=== PATIENT | male | born 1965 | race Caucasian/White ===

== ENCOUNTER → 2020-05-08 15:08 | Outpatient (BNVA) | payer MEDICARE, MEDICAID, SELFPAY | PROVIDERS: PCP Internal Medicine; Referring Provider Internal Medicine; Visit Provider Internal Medicine | DX: I26.99 Other pulmonary embolism without acute cor pulmonale (principal); Z51.81 Encounter for therapeutic drug level monitoring; Z79.01 Long term (current) use of anticoagulants | CPT/HCPCS: 85610; 99211 ==

== ENCOUNTER 2020-05-24 14:56 | Outpatient (REF) | payer MEDICARE, MEDICAID, SELFPAY ==
--- NOTE | 2020-05-24 15:10 | XR_ITS ---
EXAMINATION: XR knee LT 3V, XR knee RT 3V CLINICAL INFORMATION: Reason for Exam M25.561 - Pain in right knee COMPARISON: None available at the time of this dictation. TECHNIQUE: frontal, lateral, tunnel and patella sunrise views bilateral FINDINGS: BONES: No fracture or dislocation is present. JOINTS: Mild narrowing of medial joint space compartments bilaterally suggesting mild DJD. There is no joint effusion. 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 No joint effusions.
== END 2020-05-24 14:57 | disposition home or self-care (01) ==
LOC: HO.XRAY 14:56
PROVIDERS: Visit Provider Physician Assistant
DX: M25.561 Pain in right knee (principal)
CPT/HCPCS: 73562; 85610; 99211

== ENCOUNTER 2020-06-01 16:23 | Outpatient (REF) | payer MEDICARE, MEDICAID, SELFPAY ==
--- NOTE | 2020-06-01 16:29 | MR_ITS ---
EXAMINATION: MR LUMBAR SPINE WITHOUT AND WITH CONTRAST CLINICAL INFORMATION: Post laminectomy syndrome. Bilateral leg tingling. COMPARISON: Lumbar spine 04/19/2013, MRI lumbar spine 07/19/2010. TECHNIQUE: MRI of the lumbar spine was obtained using routine sequences with and without contrast. Intravenous contrast: Gadavist 10 mL. FINDINGS: There is normal lumbar lordosis. There is a disc prosthesis at L4-L5 disc level for fusion. The rest of the disc levels and the disc signal is preserved. The vertebral heights and alignment appear normal. The L1-L2, L2-L3, L3-L4 disc levels are unremarkable. The neural foramina are widely patent. At L4-L5 disc level, there is a disc prosthesis with a capacious thecal sac and widely patent neural foramina. At L5-S1 disc level, there is no significant disc bulge, herniation or spinal stenosis. There is slightly increased bone marrow signal in the L4-L5 vertebra related to paramagnetic artifact from the disc prosthesis. The rest of the bone marrow signal is normal. Conus medullaris terminates at T12-L1 disc level. Postcontrast, there is no abnormal enhancement seen in the bone marrow or the spinal canal. The paravertebral soft tissues are unremarkable. MR/MR lumbar spine wo/w con IMPRESSION: Disc prosthesis with postoperative changes L4-L5 disc level. The thecal sac and the neural foramina are capacious at this disc level. The rest of the disc levels and the rest of the MRI pre and postcontrast appear unremarkable.
== END 2020-06-01 16:24 | disposition home or self-care (01) ==
LOC: HO.MRI 16:23
PROVIDERS: Visit Provider Physician Assistant
DX: M96.1 Postlaminectomy syndrome, not elsewhere classified (principal)
CPT/HCPCS: 72158; A9585

== ENCOUNTER → 2020-06-12 14:11 | Outpatient (BNVA) | payer MEDICARE, MEDICAID, SELFPAY | PROVIDERS: PCP Internal Medicine; Visit Provider Internal Medicine | DX: I26.99 Other pulmonary embolism without acute cor pulmonale (principal); Z79.01 Long term (current) use of anticoagulants; Z51.81 Encounter for therapeutic drug level monitoring | CPT/HCPCS: 85610; 99211 ==

== ENCOUNTER → 2020-07-10 13:57 | Outpatient (BNVA) | payer MEDICARE, MEDICAID, SELFPAY | PROVIDERS: PCP Internal Medicine; Visit Provider Internal Medicine | DX: I26.99 Other pulmonary embolism without acute cor pulmonale (principal); Z51.81 Encounter for therapeutic drug level monitoring; Z79.01 Long term (current) use of anticoagulants | CPT/HCPCS: 85610; 99211 ==

== ENCOUNTER → 2020-08-07 13:04 | Outpatient (BNVA) | payer MEDICARE, MEDICAID, SELFPAY | PROVIDERS: PCP Internal Medicine; Visit Provider Internal Medicine | DX: I26.99 Other pulmonary embolism without acute cor pulmonale (principal); Z51.81 Encounter for therapeutic drug level monitoring; Z79.01 Long term (current) use of anticoagulants | CPT/HCPCS: 85610; 99211 ==

== ENCOUNTER → 2020-08-22 13:01 | Outpatient (BNVA) | payer MEDICARE, MEDICAID, SELFPAY | PROVIDERS: PCP Internal Medicine; Visit Provider Internal Medicine | DX: I26.99 Other pulmonary embolism without acute cor pulmonale (principal); Z51.81 Encounter for therapeutic drug level monitoring; Z79.01 Long term (current) use of anticoagulants | CPT/HCPCS: 85610; 99211 ==

== ENCOUNTER → 2020-08-25 09:49 | Outpatient (BNVA) | payer MEDICARE, MEDICAID, SELFPAY | PROVIDERS: PCP Internal Medicine; Visit Provider Internal Medicine | DX: I26.99 Other pulmonary embolism without acute cor pulmonale (principal); Z51.81 Encounter for therapeutic drug level monitoring; Z79.01 Long term (current) use of anticoagulants | CPT/HCPCS: 85610; 99211 ==

== ENCOUNTER → 2020-09-07 09:26 | Outpatient (BNVA) | payer MEDICARE, MEDICAID, SELFPAY | PROVIDERS: PCP Internal Medicine; Visit Provider Internal Medicine | DX: I26.99 Other pulmonary embolism without acute cor pulmonale (principal); Z51.81 Encounter for therapeutic drug level monitoring; Z79.01 Long term (current) use of anticoagulants | CPT/HCPCS: 85610; 99211 ==

== ENCOUNTER → 2020-09-20 10:31 | Outpatient (BNVA) | payer MEDICARE, MEDICAID, SELFPAY | PROVIDERS: PCP Internal Medicine; Visit Provider Internal Medicine | DX: I26.99 Other pulmonary embolism without acute cor pulmonale (principal); Z51.81 Encounter for therapeutic drug level monitoring; Z79.01 Long term (current) use of anticoagulants | CPT/HCPCS: 85610; 99211 ==

== ENCOUNTER → 2020-10-09 13:23 | Outpatient (BNVA) | payer MEDICARE, MEDICAID, SELFPAY | PROVIDERS: PCP Internal Medicine; Visit Provider Internal Medicine | DX: I26.99 Other pulmonary embolism without acute cor pulmonale (principal); Z51.81 Encounter for therapeutic drug level monitoring; Z79.01 Long term (current) use of anticoagulants | CPT/HCPCS: 85610; 99211 ==

== ENCOUNTER 2020-10-18 12:56 | Emergency (ER) | payer MEDICARE, MEDICAID, SELFPAY ==
--- NOTE | ~2020-10-18 | CT_ITS ---
EXAMINATION: CT SOFT TISSUE NECK WITH CONTRAST CLINICAL INFORMATION: Right facial swelling COMPARISON: None TECHNIQUE: Following the intravenous administration of 100 mL of Omnipaque 350 intravenous contrast, helical imaging was performed in the axial plane with generation of coronal and sagittal reformatted images. This CT examination was performed using dose optimization techniques as appropriate, variously including the following: *Automated exposure control *Adjustment of mA and/or kV according to patient size (this includes techniques or standardized protocols for targeted exams where dose is matched to indication/reason for exam; i.e. extremities or head) *Use of iterative reconstruction technique DLP: 695 mGy-cm FINDINGS: No cervical adenopathy is identified. The parotid glands are homogeneous in attenuation. The submandibular glands are normal. No contour abnormality or pathologic enhancement is seen within the oral cavity or pharyngeal mucosal space. There is minimal premaxillary soft tissue swelling slightly greater on the left. There is a soft tissue mass in the left maxilla extending inferiorly into the infratemporal fossa and superiorly into the maxillary sinus. It is solid 40 Hounsfield units and measures 2.3 x 2.2 x 2.3 cm in size.. There is erosion of left lateral maxillary wall from this lesion. The laryngeal structures are normal. The parapharyngeal fat is preserved. The carotid sheath vasculature opacify normally. No extra mucosal soft tissue mass or fluid collection is seen. No retropharyngeal fluid collection is seen. There are surgical debbie in the thyroid bed from total thyroidectomy. The superior mediastinum is unremarkable. There is mild emphysema changes in both lung apices. The mastoid air cells and visualized portions of the paranasal sinuses are well-aerated. Patient is completely edentulous. The temporomandibular joints are normal. No periapical disease is identified. No osseous abnormalities are seen. The imaged portions of the brain parenchyma are unremarkable. CT/CT soft tissue neck w con IMPRESSION: There is a moderate-sized solid lesion arising of the left posterior maxilla and projecting into the infratemporal fossa inferiorly and superiorly into the maxillary sinus. Measurement as shown above.. Differential diagnoses includes non dentigerous lesion arising from the maxilla of the sinus versus benign polyp or retention cyst. There is erosion of the left lateral maxillary wall. There is abnormality produces anterior maxillary soft tissue swelling left greater than right. Mild emphysema in both lung apices. Rest of the visualized CT neck exam is unremarkable.
[2020-10-18 13:00] VITALS: BP 166/86; PULSE 90; RESP 16; TEMP 36.5; O2SAT 96; BMI 28.7
[2020-10-18 14:09] LABS: MANUAL DIFF FLAG NO
[2020-10-18 14:10] LABS: Basophils Percent Auto 0.4 % (0-2); Eosinophils Absolute Auto 0.1 X10*3/uL (0.0-0.4); Eosinophils Percent Auto 0.9 % (0-4); Hematocrit 48.2 % (42-52); Hemoglobin 15.9 g/dl (14.0-18.0); Imm Gran Abs Auto 0.04 X10*3/uL (0.00-0.03); Imm Gran Pct Auto 0.5 % (0.0-0.4); Lymphocytes Absolute Auto 3.1 X10*3/uL (1.2-4.9); Lymphocytes Percent Auto 36.6 % (20-40); Mean Corpuscular Hemoglobin 32.1 pg (27.0-33.0); Mean Corpuscular Volume 97.4 fL (80-98); Mean Platelet Volume 8.2 fL (9.4-12.4); Monocytes Absolute Auto 0.4 X10*3/uL (0.1-1.2); Monocytes Percent Auto 4.6 % (2-11); Neutrophils Absolute Auto 4.9 X10*3/uL (2.0-8.3); Platelet Count 210 X10*3/uL (160-400); Red Blood Count 4.95 X10*6/uL (4.60-5.80); Red Cell Distribution Width 12.9 % (11.0-16.0); White Blood Count 8.6 X10*3/uL (4.8-10.8)
--- NOTE | 2020-10-18 14:14 | ED_ITS ---
HPI - Skin/Abscess/Foreign Bdy General Chief complaint: Ear Problems Stated complaint: facial swelling Time Seen by Provider: 10/18/20 13:26 Source: patient and family Mode of arrival: ambulatory Limitations: no limitations History of Present Illness HPI narrative: 55-year-old male with a past medical history of pulmonary embolism and DVT currently on Coumadin presenting to the ED with complaints of left facial swelling radiating to his left ear for the past few days worse today. Reports that he was seen by an urgent care on Friday and placed on a Z- Devaughn and no improvement and feels like his symptoms are worse. Reports that all his Teeth were extracted years ago although he does wear dentures. MD complaint: other (Facial swelling) Onset (ago): day(s) (Four days worse today) Tetanus up to date: unsure Location: face Severity: moderate Quality: aching Pain Consistency: constant Relieving factors: none Exacerbating factors: palpation Context: none Associated symptoms: other (Ear pain) Treatments prior to arrival: other (Took a Z-Devaughn and is still currently on a Z- Devaughn and no symptomatic relief or improvement symptoms are worsening) Related Data Home Medications Medication Instructions Recorded Confirmed buprenorphine 8 mg-naloxone 2 mg 30 mg SUBLINGUAL DAILY 05/18/20 10/18/20 sublingual film cholecalciferol (vitamin D3) 25 25 mcg PO DAILY 05/18/20 10/18/20 mcg (1,000 unit) tablet diazepam 10 mg tablet 10 mg PO BID PRN 05/18/20 10/18/20 docusate sodium 100 mg capsule 100 mg PO DAILY 05/18/20 10/18/20 levothyroxine 175 mcg tablet 175 mcg PO DAILY 05/18/20 10/18/20 oxcarbazepine 300 mg tablet 0 mg PO 05/18/20 10/18/20 prednisone 10 mg tablet 10 mg PO BID 05/18/20 09/20/20 testosterone 2 mg/24 hour 1 patch TOPICAL DAILY 05/18/20 10/18/20 transdermal 24 hour patch trazodone 150 mg tablet [id number] mg PO BEDTIME 05/18/20 10/18/20 Previous Rx's Medication Instructions Recorded warfarin 5 mg tablet 5 mg PO DAILY #180 tab 05/15/20 erythromycin 5 mg/gram (0.5 %) eye 1 applic OPHTHALMIC (EYE) QID #3.5 06/08/20 ointment g ofloxacin 0.3 % eye drops See Rx Instructions 06/08/20 OPHTHALMIC-LEFT .COMPLEX #10 ml allopurinol 300 mg tablet 300 mg PO DAILY #90 tab 06/12/20 azithromycin 500 mg tablet 500 mg PO DAILY 5 Days #5 tab 10/16/20 oxycodone-acetaminophen 10 mg-325 1 tab PO Q6H PRN #10 tab 10/16/20 mg tablet clindamycin HCl 600 mg PO TID 10 Days #60 cap 10/18/20 ibuprofen 800 mg PO Q8H PRN #14 tab 10/18/20 oxycodone 5 mg PO BID PRN #10 tab 10/18/20 Allergies Allergy/AdvReac Type Severity Reaction Status Date / Time Penicillins Allergy Severe ANAPHYLAXIS Verified 10/18/20 12:05 Sulfa (Sulfonamide Allergy Intermediate HIVES Verified 10/18/20 12:05 Antibiotics) Review of Systems Review of Systems: Constitutional : No Fever, No Chills, No changes in PO intake, No difficulty speaking, no recent dental procedure, no heat or cold intolerance while eating, no recent face trauma, ENT/Mouth : + Facial swelling, No swallowing difficulty, no change in voice, No jaw pain, no drooling, no trismus, no bleeding, no throat swelling, no lacerations, no tongue swelling, gum swelling, Eyes: No Eye Pain, No periorbital Swelling Cardiovascular : No Chest Pain, No SOB Respiratory : No Cough, No Sputum, No Wheezing, No Smoke Exposure, No Dyspnea Gastrointestinal : No Nausea, No Vomiting, No Diarrhea Genitourinary : No Dysuria Musculoskeletal : No Myalgias Skin : No rash, no facial redness, Neuro : No Weakness, No Numbness, No Headache Yes all other systems are reviewed and are negative [facility] Past Medical History Attestation statement: The following information was validated with the patient. Surgical History History of appendectomy History of hernia repair History of thyroidectomy Family History Family History Father Acute CVA (cerebrovascular accident) Diabetes Hypertension Mother Stroke Social History Social History Alcohol intake: never Smoking Status: Current every day smoker Use of substances other than those prescribed or required for medical reasons: No Advance Directives: Yes Advance Directives Information Provided: Yes Advance Directives on File: No Physical Exam Vital Signs: Vital Signs: Last Vital Signs Temp 97.8 F 10/18/20 16:36 Pulse 81 10/18/20 16:36 Resp 16 10/18/20 16:36 BP 137/84 10/18/20 16:36 Pulse Ox 96 10/18/20 16:36 Body Mass Index 28.7 vital signs have been reviewed as normal and appeared to be correct. Blood pressure hypertensive at 166/86. Heart rate normal. Respiration rate normal. Temperature normal. Oxygen saturation normal. Appearance: Alert. Oriented X3. No acute distress. Head: Normal external exam. Normocephalic. Atraumatic. Eyes: PERRLA. EOMI. Conjunctiva and sclera normal. Eyelids normal. ENT: EAC normal. TM's Normal. Pharynx normal. Uvula midline. Moist mucous membranes. No trismus noted. No drooling noted. No muffled voice noted. Dentition: Patient does not have any teeth. Gingival within normal limits. No fluctuance. Not consistent with peritonsillar abscess. Not consistent with dental abscess. No salivary duct obstruction noted. Neck: Normal inspection. Neck supple. FROM. No adenopathy. Thyroid Normal. No meningeal signs. No neck mass noted. Trachea midline. CVS: Normal heart rate and rhythm. Heart sound normal. No murmurs noted. Pulses normal throughout. Respiratory: No respiratory distress. Painless inspiration. Breath sounds normal. No wheezes/rales/rhonchi noted. Chest nontender. No accessory muscle usage noted or decreased air movement noted. Back: Full range of motion noted. Skin: Skin warm and dry. Normal skin color. Normal skin turgor. No rashes/lesions/lacerations noted. Extremities:Extremities exhibit normal range of motion. Extremities nontender. Neuro: Oriented X 3. No motor deficit. No sensory deficit. Reflexes normal. Course Course Course Narrative: 13:40pm - 55-year-old male with a past medical history of pulmonary embolism and DVT currently on Coumadin presenting to the ED with complaints of left facial swelling radiating to his left ear for the past few days worse today. - on exam patient is alert and oriented x3. Not in any acute distress. Mildly hypertensive at 166/86 of the [place] all other vitals are within normal limits. Patient is afebrile. Patient has mild soft tissue swelling and tenderness to palpation to left maxillary area. No erythema. Patient does not have any teeth they were all extracted no signs of dental abscess/peritonsillar abscess. No gingival swelling. Posterior pharynx is within normal limits. Uvula is midline. Patient is tolerating secretions well. External canal within normal limits no evidence of otitis media. Tympanic membranes within normal limits no evidence of otitis media or any other acute processes. - will obtain labs and a CT scan of neck soft tissue to evaluate for possible abscess then re-evaluate. Reevaluation(s) Reevaluation #1: - all labs within normal limits. - CT scan of soft tissue neck revealed a moderate size solid lesion arising of the left posterior maxillary and projecting into the infratemporal fossa inferiorly and superiorly into the maxillary sinus - therefore consulted with Dr. Mayen ENT and he reported that the patient will need further evaluation and treatment and that I should contact [facility] for further evaluation and treatment and possible transfer for biopsy although I consulted with ENT at [facility] Dr. Brooks and he reported at this time the patient does not need to be transferred to [facility] or admitted that he will need outpatient workup although that no one in this area specializes in the sinuses therefore that he will need to be referred to [place] for further evaluation treatment on outpatient basis and he reported that the patient's PCP or Dr. Mayen can facilitate this therefore I gave a copy of the patient's CT scan results to the patient and his is at bedside and instructed him to call his PCP tomorrow and the ear nose and throat doctor for further evaluation treatment so they can refer him to [place] for further evaluation treatment as an outpatient basis. Patient understood this and agree with the plan. Will DC home with antibiotics as patient is requesting it and symptomatic treatment and instructions to follow-up tomorrow. Time: 16:45 MDM - Skin/Abscess/Foreign Bdy Medical Records Attestation: I reviewed the patient's medical records. Lab Data Attestation: I reviewed the patient's lab results. Result diagrams: 10/18/20 14:03 10/18/20 14:03 Labs: Lab Results 10/18/20 10/18/20 10/18/20 Range/Units 14:03 14:03 14:03 WBC 8.6 (4.8-10.8) X10*3/uL RBC 4.95 (4.60-5.80) X10*6/uL Hgb 15.9 (14.0-18.0) g/dl Hct 48.2 (42-52) % MCV 97.4 (80-98) fL MCH 32.1 (27.0-33.0) pg MCHC 33.0 (31.0-36.0) g/dl RDW 12.9 (11.0-16.0) % Plt Count 210 (160-400) X10*3/uL MPV 8.2 L (9.4-12.4) fL Immature Gran % (Auto) 0.5 H (0.0-0.4) % Neut % (Auto) 57.0 (45-73) % Lymph % (Auto) 36.6 (20-40) % Emmet % (Auto) 4.6 (2-11) % Eos % (Auto) 0.9 (0-4) % Baso % (Auto) 0.4 (0-2) % Lymph # (Auto) 3.1 (1.2-4.9) X10*3/uL Emmet # (Auto) 0.4 (0.1-1.2) X10*3/uL Eos # (Auto) 0.1 (0.0-0.4) X10*3/uL Baso # (Auto) 0.0 (0.0-0.2) X10*3/uL Abs Immat Gran (auto) 0.04 H (0.00-0.03) X10*3/uL Absolute Neuts (auto) 4.9 (2.0-8.3) X10*3/uL Absolute Nucleated RBC 0.000 (0.0-0.012) X10*3/uL Nucleated RBC % (auto) 0.0 (0.0-0.2) /100WBC PT 38.9 H (10.8-13.0) SEC INR 3.2 H (0.9-1.1) Sodium 138 (135-145) mmol/L Potassium 3.8 (3.3-5.1) mmol/L Chloride 96 (96-108) mmol/L Carbon Dioxide 35 H (22-29) mmol/L Anion Gap 11 L (12-20) BUN 11 (9-16) mg/dL Creatinine 1.01 (0.5-1.4) mg/dL Estim Creat Clear Calc 106.7 Estimated GFR > 60 Random Glucose 136 H (60-115) mg/dL Calcium 9.0 (8.4-10.2) mg/dL Imaging Data Neck soft tissue CT: Attestation: I personally reviewed and interpreted this imaging study as follows: Radiologist's impression: FINDINGS: No cervical adenopathy is identified. The parotid glands are homogeneous in attenuation. The submandibular glands are normal. No contour abnormality or pathologic enhancement is seen within the oral cavity or pharyngeal mucosal space. There is minimal premaxillary soft tissue swelling slightly greater on the left. There is a soft tissue mass in the left maxilla extending inferiorly into the infratemporal fossa and superiorly into the maxillary sinus. It is solid 40 Hounsfield units and measures 2.3 x 2.2 x 2.3 cm in size.. There is erosion of left lateral maxillary wall from this lesion. The laryngeal structures are normal. The parapharyngeal fat is preserved. The carotid sheath vasculature opacify normally. No extra mucosal soft tissue mass or fluid collection is seen. No retropharyngeal fluid collection is seen. There are surgical debbie in the thyroid bed from total thyroidectomy. The superior mediastinum is unremarkable. There is mild emphysema changes in both lung apices. The mastoid air cells and visualized portions of the paranasal sinuses are well-aerated. Patient is completely edentulous. The temporomandibular joints are normal. No periapical disease is identified. No osseous abnormalities are seen. The imaged portions of the brain parenchyma are unremarkable. CT/CT soft tissue neck w con IMPRESSION: There is a moderate-sized solid lesion arising of the left posterior maxilla and projecting into the infratemporal fossa inferiorly and superiorly into the maxillary sinus. Measurement as shown above.. Differential diagnoses includes non dentigerous lesion arising from the maxilla of the sinus versus benign polyp or retention cyst. There is erosion of the left lateral maxillary wall. There is abnormality produces anterior maxillary soft tissue swelling left greater than right. Mild emphysema in both lung apices. Rest of the visualized CT neck exam is unremarkable. Critical Care Time Critical Care Time Critical Care Time: Yes Total Critical Care Time: 60 Attestation: I personally attest to this time spent taking care of the patient Discharge Plan Discharge Clinical Impression: Maxillary sinus mass Patient Disposition: Home, Self-Care Instructions: Needle Biopsy (DC) Additional Instructions: I consulted with ENT at [facility] Dr. Brooks and he reported at this time you do not need to be transferred or admitted although you will need to have outpatient workup and he reported your PCP can facilitate this or Dr. Mayen ear nose and throat doctor and that they need to refer you to [place] for further evaluation and treatment. Prescriptions: New clindamycin HCl 300 mg capsule 600 mg PO TID 10 Days Qty: 60 RF: 0 ibuprofen 800 mg tablet 800 mg PO Q8H PRN (Reason: pain) Qty: 14 RF: 0 oxycodone 5 mg tablet 5 mg PO BID PRN (Reason: pain) Qty: 10 RF: 0 No Action warfarin 5 mg tablet 5 mg PO DAILY Qty: 180 RF: 8 allopurinol 300 mg tablet 300 mg PO DAILY Qty: 90 RF: 8 prednisone 10 mg tablet 10 mg PO BID RF: 0 Androderm 2 mg/24 hour patch 24 hour 1 patch topical DAILY RF: 0 buprenorphine-naloxone 8-2 mg film 30 mg sublingual DAILY RF: 0 diazepam 10 mg tablet 10 mg PO BID PRNRF: 0 trazodone 150 mg tablet [id number] mg PO BEDTIME RF: 0 oxcarbazepine 300 mg tablet 0 mg PO RF: 0 levothyroxine 175 mcg tablet 175 mcg PO DAILY RF: 0 cholecalciferol (vitamin D3) 25 mcg (1,000 unit) tablet 25 mcg PO DAILY RF: 0 docusate sodium 100 mg capsule 100 mg PO DAILY RF: 0 ofloxacin [Ocuflox] 0.3 % drops See Rx Instructions ophthalmic-Left .COMPLEX Qty: 10 RF: 0 erythromycin 5 mg/gram (0.5 %) ointment 1 applic ophthalmic (eye) QID Qty: 3.5 RF: 1 azithromycin 500 mg tablet 500 mg PO DAILY 5 Days Qty: 5 RF: 0 oxycodone-acetaminophen [Percocet] 10-325 mg tablet 1 tab PO Q6H PRN (Reason: pain) Qty: 10 RF: 0 Referrals: Obi Ramon MD [Primary Care Provider] - 1 day (Call tomorrow for appropriate follow-up appointment [facility] ENT recommended they refer you to [place] for further evaluation treatment) Gibson Mayen [Physician] - 1 day (Call tomorrow for appropriate follow-up appointment [facility] ENT recommended they refer you to [place] for further evaluation treatment) Print Language: Persian
[2020-10-18 14:16] LABS: INTERNATIONAL NORM RATIO 3.2 (0.9-1.1); Prothrombin Time 38.9 SEC (10.8-13.0)
[2020-10-18] MEDS: oxyCODONE HCl Immed Release 5 MG TABLET PO (14:33)
[2020-10-18] MEDS: 0.9 % Sodium Chloride 1,000 ML 999 ML IVCONT (14:34)
[2020-10-18 14:46] LABS: Anion Gap 11 (12-20); Blood Urea Nitrogen 11 mg/dL (9-16); Carbon Dioxide 35 mmol/L (22-29); Chloride 96 mmol/L (96-108); Creatinine Clr Calc Pharmacy 106.7; Estimated Glomerular Filt Rate > 60; Glucose Random 136 mg/dL (60-115); Potassium 3.8 mmol/L (3.3-5.1); Sodium 138 mmol/L (135-145)
[2020-10-18 16:36] VITALS: BP 137/84; PULSE 81; RESP 16; TEMP 36.6; O2SAT 96
--- NOTE | 2020-10-18 16:52 | PC.NURSE ---
VIELKA CHAPA CALLED SPOKE WITH [facility] AND THEY WILL NOT EXCEPT PT HE WILL NEED TO GO TO OUT PT TO DR. ANTONIO AND BE SENT TO A SPECIALIST OUT IN [facility]. PT AGREED TO PLAN OF CARE.
== END 2020-10-18 17:06 | disposition home or self-care (01) ==
PROVIDERS: Physician Assistant Medical; Emergency Provider Internal Medicine; PCP Internal Medicine
DX: J34.89 Other specified disorders of nose and nasal sinuses (principal); K08.109 Complete loss of teeth, unspecified cause, unspecified class; J43.9 Emphysema, unspecified; F17.200 Nicotine dependence, unspecified, uncomplicated; Z86.711 Personal history of pulmonary embolism; Z86.718 Personal history of other venous thrombosis and embolism; Z79.01 Long term (current) use of anticoagulants
CPT/HCPCS: 36415; 70491; 80048; 85025; 85610; 96360; 99284; 99291; Q9967

== ENCOUNTER → 2020-10-23 13:28 | Outpatient (BNVA) | payer MEDICARE, MEDICAID, SELFPAY | PROVIDERS: PCP Internal Medicine; Visit Provider Internal Medicine | DX: I26.99 Other pulmonary embolism without acute cor pulmonale (principal); Z51.81 Encounter for therapeutic drug level monitoring; Z79.01 Long term (current) use of anticoagulants | CPT/HCPCS: 85610; 99211 ==

== ENCOUNTER → 2020-10-31 13:06 | Outpatient (BNVA) | payer MEDICARE, MEDICAID, SELFPAY | PROVIDERS: PCP Internal Medicine; Visit Provider Internal Medicine | DX: I26.99 Other pulmonary embolism without acute cor pulmonale (principal); Z51.81 Encounter for therapeutic drug level monitoring; Z79.01 Long term (current) use of anticoagulants | CPT/HCPCS: 85610; 99211 ==

== ENCOUNTER → 2020-11-07 13:14 | Outpatient (BNVA) | payer MEDICARE, MEDICAID, SELFPAY | PROVIDERS: PCP Internal Medicine; Visit Provider Internal Medicine | DX: I27.82 Chronic pulmonary embolism (principal); Z79.01 Long term (current) use of anticoagulants; Z51.81 Encounter for therapeutic drug level monitoring | CPT/HCPCS: 85610; 99211 ==

== ENCOUNTER → 2020-11-21 13:39 | Outpatient (BNVA) | payer MEDICARE, MEDICAID, SELFPAY | PROVIDERS: PCP Internal Medicine; Visit Provider Internal Medicine ==

== ENCOUNTER → 2020-12-04 13:49 | Outpatient (BNVA) | payer MEDICARE, MEDICAID, SELFPAY | PROVIDERS: PCP Internal Medicine; Visit Provider Internal Medicine | DX: I26.99 Other pulmonary embolism without acute cor pulmonale (principal); Z51.81 Encounter for therapeutic drug level monitoring; Z79.01 Long term (current) use of anticoagulants | CPT/HCPCS: 85610; 99211 ==

== ENCOUNTER → 2020-12-28 14:51 | Outpatient (BNVA) | payer MEDICARE, MEDICAID, SELFPAY | PROVIDERS: PCP Internal Medicine; Visit Provider Internal Medicine | DX: I26.99 Other pulmonary embolism without acute cor pulmonale (principal); Z51.81 Encounter for therapeutic drug level monitoring; Z79.01 Long term (current) use of anticoagulants | CPT/HCPCS: 85610; 99211 ==

== ENCOUNTER → 2021-02-07 13:09 | Outpatient (BNVA) | payer MEDICARE, MEDICAID, SELFPAY | PROVIDERS: PCP Internal Medicine; Visit Provider Internal Medicine | DX: I26.99 Other pulmonary embolism without acute cor pulmonale (principal); Z51.81 Encounter for therapeutic drug level monitoring; Z79.01 Long term (current) use of anticoagulants | CPT/HCPCS: 85610; 99211 ==

== ENCOUNTER 2021-02-13 13:40 | Outpatient (REF) | payer MEDICARE, MEDICAID, SELFPAY ==
--- NOTE | ~2021-02-13 | XR_ITS ---
EXAMINATION: XR CHEST CLINICAL INFORMATION: Cough. COMPARISON: None TECHNIQUE: 2 views of the chest were obtained. FINDINGS: The lungs are hyperinflated but clear of acute process. Heart size and pulmonary vascularity is normal. No gross bony abnormality seen. XR/XR chest 2V IMPRESSION: Hyperinflated lungs without acute process.
== END 2021-02-13 13:41 | disposition home or self-care (01) ==
LOC: HO.HMGCX 13:40
PROVIDERS: PCP Internal Medicine; Visit Provider Nurse Practitioner Family
DX: R05 Cough (principal)
CPT/HCPCS: 71046

== ENCOUNTER → 2021-02-15 13:11 | Outpatient (BNVA) | payer MEDICARE, MEDICAID, SELFPAY | PROVIDERS: PCP Internal Medicine; Visit Provider Internal Medicine | DX: I26.99 Other pulmonary embolism without acute cor pulmonale (principal); Z51.81 Encounter for therapeutic drug level monitoring; Z79.01 Long term (current) use of anticoagulants | CPT/HCPCS: 85610; 99211 ==

== ENCOUNTER → 2021-02-20 13:37 | Outpatient (BNVA) | payer MEDICARE, MEDICAID, SELFPAY | PROVIDERS: PCP Internal Medicine; Visit Provider Internal Medicine | DX: I26.99 Other pulmonary embolism without acute cor pulmonale (principal); Z51.81 Encounter for therapeutic drug level monitoring; Z79.01 Long term (current) use of anticoagulants | CPT/HCPCS: 85610; 99211 ==

== ENCOUNTER → 2021-02-26 13:23 | Outpatient (BNVA) | payer MEDICARE, MEDICAID, SELFPAY | PROVIDERS: PCP Internal Medicine; Visit Provider Internal Medicine | DX: I26.99 Other pulmonary embolism without acute cor pulmonale (principal); Z51.81 Encounter for therapeutic drug level monitoring; Z79.01 Long term (current) use of anticoagulants | CPT/HCPCS: 85610; 99211 ==

== ENCOUNTER → 2021-03-14 16:29 | Outpatient (BNVA) | payer MEDICARE, MEDICAID, SELFPAY | PROVIDERS: PCP Internal Medicine; Visit Provider Internal Medicine | DX: Z13.89 Encounter for screening for other disorder (principal) | CPT/HCPCS: Q3014 ==

== ENCOUNTER 2021-03-16 13:25 | Emergency (ER) | payer MEDICARE, MEDICAID, SELFPAY ==
--- NOTE | 2021-03-16 | ECG_ITS ---
Test Reason : CHEST PAIN Blood Pressure : / mmHG Vent. Rate : 097 BPM Atrial Rate : 097 BPM P-R Int : 134 ms QRS Dur : 088 ms QT Int : 352 ms P-R-T Axes : 029 042 046 degrees QTc Int : 447 ms Normal sinus rhythm ST & T wave abnormality, consider anterior ischemia Abnormal ECG When compared with ECG of 10-APR-2018 10:38, No significant change was found Referred By: Generic ED Physician Electronically Signed By:MICHAEL MCKEON
--- NOTE | ~2021-03-16 | CT_ITS ---
EXAMINATION: CT ANGIOGRAM OF THE CHEST WITH AND WITHOUT CONTRAST (CT PULMONARY ANGIOGRAM FOR PE) CLINICAL INFORMATION: Reason for Exam chest pain, pmh PE COMPARISON: CTA chest 06/10/2014, chest radiographs 02/13/2021 TECHNIQUE: Prior to contrast administration, noncontrast localization images were obtained. Subsequently, multidetector volumetric imaging was performed from the thoracic inlet to below the diaphragms following the administration of 78 mL Omnipaque 350 intravenous contrast. Sagittal, coronal, and MIP oblique sagittal reformatted images were obtained on the CT workstation, uploaded to PACS, and reviewed. This CT examination was performed using dose optimization techniques as appropriate, variously including the following: *Automated exposure control *Adjustment of mA and/or kV according to patient size (this includes techniques or standardized protocols for targeted exams where dose is matched to indication/reason for exam; i.e. extremities or head) *Use of iterative reconstruction technique Total exam dose-length product 360 mGy-cm FINDINGS: QUALITY OF STUDY/CONTRAST BOLUS: Satisfactory. PULMONARY ARTERIES: No central or segmental pulmonary emboli. THORACIC AORTA: No aneurysm or dissection. LUNG: There is dependent atelectasis. No lobar or segmental airspace consolidation or groundglass opacities. There are some scattered small bilateral subpleural apical blebs. No hyperinflation. PLEURA: No pleural effusion or pneumothorax. MEDIASTINUM: Normal heart size. No pericardial effusion. No hilar or mediastinal lymphadenopathy. No evidence of septal bowing or right heart strain. CHEST WALL/AXILLA: No axillary or internal mammary lymphadenopathy. OSSEOUS STRUCTURES: No acute or suspicious osseous abnormality. 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 Prior measurement 2.[address] 2013. No reflux of contrast into the hepatic veins to suggest elevated right heart pressures. CT/CT angio chest PE protocol IMPRESSION: 1. No pulmonary embolism. No thoracic aortic dissection. 2. No lobar or segmental airspace consolidation, pneumothorax, or effusion. VTE: negative
[2021-03-16 13:34] VITALS: BP 106/79; PULSE 103; RESP 22; TEMP 36.6; O2SAT 96; BMI 29.7
--- NOTE | 2021-03-16 14:46 | ED.CHESTPAIN ---
HPI - Chest Pain General Chief Complaint: Chest Pain Stated Complaint: chest pain post surgery Time Seen by Provider: 03/16/21 14:12 Source: patient and family () Mode of arrival: ambulatory Limitations: no limitations History of Present Illness HPI narrative: 55-year-old male with a past medical history of pulmonary embolism, and DVT, who had surgery for sinus mass March 08, who presents for chest pain that started at 11:30 a.m., about 3 hours ago. Chest pain lasted for about 10 minutes, and it was 70s of lower sternum of patient's chest. He did not feel short of breath, or nausea. He has been pressing on has sternum, and states when the process he can recreated chest pain. No pleuritic pain, feels fatigued. Patient had a cardiac catheterization 1 and half years ago, reports it was negative. Patient is on Coumadin and Lovenox. MD complaint: chest pain Related Data Home Medications Medication Instructions Recorded Confirmed buprenorphine 8 mg-naloxone 2 mg 24 mg SUBLINGUAL DAILY 05/18/20 03/14/21 sublingual film cholecalciferol (vitamin D3) 25 25 mcg PO DAILY 05/18/20 03/14/21 mcg (1,000 unit) tablet diazepam 10 mg tablet 10 mg PO BID PRN 05/18/20 03/14/21 levothyroxine 175 mcg tablet 175 mcg PO DAILY 05/18/20 03/14/21 prednisone 10 mg tablet 10 mg PO BID 05/18/20 03/14/21 testosterone 2 mg/24 hour 1 patch TOPICAL DAILY 05/18/20 03/14/21 transdermal 24 hour patch trazodone 150 mg tablet [id number] mg PO BEDTIME 05/18/20 03/14/21 calcium carbonate 600 mg (1,500 2 tab PO DAILY 02/07/21 03/14/21 mg)-vitamin D3 400 unit tablet Previous Rx's Medication Instructions Recorded warfarin 5 mg tablet 5 mg PO DAILY #180 tab 05/15/20 allopurinol 300 mg tablet 300 mg PO DAILY #90 tab 06/12/20 acetaminophen 500 mg tablet 1,000 mg PO QID PRN #14 tab 10/18/20 (Tylenol Extra Strength) albuterol sulfate 2.5 mg INHALATION TID #90 ml 12/13/20 albuterol sulfate 90 mcg/actuation 2 puff INHALATION Q4-6H PRN #8.5 g 12/14/20 aerosol inhaler (ProAir HFA) prednisone 20 mg tablet 20 mg PO DAILY 9 Days #18 tab 02/13/21 nystatin 100,000 unit/mL oral 5 ml PO QID 14 Days #300 ml 02/20/21 suspension enoxaparin 100 mg/mL subcutaneous 100 mg SUBCUT Q12H #10 ml 02/23/21 syringe (Lovenox) Allergies Allergy/AdvReac Type Severity Reaction Status Date / Time Penicillins Allergy Severe ANAPHYLAXIS Verified 02/20/21 15:11 Sulfa (Sulfonamide Allergy Intermediate HIVES Verified 02/20/21 15:11 Antibiotics) Review of Systems Constitutional: Constitutional: Denies body ache(s), Denies chills, Reports fatigue, Denies fever(s), Denies headache(s), Denies malaise and Denies weakness Eyes: Eyes: Denies change in vision and Denies diplopia ENT: Denies vertigo, Denies dizziness, Denies otalgia, Denies headache(s), Denies mouth pain, Denies post nasal drip, Denies sinus pain, Denies sinus pressure, Denies sore throat and Denies throat swelling Cardiovascular: Cardiovascular: Reports chest pain, Reports chest pain at rest, Denies syncope, Denies leg edema, Denies lightheadedness, Denies Loss of Consciousness, Denies palpitations and Denies dyspnea Respiratory: Respiratory: Denies chest congestion, Denies cough, Denies dyspnea and Denies wheezing Gastrointestinal: Gastrointestinal: Denies abdominal pain, Denies hematochezia, Denies constipation, Denies diarrhea, Denies nausea and Denies vomiting Musculoskeletal: Musculoskeletal: Reports no additional musculoskeletal complaints Integumentary/Breasts: Skin/Breast: Denies erythema and Denies rash Neurologic: Denies confusion, Denies vertigo, Denies dizziness, Denies syncope, Denies headache(s) and Denies weakness Psychiatric: Psychiatric: Denies anxiety, Denies confusion and Denies depression Endocrine: Endocrine: Reports fatigue and Denies palpitations Allergic/Immunologic: Allergic/Immunologic: Denies throat swelling and Denies wheezing PMFSH Past Medical History Medical History Gout Surgical History History of appendectomy History of hernia repair History of thyroidectomy Family History Family History Father Acute CVA (cerebrovascular accident) Diabetes Hypertension Mother Stroke Other Substance abuse Social History Social History Housing: [facility] Alcohol intake: never Patient Tobacco Use Status: Current everyday Tobacco user Cigarette Packs Per Day: 1 Cigarettes Per Day: 20.0 Smoked in Last 30 Days: Yes Use of substances other than those prescribed or required for medical reasons: No Advance Directives: No Advance Directives Information Provided: No service: No Current occupational status: disabled Physical Exam Vital Signs: Vital Signs: Last Vital Signs Temp 98.0 F 03/16/21 15:49 Pulse 75 03/16/21 15:49 Resp 14 03/16/21 15:49 BP 112/67 03/16/21 15:49 Pulse Ox 96 03/16/21 15:49 Body Mass Index 29.7 Const: General: No confusion Nutritional Appearance: well nourished Orientation/consciousness: No confusion Limitations: no limitations HENMT: Head: Yes normal to inspection, Yes normocephalic and Yes atraumatic Ears: hearing grossly normal bilaterally, external ears normal, TM's normal bilaterally and EAC's normal General nose exam: Normal external nose present Face and sinus: Yes normal facial exam and Yes sinuses nontender Mouth: Normal oral and palatal mucosa present Throat: Yes posterior oropharynx normal Eyes: Conjunctivae: conjunctivae normal Pupils: Equal, round and reactive pupils present EOM: EOMs intact bilaterally Neck: Neck: Yes full ROM, Yes no lymphadenopathy and Yes supple Resp: Effort & Inspection: normal respiratory effort and able to speak in complete sentences Auscultation: clear to auscultation bilaterally, no crackles, no rales, no rhonchi and no wheezes Cardio: Rate: regular rate Rhythm: regular rhythm Heart sounds: S1 normal heart sound present and S2 normal heart sound present GI: Inspection: Yes normal to inspection Palpation (GI): Soft to palpation, nontender, no guarding and not rigid Percussion: Yes normal to percussion Auscultation: normal bowel sounds Skin: General skin exam: no rashes or lesions noted Neuro: General: No confusion Cranial nerves: Yes Equal, round and reactive pupils present Extrem: General: Yes normal to inspection and Yes full ROM Psych: Appearance: grossly normal Affect: normal affect Attitude: cooperative Thought process: Normal thought process present Course Course Course Narrative: Labs are remarkable only for an INR of 1.3. Initial troponin is negative, EKG is unremarkable. CTA shows 1. No pulmonary embolism. No thoracic aortic dissection. 2. No lobar or segmental airspace consolidation, pneumothorax, or effusion. Discussed with patient that I would like him to stay for 2nd troponin, at the 6 hour juan a after his symptoms started. Patient refused to stay for 2nd troponin. Patient counseled repeatedly that this could be cardiac, patient adamantly refused to stay for further workup now that he knows that he does not have a pulmonary embolism. MDM - Chest Pain Lab Data Result diagrams: 03/16/21 15:17 03/16/21 15:17 Labs: Lab Results 03/16/21 03/16/21 03/16/21 Range/Units 15:17 15:17 15:17 WBC 5.1 (4.8-10.8) X10*3/uL RBC 4.53 L (4.60-5.80) X10*6/uL Hgb 14.7 (14.0-18.0) g/dl Hct 44.4 (42-52) % MCV 98.0 (80-98) fL MCH 32.5 (27.0-33.0) pg MCHC 33.1 (31.0-36.0) g/dl RDW 12.2 (11.0-16.0) % Plt Count 224 (160-400) X10*3/uL MPV 8.5 L (9.4-12.4) fL Immature Gran % (Auto) 0.6 H (0.0-0.4) % Neut % (Auto) 39.7 L (45-73) % Lymph % (Auto) 50.8 H (20-40) % Haralson % (Auto) 7.3 (2-11) % Eos % (Auto) 1.2 (0-4) % Baso % (Auto) 0.4 (0-2) % Lymph # (Auto) 2.6 (1.2-4.9) X10*3/uL Har[place]on # (Auto) 0.4 (0.1-1.2) X10*3/uL Eos # (Auto) 0.1 (0.0-0.4) X10*3/uL Baso # (Auto) 0.0 (0.0-0.2) X10*3/uL Abs Immat Gran (auto) 0.03 (0.00-0.03) X10*3/uL Absolute Neuts (auto) 2.0 (2.0-8.3) X10*3/uL Absolute Nucleated RBC 0.000 (0.0-0.012) X10*3/uL Nucleated RBC % (auto) 0.0 (0.0-0.2) /100WBC PT 14.7 H (9.9-13.0) SEC INR 1.3 H (0.9-1.1) APTT 52.6 H (24.1-38.0) SEC Sodium 137 (135-145) mmol/L Potassium 4.2 (3.3-5.1) mmol/L Chloride 100 (96-108) mmol/L Carbon Dioxide 31 H (22-29) mmol/L Anion Gap 10 L (12-20) BUN 9 (9-16) mg/dL Creatinine 0.85 (0.5-1.4) mg/dL Estim Creat Clear Calc 128.8 Estimated GFR > 60 Random Glucose 116 H (60-115) mg/dL Calcium 9.1 (8.4-10.2) mg/dL Total Bilirubin < 0.2 (0.0-1.0) mg/dL AST 28 (5-37) U/L ALT 28 (0-40) U/L Alkaline Phosphatase 78 (39-117) U/L Troponin I High Sens (<3.5-35.0) ng/L Total Protein 6.5 (6.5-8.0) g/dL Albumin 4.1 (3.5-5.0) g/dL 03/16/21 Range/Units 15:17 WBC (4.8-10.8) X10*3/uL RBC (4.60-5.80) X10*6/uL Hgb (14.0-18.0) g/dl Hct (42-52) % MCV (80-98) fL MCH (27.0-33.0) pg MCHC (31.0-36.0) g/dl RDW (11.0-16.0) % Plt Count (160-400) X10*3/uL MPV (9.4-12.4) fL Immature Gran % (Auto) (0.0-0.4) % Neut % (Auto) (45-73) % Lymph % (Auto) (20-40) % Haralson % (Auto) (2-11) % Eos % (Auto) (0-4) % Baso % (Auto) (0-2) % Lymph # (Auto) (1.2-4.9) X10*3/uL Haralson # (Auto) (0.1-1.2) X10*3/uL Eos # (Auto) (0.0-0.4) X10*3/uL Baso # (Auto) (0.0-0.2) X10*3/uL Abs Immat Gran (auto) (0.00-0.03) X10*3/uL Absolute Neuts (auto) (2.0-8.3) X10*3/uL Absolute Nucleated RBC (0.0-0.012) X10*3/uL Nucleated RBC % (auto) (0.0-0.2) /100WBC PT (9.9-13.0) SEC INR (0.9-1.1) APTT (24.1-38.0) SEC Sodium (135-145) mmol/L Potassium (3.3-5.1) mmol/L Chloride (96-108) mmol/L Carbon Dioxide (22-29) mmol/L Anion Gap (12-20) BUN (9-16) mg/dL Creatinine (0.5-1.4) mg/dL Estim Creat Clear Calc Estimated GFR Random Glucose (60-115) mg/dL Calcium (8.4-10.2) mg/dL Total Bilirubin (0.0-1.0) mg/dL AST (5-37) U/L ALT (0-40) U/L Alkaline Phosphatase (39-117) U/L Troponin I High Sens < 3.5 (<3.5-35.0) ng/L Total Protein (6.5-8.0) g/dL Albumin (3.5-5.0) g/dL ECG Data ECG #1: Interpretation: EKG shows no changes from prior, normal sinus, with a heart rate of 97. ID interval 134, QRS 88, QTC 4 7. Normal axis, attendings note states right bundle-branch block, patient has ST depressions V1 V2 V3 that are unchanged from prior. Discharge Plan Discharge Clinical Impression: Chest pain Qualifiers: Chest pain type: unspecified Qualified Code(s): R07.9 - Chest pain, unspecified Patient Disposition: Left Against Medical Advice Instructions: Chest Pain (ED) Additional Instructions: Please call your primary care provider on Friday for follow-up appointment from today's emergency room visit. Your CT was negative for pulmonary embolism, but you did not stay to fully evaluate a cardiac cause severe chest pain today. You are leaving against medical advice. Please return to emergency room for shortness of breath, chest pain, or any other new or concerning symptoms. Prescriptions: No Action warfarin 5 mg tablet 5 mg PO DAILY Qty: 180 RF: 8 allopurinol 300 mg tablet 300 mg PO DAILY Qty: 90 RF: 8 albuterol sulfate 2.5 mg /3 mL (0.083 %) solution for nebulization 2.5 mg inhalation TID Qty: 90 RF: 8 albuterol sulfate [ProAir HFA] 90 mcg/actuation HFA aerosol inhaler 2 puff inhalation Q4-6H PRN (Reason: shortness of breath or wheezing) Qty: 8.5 RF: 6 acetaminophen [Tylenol Extra Strength] 500 mg tablet 1,000 mg PO QID PRN (Reason: fever or pain) Qty: 14 RF: 0 prednisone 10 mg tablet 10 mg PO BID RF: 0 Androderm 2 mg/24 hour patch 24 hour 1 patch topical DAILY RF: 0 buprenorphine-naloxone 8-2 mg film 24 mg sublingual DAILY RF: 0 diazepam 10 mg tablet 10 mg PO BID PRN (Reason: Anxiety) RF: 0 trazodone 150 mg tablet [id number] mg PO BEDTIME RF: 0 levothyroxine 175 mcg tablet 175 mcg PO DAILY RF: 0 cholecalciferol (vitamin D3) 25 mcg (1,000 unit) tablet 25 mcg PO DAILY RF: 0 nystatin 100,000 unit/mL suspension 5 ml PO QID 14 Days Qty: 300 RF: 0 enoxaparin [Lovenox] 100 mg/mL syringe 100 mg subcut Q12H Qty: 10 RF: 2 prednisone 20 mg tablet 20 mg PO DAILY 9 Days Qty: 18 RF: 0 calcium carbonate-vitamin D3 600 mg(1,500mg) -400 unit tablet 2 tab PO DAILY RF: 0 Interventions: ED Discharge Assessment Last Done: 03/16/21 17:17 Discharge Date/Time: 03/16/21 17:17
[2021-03-16] MEDS: 0.9 % Sodium Chloride 500 ML 999 ML IV (15:20)
[2021-03-16 15:26] LABS: MANUAL DIFF FLAG NO
[2021-03-16 15:29] LABS: Basophils Percent Auto 0.4 % (0-2); Eosinophils Absolute Auto 0.1 X10*3/uL (0.0-0.4); Eosinophils Percent Auto 1.2 % (0-4); Hematocrit 44.4 % (42-52); Hemoglobin 14.7 g/dl (14.0-18.0); Imm Gran Abs Auto 0.03 X10*3/uL (0.00-0.03); Imm Gran Pct Auto 0.6 % (0.0-0.4); Lymphocytes Absolute Auto 2.6 X10*3/uL (1.2-4.9); Lymphocytes Percent Auto 50.8 % (20-40); Mean Corpuscular HGB Conc 33.1 g/dl (31.0-36.0); Mean Corpuscular Hemoglobin 32.5 pg (27.0-33.0); Mean Platelet Volume 8.5 fL (9.4-12.4); Monocytes Absolute Auto 0.4 X10*3/uL (0.1-1.2); Monocytes Percent Auto 7.3 % (2-11); Neutrophils Percent Auto 39.7 % (45-73); Platelet Count 224 X10*3/uL (160-400); Red Blood Count 4.53 X10*6/uL (4.60-5.80); Red Cell Distribution Width 12.2 % (11.0-16.0); White Blood Count 5.1 X10*3/uL (4.8-10.8)
[2021-03-16 15:36] LABS: INTERNATIONAL NORM RATIO 1.3 (0.9-1.1); Prothrombin Time 14.7 SEC (9.9-13.0)
[2021-03-16 15:38] LABS: Partial Thromboplastin Time 52.6 SEC (24.1-38.0)
[2021-03-16 15:49] VITALS: BP 112/67; PULSE 75; RESP 14; TEMP 36.7; O2SAT 96
[2021-03-16 15:59] LABS: Alanine Aminotransferase 28 U/L (0-40); Albumin Level 4.1 g/dL (3.5-5.0); Alkaline Phosphatase 78 U/L (39-117); Anion Gap 10 (12-20); Aspartate Amino Transferase 28 U/L (5-37); Bilirubin Total < 0.2 mg/dL (0.0-1.0); Blood Urea Nitrogen 9 mg/dL (9-16); Calcium 9.1 mg/dL (8.4-10.2); Carbon Dioxide 31 mmol/L (22-29); Chloride 100 mmol/L (96-108); Creatinine Clr Calc Pharmacy 128.8; Estimated Glomerular Filt Rate > 60; Glucose Random 116 mg/dL (60-115); Potassium 4.2 mmol/L (3.3-5.1); Sodium 137 mmol/L (135-145); Total Protein 6.5 g/dL (6.5-8.0)
[2021-03-16 16:01] LABS: Troponin-I High Sensitivity < 3.5 ng/L (<3.5-35.0)
[2021-03-16] MEDS: iohexoL 350 MG/ML 100 ML INFUS..BTL IV (16:25)
== END 2021-03-16 17:17 | disposition left against medical advice (07) ==
PROVIDERS: Physician Assistant; Emergency Provider Emergency Medicine; PCP Internal Medicine
DX: R07.9 Chest pain, unspecified (principal); F17.210 Nicotine dependence, cigarettes, uncomplicated; Z71.6 Tobacco abuse counseling; Z79.899 Other long term (current) drug therapy; Z79.01 Long term (current) use of anticoagulants; Z86.718 Personal history of other venous thrombosis and embolism
CPT/HCPCS: 36415; 71275; 80053; 84484; 85025; 85610; 85730; 93005; 99284; 99285; Q9967

== ENCOUNTER → 2021-03-19 13:05 | Outpatient (BNVA) | payer MEDICARE, MEDICAID, SELFPAY | PROVIDERS: PCP Internal Medicine; Visit Provider Internal Medicine | DX: I26.99 Other pulmonary embolism without acute cor pulmonale (principal); Z51.81 Encounter for therapeutic drug level monitoring; Z79.01 Long term (current) use of anticoagulants | CPT/HCPCS: 85610; 99211 ==

== ENCOUNTER → 2021-03-21 14:55 | Outpatient (BNVA) | payer MEDICARE, MEDICAID, SELFPAY | PROVIDERS: PCP Internal Medicine; Visit Provider Internal Medicine | DX: I26.99 Other pulmonary embolism without acute cor pulmonale (principal); Z51.81 Encounter for therapeutic drug level monitoring; Z79.01 Long term (current) use of anticoagulants | CPT/HCPCS: 85610; 99211 ==

== ENCOUNTER → 2021-03-27 13:15 | Outpatient (BNVA) | payer MEDICARE, MEDICAID, SELFPAY | PROVIDERS: PCP Internal Medicine; Visit Provider Internal Medicine | DX: I26.99 Other pulmonary embolism without acute cor pulmonale (principal); Z51.81 Encounter for therapeutic drug level monitoring; Z79.01 Long term (current) use of anticoagulants | CPT/HCPCS: 85610; 99211 ==

== ENCOUNTER → 2021-04-18 13:01 | Outpatient (BNVA) | payer MEDICARE, MEDICAID, SELFPAY | PROVIDERS: PCP Internal Medicine; Visit Provider Internal Medicine | DX: I26.99 Other pulmonary embolism without acute cor pulmonale (principal); Z51.81 Encounter for therapeutic drug level monitoring; Z79.01 Long term (current) use of anticoagulants | CPT/HCPCS: 85610; 99211 ==

== ENCOUNTER → 2021-04-23 13:28 | Outpatient (BNVA) | payer MEDICARE, MEDICAID, SELFPAY | PROVIDERS: PCP Internal Medicine; Visit Provider Internal Medicine | DX: I26.99 Other pulmonary embolism without acute cor pulmonale (principal); Z51.81 Encounter for therapeutic drug level monitoring; Z79.01 Long term (current) use of anticoagulants | CPT/HCPCS: 85610; 99211 ==

== ENCOUNTER → 2021-05-10 14:20 | Outpatient (BNVA) | payer MEDICARE, MEDICAID, SELFPAY | PROVIDERS: PCP Internal Medicine; Visit Provider Internal Medicine | DX: I26.99 Other pulmonary embolism without acute cor pulmonale (principal); Z51.81 Encounter for therapeutic drug level monitoring; Z79.01 Long term (current) use of anticoagulants | CPT/HCPCS: 85610; 99211 ==

== ENCOUNTER → 2021-06-05 14:16 | Outpatient (BNVA) | payer MEDICARE, MEDICAID, SELFPAY | PROVIDERS: PCP Internal Medicine; Visit Provider Internal Medicine | DX: I26.99 Other pulmonary embolism without acute cor pulmonale (principal); Z51.81 Encounter for therapeutic drug level monitoring; Z79.01 Long term (current) use of anticoagulants | CPT/HCPCS: 85610; 99211 ==

== ENCOUNTER 2021-06-08 14:11 | Outpatient (REF) | payer MEDICARE, MEDICAID, SELFPAY ==
--- NOTE | ~2021-06-08 | US_ITS ---
EXAMINATION: US ABDOMEN COMPLETE CLINICAL INFORMATION: Unspecified abdominal pain. COMPARISON: CT abdomen and pelvis 02/03/2020. TECHNIQUE: Real-time imaging of the abdominal viscera. FINDINGS: PANCREAS: Visualized portions of the pancreas are normal in appearance. ABDOMINAL AORTA: Visualized portion of the proximal, mid and distal abdominal aorta are normal in caliber. INFERIOR VENA CAVA: Visualized portions are normal. LIVER: The liver is normal in size. The liver contour is normal. Liver echogenicity is diffusely increased. No focal hepatic lesion. There is no intrahepatic biliary duct dilatation seen. GALLBLADDER: Normal. The gallbladder is physiologically distended without evidence of stones, sludge, polyps, wall thickening or pericholecystic fluid. Negative sonographic Hays's sign. COMMON BILE DUCT: Normal in caliber measuring 0.4 cm in diameter. RIGHT KIDNEY: Normal. No hydronephrosis. No renal calculi or focal parenchymal lesions. The kidney measures 12.0 cm in maximum dimension. LEFT KIDNEY: Normal. No hydronephrosis. No renal calculi or focal parenchymal lesions. The kidney measures 11.2 cm in maximum dimension. SPLEEN: Normal. The spleen measures 10.7 cm in maximum dimension. FREE FLUID: None. US/US abdomen complete IMPRESSION: Diffusely increased liver echogenicity. This is a nonspecific finding but most suggestive of hepatic steatosis. Correlation with liver enzymes recommended.
== END 2021-06-08 14:12 | disposition home or self-care (01) ==
LOC: HO.HMGCX 14:11
PROVIDERS: PCP Internal Medicine; Visit Provider Internal Medicine
DX: R10.9 Unspecified abdominal pain (principal)
CPT/HCPCS: 76700

== ENCOUNTER 2021-06-11 13:43 | Outpatient (REF) | payer MEDICARE, MEDICAID, SELFPAY ==
--- NOTE | ~2021-06-11 | XR_ITS ---
EXAMINATION: XR CHEST CLINICAL INFORMATION: Respiratory disorder, unspecified COMPARISON: CTA chest 03/16/2021 and chest x-ray 02/13/2021 TECHNIQUE: 2 views of the chest were obtained. FINDINGS: The cardiac silhouette is normal in size. The lungs are well aerated. There is no lobar consolidation. No pleural effusion or pneumothorax. No acute osseous abnormality. XR/XR chest 2V IMPRESSION: Stable examination demonstrating no acute pulmonary pathology.
== END 2021-06-11 13:44 | disposition home or self-care (01) ==
LOC: HO.HMGCX 13:43
PROVIDERS: PCP Internal Medicine; Visit Provider Physician Assistant
DX: Z20.822 Contact with and (suspected) exposure to COVID-19 (principal); J98.9 Respiratory disorder, unspecified
CPT/HCPCS: 71046; U0003; U0005

== ENCOUNTER → 2021-06-13 14:14 | Outpatient (BNVA) | payer MEDICARE, MEDICAID, SELFPAY | PROVIDERS: PCP Internal Medicine; Visit Provider Internal Medicine | DX: I26.99 Other pulmonary embolism without acute cor pulmonale (principal); Z51.81 Encounter for therapeutic drug level monitoring; Z79.01 Long term (current) use of anticoagulants | CPT/HCPCS: 85610; 99211 ==

== ENCOUNTER → 2021-06-26 09:50 | Outpatient (BNVA) | payer MEDICARE, MEDICAID, SELFPAY | PROVIDERS: PCP Internal Medicine; Visit Provider Internal Medicine | DX: I26.99 Other pulmonary embolism without acute cor pulmonale (principal); Z51.81 Encounter for therapeutic drug level monitoring; Z79.01 Long term (current) use of anticoagulants | CPT/HCPCS: 85610; 99211 ==

== ENCOUNTER 2021-07-03 13:29 | Outpatient (REF) | payer MEDICARE, MEDICAID, SELFPAY ==
--- NOTE | ~2021-07-03 | XR_ITS ---
EXAMINATION: XR CHEST CLINICAL INFORMATION: Cough COMPARISON: Previous chest x-ray most recent 06/11/2021 TECHNIQUE: 2 views of the chest were obtained. FINDINGS: The cardiac and mediastinal contours are stable. The lungs are clear. There is no pleural effusion or pneumothorax. Bony structures are unremarkable. XR/XR chest 2V IMPRESSION: No evidence for acute disease in the chest.
== END 2021-07-03 13:30 | disposition home or self-care (01) ==
LOC: HO.HMGCX 13:29
PROVIDERS: PCP Internal Medicine; Visit Provider Internal Medicine
DX: R05.9 Cough, unspecified (principal)
CPT/HCPCS: 71046

== ENCOUNTER → 2021-07-06 15:10 | Outpatient (BNVA) | payer MEDICARE, MEDICAID, SELFPAY | PROVIDERS: PCP Internal Medicine; Visit Provider Internal Medicine | DX: I26.99 Other pulmonary embolism without acute cor pulmonale (principal); Z51.81 Encounter for therapeutic drug level monitoring; Z79.01 Long term (current) use of anticoagulants | CPT/HCPCS: 85610; 99211 ==

== ENCOUNTER → 2021-07-20 13:14 | Outpatient (BNVA) | payer MEDICARE, MEDICAID, SELFPAY | PROVIDERS: PCP Internal Medicine; Visit Provider Internal Medicine | DX: I26.99 Other pulmonary embolism without acute cor pulmonale (principal); Z51.81 Encounter for therapeutic drug level monitoring; Z79.01 Long term (current) use of anticoagulants | CPT/HCPCS: 85610; 99211 ==

== ENCOUNTER → 2021-07-30 13:02 | Outpatient (BNVA) | payer MEDICARE, MEDICAID, SELFPAY | PROVIDERS: PCP Internal Medicine; Visit Provider Internal Medicine | DX: I26.99 Other pulmonary embolism without acute cor pulmonale (principal); Z51.81 Encounter for therapeutic drug level monitoring; Z79.01 Long term (current) use of anticoagulants | CPT/HCPCS: 85610; 99211 ==

== ENCOUNTER → 2021-08-22 13:05 | Outpatient (BNVA) | payer MEDICARE, MEDICAID, SELFPAY | PROVIDERS: PCP Internal Medicine; Visit Provider Internal Medicine | DX: I26.99 Other pulmonary embolism without acute cor pulmonale (principal); Z51.81 Encounter for therapeutic drug level monitoring; Z79.01 Long term (current) use of anticoagulants | CPT/HCPCS: 85610; 99211 ==

== ENCOUNTER → 2021-08-29 13:31 | Outpatient (BNVA) | payer MEDICARE, MEDICAID, SELFPAY | PROVIDERS: PCP Internal Medicine; Visit Provider Internal Medicine | DX: I26.99 Other pulmonary embolism without acute cor pulmonale (principal); Z51.81 Encounter for therapeutic drug level monitoring; Z79.01 Long term (current) use of anticoagulants | CPT/HCPCS: 85610; 99211 ==

== ENCOUNTER 2021-09-05 13:01 | Outpatient (REF) | payer MEDICARE, MEDICAID, SELFPAY ==
[2021-09-05 13:36] LABS: Prothrombin Time 74.3 SEC (9.9-13.0)
[2021-09-05 13:42] LABS: INTERNATIONAL NORM RATIO 6.3 (0.9-1.1)
== END 2021-09-05 13:02 | disposition home or self-care (01) ==
LOC: HO.LAB 13:01
PROVIDERS: PCP Internal Medicine; Visit Provider Internal Medicine
DX: I26.99 Other pulmonary embolism without acute cor pulmonale (principal); Z51.81 Encounter for therapeutic drug level monitoring; Z79.01 Long term (current) use of anticoagulants
CPT/HCPCS: 36415; 85610; 99212

== ENCOUNTER → 2021-09-07 11:20 | Outpatient (BNVA) | payer MEDICARE, MEDICAID, SELFPAY | PROVIDERS: PCP Internal Medicine; Visit Provider Internal Medicine | DX: I26.99 Other pulmonary embolism without acute cor pulmonale (principal); Z51.81 Encounter for therapeutic drug level monitoring; Z79.01 Long term (current) use of anticoagulants | CPT/HCPCS: 85610; 99211 ==

== ENCOUNTER → 2021-09-14 13:16 | Outpatient (BNVA) | payer MEDICARE, MEDICAID, SELFPAY | PROVIDERS: PCP Internal Medicine; Visit Provider Internal Medicine | DX: I26.99 Other pulmonary embolism without acute cor pulmonale (principal); Z51.81 Encounter for therapeutic drug level monitoring; Z79.01 Long term (current) use of anticoagulants | CPT/HCPCS: 85610; 99211 ==

== ENCOUNTER → 2021-09-26 13:10 | Outpatient (BNVA) | payer MEDICARE, MEDICAID, SELFPAY | PROVIDERS: PCP Internal Medicine; Visit Provider Internal Medicine | DX: I26.99 Other pulmonary embolism without acute cor pulmonale (principal); Z51.81 Encounter for therapeutic drug level monitoring; Z79.01 Long term (current) use of anticoagulants | CPT/HCPCS: 85610; 99211 ==

== ENCOUNTER → 2021-10-19 15:30 | Outpatient (BNVA) | payer MEDICARE, MEDICAID, SELFPAY | PROVIDERS: PCP Internal Medicine; Visit Provider Internal Medicine | DX: I26.99 Other pulmonary embolism without acute cor pulmonale (principal); Z79.01 Long term (current) use of anticoagulants; Z51.81 Encounter for therapeutic drug level monitoring | CPT/HCPCS: 85610; 99211 ==

== ENCOUNTER → 2021-11-02 13:16 | Outpatient (BNVA) | payer MEDICARE, MEDICAID, SELFPAY | PROVIDERS: PCP Internal Medicine; Visit Provider Internal Medicine | DX: I26.99 Other pulmonary embolism without acute cor pulmonale (principal); Z51.81 Encounter for therapeutic drug level monitoring; Z79.01 Long term (current) use of anticoagulants | CPT/HCPCS: 85610; 99211 ==

== ENCOUNTER → 2021-11-23 13:03 | Outpatient (BNVA) | payer MEDICARE, MEDICAID, SELFPAY | PROVIDERS: PCP Internal Medicine; Visit Provider Internal Medicine | DX: I26.99 Other pulmonary embolism without acute cor pulmonale (principal); Z79.01 Long term (current) use of anticoagulants; Z51.81 Encounter for therapeutic drug level monitoring | CPT/HCPCS: 85610; 99211 ==

== ENCOUNTER → 2021-12-07 13:05 | Outpatient (BNVA) | payer MEDICARE, MEDICAID, SELFPAY | PROVIDERS: PCP Internal Medicine; Visit Provider Internal Medicine | DX: I26.99 Other pulmonary embolism without acute cor pulmonale (principal); Z79.01 Long term (current) use of anticoagulants; Z51.81 Encounter for therapeutic drug level monitoring | CPT/HCPCS: 85610; 99211 ==

== ENCOUNTER → 2022-01-02 13:31 | Outpatient (BNVA) | payer MEDICARE, MEDICAID, SELFPAY | PROVIDERS: PCP Internal Medicine; Visit Provider Internal Medicine | DX: I26.99 Other pulmonary embolism without acute cor pulmonale (principal); Z79.01 Long term (current) use of anticoagulants; Z51.81 Encounter for therapeutic drug level monitoring | CPT/HCPCS: 85610; 99211 ==

== ENCOUNTER 2022-01-15 09:42 | Outpatient (REF) | payer MEDICARE, MEDICAID, SELFPAY ==
--- NOTE | ~2022-01-15 | XR_ITS ---
EXAMINATION: XR CHEST CLINICAL INFORMATION: Acute bronchitis. COMPARISON: Multiple priors, most recent chest radiograph dated 07/03/2021. TECHNIQUE: 2 views of the chest were obtained. FINDINGS: The lungs are clear. The cardiomediastinal silhouette is normal in size. There is no pleural effusion or pneumothorax. No acute osseous abnormality. XR/XR chest 2V IMPRESSION: No acute cardiopulmonary findings.
== END 2022-01-15 09:43 | disposition home or self-care (01) ==
LOC: HO.HMGCX 09:42
PROVIDERS: Visit Provider Internal Medicine
DX: J20.9 Acute bronchitis, unspecified (principal)
CPT/HCPCS: 71046

== ENCOUNTER → 2022-01-16 13:08 | Outpatient (BNVA) | payer MEDICARE, MEDICAID, SELFPAY | PROVIDERS: PCP Internal Medicine; Visit Provider Internal Medicine | DX: I26.99 Other pulmonary embolism without acute cor pulmonale (principal); Z79.01 Long term (current) use of anticoagulants; Z51.81 Encounter for therapeutic drug level monitoring | CPT/HCPCS: 85610; 99211 ==

== ENCOUNTER → 2022-01-30 13:26 | Outpatient (BNVA) | payer MEDICARE, MEDICAID, SELFPAY | PROVIDERS: PCP Internal Medicine; Visit Provider Internal Medicine | DX: I26.99 Other pulmonary embolism without acute cor pulmonale (principal); Z79.01 Long term (current) use of anticoagulants; Z51.81 Encounter for therapeutic drug level monitoring | CPT/HCPCS: 85610; 99211 ==

== ENCOUNTER → 2022-02-21 13:16 | Outpatient (BNVA) | payer MEDICARE, MEDICAID, SELFPAY | PROVIDERS: PCP Internal Medicine; Visit Provider Internal Medicine | DX: I26.99 Other pulmonary embolism without acute cor pulmonale (principal); Z51.81 Encounter for therapeutic drug level monitoring; Z79.01 Long term (current) use of anticoagulants | CPT/HCPCS: 85610; 99211 ==

== ENCOUNTER 2022-02-22 10:17 | Outpatient (REF) | payer MEDICARE, MEDICAID, SELFPAY ==
[2022-02-22 12:08] LABS: Anion Gap 12 (12-20); Blood Urea Nitrogen 7 mg/dL (9-16); Calcium 9.7 mg/dL (8.4-10.2); Carbon Dioxide 30 mmol/L (22-29); Chloride 102 mmol/L (96-108); Estimated Glomerular Filt Rate > 60; Glucose Random 95 mg/dL (60-115); Potassium 5.4 mmol/L (3.3-5.1); Sodium 139 mmol/L (135-145)
== END 2022-02-22 10:18 | disposition home or self-care (01) ==
LOC: HO.LAB 10:17
PROVIDERS: PCP Internal Medicine; Visit Provider Internal Medicine
DX: R73.09 Other abnormal glucose (principal); R51.9 Headache, unspecified; Z13.31 Encounter for screening for depression
CPT/HCPCS: 36415; 80048

== ENCOUNTER 2022-02-25 12:49 | Outpatient (REF) | payer MEDICARE, MEDICAID, SELFPAY | END 2022-02-25 12:50 | disposition home or self-care (01) | LOC: HO.CT 12:49 | PROVIDERS: PCP Internal Medicine; Visit Provider Internal Medicine | DX: Z13.89 Encounter for screening for other disorder (principal) ==

== ENCOUNTER → 2022-02-28 13:08 | Outpatient (BNVA) | payer MEDICARE, MEDICAID, SELFPAY | PROVIDERS: PCP Internal Medicine; Visit Provider Internal Medicine | DX: I26.99 Other pulmonary embolism without acute cor pulmonale (principal); Z79.01 Long term (current) use of anticoagulants; Z51.81 Encounter for therapeutic drug level monitoring | CPT/HCPCS: 85610; 99211 ==

== ENCOUNTER 2022-03-01 12:53 | Outpatient (REF) | payer MEDICARE, MEDICAID, SELFPAY ==
--- NOTE | ~2022-03-01 | CT_ITS ---
EXAMINATION: CT HEAD WITHOUT CONTRAST CLINICAL INFORMATION: Disorientation COMPARISON: Previous head CT February 2020 TECHNIQUE: Contiguous axial imaging was performed from the skull base to vertex without intravenous administration of contrast. This CT examination was performed using dose optimization techniques as appropriate, variously including the following: *Automated exposure control *Adjustment of mA and/or kV according to patient size (this includes techniques or standardized protocols for targeted exams where dose is matched to indication/reason for exam; i.e. extremities or head) *Use of iterative reconstruction technique DLP: 8-9 mGy-cm FINDINGS: There is no evidence of acute intracranial hemorrhage or territorial infarction. No abnormal mass effect or midline shift is seen. Holm to white matter differentiation is well preserved. No extra-axial fluid collections are identified. The ventricles are normal in size. There is no abnormal attenuation within the brain parenchyma. No skull fracture or bone lesion. Postsurgical changes to the left maxillary sinus. 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 CT/CT head/brain wo con IMPRESSION: No acute findings.
== END 2022-03-01 12:54 | disposition home or self-care (01) ==
LOC: HO.CT 12:53
PROVIDERS: PCP Internal Medicine; Visit Provider Internal Medicine
DX: R41.0 Disorientation, unspecified (principal)
CPT/HCPCS: 70450

== ENCOUNTER 2022-03-11 14:35 | Outpatient (REF) | payer MEDICARE, MEDICAID, SELFPAY ==
--- NOTE | ~2022-03-11 | XR_ITS ---
EXAMINATION: XR SOFT TISSUE NECK CLINICAL INDICATION: Acute laryngitis COMPARISON: CT neck 10/18/2020 TECHNIQUE: 2 views of the soft tissue neck were obtained. FINDINGS: Mild degenerative changes are present cervical spine. The hypopharynx, larynx and epiglottis appear normal. No significant soft tissue swelling is seen. Multiple surgical clips are seen in the thyroid bed. XR/XR soft tissue neck IMPRESSION: Unremarkable examination.
== END 2022-03-11 14:36 | disposition home or self-care (01) ==
LOC: HO.HMGCX 14:35
PROVIDERS: PCP Internal Medicine; Visit Provider Nurse Practitioner Family
DX: J04.0 Acute laryngitis (principal)
CPT/HCPCS: 70360

== ENCOUNTER 2022-03-12 10:25 | Outpatient (REF) | payer MEDICARE, MEDICAID, SELFPAY | END 2022-03-12 10:26 | disposition home or self-care (01) | LOC: HO.LAB 10:25 | PROVIDERS: Visit Provider Internal Medicine | DX: Z20.822 Contact with and (suspected) exposure to COVID-19 (principal); R09.89 Other specified symptoms and signs involving the circulatory and respiratory systems | CPT/HCPCS: U0003; U0005 ==

== ENCOUNTER 2022-03-13 14:08 | Outpatient (REF) | payer MEDICARE, MEDICAID, SELFPAY ==
--- NOTE | ~2022-03-13 | XR_ITS ---
EXAMINATION: XR FOOT, LEFT CLINICAL INFORMATION: Left foot pain. COMPARISON: None TECHNIQUE: AP, lateral, and oblique views of the left foot. FINDINGS: There is an acute, nondisplaced oblique fracture of the proximal phalanx of the fifth digit. The remainder the digits are intact. The tarsal bones are normally aligned. The soft tissues are unremarkable. XR/XR foot LT min 3V IMPRESSION: Acute, nondisplaced oblique fracture of the proximal phalanx of the fifth digit.
== END 2022-03-13 14:09 | disposition home or self-care (01) ==
LOC: HO.HMGCX 14:08
PROVIDERS: PCP Internal Medicine; Visit Provider Physician Assistant
DX: M79.675 Pain in left toe(s) (principal); S92.515A Nondisplaced fracture of proximal phalanx of left lesser toe(s), initial encounter for closed fracture; X58.XXXA Exposure to other specified factors, initial encounter; Y93.9 Activity, unspecified; Y92.9 Unspecified place or not applicable; Y99.8 Other external cause status
CPT/HCPCS: 73630

== ENCOUNTER 2022-03-15 10:00 | Emergency (ER) | payer MEDICARE, MEDICAID, SELFPAY ==
--- NOTE | ~2022-03-15 | XR_ITS ---
EXAMINATION: XR CHEST CLINICAL INFORMATION: Cough. COMPARISON: Chest done on 01/15/2022. TECHNIQUE: 2 views of the chest were obtained. FINDINGS: No significant abnormality is noted involving the heart, lungs, mediastinum, bony thorax or soft tissues. Radiopaque sutures are noted within the lower neck on either side of the midline likely represent postsurgical changes. Please correlate clinically. XR/XR chest 2V IMPRESSION: No radiographic evidence of acute cardiopulmonary disease, unchanged since 01/15/2022.
[2022-03-15 10:24] VITALS: BP 135/84; PULSE 86; RESP 20; TEMP 37.1; O2SAT 96; BMI 29.9
[2022-03-15 10:50] LABS: Strep A Nucleic Acid Negative (Negative)
--- NOTE | 2022-03-15 10:56 | ED.URI ---
HPI - URI/Sore Throat General Chief Complaint: Upper Respiratory Symptoms Stated Complaint: throat swollen/pain Time Seen by Provider: 03/15/22 10:55 Source: patient Mode of arrival: ambulatory Limitations: no limitations History of Present Illness HPI Narrative: 56 yo male with history of anxiety/depression, DVT/PE on Coumadin, back pain, opioid use disorder on Suboxone, gout, hypothyroidism, who presents to the ER with cough and sore throat for the last 3 weeks. He was seen [facility] and received two different z-remy courses and course of prednisone. He reports chronic dry mouth, itchy and scratchy throat, he states his feels like there are paper towel fibers in his throat. He reports the sore throat and cough are worse at night. He was previously bringing up gobs of phlegm, is no longer. He has no fever or chills. He has no shortness of breath or chest pain. He has history of a sinus surgery about a year ago, no issues with this since then. No purulentnasal discharge or sinus pressure. MD elicited complaint: cough Pertinent past history: sinusitis Onset (ago): week(s) (3) Consistency: constant Severity: moderate Able to tolerate fluids by mouth: Yes Exacerbating factors: swallowing and supine positioning Relieving factors: OTC cold medicine and lozenge Associated symptoms: headache, sore throat and cough Treatments prior to arrival: none Related Data Home Medications Medication Instructions Recorded Confirmed cholecalciferol (vitamin D3) 25 25 mcg PO DAILY 05/18/20 03/06/22 mcg (1,000 unit) tablet diazepam 10 mg tablet 10 mg PO BID PRN Anxiety 05/18/20 03/06/22 levothyroxine 175 mcg tablet 175 mcg PO DAILY 05/18/20 03/06/22 trazodone 150 mg tablet [id number] mg PO BEDTIME 05/18/20 03/06/22 calcium carbonate 600 mg-vitamin 2 tab PO DAILY 02/07/21 03/06/22 D3 10 mcg (400 unit) tablet buprenorphine 8 mg-naloxone 2 mg 30 mg sublingual DAILY 07/02/21 03/06/22 sublingual film docusate sodium 100 mg capsule 100 mg PO BID PRN constipation 07/20/21 03/06/22 escitalopram oxalate 5 mg tablet 5 mg PO DAILY 07/20/21 03/06/22 COVID-19 test specimen collect #1 ea 08/29/21 03/06/22 ketorolac 0.5 % eye drops 0 drp ophthalmic (eye) 10/19/21 03/06/22 testosterone 4 mg/24 hr 1 patch transdermal DAILY 01/02/22 03/06/22 transdermal 24 hour patch (Androderm) nicotine 21 mg/24 hr daily 1 patch topical DAILY 02/28/22 03/06/22 transdermal patch Previous Rx's Medication Instructions Recorded allopurinol 300 mg tablet 300 mg PO DAILY #90 tabs 06/12/20 acetaminophen 500 mg tablet 1,000 mg PO QID PRN fever or pain 10/18/20 (Tylenol Extra Strength) #14 tabs warfarin 5 mg tablet 5 mg PO DAILY #180 tabs 08/01/21 albuterol sulfate 2.5 mg/3 mL 2.5 mg (3 mL) inhalation TID #90 mL 09/26/21 (0.083 %) solution for nebulization albuterol sulfate 90 mcg/actuation 1 inh inhalation QID PRN shortness 01/15/22 aerosol inhaler of breath or wheezing #6.7 grams azithromycin 250 mg tablet See Rx Instructions PO .COMPLEX #6 03/06/22 tabs prednisone 10 mg tablet 10 mg PO DAILY 8 days #20 tabs 03/11/22 benzonatate 100 mg capsule 100 mg PO TID PRN cough #30 caps 03/15/22 cetirizine 10 mg tablet (Zyrtec) 10 mg PO DAILY #30 tabs 03/15/22 fluticasone propionate 50 1 spray intranasal BID #16 grams 03/15/22 mcg/actuation nasal spray,suspension (Flonase Allergy Relief) Allergies Allergy/AdvReac Type Severity Reaction Status Date / Time Penicillins Allergy Severe ANAPHYLAXIS Verified 03/13/22 14:08 Sulfa (Sulfonamide Allergy Intermediate HIVES Verified 03/13/22 14:08 Antibiotics) Review of Systems Review of Systems: Constitutional: No Fever, No Chills ENT/Mouth: + sore throat, No Rhinorrhea, No Swallowing Difficulty Eyes: No Eye Pain, No Swelling, No Redness Cardiovascular: No Chest Pain, No SOB, No Orthopnea, No Edema Respiratory: + Cough, No Sputum, No Wheezing, No dyspnea Gastrointestinal: No Nausea, No Vomiting, No Diarrhea, No abdominal Pain Genitourinary: No Dysuria, No Urinary Frequency, No Hematuria Musculoskeletal: No joint pain, No Myalgias Skin: No Skin Lesions, No rash Neuro: No Weakness, No Numbness, No Dizziness, + Headache Psych: + Anxiety/Panic, No Depression Heme/Lymph: No Bruising, No Lymphadenopathy [facility] Past Medical History Medical History Anxiety Depression Gout Hypothyroidism Obesity Pulmonary embolism Surgical History History of appendectomy History of hernia repair History of sinus surgery History of thyroidectomy Family History Family History Father Acute CVA (cerebrovascular accident) Diabetes Hypertension Mother Stroke Other Substance abuse Social History Social History [facility] Alcohol intake: never Patient Tobacco Use Status: Former Tobacco user Tobacco use type: Cigarette Cigarette Packs Per Day: 1 Cigarettes Per Day: 20.0 e-Cigarette/Vaping Use: Never Used Second Hand Smoke Exposure: No Advance Directives: Yes Advance Directives Information Provided: Yes Advance Directives on File: No service: No Current occupational status: disabled Cognitive needs: No Hearing needs: No Vision needs: No Physical Exam Vital Signs: Vital Signs: Last Vital Signs Temp 98.8 F 03/15/22 10:24 Pulse 86 03/15/22 10:24 Resp 20 03/15/22 10:24 BP 135/84 03/15/22 10:24 Pulse Ox 96 03/15/22 10:24 O2 Del Method 03/15/22 10:24 BMI result Body Mass Index 29.9 Appearance: Alert. Oriented X3. No acute distress. Eyes: Pupils equal, round and reactive to light. ENT: Pharynx with moist mucous membranes. Posterior oropharynx with moderate generalized erythema, tonsils are surgically absent. No ulcerations. Uvula is midline. Voice is normal, handling secretions normally. Neck: Normal inspection. Neck supple. No cervical lymphadenopathy. CVS: Normal heart rate and rhythm. Pulses normal. Respiratory: No respiratory distress. Breath sounds normal. No wheezes, rhonchi or rales. Skin: Skin warm and dry. Normal skin color. Normal skin turgor. No rashes. Extremities: No lower extremity edema. No calf tenderness. Neuro: Oriented X 3. Grossly normal, nonfocal. Course Course Course Narrative: 56-year-old male with history of anxiety/depression/PE on anticoagulation presents to the ER for evaluation of sore throat and cough for the last 3 weeks. He recently quit smoking 1 month ago. He was treated with 2 courses of antibiotics and steroids with no improvement in his symptoms. He is negative for COVID. No evidence of retropharyngeal abscess. His symptoms are worse when supine position, most consistent with postnasal drip, possibly induced by allergic rhinitis. Will plan to start Flonase, zyrtec, p.r.n. Tessalon for cough. 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 He is stable for discharge home with supportive care and outpatient follow-up. Patient agrees with plan. MDM - URI/Sore Throat Lab Data Labs: Lab Results 03/15/22 Range/Units 10:30 S. pyogenes GrpA MARYANN Negative (Negative) Critical Care Time Critical Care Time Critical Care Time: No Discharge Plan Discharge Clinical Impression: Pharyngitis Patient Disposition: Home, Self-Care Instructions: Pharyngitis (ED) Additional Instructions: You are negative for strep throat. Your chest x-ray is clear, no evidence of pneumonia. Your sore throat and cough may be related to postnasal drip and seasonal allergies. Recommend using the prescribed nasal spray and taking the prescribed medication for allergies. Your symptoms may be exacerbated by a viral illness, this will get better with supportive care and time. Rest and make sure you are drinking plenty of water. Recommend continuing warm salt water gargles 3 times per day. Recommend [id number] Chloraseptic spray and Cepacol lozenges to help numb the back your throat. Follow-up with your ENT doctor if symptoms persist. If you develop new or worsening symptoms call 911 or come back to the ER for further evaluation. Prescriptions: New fluticasone propionate [Flonase Allergy Relief] 50 mcg/actuation spray,suspension 1 spray intranasal BID Qty: 16 0RF Rx Instructions: administer into each nostril cetirizine [Zyrtec] 10 mg tablet 10 mg PO DAILY Qty: 30 0RF benzonatate 100 mg capsule 100 mg PO TID PRN (Reason: cough) Qty: 30 0RF No Action allopurinol 300 mg tablet 300 mg PO DAILY Qty: 90 8RF warfarin 5 mg tablet 5 mg PO DAILY Qty: 180 8RF Protocol: Dose Management Condition: Friday (Week One) Dose/Route: 2.5 mg Instruction: 0.5 x 5 mg tablets Condition: Friday Dose/Route: 5 mg Instruction: 1 x 5 mg tablet Condition: Friday Dose/Route: 2.5 mg Instruction: 0.5 x 5 mg tablets Condition: Friday Dose/Route: 2.5 mg Instruction: 0.5 x 5 mg tablets Condition: Dose/Route: 2.5 mg Instruction: 0.5 x 5 mg tablets Condition: Friday Dose/Route: 2.5 mg Instruction: 0.5 x 5 mg tablets Condition: Friday Dose/Route: 2.5 mg Instruction: 0.5 x 5 mg tablets Condition: Friday (Week Two) Dose/Route: 2.5 mg Instruction: 0.5 x 5 mg tablets Condition: Friday Dose/Route: 5 mg Instruction: 1 x 5 mg tablet Condition: Friday Dose/Route: 2.5 mg Instruction: 0.5 x 5 mg tablets Condition: Friday Dose/Route: 2.5 mg Instruction: 0.5 x 5 mg tablets Condition: Dose/Route: 2.5 mg Instruction: 0.5 x 5 mg tablets Condition: Friday Dose/Route: 2.5 mg Instruction: 0.5 x 5 mg tablets Condition: Friday Dose/Route: 2.5 mg Instruction: 0.5 x 5 mg tablets Protocol Text: Adjustment Start Date: 02/28/22 INR Value: 2.4 INR Date: 02/28/22 Recheck Date: 03/14/22 Additional Instructions: eat a mix of reds and greens albuterol sulfate 2.5 mg /3 mL (0.083 %) solution for nebulization 2.5 mg inhalation TID Qty: 90 8RF acetaminophen [Tylenol Extra Strength] 500 mg tablet 1,000 mg PO QID PRN (Reason: fever or pain) Qty: 14 0RF diazepam 10 mg tablet 10 mg PO BID PRN (Reason: Anxiety) trazodone 150 mg tablet [id number] mg PO BEDTIME levothyroxine 175 mcg tablet 175 mcg PO DAILY cholecalciferol (vitamin D3) 25 mcg (1,000 unit) tablet 25 mcg PO DAILY buprenorphine-naloxone 8-2 mg film 30 mg sublingual DAILY albuterol sulfate 90 mcg/actuation HFA aerosol inhaler 1 inh inhalation QID PRN (Reason: shortness of breath or wheezing) Qty: 6.7 1RF azithromycin 250 mg tablet See Rx Instructions PO .COMPLEX Qty: 6 0RF Rx Instructions: take 500 mg today (day 1), then 250 mg for 4 days (days 2-5) PO prednisone 10 mg tablet 10 mg PO DAILY 8 Days Qty: 20 0RF Rx Instructions: Take 4 tabs for two days, then take 3 tabs for two days, then take 2 tabs for two days, then take 1 tab for 2 days. calcium carbonate-vitamin D3 600 mg(1,500mg) -400 unit tablet 2 tab PO DAILY (DME) [facility] See [facility] Instructions .ROUTE .MEDSUPPLY Qty: 1 Rx Instructions: As directed nicotine 21 mg/24 hr patch 24 hour 1 patch topical DAILY docusate sodium 100 mg capsule 100 mg PO BID PRN (Reason: constipation) escitalopram oxalate 5 mg tablet 5 mg PO DAILY ketorolac 0.5 % drops 0 drp ophthalmic (eye) Androderm 4 mg/24 hr patch 24 hour 1 patch transdermal DAILY
[2022-03-15] MEDS: Benzonatate 100 MG CAPSULE PO (11:43)
[2022-03-15] MEDS: Lidocaine HCl Viscous 2 % 15 ML SOLUTION MUCOUS MEM (11:43)
== END 2022-03-15 11:58 | disposition home or self-care (01) ==
PROVIDERS: Emergency Provider Student in an Organized Health Care Education/Training Program; PCP Internal Medicine
DX: J02.9 Acute pharyngitis, unspecified (principal); R05.9 Cough, unspecified; F17.210 Nicotine dependence, cigarettes, uncomplicated; Z86.711 Personal history of pulmonary embolism; Z79.01 Long term (current) use of anticoagulants
CPT/HCPCS: 36415; 71046; 87651; 99283

== ENCOUNTER → 2022-03-21 13:10 | Outpatient (BNVA) | payer MEDICARE, MEDICAID, SELFPAY | PROVIDERS: PCP Internal Medicine; Visit Provider Internal Medicine | DX: I26.99 Other pulmonary embolism without acute cor pulmonale (principal); Z79.01 Long term (current) use of anticoagulants; Z51.81 Encounter for therapeutic drug level monitoring | CPT/HCPCS: 85610; 99211 ==

== ENCOUNTER → 2022-03-27 13:05 | Outpatient (BNVA) | payer MEDICARE, MEDICAID, SELFPAY | PROVIDERS: PCP Internal Medicine; Visit Provider Internal Medicine | DX: I26.99 Other pulmonary embolism without acute cor pulmonale (principal); Z79.01 Long term (current) use of anticoagulants; Z51.81 Encounter for therapeutic drug level monitoring | CPT/HCPCS: 85610; 99211 ==

== ENCOUNTER → 2022-04-10 13:10 | Outpatient (BNVA) | payer MEDICARE, MEDICAID, SELFPAY | PROVIDERS: PCP Internal Medicine; Visit Provider Internal Medicine | DX: I26.99 Other pulmonary embolism without acute cor pulmonale (principal); Z79.01 Long term (current) use of anticoagulants; Z51.81 Encounter for therapeutic drug level monitoring | CPT/HCPCS: 85610; 99211 ==

== ENCOUNTER → 2022-04-26 13:49 | Outpatient (BNVA) | payer MEDICARE, MEDICAID, SELFPAY | PROVIDERS: PCP Internal Medicine; Visit Provider Internal Medicine | DX: I26.99 Other pulmonary embolism without acute cor pulmonale (principal); Z79.01 Long term (current) use of anticoagulants; Z51.81 Encounter for therapeutic drug level monitoring | CPT/HCPCS: 85610; 99211 ==

== ENCOUNTER → 2022-05-30 13:05 | Outpatient (BNVA) | payer MEDICARE, MEDICAID, SELFPAY | PROVIDERS: PCP Internal Medicine; Visit Provider Internal Medicine | DX: I26.99 Other pulmonary embolism without acute cor pulmonale (principal); Z79.01 Long term (current) use of anticoagulants; Z51.81 Encounter for therapeutic drug level monitoring | CPT/HCPCS: 85610; 99211 ==

== ENCOUNTER → 2022-07-03 13:05 | Outpatient (BNVA) | payer MEDICARE, MEDICAID, SELFPAY | PROVIDERS: PCP Internal Medicine; Visit Provider Internal Medicine | DX: I26.99 Other pulmonary embolism without acute cor pulmonale (principal); Z79.01 Long term (current) use of anticoagulants; Z51.81 Encounter for therapeutic drug level monitoring | CPT/HCPCS: 85610; 99211 ==

== ENCOUNTER → 2022-07-17 13:04 | Outpatient (BNVA) | payer MEDICARE, MEDICAID, SELFPAY | PROVIDERS: PCP Internal Medicine; Visit Provider Internal Medicine | DX: I26.99 Other pulmonary embolism without acute cor pulmonale (principal); Z79.01 Long term (current) use of anticoagulants; Z51.81 Encounter for therapeutic drug level monitoring | CPT/HCPCS: 85610; 99211 ==

== ENCOUNTER 2022-07-25 13:00 | Outpatient (REF) | payer MEDICARE, MEDICAID, SELFPAY ==
[2022-07-25 15:00] LABS: Amphetamine Screen Urine Not Detected (Not Detect); Barbiturates, Urine Not Detected (Not Detect); Benzodiazepines Screen Urine POSITIVE (Not Detect); Cannabinoid Screen Urine Not Detected (Not Detect); Cocaine Screen Urine Not Detected (Not Detect); Fentanyl, urine POSITIVE (Not Detect); Opiate Screen Urine Not Detected (Not Detect); Phencyclidine Screen Urine Not Detected (Not Detect)
== END 2022-07-25 13:01 | disposition home or self-care (01) ==
LOC: HO.LAB 13:00
PROVIDERS: PCP Internal Medicine; Visit Provider Internal Medicine
DX: R52 Pain, unspecified (principal)
CPT/HCPCS: 80307

== ENCOUNTER 2022-08-10 13:31 | Outpatient (REF) | payer MEDICARE, MEDICAID, SELFPAY ==
[2022-08-10 15:36] LABS: Amphetamine Screen Urine Not Detected (Not Detect); Barbiturates, Urine Not Detected (Not Detect); Benzodiazepines Screen Urine POSITIVE (Not Detect); Cannabinoid Screen Urine POSITIVE (Not Detect); Cocaine Screen Urine Not Detected (Not Detect); Fentanyl, urine Not Detected (Not Detect); Opiate Screen Urine Not Detected (Not Detect); Phencyclidine Screen Urine Not Detected (Not Detect)
== END 2022-08-10 13:32 | disposition home or self-care (01) ==
LOC: HO.HMGCLDS 13:31
PROVIDERS: PCP Internal Medicine; Visit Provider Internal Medicine
DX: F19.10 Other psychoactive substance abuse, uncomplicated (principal)
CPT/HCPCS: 80307

== ENCOUNTER → 2022-08-16 13:08 | Outpatient (BNVA) | payer MEDICARE, MEDICAID, SELFPAY | PROVIDERS: PCP Internal Medicine; Visit Provider Internal Medicine | DX: I26.99 Other pulmonary embolism without acute cor pulmonale (principal); Z79.01 Long term (current) use of anticoagulants; Z51.81 Encounter for therapeutic drug level monitoring | CPT/HCPCS: 85610; 99211 ==

== ENCOUNTER → 2022-08-27 13:20 | Outpatient (BNVA) | payer MEDICARE, MEDICAID, SELFPAY | PROVIDERS: PCP Internal Medicine; Visit Provider Internal Medicine | DX: I26.99 Other pulmonary embolism without acute cor pulmonale (principal); Z79.01 Long term (current) use of anticoagulants; Z51.81 Encounter for therapeutic drug level monitoring | CPT/HCPCS: 85610; 99211 ==

== ENCOUNTER 2022-09-12 12:22 | Outpatient (REF) | payer MEDICARE, MEDICAID, SELFPAY ==
--- NOTE | ~2022-09-12 | XR_ITS ---
EXAMINATION: XR CHEST CLINICAL INFORMATION: Acute bronchitis. COMPARISON: 03/15/2022 chest radiographs. TECHNIQUE: 2 views of the chest were obtained. FINDINGS: No significant abnormality is noted involving the heart, lungs, mediastinum, bony thorax or soft tissues. XR/XR chest 2V IMPRESSION: No acute cardiopulmonary process.
[2022-09-12 14:53] LABS: Influenza A PCR NEGATIVE (Negative); Influenza B PCR NEGATIVE (Negative); Resp Syncy Virus RNA Qual PCR NEGATIVE (Negative); SARS COV2 PCR INHOUSE POSITIVE (Negative)
== END 2022-09-12 12:23 | disposition home or self-care (01) ==
LOC: HO.HMGCX 12:22
PROVIDERS: PCP Internal Medicine; Visit Provider Internal Medicine
DX: Z20.822 Contact with and (suspected) exposure to COVID-19 (principal); J20.9 Acute bronchitis, unspecified; R09.89 Other specified symptoms and signs involving the circulatory and respiratory systems
CPT/HCPCS: 0241U; 71046

== ENCOUNTER → 2022-09-13 11:50 | Outpatient (BNVA) | payer MEDICARE, MEDICAID, SELFPAY | PROVIDERS: PCP Internal Medicine; Visit Provider Internal Medicine | DX: Z79.01 Long term (current) use of anticoagulants (principal) ==

== ENCOUNTER → 2022-09-19 16:06 | Outpatient (BNVA) | payer MEDICARE, MEDICAID, SELFPAY | PROVIDERS: PCP Internal Medicine; Visit Provider Internal Medicine | DX: Z79.01 Long term (current) use of anticoagulants (principal) ==

== ENCOUNTER → 2022-09-24 13:06 | Outpatient (BNVA) | payer MEDICARE, MEDICAID, SELFPAY | PROVIDERS: PCP Internal Medicine; Visit Provider Internal Medicine | DX: I26.99 Other pulmonary embolism without acute cor pulmonale (principal); Z79.01 Long term (current) use of anticoagulants; Z51.81 Encounter for therapeutic drug level monitoring | CPT/HCPCS: 85610; 99211 ==

== ENCOUNTER → 2022-10-10 13:03 | Outpatient (BNVA) | payer MEDICARE, MEDICAID, SELFPAY | PROVIDERS: PCP Internal Medicine; Visit Provider Internal Medicine | DX: I26.99 Other pulmonary embolism without acute cor pulmonale (principal); Z79.01 Long term (current) use of anticoagulants; Z51.81 Encounter for therapeutic drug level monitoring | CPT/HCPCS: 85610; 99211 ==

== ENCOUNTER → 2022-10-24 12:59 | Outpatient (BNVA) | payer MEDICARE, MEDICAID, SELFPAY | PROVIDERS: PCP Internal Medicine; Visit Provider Internal Medicine | DX: I26.99 Other pulmonary embolism without acute cor pulmonale (principal); Z79.01 Long term (current) use of anticoagulants; Z51.81 Encounter for therapeutic drug level monitoring | CPT/HCPCS: 85610; 99211 ==

== ENCOUNTER → 2022-11-26 13:01 | Outpatient (BNVA) | payer MEDICARE, MEDICAID, SELFPAY | PROVIDERS: PCP Internal Medicine; Visit Provider Internal Medicine | DX: I26.99 Other pulmonary embolism without acute cor pulmonale (principal); Z79.01 Long term (current) use of anticoagulants; Z51.81 Encounter for therapeutic drug level monitoring | CPT/HCPCS: 85610; 99211 ==

== ENCOUNTER → 2022-12-17 13:09 | Outpatient (BNVA) | payer MEDICARE, MEDICAID, SELFPAY | PROVIDERS: PCP Internal Medicine; Visit Provider Internal Medicine | DX: I26.99 Other pulmonary embolism without acute cor pulmonale (principal); Z79.01 Long term (current) use of anticoagulants; Z51.81 Encounter for therapeutic drug level monitoring | CPT/HCPCS: 85610; 99211 ==

== ENCOUNTER → 2023-01-07 13:01 | Outpatient (BNVA) | payer MEDICARE, MEDICAID, SELFPAY | PROVIDERS: PCP Internal Medicine; Visit Provider Internal Medicine | DX: I26.99 Other pulmonary embolism without acute cor pulmonale (principal); Z79.01 Long term (current) use of anticoagulants; Z51.81 Encounter for therapeutic drug level monitoring | CPT/HCPCS: 85610; 99211 ==

== ENCOUNTER → 2023-01-27 13:01 | Outpatient (BNVA) | payer MEDICARE, MEDICAID, SELFPAY | PROVIDERS: PCP Internal Medicine; Visit Provider Internal Medicine | DX: I26.99 Other pulmonary embolism without acute cor pulmonale (principal); Z51.81 Encounter for therapeutic drug level monitoring; Z79.01 Long term (current) use of anticoagulants | CPT/HCPCS: 85610; 99211 ==

== ENCOUNTER 2023-02-10 13:05 | Outpatient (AMB) | payer MEDICARE, MEDICAID, SELFPAY ==
--- NOTE | 2023-02-10 13:13 | MHC.OFFVISCO ---
Intake Intake Visit Reasons: Anticoagulation Allergies Penicillins Allergy (Severe, Verified 02/10/23 13:06) ANAPHYLAXIS Sulfa (Sulfonamide Antibiotics) Allergy (Intermediate, Verified 02/10/23 13:06) HIVES Medication List - Last Reconciled 02/10/23 by Sarahi Corbin RN acetaminophen (Tylenol Extra Strength) 1,000 mg (2 x 500 mg) PO QID PRN albuterol sulfate 2.5 mg (3 mL) inhalation TID atropine 1% 0 drps ophthalmic (eye) buprenorphine-naloxone 8-2 mg 30 mg sublingual DAILY diazepam 10 mg PO BID PRN docusate sodium 100 mg PO levothyroxine 175 mcg PO DAILY moxifloxacin 0.5% 0 drps ophthalmic (eye) prednisolone acetate 1% 0 drps ophthalmic (eye) prednisone 10 mg PO DAILY PRN testosterone 0 mg topical QAM trazodone 150 mg PO BEDTIME Ventolin HFA 90 mcg/actuation (albuterol sulfate) 2 puffs inhalation Q4-6H PRN NS warfarin 5 mg See Protocol PO DAILY Nursing Note INR: 2.7- in therapeutic range Medications and supplements reviewed- eye drops post eye surgery- steroid and antibiotic has been on for 2 weeks No changes in health, diet, medications, or supplements, Denies any signs and symptoms of bleeding or bruising or clotting. Bleeding, bruising, clotting discussed Nutritional guidance given Dose: 5mg x 1, 2.5mg x 6 F/U INR: 2 week f/u recommended - pt req 4 week f/u Patient verbalizes understanding of instructions given pt s/p right eye surgery approx 2 weeks ago- to remove floaters and retina repair, right sclera reddened- pt states improved Anti-Coag Initial Assessment Social Hx Patient Tobacco Use Status: Former Tobacco user Tobacco use type: Cigarette Smoking packs per day: 1 alcohol intake: never Alcohol intake frequency: does not drink Coding Level of Care Code Est Patient Level 1 Diagnoses Current use of anticoagulant therapy Z79.01 Results AMB INR Fingerstick AMB INR Fingerstick 2.7 Last Edit by Sarahi Corbin RN on 02/10/23 13:17 Assessment & Plan Assessment & Plan (1) Current use of anticoagulant therapy: Comment: On Coumadin Code(s): Z79.01 - group home (current) use of anticoagulants Category: Medical
[2023-02-11 15:40] LABS: Prothrombin Time Whole Bld POC 32.2 sec (11.1-13.5); ~PT, ~INR - Anti Coag Clinic 2.7 (0.9-1.1)
== END 2023-02-10 13:24 | disposition home or self-care (01) ==
LOC: HO.ACS 13:05
PROVIDERS: PCP Internal Medicine; Visit Provider Internal Medicine
DX: Z79.01 Long term (current) use of anticoagulants (principal)

== ENCOUNTER → 2023-02-10 13:05 | Outpatient (BNVA) | payer MEDICARE, MEDICAID, SELFPAY | PROVIDERS: PCP Internal Medicine; Visit Provider Internal Medicine | DX: I26.99 Other pulmonary embolism without acute cor pulmonale (principal); Z79.01 Long term (current) use of anticoagulants; Z51.81 Encounter for therapeutic drug level monitoring | CPT/HCPCS: 85610; 99211 ==

== ENCOUNTER 2023-03-10 12:57 | Outpatient (AMB) | payer MEDICARE, MEDICAID, SELFPAY ==
[2023-03-10 13:09] LABS: Prothrombin Time Whole Bld POC 23.5 sec (11.1-13.5)
--- NOTE | 2023-03-10 13:15 | MHC.OFFVISCO ---
Intake Intake Visit Reasons: Anticoagulation Allergies Penicillins Allergy (Severe, Verified 03/10/23 13:01) ANAPHYLAXIS Sulfa (Sulfonamide Antibiotics) Allergy (Intermediate, Verified 03/10/23 13:01) HIVES Medication List - Last Reconciled 03/10/23 by Kirstin Ocasio RN acetaminophen (Tylenol Extra Strength) 1,000 mg (2 x 500 mg) PO QID PRN albuterol sulfate 2.5 mg (3 mL) inhalation TID atropine 1% 0 drps ophthalmic (eye) buprenorphine-naloxone 8-2 mg 30 mg sublingual DAILY diazepam 10 mg PO BID PRN docusate sodium 100 mg PO levothyroxine 175 mcg PO DAILY moxifloxacin 0.5% 0 drps ophthalmic (eye) prednisolone acetate 1% 0 drps ophthalmic (eye) prednisone 10 mg PO DAILY PRN testosterone 0 mg topical QAM trazodone 150 mg PO BEDTIME Ventolin HFA 90 mcg/actuation (albuterol sulfate) 2 puffs inhalation Q4-6H PRN NS warfarin 5 mg See Protocol PO DAILY Nursing Note INR: 2.0 in therapeutic range S/P EYE FLOATER REMOVAL 1 1/2 MONTHS AGO STILL HAS SLIGHT RED REDDNESS ON THE SCLERA Medications and supplements reviewed No changes in health, diet, medications, or supplements, Denies any signs and symptoms of bleeding or bruising or clotting. Bleeding, bruising, clotting discussed Nutritional guidance given - AVOID GREENS TODAY- EAT A FEW MORE REDS(FOODS THAT HELP RAISE THE INR) WEEKLY Dose: KEEP SAME DOSE FOR NOW 5MG X 1 DAY/ 2.5MG X 6 DAYS F/U INR: 1 MONTH Patient verbalizes understanding of instructions given Anti-Coag Initial Assessment Social Hx Patient Tobacco Use Status: Former Tobacco user Tobacco use type: Cigarette Smoking packs per day: 1 alcohol intake: never Alcohol intake frequency: does not drink Coding Level of Care Code Est Patient Level 1 Diagnoses Current use of anticoagulant therapy Z79.01 Assessment & Plan Assessment & Plan (1) Current use of anticoagulant therapy: Comment: On Coumadin Code(s): 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
== END 2023-03-10 13:20 | disposition home or self-care (01) ==
LOC: HO.ACS 12:57
PROVIDERS: PCP Internal Medicine; Visit Provider Internal Medicine
DX: Z79.01 Long term (current) use of anticoagulants (principal)

== ENCOUNTER → 2023-03-10 12:57 | Outpatient (BNVA) | payer MEDICARE, MEDICAID, SELFPAY | PROVIDERS: PCP Internal Medicine; Visit Provider Internal Medicine | DX: I26.99 Other pulmonary embolism without acute cor pulmonale (principal); Z79.01 Long term (current) use of anticoagulants; Z51.81 Encounter for therapeutic drug level monitoring | CPT/HCPCS: 85610; 99211 ==

== ENCOUNTER 2023-04-09 13:06 | Outpatient (AMB) | payer MEDICARE, MEDICAID, SELFPAY ==
[2023-04-09 13:15] LABS: Prothrombin Time Whole Bld POC 36.8 sec (11.1-13.5); ~PT, ~INR - Anti Coag Clinic 3.1 (0.9-1.1)
--- NOTE | 2023-04-09 13:18 | MHC.OFFVISCO ---
Intake Intake Visit Reasons: Anticoagulation Allergies Penicillins Allergy (Severe, Verified 04/09/23 13:07) ANAPHYLAXIS Sulfa (Sulfonamide Antibiotics) Allergy (Intermediate, Verified 04/09/23 13:07) HIVES Medication List - Last Reconciled 04/09/23 by Kirstin Ocasio RN acetaminophen (Tylenol Extra Strength) 1,000 mg (2 x 500 mg) PO QID PRN albuterol sulfate 2.5 mg (3 mL) inhalation TID atropine 1% 0 drps ophthalmic (eye) buprenorphine-naloxone 8-2 mg 30 mg sublingual DAILY diazepam 10 mg PO BID PRN docusate sodium 100 mg PO levothyroxine 175 mcg orally 6 days / week; per moxifloxacin 0.5% 0 drps ophthalmic (eye) prednisolone acetate 1% 0 drps ophthalmic (eye) prednisone 10 mg PO DAILY PRN testosterone 0 mg topical QAM trazodone 150 mg PO BEDTIME Ventolin HFA 90 mcg/actuation (albuterol sulfate) 2 puffs inhalation Q4-6H PRN NS warfarin 5 mg See Protocol PO DAILY Nursing Note INR: 3.1 ALMOST in therapeutic range Medications and supplements reviewed No changes in health, diet, medications, or supplements, Denies any signs and symptoms of bleeding or bruising or clotting. Bleeding, bruising, clotting discussed Nutritional guidance given - SANDRINE TODAY Dose: KEEP SAME 5MG MON / 2.5MG X 6 DAYS- DO NOT TAKE WARFARIN DAY OF NEXT APPT F/U INR: 1 MONTH Patient verbalizes understanding of instructions given Anti-Coag Initial Assessment Social Hx Patient Tobacco Use Status: Former Tobacco user Tobacco use type: Cigarette Smoking packs per day: 1 alcohol intake: never Alcohol intake frequency: does not drink Coding Level of Care Code Est Patient Level 1 Diagnoses Current use of anticoagulant therapy Z79.01 Assessment & Plan Assessment & Plan (1) Current use of anticoagulant therapy: Comment: On Coumadin Code(s): 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
== END 2023-04-09 13:25 | disposition home or self-care (01) ==
LOC: HO.ACS 13:06
PROVIDERS: PCP Internal Medicine; Visit Provider Internal Medicine
DX: Z79.01 Long term (current) use of anticoagulants (principal)

== ENCOUNTER → 2023-04-09 13:06 | Outpatient (BNVA) | payer MEDICARE, MEDICAID, SELFPAY | PROVIDERS: PCP Internal Medicine; Visit Provider Internal Medicine | DX: I26.99 Other pulmonary embolism without acute cor pulmonale (principal); Z79.01 Long term (current) use of anticoagulants; Z51.81 Encounter for therapeutic drug level monitoring | CPT/HCPCS: 85610; 99211 ==

== ENCOUNTER 2023-04-30 14:32 | Outpatient (AMB) | payer MEDICARE, MEDICAID, SELFPAY ==
[2023-04-30 14:33] VITALS: BP 120/64; PULSE 75; O2SAT 98; BMI 29.4
--- NOTE | 2023-04-30 14:33 | A.OFFPC_ITS ---
Vital Signs 04/30/23 14:33 Height 6 ft 3 in Weight 235 lb BMI 29.4 BP 120/64 Blood Pressure Location Lt brachial Position Sitting Pulse 75 Pulse Source Pulse Oximeter Pulse Oximetry (%) 98 Oxygen Delivery Method Room Air Intake Visit Reasons: Left eye cataract/05-28/[place] Or Director Required: No Pediatric Psychiatrist: Not Required per policy Accompanied by: Self / Same As Patient Allergies Penicillins Allergy (Severe, Verified 04/30/23 14:33) ANAPHYLAXIS Sulfa (Sulfonamide Antibiotics) Allergy (Intermediate, Verified 04/30/23 14:33) HIVES Medication List - Last Reconciled 05/01/23 by Obi Ramon MD acetaminophen (Tylenol Extra Strength) 1,000 mg (2 x 500 mg) PO QID PRN albuterol sulfate 2.5 mg (3 mL) inhalation TID atropine 1% 0 drps ophthalmic (eye) buprenorphine-naloxone 8-2 mg 30 mg sublingual DAILY diazepam 10 mg PO BID PRN docusate sodium 100 mg PO levothyroxine 175 mcg orally 6 days / week; per moxifloxacin 0.5% 0 drps ophthalmic (eye) prednisolone acetate 1% 0 drps ophthalmic (eye) prednisone 10 mg PO DAILY PRN testosterone 0 mg topical QAM trazodone 150 mg PO BEDTIME Ventolin HFA 90 mcg/actuation (albuterol sulfate) 2 puffs inhalation Q4-6H PRN NS warfarin 5 mg See Protocol PO DAILY Tobacco use date assessed: 08/08/22 Dental Screening Dental Screen Date: 04/30/23 Did you have a dental visit in the last 12 months?: No Did you have a dental problem in the last 6 months where you did not have access to dental care?: No Was dental information given to patient?: Patient has dentist HPI Left eye cataract/05-28/[place] HPI Details having left eye surgery next month; has asthma, chronic pain syndrome, hypothyroidism and pulmonary embolism [facility] Medical History (Updated 05/01/23 @ 12:13 by Obi Ramon MD) Pre-op exam Anxiety Depression Pulmonary embolism Hypothyroidism Obesity Gout Surgical History History of sinus surgery History of thyroidectomy History of hernia repair History of appendectomy Family History Father Acute CVA (cerebrovascular accident) Diabetes Hypertension Mother Stroke Other Substance abuse Social History Housing: Condominium Alcohol intake: never Patient Tobacco Use Status: Former Tobacco user Tobacco use type: Cigarette Cigarette Packs Per Day: 1 Cigarettes Per Day: 20.0 e-Cigarette/Vaping Use: Never Used Second Hand Smoke Exposure: No service: No Current occupational status: disabled Cognitive needs: No Hearing needs: No Vision needs: No Questionnaire PHQ-9 Over the last 2 weeks, how often have you been bothered by any of the following problems? 1. Little interest or pleasure in doing things: not at all 2. Feeling down, depressed, or hopeless: not at all 3. Trouble falling or staying asleep, or sleeping too much: not at all 4. Feeling tired or having little energy: not at all 5. Poor appetite or overeating: not at all 6. Feeling bad about yourself - or that you are a failure or have let yourself or your family down: not at all 7. Trouble concentrating on things, such as reading the newspaper or watching television: not at all 8. Moving or speaking so slowly that other people could have noticed. Or the opposite - being so fidgety or restless that you have been moving around a lot more than usual: not at all 9. Thoughts that you would be better off or of hurting yourself in some way: not at all Total score: 0 Depression Screening Interpretation: Negative [id number] - PHQ-9 Billing: Yes Source: Developed by Drs. Cam Sandy, Julia James, Anton Perez and colleagues, with an educational molina from [employer]. Thrive Questionnaire Date Thrive assessed: 04/30/23 I am a: Patient What is your living situation today?: I have a steady place to live Within the past 12 months, did the food you bought not last and you didn't have the money to get more?: Never true Within the past 12 months, did you worry whether your food would run out before you got money to buy more?: Never true Do you have trouble paying for medicines?: No Do you have trouble getting transportation to medical appointments?: No Do you have trouble paying your heating and electricity bill?: No Do you have trouble taking care of your child, family member or friend?: No Do you have trouble with day-to-day activities such as bathing, preparing meals, shopping, managing finances, etc.?: No Are you currently unemployed and looking for a job?: No Are you interested in more education?: No Please select the resources that you would like help with: None AUDIT C Alcohol Use Questionnaire (AUDIT-C) 1. How often do you have a drink containing alcohol?: Never 3. How often do you have six or more drinks on one occasion?: Never Total Score: 0 Score Reviewed/Action Taken: Yes MARIELENA-7 AMB Questionnaire MARIELENA-7 Date MARIELENA - 7 assessed: 08/08/22 Source: Developed by Drs. Cam Sandy, Julia James, Anton Perez and colleagues, with an educational molina from [employer]. Review of Systems Const Denies chills, Denies fatigue, Denies headache(s) and Denies weight loss Eyes Denies change in vision, Denies diplopia and Denies eye pain ENT Denies vertigo, Denies dizziness, Denies headache(s) and Denies nasal discharge Card Denies chest pain, Denies rapid heart rate and Denies dyspnea on exertion Resp Denies chest congestion, Denies cough, Denies pain with cough and Denies dyspnea on exertion GI Denies abdominal pain, Denies hematochezia and Denies change in bowel habits Musc Denies myalgias, Denies arthralgias and Denies joint swelling Skin/Breast Denies lesions and Denies unusual bruising Neuro Denies vertigo, Denies dizziness, Denies headache(s) and Denies focal weakness Endo Denies fatigue Physical exam (Primary Care) Vital Signs: Last Vital Signs Pulse 75 04/30/23 14:33 BP 120/64 04/30/23 14:33 Pulse Ox 98 04/30/23 14:33 Oxygen Delivery Method Room Air 04/30/23 14:33 BMI result Body Mass Index 29.4 Tobacco/Smoking Status: Tobacco use Status Tobacco use date assessed 08/08/22 04/30/23 14:39 Patient Tobacco Use Status Former Tobacco user 04/30/23 14:39 Tobacco use type Cigarette 04/30/23 14:39 e-Cigarette/Vaping Use Never Used 04/30/23 14:39 PHQ-9: PHQ-9 Score PHQ-9: Total score 0 04/30/23 14:39 Depression Screening Interpretation: Negative Thrive Assessment: Date of Thrive Assessment Date Thrive assessed 04/30/23 04/30/23 14:39 Const General: cooperative, healthy appearing and no acute distress Orientation/consciousness: oriented to person, oriented to place and oriented to time HENMT Head: Yes normal to inspection, Yes normocephalic and Yes atraumatic Mouth: Normal oral and palatal mucosa present and tongue normal Throat: Yes posterior oropharynx normal and Yes uvula midline Eyes General: appearance normal, both eyes and all related structures Neck Neck: Yes normal visual inspection, Yes full ROM and Yes no lymphadenopathy Thyroid: Thyroid normal Carotids: normal carotid upstroke Chest Chest palpation & inspection: normal inspection of the chest Resp Effort & Inspection: normal respiratory effort and able to speak in complete sentences Auscultation: clear to auscultation bilaterally Cardio Jugular venous distension: no JVD Palpation: normal PMI Rate: regular rate Rhythm: regular rhythm Heart sounds: S1 normal heart sound present and S2 normal heart sound present GI Inspection: Yes normal to inspection Palpation (GI): Soft to palpation and No hepatosplenomegaly present Auscultation: normal bowel sounds General: Yes no CVA tenderness Back/Spine/Pelvis Back: no CVA tenderness Skin General skin exam: no rashes or lesions noted Neuro General: oriented to person, oriented to place and oriented to time Extrem General: Yes normal to inspection and Yes full ROM Assessment and Plan Assessment & Plan (1) Asthma: Code(s): J45.909 - Unspecified asthma, uncomplicated Plan: stable; same rx (2) Pre-op exam: Code(s): Z01.818 - Encounter for other preprocedural examination Plan: low risk of cardiovascular complications; cleared for surgery (3) Substance abuse: Code(s): F19.10 - Other psychoactive substance abuse, uncomplicated Plan: suboxone controlling his cravings (4) Pulmonary embolism: Code(s): I26.99 - Other pulmonary embolism without acute cor pulmonale Plan: on [facility] antico[facility]; no need for bridging therapy (5) Hypothyroidism: Code(s): E03.9 - Hypothyroidism, unspecified Plan: stable; same rx (6) Failed back syndrome of lumbar spine: Code(s): M96.1 - Postlaminectomy syndrome, not elsewhere classified Plan: same rx Coding Level of Care Code Est Pt Level 5 (99270) Diagnoses Asthma J45.909 Pre-op exam Z01.818 Substance abuse F19.10 Pulmonary embolism I26.99 Hypothyroidism E03.9 Failed back syndrome of lumbar spine M96.1
== END 2023-04-30 15:59 | disposition home or self-care (01) ==
PROVIDERS: PCP Internal Medicine; Visit Provider Internal Medicine
DX: Z01.818 Encounter for other preprocedural examination (principal); H26.9 Unspecified cataract; J45.909 Unspecified asthma, uncomplicated; I26.99 Other pulmonary embolism without acute cor pulmonale
CPT/HCPCS: 99214

== ENCOUNTER 2023-05-07 13:07 | Outpatient (AMB) | payer MEDICARE, MEDICAID, SELFPAY ==
--- NOTE | 2023-05-07 13:22 | MHC.OFFVISCO ---
Intake Intake Visit Reasons: Anticoagulation Allergies Penicillins Allergy (Severe, Verified 05/07/23 13:18) ANAPHYLAXIS Sulfa (Sulfonamide Antibiotics) Allergy (Intermediate, Verified 05/07/23 13:18) HIVES Medication List - Last Reconciled 05/07/23 by Sarahi Corbin RN acetaminophen (Tylenol Extra Strength) 1,000 mg (2 x 500 mg) PO QID PRN albuterol sulfate 2.5 mg (3 mL) inhalation TID atropine 1% 0 drps ophthalmic (eye) buprenorphine-naloxone 8-2 mg 30 mg sublingual DAILY diazepam 10 mg PO BID PRN docusate sodium 100 mg PO levothyroxine 175 mcg orally 6 days / week; per moxifloxacin 0.5% 0 drps ophthalmic (eye) prednisolone acetate 1% 0 drps ophthalmic (eye) prednisone 10 mg PO DAILY PRN testosterone 0 mg topical QAM trazodone 150 mg PO BEDTIME Ventolin HFA 90 mcg/actuation (albuterol sulfate) 2 puffs inhalation Q4-6H PRN NS warfarin 5 mg See Protocol PO DAILY Nursing Note INR: 2.3- in therapeutic range Medications and supplements reviewed- pt states levothyroxine is now 6 x /week- started beginning of last month No changes in health, diet, medications, or supplements, Denies any signs and symptoms of bleeding or bruising or clotting. Bleeding, bruising, clotting discussed Nutritional guidance given Dose: 5mg x 1, 2.5mg x 6 F/U INR: pt req 4 weeks Patient verbalizes understanding of instructions given pt states eye surgery to remove floaters on 05/28/23. 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
[2023-05-07 13:23] LABS: Prothrombin Time Whole Bld POC 27.4 sec (11.1-13.5); ~PT, ~INR - Anti Coag Clinic 2.3 (0.9-1.1)
== END 2023-05-07 13:30 | disposition home or self-care (01) ==
LOC: HO.ACS 13:07
PROVIDERS: PCP Internal Medicine; Visit Provider Internal Medicine
DX: Z79.01 Long term (current) use of anticoagulants (principal)

== ENCOUNTER → 2023-05-07 13:07 | Outpatient (BNVA) | payer MEDICARE, MEDICAID, SELFPAY | PROVIDERS: PCP Internal Medicine; Visit Provider Internal Medicine | DX: I26.99 Other pulmonary embolism without acute cor pulmonale (principal); Z51.81 Encounter for therapeutic drug level monitoring; Z79.01 Long term (current) use of anticoagulants | CPT/HCPCS: 85610; 99211 ==

== ENCOUNTER 2023-05-26 13:02 | Outpatient (AMB) | payer MEDICARE, MEDICAID, SELFPAY ==
[2023-05-26 13:12] LABS: Prothrombin Time Whole Bld POC 32.1 sec (11.1-13.5); ~PT, ~INR - Anti Coag Clinic 2.7 (0.9-1.1)
--- NOTE | 2023-05-26 13:15 | MHC.OFFVISCO ---
Intake Intake Visit Reasons: Anticoagulation Allergies Penicillins Allergy (Severe, Verified 05/26/23 13:06) ANAPHYLAXIS Sulfa (Sulfonamide Antibiotics) Allergy (Intermediate, Verified 05/26/23 13:06) HIVES Medication List - Last Reconciled 05/26/23 by Debbi Hodges RN acetaminophen (Tylenol Extra Strength) 1,000 mg (2 x 500 mg) PO QID PRN albuterol sulfate 2.5 mg (3 mL) inhalation TID atropine 1% 0 drps ophthalmic (eye) buprenorphine-naloxone 8-2 mg 30 mg sublingual DAILY diazepam 10 mg PO BID PRN docusate sodium 100 mg PO levothyroxine 175 mcg orally 6 days / week; per moxifloxacin 0.5% 0 drps ophthalmic (eye) prednisolone acetate 1% 0 drps ophthalmic (eye) prednisone 10 mg PO DAILY PRN testosterone 0 mg topical QAM trazodone 150 mg PO BEDTIME Ventolin HFA 90 mcg/actuation (albuterol sulfate) 2 puffs inhalation Q4-6H PRN NS warfarin 5 mg See Protocol PO DAILY Nursing Note Amb to [facility] feeling well sts here today because he is having eye procedure on Friday and no hold on warfarin I want to know what my INR is Medications and supplements reviewed No changes in health, diet, medications, or supplements Denies any unusual signs and symptoms of bruising, bleeding Denies any new Chest pain, SOB, or clotting INR: 2.7 in therapeutic range Nutritional guidance given: have a green today then balance greens and reds in diet, be consistent Dose: continue usual dosing;5mg x 1 day (today) and 2.5mg x 6 days F/U INR: 4 weeks, pt to call if any medication changes Patient verbalizes understanding of instructions given with accurate read back/ teach back of dosing Anti-Coag Initial Assessment Social Hx Patient Tobacco Use Status: Former Tobacco user Tobacco use type: Cigarette Smoking packs per day: 1 alcohol intake: never Alcohol intake frequency: does not drink Coding Level of Care Code Est Patient Level 1 Diagnoses Current use of anticoagulant therapy Z79.01 Time Spent (min) 15 Assessment & Plan Assessment & Plan (1) Current use of anticoagulant therapy: Comment: On Coumadin Code(s): Z79.01 - skilled nursing (current) use of anticoagulants Category: Medical
== END 2023-05-26 13:40 | disposition home or self-care (01) ==
LOC: HO.ACS 13:02
PROVIDERS: PCP Internal Medicine; Visit Provider Internal Medicine
DX: Z79.01 Long term (current) use of anticoagulants (principal)

== ENCOUNTER → 2023-05-26 13:02 | Outpatient (BNVA) | payer MEDICARE, MEDICAID, SELFPAY | PROVIDERS: PCP Internal Medicine; Visit Provider Internal Medicine | DX: I26.99 Other pulmonary embolism without acute cor pulmonale (principal); Z51.81 Encounter for therapeutic drug level monitoring; Z79.01 Long term (current) use of anticoagulants | CPT/HCPCS: 85610; 99211 ==

== ENCOUNTER 2023-06-16 10:00 | Outpatient (AMB) | payer MEDICARE, MEDICAID, SELFPAY ==
--- NOTE | 2023-06-16 12:53 | AM.OFFWIN_ITS ---
Intake Vital Signs 06/16/23 12:54 Height 6 ft 3 in Weight 239 lb 6 oz BMI 29.9 BP 130/58 L Blood Pressure Location Lt brachial Position Sitting Pulse 101 H Pulse Source Pulse Oximeter Temp 98.1 F Temp Source Oral Pulse Oximetry (%) 94 Oxygen Delivery Method Room Air Intake Visit Reasons: EST/boil on butt [phone] Patient Tobacco Use Status: Former Tobacco user Allergies Penicillins Allergy (Severe, Verified 06/29/23 13:58) ANAPHYLAXIS Sulfa (Sulfonamide Antibiotics) Allergy (Intermediate, Verified 06/29/23 13:58) HIVES Medication List - Last Reconciled 06/29/23 by Ajit Campos MD acetaminophen (Tylenol Extra Strength) 1,000 mg (2 x 500 mg) PO QID PRN albuterol sulfate 2.5 mg (3 mL) inhalation TID atropine 1% 0 drps ophthalmic (eye) buprenorphine-naloxone 8-2 mg 30 mg sublingual DAILY diazepam 10 mg PO BID PRN docusate sodium 100 mg PO levothyroxine 175 mcg orally 6 days / week; per moxifloxacin 0.5% 0 drps ophthalmic (eye) prednisolone acetate 1% 0 drps ophthalmic (eye) testosterone 0 mg topical QAM trazodone 150 mg PO BEDTIME Ventolin HFA 90 mcg/actuation (albuterol sulfate) 2 puffs inhalation Q4-6H PRN NS warfarin 5 mg See Protocol PO DAILY HPI EST/boil on butt [phone] HPI Details 57 yr old male presents to the office f or a sick visit. Patient reports a small lesion on the right buttock. No discharge. No tenderness. [facility] Medical History (Updated 05/01/23 @ 12:13 by Obi Ramon MD) Pre-op exam Anxiety Depression Pulmonary embolism Hypothyroidism Obesity Gout Surgical History History of sinus surgery History of thyroidectomy History of hernia repair History of appendectomy Family History Father Acute CVA (cerebrovascular accident) Diabetes Hypertension Mother Stroke Other Substance abuse Housing: Condominium Alcohol intake: never Patient Tobacco Use Status: Former Tobacco user Tobacco use type: Cigarette Cigarette Packs Per Day: 1 Cigarettes Per Day: 20.0 e-Cigarette/Vaping Use: Never Used Second Hand Smoke Exposure: No service: No Current occupational status: disabled Cognitive needs: No Hearing needs: No Vision needs: No Physical Exam Vital Signs: Last Vital Signs Temp 98.1 F 06/16/23 12:54 Pulse 101 H 06/16/23 12:54 BP 130/58 L 06/16/23 12:54 Pulse Ox 94 06/16/23 12:54 Oxygen Delivery Method Room Air 06/16/23 12:54 BMI result Body Mass Index 29.9 Skin Other: Right buttock: Small erythematous area, no tenderness. Assessment & Plan Assessment & Plan (1) Cellulitis: Code(s): L03.90 - Cellulitis, unspecified Plan: Prescription called in. If sx do not improve to follow up here. Medications: New ciprofloxacin HCl (Cipro) 250 mg PO BID 14 tabs 0RF Coding Level of Care Code Est Pt Level 3 (99366) Diagnoses Cellulitis L03.90
[2023-06-16 12:54] VITALS: BP 130/58; PULSE 101; TEMP 36.7; O2SAT 94; BMI 29.9
== END 2023-06-16 13:50 | disposition home or self-care (01) ==
PROVIDERS: PCP Internal Medicine; Visit Provider Internal Medicine
DX: L03.90 Cellulitis, unspecified (principal)
CPT/HCPCS: 99213

== ENCOUNTER 2023-06-23 13:09 | Outpatient (AMB) | payer MEDICARE, MEDICAID, SELFPAY ==
[2023-06-23 13:16] LABS: ~PT, ~INR - Anti Coag Clinic 3.8 (0.9-1.1)
--- NOTE | 2023-06-23 13:25 | MHC.OFFVISCO ---
Intake Intake Visit Reasons: Anticoagulation Allergies Penicillins Allergy (Severe, Verified 06/23/23 13:10) ANAPHYLAXIS Sulfa (Sulfonamide Antibiotics) Allergy (Intermediate, Verified 06/23/23 13:10) HIVES Medication List - Last Reconciled 06/23/23 by Kirstin Ocasio RN acetaminophen (Tylenol Extra Strength) 1,000 mg (2 x 500 mg) PO QID PRN albuterol sulfate 2.5 mg (3 mL) inhalation TID atropine 1% 0 drps ophthalmic (eye) buprenorphine-naloxone 8-2 mg 30 mg sublingual DAILY diazepam 10 mg PO BID PRN docusate sodium 100 mg PO levothyroxine 175 mcg orally 6 days / week; per moxifloxacin 0.5% 0 drps ophthalmic (eye) prednisolone acetate 1% 0 drps ophthalmic (eye) testosterone 0 mg topical QAM trazodone 150 mg PO BEDTIME Ventolin HFA 90 mcg/actuation (albuterol sulfate) 2 puffs inhalation Q4-6H PRN NS warfarin 5 mg See Protocol PO DAILY Nursing Note INR 3.8 out of therapeutic range Medications and supplements reviewed Patient status: completed an antbiotic for boil on buttocks few days ago, thinks he missed a dose Medications or supplements: completed ciprofloxacin Diet: good Denies any signs and symptoms of bleeding or clotting or unusual bruising Bleeding, bruising, clotting discussed Nutritional guidance given: eat cooked greens to lower your INR more Dose: already took today's dose hold tomorrow 5mgx 1 day/ 2.5mg x 6 days F/U INR Date : 2 weeks?? Patient verbalizing understanding of instructions given. Anti-Coag Initial Assessment Social Hx Patient Tobacco Use Status: Former Tobacco user Tobacco use type: Cigarette Smoking packs per day: 1 alcohol intake: never Alcohol intake frequency: does not drink Coding Level of Care Code Est Patient Level 1
== END 2023-06-23 13:28 | disposition home or self-care (01) ==
LOC: HO.ACS 13:09
PROVIDERS: PCP Internal Medicine; Visit Provider Internal Medicine
DX: Z79.01 Long term (current) use of anticoagulants (principal)

== ENCOUNTER → 2023-06-23 13:09 | Outpatient (BNVA) | payer MEDICARE, MEDICAID, SELFPAY | PROVIDERS: PCP Internal Medicine; Visit Provider Internal Medicine | DX: I26.99 Other pulmonary embolism without acute cor pulmonale (principal); Z79.01 Long term (current) use of anticoagulants; Z51.81 Encounter for therapeutic drug level monitoring | CPT/HCPCS: 85610; 99211 ==

== ENCOUNTER 2023-07-09 14:52 | Outpatient (AMB) | payer MEDICARE, MEDICAID, SELFPAY ==
[2023-07-09 14:58] LABS: Prothrombin Time Whole Bld POC 35.9 sec (11.1-13.5)
--- NOTE | 2023-07-09 15:06 | MHC.OFFVISCO ---
Intake Intake Visit Reasons: Anticoagulation Allergies Penicillins Allergy (Severe, Verified 07/09/23 14:53) ANAPHYLAXIS Sulfa (Sulfonamide Antibiotics) Allergy (Intermediate, Verified 07/09/23 14:53) HIVES Medication List - Last Reconciled 07/09/23 by Kirstin Ocasio RN acetaminophen (Tylenol Extra Strength) 1,000 mg (2 x 500 mg) PO QID PRN albuterol sulfate 2.5 mg (3 mL) inhalation TID atropine 1% 0 drps ophthalmic (eye) buprenorphine-naloxone 8-2 mg 30 mg sublingual DAILY ciprofloxacin HCl 250 mg PO BID diazepam 10 mg PO BID PRN docusate sodium 100 mg PO levothyroxine 175 mcg orally 6 days / week; per moxifloxacin 0.5% 0 drps ophthalmic (eye) prednisolone acetate 1% 0 drps ophthalmic (eye) testosterone 0 mg topical QAM trazodone 150 mg PO BEDTIME Ventolin HFA 90 mcg/actuation (albuterol sulfate) 2 puffs inhalation Q4-6H PRN NS warfarin 5 mg See Protocol PO DAILY Nursing Note INR: 3.0 in therapeutic range 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 Bleeding, bruising, clotting discussed Nutritional guidance given Dose: 5MG X 1 DAY/ 2.5MG X 6 DAYS F/U INR: 1 MONTH Patient verbalizes understanding of instructions given Anti-Coag Initial Assessment Social Hx Patient Tobacco Use Status: Former Tobacco user Tobacco use type: Cigarette Smoking packs per day: 1 alcohol intake: never Alcohol intake frequency: does not drink Coding Level of Care Code Est Patient Level 1 Diagnoses Current use of anticoagulant therapy Z79.01 Assessment & Plan Assessment & Plan (1) Current use of anticoagulant therapy: Comment: On Coumadin Code(s): Z79.01 - half-way (current) use of anticoagulants Category: Medical
== END 2023-07-09 15:09 | disposition home or self-care (01) ==
LOC: HO.ACS 14:52
PROVIDERS: PCP Internal Medicine; Visit Provider Internal Medicine
DX: Z79.01 Long term (current) use of anticoagulants (principal)

== ENCOUNTER → 2023-07-09 14:52 | Outpatient (BNVA) | payer MEDICARE, MEDICAID, SELFPAY | PROVIDERS: PCP Internal Medicine; Visit Provider Internal Medicine | DX: I26.99 Other pulmonary embolism without acute cor pulmonale (principal); Z79.01 Long term (current) use of anticoagulants; Z51.81 Encounter for therapeutic drug level monitoring | CPT/HCPCS: 85610; 99211 ==

== ENCOUNTER 2023-08-06 13:05 | Outpatient (AMB) | payer MEDICARE, MEDICAID, SELFPAY ==
--- NOTE | 2023-08-06 13:15 | MHC.OFFVISCO ---
Intake Intake Visit Reasons: Anticoagulation Allergies Penicillins Allergy (Severe, Verified 08/06/23 13:06) ANAPHYLAXIS Sulfa (Sulfonamide Antibiotics) Allergy (Intermediate, Verified 08/06/23 13:06) HIVES Medication List - Last Reconciled 08/06/23 by Lakesha Guevara RN acetaminophen (Tylenol Extra Strength) 1,000 mg (2 x 500 mg) PO QID PRN albuterol sulfate 2.5 mg (3 mL) inhalation TID atropine 1% 0 drps ophthalmic (eye) buprenorphine-naloxone 8-2 mg 30 mg sublingual DAILY diazepam 10 mg PO BID PRN docusate sodium 100 mg PO levothyroxine 175 mcg orally 6 days / week; per moxifloxacin 0.5% 0 drps ophthalmic (eye) prednisolone acetate 1% 0 drps ophthalmic (eye) testosterone 0 mg topical QAM trazodone 150 mg PO BEDTIME Ventolin HFA 90 mcg/actuation (albuterol sulfate) 2 puffs inhalation Q4-6H PRN NS warfarin 5 mg See Protocol PO DAILY Nursing Note NO CP,SOB,DIET/MED CHANGES,FALLS OR SX OF BLEEDING. CONTINUE PRESENT DOSE AND FOLLOW-UP IN 4 WEEKS. GOOD UNDERSTANDING OF DOSING INSTR. 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
== END 2023-08-06 13:16 | disposition home or self-care (01) ==
LOC: HO.ACS 13:05
PROVIDERS: PCP Internal Medicine; Visit Provider Internal Medicine
DX: Z79.01 Long term (current) use of anticoagulants (principal)

== ENCOUNTER → 2023-08-06 13:05 | Outpatient (BNVA) | payer MEDICARE, MEDICAID, SELFPAY | PROVIDERS: PCP Internal Medicine; Visit Provider Internal Medicine | DX: I26.99 Other pulmonary embolism without acute cor pulmonale (principal); Z51.81 Encounter for therapeutic drug level monitoring; Z79.01 Long term (current) use of anticoagulants | CPT/HCPCS: 85610; 99211 ==

== ENCOUNTER 2023-09-03 12:58 | Outpatient (AMB) | payer MEDICARE, MEDICAID, SELFPAY ==
[2023-09-03 13:57] LABS: Prothrombin Time Whole Bld POC 47.2 sec (11.1-13.5); ~PT, ~INR - Anti Coag Clinic 3.9 (0.9-1.1)
--- NOTE | 2023-09-03 14:16 | MHC.OFFVISCO ---
Intake Intake Visit Reasons: Anticoagulation Allergies Penicillins Allergy (Severe, Verified 09/03/23 13:50) ANAPHYLAXIS Sulfa (Sulfonamide Antibiotics) Allergy (Intermediate, Verified 09/03/23 13:50) HIVES Medication List - Last Reconciled 09/03/23 by Sarahi Corbin RN acetaminophen (Tylenol Extra Strength) 1,000 mg (2 x 500 mg) PO QID PRN albuterol sulfate 2.5 mg (3 mL) inhalation TID buprenorphine-naloxone 8-2 mg 1 film sublingual TID diazepam 10 mg PO BID PRN docusate sodium 100 mg PO levothyroxine 175 mcg orally 6 days / week; per testosterone 0 mg topical QAM trazodone 150 mg PO BEDTIME PRN Ventolin HFA 90 mcg/actuation (albuterol sulfate) 2 puffs inhalation Q4-6H PRN NS warfarin 5 mg See Protocol PO DAILY Nursing Note INR 3.9-?? out of therapeutic range of 2-3 pt c.o increased stress Medications and supplements reviewed Patient status: pt here for coag meter training for home testing. Medications or supplements: pt no longer on eye drops. medications reviewed with pt Diet: same Denies any signs and symptoms of bleeding or clotting or unusual bruising Bleeding, bruising, clotting discussed Nutritional guidance given: eat greeens to lower inr today and tomm, no reds for 2-3 days Dose: pt states already took warfarin today, hold dose tomm then cont reg- 2.5mg x 6, 5mg x 1 F/U INR Date : self test on 09/09/23?? Patient verbalizing understanding of instructions given. pt given educational material for meter training, procedure for poc inr, error messages, critical values, cleaning meter, storing meter, battery change and date/time change reviewed. pt demonstrated 2 self tests, first with verbal cues, second did indep except cue to match code on strip. pt meter poc inr 4.2, 4.3. pt deferred third poc test. pt successfully called poc inr to [facility]. pt will check on on next week, and will check before 11am. paperwork faxed to [employer] risk scores done and entered. Anti-Coag Initial Assessment Social Hx Patient Tobacco Use Status: Former Tobacco user Tobacco use type: Cigarette Smoking packs per day: 1 alcohol intake: never Alcohol intake frequency: does not drink Questionnaires HAS-BLED Does the patient had uncontrolled Hypertension?: No Does the patient have renal disease?: No Does the patient have liver disease?: No Does the patient have a history of stroke?: No Has the patient had major bleeding or predisposition to bleeding?: No Does the patient have labile INRs?: Yes Is the patient over 65 years of age?: No Is the patient on medications that gives them a predisposition to bleeding?: Yes Does the patient use alcohol?: Yes HAS-BLED Score: 3 CHADSVASC Age: <65 Gender: Male Does the patient have a history of CHF?: No Does the patient have a history of Hypertension?: No Does the patient have a history of Stroke/TIA/Thromboembolism?: No Does the patient have a history of Vascular Disease (prior RI, PAD or aortic plaque)?: No Does the patient have a history of Diabetes?: No CHADS VACS Score: 0 Janessa Prediction Score Rsk VTE Active Cancer: No Previous VTE, excluding superficial vein thrombosis: Yes Reduced mobility: No Already known Thrombophilic Condition: No With-in last month Trauma and/or Surgery: No Elderly 70 year or older: No Heart and/or Respiratory Failure: No Acute Myocardial infarction and/or Ischemic Stroke: No Acute Infection and/or Rheumatologic Disorder: No Obesity (BMI 30 or greater): No Ongoing Hormonal Treatment: Yes Score: 4 Janessa Score less than 4; Low Risk of VTE Janessa Score 4 or greater; High Risk of VTE Coding Level of Care Code Demo Use Home INR Diagnoses Current use of anticoagulant therapy Z79.01 Assessment & Plan Assessment & Plan (1) Current use of anticoagulant therapy: Comment: On Coumadin Code(s): 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
== END 2023-09-03 14:52 | disposition home or self-care (01) ==
LOC: HO.ACS 12:58
PROVIDERS: PCP Internal Medicine; Visit Provider Internal Medicine
DX: Z79.01 Long term (current) use of anticoagulants (principal)

== ENCOUNTER → 2023-09-03 12:58 | Outpatient (BNVA) | payer MEDICARE, MEDICAID, SELFPAY | PROVIDERS: PCP Internal Medicine; Visit Provider Internal Medicine | DX: I26.99 Other pulmonary embolism without acute cor pulmonale (principal); Z79.01 Long term (current) use of anticoagulants; Z51.81 Encounter for therapeutic drug level monitoring | CPT/HCPCS: 85610; G0248 ==

== ENCOUNTER 2023-09-09 11:03 | Outpatient (AMB) | payer MEDICARE, MEDICAID, SELFPAY ==
--- NOTE | 2023-09-09 11:16 | MHC.OFFVISCO ---
Intake Intake Visit Reasons: Anticoagulation Allergies Penicillins Allergy (Severe, Verified 09/09/23 11:06) ANAPHYLAXIS Sulfa (Sulfonamide Antibiotics) Allergy (Intermediate, Verified 09/09/23 11:06) HIVES Medication List - Last Reconciled 09/09/23 by Kirstin Ocasio RN acetaminophen (Tylenol Extra Strength) 1,000 mg (2 x 500 mg) PO QID PRN albuterol sulfate 2.5 mg (3 mL) inhalation TID buprenorphine-naloxone 8-2 mg 1 film sublingual TID diazepam 10 mg PO BID PRN docusate sodium 100 mg PO levothyroxine 175 mcg orally 6 days / week; per nicotine 1 patch topical DAILY testosterone 0 mg topical QAM trazodone 150 mg PO BEDTIME PRN Ventolin HFA 90 mcg/actuation (albuterol sulfate) 2 puffs inhalation Q4-6H PRN NS warfarin 5 mg See Protocol PO DAILY Nursing Note INR3.4? out of therapeutic range Medications and supplements reviewed Patient status: pt came to clinic after testing his INR at home because he had POC technique questions. POC with the lancets and his lancet pen that came with his kit reviewed with good understanding. under stress with ill son, was trying to quick smoking then started smoking again under extreme stress, now going back to stop smoking with patch, occ using vape pen - enc to stop due to other lung issues with, with smoking cessation INR can become elebvated Medications or supplements: no changes Diet: good has been having greens Denies any signs and symptoms of bleeding or clotting or unusual bruising Bleeding, bruising, clotting discussed Nutritional guidance given: review food list weekly, keep up weekly greens, Dose: decrease weekly dose to 2.5mg daily F/U INR Date: Home Meter testing 09/18/23 ?? Patient verbalizing understanding of instructions given. Anti-Coag Initial Assessment Social Hx Patient Tobacco Use Status: Former Tobacco user Tobacco use type: Cigarette Smoking packs per day: 1 alcohol intake: never Alcohol intake frequency: does not drink Coding Level of Care Code Est Patient Level 1 Diagnoses Current use of anticoagulant therapy Z79.01 Results AMB INR Fingerstick AMB INR Fingerstick 3.4 Last Edit by Kirstin Ocasio RN on 09/09/23 11:05 METER AND CLINIC VISIT PT CAME IN Assessment & Plan Assessment & Plan (1) Current use of anticoagulant therapy: Comment: On Coumadin Code(s): Z79.01 - halfway (current) use of anticoagulants Category: Medical
== END 2023-09-09 11:27 | disposition home or self-care (01) ==
LOC: HO.ACS 11:03
PROVIDERS: PCP Internal Medicine; Visit Provider Internal Medicine
DX: Z79.01 Long term (current) use of anticoagulants (principal)

== ENCOUNTER → 2023-09-09 11:03 | Outpatient (BNVA) | payer MEDICARE, MEDICAID, SELFPAY | PROVIDERS: PCP Internal Medicine; Visit Provider Internal Medicine | DX: I26.99 Other pulmonary embolism without acute cor pulmonale (principal); Z79.01 Long term (current) use of anticoagulants; Z51.81 Encounter for therapeutic drug level monitoring | CPT/HCPCS: 99211 ==

== ENCOUNTER → 2023-09-18 11:46 | Outpatient (BNVA) | payer MEDICARE, MEDICAID, SELFPAY | PROVIDERS: PCP Internal Medicine; Visit Provider Internal Medicine ==

== ENCOUNTER → 2023-10-02 11:51 | Outpatient (BNVA) | payer MEDICARE, MEDICAID, SELFPAY | PROVIDERS: PCP Internal Medicine; Visit Provider Internal Medicine ==

== ENCOUNTER → 2023-10-16 08:28 | Outpatient (BNVA) | payer MEDICARE, MEDICAID, SELFPAY | PROVIDERS: PCP Internal Medicine; Visit Provider Internal Medicine ==

== ENCOUNTER → 2023-10-30 13:56 | Outpatient (BNVA) | payer MEDICARE, MEDICAID, SELFPAY | PROVIDERS: PCP Internal Medicine; Visit Provider Internal Medicine ==

== ENCOUNTER 2023-11-03 09:17 | Outpatient (AMB) | payer MEDICARE, MEDICAID, SELFPAY ==
[2023-11-03 09:35] VITALS: BP 120/62; PULSE 95; TEMP 36.6; O2SAT 96; BMI 31.2
--- NOTE | 2023-11-03 09:35 | MHC.OFFWIV ---
Intake Vital Signs 11/03/23 09:35 Height 6 ft 3 in Weight 250 lb BMI 31.2 BP 120/62 Blood Pressure Location Lt brachial Position Sitting Pulse 95 Pulse Source Pulse Oximeter Temp 97.8 F Temp Source Temporal Artery Scan Pulse Oximetry (%) 96 Oxygen Delivery Method Room Air Intake Visit Reasons: EP Sore throat/Ear Intake Note: pt is here today for sore throat started 2 weeks ago Patient Tobacco Use Status: Former Tobacco user Allergies Sulfa (Sulfonamide Antibiotics) Allergy (Intermediate, Verified 11/03/23 09:40) HIVES Do you need a note to return to daycare/school/sports/work: No HPI HPI Comments History of Present Illness Details 58 y/o male patient who presents to walk in clinic with c/o Sore-throat x 2 weeks. Pt reports wheezing and SOB with activities. FOR[facility]LY [facility], [facility] Medical History (Updated 05/01/23 @ 12:13 by Obi Ramon MD) Pre-op exam Anxiety Depression Pulmonary embolism Hypothyroidism Obesity Gout Surgical History History of sinus surgery History of thyroidectomy History of hernia repair History of appendectomy Family History Father Acute CVA (cerebrovascular accident) Diabetes Hypertension Mother Stroke Other Substance abuse Social History Housing: Condominium Alcohol intake: never Patient Tobacco Use Status: Former Tobacco user Tobacco use type: Cigarette Cigarette Packs Per Day: 1 Cigarettes Per Day: 20.0 e-Cigarette/Vaping Use: Never Used Second Hand Smoke Exposure: No service: No Current occupational status: disabled Cognitive needs: No Hearing needs: No Vision needs: No Review of Systems Const All systems reviewed & are unremarkable except as noted in HPI and below Physical Exam Vital Signs: Last Vital Signs Temp 97.8 F 11/03/23 09:35 Pulse 95 11/03/23 09:35 BP 120/62 11/03/23 09:35 Pulse Ox 96 11/03/23 09:35 Oxygen Delivery Method Room Air 11/03/23 09:35 BMI result Body Mass Index 31.2 Const General: no acute distress, intoxicated appearing (Pt appears to be under the influence. ) and lethargic Orientation/consciousness: patient oriented x3 and lethargic Eyes Eyelids: Yes eyelids normal Conjunctivae: conjunctivae normal Pupils: Pinpoint pupils bilaterally EOM: EOMs intact bilaterally Direct Ophthalmoscopy: normal light reflex Resp Effort & Inspection: normal respiratory effort, able to speak in complete sentences and Actively coughing Auscultation: no crackles, no rales, rhonchi and wheezes Cardio Rate: regular rate Rhythm: regular rhythm Neuro General: patient oriented x3, gait normal and moves all extremities Psych Speech and movement: Pressured speech present Attitude: cooperative Results AMB Rapid Strep AMB Rapid Strep Negative Last Edit by Gil Comer MA on 11/03/23 10:10 Assessment & Plan Assessment & Plan (1) Wheezing on auscultation: Code(s): R06.2 - Wheezing Plan: - Use Albuterol rescue inhaler every 4-6 hours for wheezing. (2) Acute pharyngitis: Code(s): J02.9 - Acute pharyngitis, unspecified Qualifiers: Pharyngitis/tonsillitis etiology: unspecified etiology Qualified Code(s): J02.9 - Acute pharyngitis, unspecified Plan: - Will Tx with Abx - Rest - Pt appears under the influence of something. Medications: New prednisone 50 mg PO DAILY 5 days 5 tabs 0RF J20.9 - Acute bronchitis, unspecified, R06.2 - Wheezing amoxicillin 500 mg PO BID 10 days 20 caps 0RF J02.9 - Acute pharyngitis, unspecified Coding Level of Care Code Est Pt Level 3 (45229) Diagnoses Wheezing on auscultation R06.2 Acute pharyngitis, unspecified etiology J02.9 Pharyngitis/tonsillitis etiology: unspecified etiology Time Spent (min) 15
== END 2023-11-03 10:15 | disposition home or self-care (01) ==
PROVIDERS: PCP Internal Medicine; Visit Provider Nurse Practitioner Family
DX: R06.2 Wheezing (principal); J02.9 Acute pharyngitis, unspecified
CPT/HCPCS: 87880; 99213

== ENCOUNTER → 2023-11-03 16:34 | Outpatient (BNVA) | payer MEDICARE, MEDICAID, SELFPAY | PROVIDERS: PCP Internal Medicine; Visit Provider Internal Medicine ==

== ENCOUNTER 2023-11-04 14:13 | Outpatient (AMB) | payer MEDICARE, MEDICAID, SELFPAY ==
[2023-11-04 14:15] VITALS: BP 136/80; PULSE 67; O2SAT 98; BMI 31.2
--- NOTE | 2023-11-04 14:15 | A.OFFPC_ITS ---
Vital Signs 11/04/23 14:15 Height 6 ft 3 in Weight 250 lb BMI 31.2 BP 136/80 Blood Pressure Location Lt brachial Position Sitting Pulse 67 Pulse Source Pulse Oximeter Pulse Oximetry (%) 98 Oxygen Delivery Method Room Air Intake Visit Reasons: Sore throat Aircraft [employer] Burnisher Required: No Medical Policy Specialist: Not Required per policy Accompanied by: Self / Same As Patient Allergies Sulfa (Sulfonamide Antibiotics) Allergy (Intermediate, Verified 11/03/23 09:40) HIVES Medication List - Last Reconciled 11/05/23 by Obi Ramon MD acetaminophen (Tylenol Extra Strength) 1,000 mg (2 x 500 mg) PO QID PRN amoxicillin 500 mg PO BID 10 days buprenorphine-naloxone 8-2 mg 1 film sublingual TID diazepam 10 mg PO BID PRN docusate sodium 100 mg PO levothyroxine 175 mcg orally 6 days / week; per prednisone 50 mg PO DAILY 5 days testosterone 0 mg topical QAM trazodone 150 mg PO BEDTIME PRN Ventolin HFA 90 mcg/actuation (albuterol sulfate) 2 puffs inhalation Q4-6H PRN NS warfarin 5 mg See Protocol PO DAILY Tobacco use date assessed: 11/04/23 Dental Screening Dental Screen Date: 11/04/23 Did you have a dental visit in the last 12 months?: Yes Did you have a dental problem in the last 6 months where you did not have access to dental care?: No Was dental information given to patient?: Patient has dentist HPI Sore throat HPI Details has a cough and sore throat; has already been seen in urgent care and started on rx yesterday; needs to be patient [facility] Medical History (Updated 05/01/23 @ 12:13 by Obi Ramon MD) Pre-op exam Anxiety Depression Pulmonary embolism Hypothyroidism Obesity Gout Surgical History History of sinus surgery History of thyroidectomy History of hernia repair History of appendectomy Family History Father Acute CVA (cerebrovascular accident) Diabetes Hypertension Mother Stroke Other Substance abuse Social History Housing: Condominium Alcohol intake: never Patient Tobacco Use Status: Former Tobacco user Tobacco use type: Cigarette Cigarette Packs Per Day: 1 Cigarettes Per Day: 20.0 e-Cigarette/Vaping Use: Never Used Second Hand Smoke Exposure: No service: No Current occupational status: disabled Cognitive needs: Yes (cane) Hearing needs: No Vision needs: Yes (glasses) Questionnaire PHQ-9 Over the last 2 weeks, how often have you been bothered by any of the following problems? 1. Little interest or pleasure in doing things: not at all 2. Feeling down, depressed, or hopeless: not at all 3. Trouble falling or staying asleep, or sleeping too much: not at all 4. Feeling tired or having little energy: not at all 5. Poor appetite or overeating: not at all 6. Feeling bad about yourself - or that you are a failure or have let yourself or your family down: not at all 7. Trouble concentrating on things, such as reading the newspaper or watching t elevision: not at all 8. Moving or speaking so slowly that other people could have noticed. Or the opposite - being so fidgety or restless that you have been moving around a lot more than usual: not at all 9. Thoughts that you would be better off or of hurting yourself in some way: not at all Total score: 0 Depression Screening Interpretation: Negative Depression Screening Done: Yes 85005 - PHQ-9 Billing: Yes Source: Developed by Drs. Cam Sandy, Julia James, Anton Perez and colleagues, with an educational molina from [employer]. Thrive Questionnaire Date Thrive assessed: 11/04/23 I am a: Patient What is your living situation today?: I have a steady place to live Within the past 12 months, did the food you bought not last and you didn't have the money to get more?: Never true Within the past 12 months, did you worry whether your food would run out before you got money to buy more?: Never true Do you have trouble paying for medicines?: No Do you have trouble getting transportation to medical appointments?: No Do you have trouble paying your heating and electricity bill?: No Do you have trouble taking care of your child, family member or friend?: No Do you have trouble with day-to-day activities such as bathing, preparing meals, shopping, managing finances, etc.?: No Are you currently unemployed and looking for a job?: No Are you interested in more education?: No Please select the resources that you would like help with: None THRIVE Score: 0 AUDIT C Alcohol Use Questionnaire (AUDIT-C) 1. How often do you have a drink containing alcohol?: Never 3. How often do you have six or more drinks on one occasion?: Never Total Score: 0 Score Reviewed/Action Taken: Yes MARIELENA-7 AMB Questionnaire MARIELENA-7 Date MARIELENA - 7 assessed: 11/04/23 Feeling nervous, anxious, or on edge: 0 = Not at all Not being able to stop or control worryin = Not at all Worrying too much about different things: 0 = Not at all Trouble relaxin = Not at all Being so restless that it is hard to sit still: 0 = Not at all Becoming easily annoyed or irritable: 0 = Not at all Feeling afraid as if something awful might happen: 0 = Not at all Total MARIELENA-7 score (0-4 normal; 5-9 mild; 10-14 moderate; 15-21 severe): 0 Source: Developed by Drs. Cam Sandy, Julia James, Anton Perez and colleagues, with an educational molina from [employer]. Review of Systems Const Denies chills, Denies headache(s) and Denies weight loss ENT Denies headache(s) Card Denies chest pain, Denies syncope, Denies irregular heart rhythm and Denies dyspnea Resp Denies chest congestion, Denies cough and Denies dyspnea GI Denies abdominal pain, Denies change in stool character, Denies nausea and Denies vomiting Musc Denies deformity and Denies joint swelling Neuro Denies syncope and Denies headache(s) Physical exam (Primary Care) Vital Signs: Last Vital Signs Pulse 67 11/04/23 14:15 BP 136/80 11/04/23 14:15 Pulse Ox 98 11/04/23 14:15 Oxygen Delivery Method Room Air 11/04/23 14:15 BMI result Body Mass Index 31.2 Tobacco/Smoking Status: Tobacco use Status Tobacco use date assessed 11/04/23 11/04/23 14:24 Patient Tobacco Use Status Former Tobacco user 11/04/23 14:24 Tobacco use type Cigarette 11/04/23 14:24 e-Cigarette/Vaping Use Never Used 11/04/23 14:24 PHQ-9: PHQ-9 Score PHQ-9: Total score 0 11/04/23 14:24 Depression Screening Interpretation: Negative Thrive Assessment: Date of Thrive Assessment Date Thrive assessed 11/04/23 11/04/23 14:24 Const General: cooperative, comfortable, no acute distress and alert Neck Neck: Yes no lymphadenopathy Thyroid: Thyroid normal Resp Effort & Inspection: normal respiratory effort Auscultation: clear to auscultation bilaterally Percussion: percussion normal Cardio Jugular venous distension: no JVD Palpation: normal PMI Rate: regular rate Rhythm: regular rhythm Heart sounds: S1 normal heart sound present and S2 normal heart sound present GI Inspection: Yes normal to inspection Palpation (GI): No hepatosplenomegaly present Skin General skin exam: no rashes or lesions noted Extrem General: Yes no clubbing, cyanosis or edema Assessment and Plan Assessment & Plan (1) Sore throat: Code(s): J02.9 - Acute pharyngitis, unspecified Plan: cont rx Coding Level of Care Code Est Pt Level 3 (65473) Diagnoses Sore throat J02.9
== END 2023-11-04 14:37 | disposition home or self-care (01) ==
PROVIDERS: PCP Internal Medicine; Visit Provider Internal Medicine
DX: J02.9 Acute pharyngitis, unspecified (principal)
CPT/HCPCS: 99213

== ENCOUNTER → 2023-11-05 11:24 | Outpatient (BNVA) | payer MEDICARE, MEDICAID, SELFPAY | PROVIDERS: PCP Internal Medicine; Visit Provider Internal Medicine ==

== ENCOUNTER → 2023-11-07 15:55 | Outpatient (BNVA) | payer MEDICARE, MEDICAID, SELFPAY | PROVIDERS: PCP Internal Medicine; Visit Provider Internal Medicine ==

== ENCOUNTER → 2023-11-13 12:21 | Outpatient (BNVA) | payer MEDICARE, MEDICAID, SELFPAY | PROVIDERS: PCP Internal Medicine; Visit Provider Internal Medicine ==

== ENCOUNTER → 2023-11-20 13:30 | Outpatient (BNVA) | payer MEDICARE, MEDICAID, SELFPAY | PROVIDERS: PCP Internal Medicine; Visit Provider Internal Medicine ==

== ENCOUNTER → 2023-11-21 10:58 | Outpatient (BNVA) | payer MEDICARE, MEDICAID, SELFPAY | PROVIDERS: PCP Internal Medicine; Visit Provider Internal Medicine ==

== ENCOUNTER → 2023-11-27 09:35 | Outpatient (BNVA) | payer MEDICARE, MEDICAID, SELFPAY | PROVIDERS: PCP Internal Medicine; Visit Provider Internal Medicine ==

== ENCOUNTER → 2023-12-11 09:28 | Outpatient (BNVA) | payer MEDICARE, MEDICAID, SELFPAY | PROVIDERS: PCP Internal Medicine; Visit Provider Internal Medicine ==

== ENCOUNTER → 2023-12-25 12:36 | Outpatient (BNVA) | payer MEDICARE, MEDICAID, SELFPAY | PROVIDERS: PCP Internal Medicine; Visit Provider Internal Medicine ==

== ENCOUNTER → 2024-01-01 11:04 | Outpatient (BNVA) | payer MEDICARE, MEDICAID, SELFPAY | PROVIDERS: PCP Internal Medicine; Visit Provider Internal Medicine ==

== ENCOUNTER → 2024-01-08 09:23 | Outpatient (BNVA) | payer MEDICARE, MEDICAID, SELFPAY | PROVIDERS: PCP Internal Medicine; Visit Provider Internal Medicine ==

== ENCOUNTER → 2024-01-22 09:21 | Outpatient (BNVA) | payer MEDICARE, MEDICAID, SELFPAY | PROVIDERS: PCP Internal Medicine; Visit Provider Internal Medicine ==

== ENCOUNTER → 2024-02-04 09:11 | Outpatient (BNVA) | payer MEDICARE, MEDICAID, SELFPAY | PROVIDERS: PCP Internal Medicine; Visit Provider Internal Medicine ==

== ENCOUNTER → 2024-02-19 08:52 | Outpatient (BNVA) | payer MEDICARE, MEDICAID, SELFPAY | PROVIDERS: PCP Internal Medicine; Visit Provider Internal Medicine ==

== ENCOUNTER → 2024-03-04 10:40 | Outpatient (BNVA) | payer MEDICARE, MEDICAID, SELFPAY | PROVIDERS: PCP Internal Medicine; Visit Provider Internal Medicine ==

== ENCOUNTER → 2024-03-18 09:37 | Outpatient (BNVA) | payer MEDICARE, MEDICAID, SELFPAY | PROVIDERS: PCP Internal Medicine; Visit Provider Internal Medicine ==

== ENCOUNTER → 2024-04-01 11:39 | Outpatient (BNVA) | payer MEDICARE, MEDICAID, SELFPAY | PROVIDERS: PCP Internal Medicine; Visit Provider Internal Medicine ==

== ENCOUNTER → 2024-04-08 14:29 | Outpatient (RCR) | payer MEDICARE, MEDICAID, SELFPAY ==
--- NOTE | 2021-01-19 13:48 | PM.HEMONCPN ---
Medical Summary - Medical Summary Date of Service: 01/19/21 Chief complaint: Follow-up Medical Summary: Diagnosis: DVT/PE in 2013 and 2017 The patient was started on AndroGel sometime in February 2014. About 3 months later, he developed a cramp-like pain in his left leg, which was not provoked by trauma or surgery or prolonged immobilization. He, however, is a chronic smoker. He presented to the Emergency Department at [facility] where he was documented to have a DVT in his left leg, as well as pulmonary embolism. He was placed on warfarin and Lovenox. After a few weeks, he developed increasing pain while walking in his left calf and was seen by his PCP who ordered another Doppler and also referred to the Emergency Department at [facility]. He underwent a CT angiogram on June 10, 2014, which demonstrated a filling defect within the subsegmental and submental branches of the right upper lobe consistent with pulmonary embolism in the left upper lobe. He had also mild to moderate pulmonary emphysema. On admission, his INR was about 1.9. Therefore, he was restarted on low molecular weight heparin, along with his Coumadin. He was seen in consultation by Dr. Longo on June 11, 2014 and had scans from [facility] which were performed on April 21, 2014 compared. The clots seen in April at [facility] seemed much more extensive compared to the current scans performed at [facility]. No family history of thrombosis or thrombophilia. Interval History Interval history: Patient is here in follow-up. He is doing okay, continues to take warfarin daily. His INR today was slightly above 3. He took prednisone yesterday for some ear ache which might have caused the increase in INR. 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 He denies any bruising or bleeding. He has no other complaints today. Review of Systems - Constitutional Reports no additional constitutional complaints - Cardiovascular Reports no additional cardiovascular complaints - Respiratory Reports no additional respiratory complaints - Gastrointestinal Reports no additional gastrointestinal complaints [facility] Family History: Family History (Last Updated 01/18/21 @ 15:13 by Dianna Noble CMA) Father Acute CVA (cerebrovascular accident) Diabetes Hypertension Mother Stroke Other Substance abuse Surgical History: Surgical History (Last Reviewed 01/18/21 @ 15:11 by Dianna Noble CMA) History of appendectomy History of hernia repair History of thyroidectomy Social History: Social History (Last Updated 01/19/21 @ 14:11 by Lynn Craig) Living Situation History: Housing: Condominium Alcohol History: Alcohol intake: never Alcohol History Details: Alcohol intake frequency: does not drink Tobacco History: Patient Tobacco Use Status: Current everyday Tobacco Cigarette Packs Per Day: 1 Cigarettes Per Day: 20.0 Substance Use History: Use of substances other than those prescribed or required for medical reasons: No Occupation Assessmet: service: No Current occupational status: disabled Oncology Screenings - ECOG Performance Status ECOG Performance Status: 0 Home Medications and Allergies Home Medications Medication Instructions Recorded Confirmed Type buprenorphine 8 mg-naloxone 2 mg 24 mg SUBLINGUAL DAILY 05/18/20 01/19/21 History sublingual film cholecalciferol (vitamin D3) 25 25 mcg PO DAILY 05/18/20 01/19/21 History mcg (1,000 unit) tablet diazepam 10 mg tablet 10 mg PO BID PRN 05/18/20 01/19/21 History levothyroxine 175 mcg tablet 175 mcg PO DAILY 05/18/20 01/19/21 History prednisone 10 mg tablet 10 mg PO BID 05/18/20 01/19/21 History testosterone 2 mg/24 hour 1 patch TOPICAL DAILY 05/18/20 01/19/21 History transdermal 24 hour patch trazodone 150 mg tablet [id number] mg PO BEDTIME 05/18/20 01/19/21 History Allergies Allergy/AdvReac Type Severity Reaction Status Date / Time Penicillins Allergy Severe ANAPHYLAXIS Verified 01/18/21 15:05 Sulfa (Sulfonamide Allergy Intermediate HIVES Verified 01/18/21 15:05 Antibiotics) Exam Vital signs: Vital Signs Temp Pulse Resp BP Pulse Ox 01/19/21 14:05 97.7 F 86 14 119/75 93 Intake and Output 01/19/21 01/19/21 01/19/21 06:59 14:59 22:59 Other: Weight 108.2 kg Anderson Weight in Grams [id number] Patient Weight 01/20/21 06:59 Weight 108.2 kg - Constitutional Present: no acute distress - Routine HEENT Exam Head: Present: normal inspection Eye: Present: EOMI - Routine Neck Exam Present: full ROM. 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 Patient was taken off warfarin briefly for a month in May 2018 and he develop recurrent clot in left calf peroneal and posterior tibial veins. He is now on long-term anticoagulation with warfarin. He reports no overt bruising or bleeding. He is scheduled to undergo surgery for left maxillary sinus mass at [facility]. Follow-up in 3 months. - Time Spent With Patient 15 - 24 minutes
[2021-01-19 14:05] VITALS: BP 119/75; PULSE 86; RESP 14; TEMP 36.5; O2SAT 93; BMI 29.8
== END | disposition home or self-care (01) ==
LOC: HO.ONC 01-19 13:12
PROVIDERS: PCP Internal Medicine; Visit Provider Internal Medicine
DX: Z86.718 Personal history of other venous thrombosis and embolism (principal); Z86.711 Personal history of pulmonary embolism; Z79.01 Long term (current) use of anticoagulants; F17.210 Nicotine dependence, cigarettes, uncomplicated
CPT/HCPCS: 85610; 99211; 99213

== ENCOUNTER → 2024-04-15 09:57 | Outpatient (BNVA) | payer MEDICARE, MEDICAID, SELFPAY | PROVIDERS: PCP Internal Medicine; Visit Provider Internal Medicine ==

== ENCOUNTER → 2024-04-29 14:45 | Outpatient (BNVA) | payer MEDICARE, MEDICAID, SELFPAY | PROVIDERS: PCP Internal Medicine; Visit Provider Internal Medicine ==

== ENCOUNTER 2024-05-03 14:08 | Outpatient (AMB) | payer MEDICARE, MEDICAID, SELFPAY ==
[2024-05-03 14:15] VITALS: BP 138/70; PULSE 76; O2SAT 96; BMI 30.6
--- NOTE | 2024-05-03 14:15 | A.OFFPC_ITS ---
Vital Signs 05/03/24 14:15 Height 6 ft 3 in Weight 245 lb BMI 30.6 BP 138/70 Blood Pressure Location Lt brachial Position Sitting Pulse 76 Pulse Source Pulse Oximeter Pulse Oximetry (%) 96 Oxygen Delivery Method Room Air Intake Visit Reasons: med follow up Roll Filler Required: No Accompanied by: Self / Same As Patient Allergies Sulfa (Sulfonamide Antibiotics) Allergy (Intermediate, Verified 05/03/24 14:17) HIVES Medication List - Last Reconciled 05/04/24 by Obi Ramon MD acetaminophen (Tylenol Extra Strength) 1,000 mg (2 x 500 mg) PO QID PRN buprenorphine-naloxone 8-2 mg 1 film sublingual TID diazepam 10 mg PO BID PRN docusate sodium 100 mg PO levothyroxine 175 mcg orally 6 days / week; per testosterone 0 mg topical QAM trazodone 150 mg PO BEDTIME PRN Ventolin HFA 90 mcg/actuation (albuterol sulfate) 2 puffs inhalation Q4-6H PRN NS warfarin 5 mg See Protocol PO DAILY Tobacco use date assessed: 11/04/23 Dental Screening Dental Screen Date: 11/04/23 HPI med follow up HPI Details hypothyroidism on rx; doing well; compliant [facility] Medical History (Updated 05/01/23 @ 12:13 by Obi Ramon MD) Pre-op exam Anxiety Depression Pulmonary embolism Hypothyroidism Obesity Gout Surgical History History of sinus surgery History of thyroidectomy History of hernia repair History of appendectomy Family History Father Acute CVA (cerebrovascular accident) Diabetes Hypertension Mother Stroke Other Substance abuse Social History Housing: Condominium Alcohol intake: never Patient Tobacco Use Status: Former Tobacco user Tobacco use type: Cigarette Cigarette Packs Per Day: 1 Cigarettes Per Day: 20.0 e-Cigarette/Vaping Use: Never Used Second Hand Smoke Exposure: No service: No Current occupational status: disabled Cognitive needs: Yes (cane) Hearing needs: No Vision needs: Yes (glasses) Questionnaire PHQ-9 Over the last 2 weeks, how often have you been bothered by any of the following problems? 1. Little interest or pleasure in doing things: not at all 2. Feeling down, depressed, or hopeless: not at all 3. Trouble falling or staying asleep, or sleeping too much: not at all 4. Feeling tired or having little energy: not at all 5. Poor appetite or overeating: not at all 6. Feeling bad about yourself - or that you are a failure or have let yourself or your family down: not at all 7. Trouble concentrating on things, such as reading the newspaper or watching television: not at all 8. Moving or speaking so slowly that other people could have noticed. Or the opposite - being so fidgety or restless that you have been moving around a lot more than usual: not at all 9. Thoughts that you would be better off or of hurting yourself in some way : not at all Total score: 0 Depression Screening Interpretation: Negative Depression Screening Done: Yes [id number] - PHQ-9 Billing: Yes Source: Developed by Drs. Cam Sandy, Julia James, Anton Perez and colleagues, with an educational molina from [employer]. Thrive Questionnaire Date Thrive assessed: 11/04/23 Are you currently unemployed and looking for a job?: I choose not to answer this question AUDIT C Alcohol Use Questionnaire (AUDIT-C) 3. How often do you have six or more drinks on one occasion?: Never Total Score: 0 MARIELENA-7 AMB Questionnaire MARIELENA-7 Date MARIELENA - 7 assessed: 11/04/23 Source: Developed by Drs. Cam Sandy, Anton Infante and colleagues, with an educational molina from [employer]. Review of Systems Const Denies chills, Denies headache(s) and Denies weight loss ENT Denies headache(s) Card Denies chest pain, Denies syncope, Denies irregular heart rhythm and Denies dyspnea Resp Denies chest congestion, Denies cough and Denies dyspnea GI Denies abdominal pain, Denies change in stool character, Denies nausea and Denies vomiting Musc Denies deformity and Denies joint swelling Neuro Denies syncope and Denies headache(s) Physical exam (Primary Care) Vital Signs: Last Vital Signs Pulse 76 05/03/24 14:15 BP 138/70 05/03/24 14:15 Pulse Ox 96 05/03/24 14:15 Oxygen Delivery Method Room Air 05/03/24 14:15 BMI result Body Mass Index 30.6 Tobacco/Smoking Status: Tobacco use Status Tobacco use date assessed 11/04/23 05/03/24 14:15 Patient Tobacco Use Status Former Tobacco user 05/03/24 14:15 Tobacco use type Cigarette 05/03/24 14:15 e-Cigarette/Vaping Use Never Used 05/03/24 14:15 PHQ-9: PHQ-9 Score PHQ-9: Total score 0 05/03/24 14:21 Depression Screening Interpretation: Negative Thrive Assessment: Date of Thrive Assessment Date Thrive assessed 11/04/23 05/03/24 14:15 Const General: cooperative, comfortable, no acute distress and alert Neck Neck: Yes no lymphadenopathy Thyroid: Thyroid normal Resp Effort & Inspection: normal respiratory effort Auscultation: clear to auscultation bilaterally Percussion: percussion normal Cardio Jugular venous distension: no JVD Palpation: normal PMI Rate: regular rate Rhythm: regular rhythm Heart sounds: S1 normal heart sound present and S2 normal heart sound present GI Inspection: Yes normal to inspection Palpation (GI): No hepatosplenomegaly present Skin General skin exam: no rashes or lesions noted Extrem General: Yes no clubbing, cyanosis or edema Coding Level of Care Code Est Pt Level 3 (21223) Diagnoses Hypothyroidism E03.9
== END 2024-05-03 14:33 | disposition home or self-care (01) ==
PROVIDERS: PCP Internal Medicine; Visit Provider Internal Medicine
DX: E03.9 Hypothyroidism, unspecified (principal)

== ENCOUNTER → 2024-05-03 14:08 | Outpatient (BNVA) | payer MEDICARE, MEDICAID, SELFPAY | PROVIDERS: PCP Internal Medicine; Visit Provider Internal Medicine | DX: E03.9 Hypothyroidism, unspecified (principal) | CPT/HCPCS: 99212 ==

== ENCOUNTER 2024-05-03 14:59 | Outpatient (REF) | payer MEDICARE, MEDICAID, SELFPAY ==
--- NOTE | ~2024-05-03 | XR_ITS ---
EXAMINATION: XR CERVICAL SPINE CLINICAL INFORMATION: Neck pain. COMPARISON: CT scan cervical spine 02/29/2020. TECHNIQUE: 3 views of the cervical spine were obtained. FINDINGS: Surgical clips in the soft tissues of the neck. Straightening of the normal cervical lordosis. Limited visualization of C6-C7 due to overlying bony and soft tissue structures. Moderate multilevel cervical spondylosis with moderate loss of disc space height at C4-C5 and C5-C6. Mild posterior subluxation of C3 on C4. XR/XR cervical spine 2V IMPRESSION: Moderate multilevel cervical spondylosis. Electronically signed by: Kendra Kay MD 05/10/2024 02:10 PM EDT
== END 2024-05-03 15:00 | disposition home or self-care (01) ==
LOC: HO.HMGCX 14:59
PROVIDERS: PCP Internal Medicine; Visit Provider Internal Medicine
DX: M54.2 Cervicalgia (principal)
CPT/HCPCS: 72040

== ENCOUNTER → 2024-05-13 09:55 | Outpatient (BNVA) | payer MEDICARE, MEDICAID, SELFPAY | PROVIDERS: PCP Internal Medicine; Visit Provider Internal Medicine ==

== ENCOUNTER → 2024-05-27 10:49 | Outpatient (BNVA) | payer MEDICARE, MEDICAID, SELFPAY | PROVIDERS: PCP Internal Medicine; Visit Provider Internal Medicine ==

== ENCOUNTER → 2024-06-10 10:21 | Outpatient (BNVA) | payer MEDICARE, MEDICAID, SELFPAY | PROVIDERS: PCP Internal Medicine; Visit Provider Internal Medicine ==

== ENCOUNTER 2024-06-18 11:00 | Outpatient (RCR) | payer MEDICARE, MEDICAID, SELFPAY ==
--- NOTE | 2024-06-07 10:55 | MHC.PT.EP ---
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 Pt reports onset of pain began worsening a few months ago due to swinging a golf club. He presents today with impairments in pain, cervical ROM, posture, headaches. Pt's current occupation is disabled, with baseline physical activities including ADLs, sleeping. 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 Clinical presentation today is most consistent with signs and sx associated with neck pain and pt will benefit from skilled PT 2 week x 4 weeks to address the following problems and impairments noted upon evaluation: pain, cervical ROM, posture, headaches. These problems limit the patient with the following functional activities: ADLs, sleeping. The prescribed treatment plan of care is medically necessary. Co-morbidities of hx PE were identified and taken into considerations of plan of care. Pt was educated on HEP, role of PT, prognosis, POC. Frequency and Duration: The patient will be seen 2 x week x 4 weeks Short Term Goals: Pt will demonstrate less incidence of headaches to not being constant in 2 weeks. Pt will demonstrate improved posture as evidence by min to no cues during the session for correction in 2 weeks. Mcc Goals: Pt will demonstrate improved NDI score by 10% in 4 weeks for improved functional mobility. Pt will demonstrate ability to sleep through the night with min to no neck pain in 4 weeks for improved QOL. Treatment Plan: Modalities to reduce pain, spasms and effusion. Manual therapy to restore motion and function. Therapeutic exercise to improve strength and flexibility. Neuromuscular re-education for posture and balance. Therapeutic activities to return to functional activities of daily living. Electronically signed by: Argentina Rice, PT, DPT, ATC Please sign and return to therapist. Thank you for your referral.
--- NOTE | 2024-07-23 13:21 | MHC.PT.DC ---
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 Electronically signed by: Argentina Rice, PT, DPT, ATC Please sign and return to therapist. Thank you for your referral.
== END 2024-07-23 13:13 | disposition home or self-care (01) ==
LOC: HO.PTCHIC 11:00
PROVIDERS: PCP Internal Medicine; Visit Provider Internal Medicine
DX: M47.812 Spondylosis without myelopathy or radiculopathy, cervical region (principal)
CPT/HCPCS: 97110; 97140; 97161

== ENCOUNTER 2024-06-22 10:38 | Outpatient (AMB) | payer MEDICARE, MEDICAID, SELFPAY ==
[2024-06-22 10:49] VITALS: BP 130/72; PULSE 88; O2SAT 95; BMI 31.2
--- NOTE | 2024-06-22 10:49 | MHC.PC.OV ---
Vital Signs 06/22/24 10:49 Height 6 ft 3 in Weight 250 lb BMI 31.2 BP 130/72 Blood Pressure Location Lt brachial Position Sitting Pulse 88 Pulse Source Pulse Oximeter Pulse Oximetry (%) 95 Oxygen Delivery Method Room Air Intake Visit Reasons: Artrithis Allergies Sulfa (Sulfonamide Antibiotics) Allergy (Intermediate, Verified 06/22/24 10:49) HIVES Medication List - Last Reconciled 06/23/24 by Obi Ramon MD acetaminophen (Tylenol Extra Strength) 1,000 mg (2 x 500 mg) PO QID PRN buprenorphine-naloxone 8-2 mg 1 film sublingual BID diazepam 10 mg PO BEDTIME PRN docusate sodium 100 mg PO levothyroxine 175 mcg orally 6 days / week; per testosterone 0 mg topical QAM trazodone 75 mg PO BEDTIME PRN Ventolin HFA 90 mcg/actuation (albuterol sulfate) 2 puffs inhalation Q4-6H PRN NS warfarin 5 mg See Protocol PO DAILY Tobacco use date assessed: 11/04/23 Dental Screening Dental Screen Date: 11/04/23 HPI Artrithis HPI Details has neck pain not improving with PT PFSH Medical History (Updated 06/23/24 @ 11:44 by Obi Ramon MD) Pre-op exam Anxiety Depression Pulmonary embolism Hypothyroidism Obesity Gout Surgical History History of sinus surgery History of thyroidectomy History of hernia repair History of appendectomy Family History Father Acute CVA (cerebrovascular accident) Diabetes Hypertension Mother Stroke Other Substance abuse Social History Housing: Condominium Alcohol intake: never Patient Tobacco Use Status: Former Tobacco user Tobacco use type: Cigarette Cigarette Packs Per Day: 1 Cigarettes Per Day: 20.0 e-Cigarette/Vaping Use: Never Used Second Hand Smoke Exposure: No service: No Current occupational status: disabled Cognitive needs: Yes (cane) Hearing needs: No Vision needs: Yes (glasses) Questionnaire PHQ-9 Over the last 2 weeks, how often have you been bothered by any of the following problems? 1. Little interest or pleasure in doing things: not at all 2. Feeling down, depressed, or hopeless: not at all 3. Trouble falling or staying asleep, or sleeping too much: not at all 4. Feeling tired or having little energy: not at all 5. Poor appetite or overeating: not at all 6. Feeling bad about yourself - or that you are a failure or have let yourself or your family down: not at all 7. Trouble concentrating on things, such as reading the newspaper or watching television: not at all 8. Moving or speaking so slowly that other people could have noticed. Or the opposite - being so fidgety or restless that you have been moving around a lot more than usual: not at all 9. Thoughts that you would be better off or of hurting yourself in some way: not at all Total score: 0 Depression Screening Interpretation: Negative Depression Screening Done: Yes 07366 - PHQ-9 Billing: Yes Source: Developed by Drs. Cam Sandy, Julia James, Anton Perez and colleagues, with an educational molina from [employer]. Thrive Questionnaire Date Thrive assessed: 11/04/23 Are you currently unemployed and looking for a job?: I choose not to answer this question AUDIT C Alcohol Use Questionnaire (AUDIT-C) 3. How often do you have six or more drinks on one occasion?: Never Total Score: 0 MARIELENA-7 AMB Questionnaire MARIELENA-7 Date MARIELENA - 7 assessed: 11/04/23 Source: Developed by Drs. Cam Sandy, Julia James, Anton Perez and colleagues, with an educational molina from [employer]. Review of Systems Const Denies chills, Denies headache(s) and Denies weight loss ENT Denies headache(s) Card Denies chest pain, Denies syncope, Denies irregular heart rhythm and Denies dyspnea Resp Denies chest congestion, Denies cough and Denies dyspnea GI Denies abdominal pain, Denies change in stool character, Denies nausea and Denies vomiting Musc Denies deformity and Denies joint swelling Neuro Denies syncope and Denies headache(s) Physical exam (Primary Care) Vital Signs: Last Vital Signs Pulse 88 06/22/24 10:49 BP 130/72 06/22/24 10:49 Pulse Ox 95 06/22/24 10:49 Oxygen Delivery Method Room Air 06/22/24 10:49 BMI result Body Mass Index 31.2 Tobacco/Smoking Status: Tobacco use Status Tobacco use date assessed 11/04/23 06/22/24 10:56 Patient Tobacco Use Status Former Tobacco user 06/22/24 10:56 Tobacco use type Cigarette 06/22/24 10:56 e-Cigarette/Vaping Use Never Used 06/22/24 10:56 PHQ-9: PHQ-9 Score PHQ-9: Total score 0 06/22/24 10:56 Depression Screening Interpretation: Negative Thrive Assessment: Date of Thrive Assessment Date Thrive assessed 11/04/23 06/22/24 10:56 Const General: cooperative, comfortable, no acute distress and alert Neck Neck: Yes no lymphadenopathy Thyroid: Thyroid normal Resp Effort & Inspection: normal respiratory effort Auscultation: clear to auscultation bilaterally Percussion: percussion normal Cardio Jugular venous distension: no JVD Palpation: normal PMI Rate: regular rate Rhythm: regular rhythm Heart sounds: S1 normal heart sound present and S2 normal heart sound present GI Inspection: Yes normal to inspection Palpation (GI): No hepatosplenomegaly present Skin General skin exam: no rashes or lesions noted Extrem General: Yes no clubbing, cyanosis or edema Coding Level of Care Code Est Pt Level 3 (60360) Diagnoses Cervical radiculopathy M54.12 Additional Codes PHQ-9 - 65949 - PHQ-9 Billing: Yes ([id number]) Assessment & Plan Assessment & Plan (1) Cervical radiculopathy: Comment: CT of c-spine ordered Code(s): M54.12 - Radiculopathy, cervical region Category: Medical Plan: ct spine ordered Orders: Orders CT cervical spine wo IV con Today M54.12 - Radiculopathy, cervical region
== END 2024-06-22 11:15 | disposition home or self-care (01) ==
PROVIDERS: PCP Internal Medicine; Visit Provider Internal Medicine
DX: M54.12 Radiculopathy, cervical region (principal)

== ENCOUNTER → 2024-06-22 10:38 | Outpatient (BNVA) | payer MEDICARE, MEDICAID, SELFPAY | PROVIDERS: PCP Internal Medicine; Visit Provider Internal Medicine | DX: M54.12 Radiculopathy, cervical region (principal) | CPT/HCPCS: 96127; 99212 ==

== ENCOUNTER → 2024-06-24 10:48 | Outpatient (BNVA) | payer MEDICARE, MEDICAID, SELFPAY | PROVIDERS: PCP Internal Medicine; Visit Provider Internal Medicine ==

== ENCOUNTER → 2024-07-08 08:35 | Outpatient (BNVA) | payer MEDICARE, MEDICAID, SELFPAY | PROVIDERS: PCP Internal Medicine; Visit Provider Internal Medicine ==

== ENCOUNTER 2024-07-21 07:36 | Outpatient (REF) | payer MEDICARE, MEDICAID, SELFPAY | END 2024-07-21 07:37 | disposition home or self-care (01) | LOC: HO.CT 07:36 | PROVIDERS: PCP Internal Medicine; Visit Provider Internal Medicine | DX: M54.12 Radiculopathy, cervical region (principal) | CPT/HCPCS: 72125 ==

== ENCOUNTER → 2024-07-22 11:55 | Outpatient (BNVA) | payer MEDICARE, MEDICAID, SELFPAY | PROVIDERS: PCP Internal Medicine; Visit Provider Internal Medicine ==

== ENCOUNTER 2024-08-03 09:54 | Outpatient (AMB) | payer MEDICARE, MEDICAID, SELFPAY ==
--- NOTE | 2024-08-03 10:04 | MHC.PC.OV ---
Vital Signs 08/03/24 10:05 Height 6 ft 3 in Weight 254 lb BMI 31.7 BP 120/70 Blood Pressure Location Lt brachial Position Sitting Pulse 80 Pulse Source Pulse Oximeter Pulse Oximetry (%) 97 Oxygen Delivery Method Room Air Intake Visit Reasons: neck pain Intake Note: Patient is here to follow up on CT results. 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 Accompanied by: Self / Same As Patient Allergies Sulfa (Sulfonamide Antibiotics) Allergy (Intermediate, Verified 08/03/24 10:05) HIVES Medication List - Last Reconciled 08/03/24 by Obi Ramon MD acetaminophen (Tylenol Extra Strength) 1,000 mg (2 x 500 mg) PO QID PRN buprenorphine-naloxone 8-2 mg 1 film sublingual BID diazepam 10 mg PO BEDTIME PRN docusate sodium 100 mg PO levothyroxine 175 mcg orally 6 days / week; per prednisone 10 mg PO BID testosterone 0 mg topical QAM trazodone 75 mg PO BEDTIME PRN Ventolin HFA 90 mcg/actuation (albuterol sulfate) 2 puffs inhalation Q4-6H PRN NS warfarin 5 mg See Protocol PO DAILY Tobacco use date assessed: 08/03/24 Dental Screening Dental Screen Date: 11/04/23 HPI neck pain HPI Details cervical CT scan with multiple abnormalities including DJD and partial fusions; has a lot of pain; has had lower back surgery in the [facility] Medical History (Updated 08/03/24 @ 10:48 by Obi Ramon MD) Pre-op exam Anxiety Depression Pulmonary embolism Hypothyroidism Obesity Gout Surgical History History of sinus surgery History of thyroidectomy History of hernia repair History of appendectomy Family History Father Acute CVA (cerebrovascular accident) Diabetes Hypertension Mother Stroke Other Substance abuse Social History Housing: Condominium Alcohol intake: never Patient Tobacco Use Status: Former Tobacco user Tobacco use type: Cigarette Cigarette Packs Per Day: 1 Cigarettes Per Day: 20.0 e-Cigarette/Vaping Use: Never Used Second Hand Smoke Exposure: No service: No Current occupational status: disabled Cognitive needs: Yes (cane) Hearing needs: No Vision needs: Yes (glasses) Questionnaire Thrive Questionnaire Date Thrive assessed: 11/04/23 Are you currently unemployed and looking for a job?: I choose not to answer this question AUDIT C Alcohol Use Questionnaire (AUDIT-C) 2. How many drinks containing alcohol do you have on a typical day when you are drinking?: 1 or 2 Total Score: 0 MARIELENA-7 AMB Questionnaire MARIELENA-7 Date MARIELENA - 7 assessed: 11/04/23 Source: Developed by Drs. Cam Sandy, Julia James, Anton Perez and colleagues, with an educational molina from [employer]. Review of Systems Const Denies chills, Denies headache(s) and Denies weight loss ENT Denies headache(s) Card Denies chest pain, Denies syncope, Denies irregular heart rhythm and Denies dyspnea Resp Denies chest congestion, Denies cough and Denies dyspnea GI Denies abdominal pain, Denies change in stool character, Denies nausea and Denies vomiting Musc Denies deformity and Denies joint swelling Neuro Denies syncope and Denies headache(s) Physical exam (Primary Care) Vital Signs: Last Vital Signs Pulse 80 08/03/24 10:05 BP 120/70 08/03/24 10:05 Pulse Ox 97 08/03/24 10:05 Oxygen Delivery Method Room Air 08/03/24 10:05 BMI result Body Mass Index 31.7 Tobacco/Smoking Status: Tobacco use Status Tobacco use date assessed 08/03/24 08/03/24 10:07 Patient Tobacco Use Status Former Tobacco user 08/03/24 10:07 Tobacco use type Cigarette 08/03/24 10:07 e-Cigarette/Vaping Use Never Used 08/03/24 10:07 Thrive Assessment: Date of Thrive Assessment Date Thrive assessed 11/04/23 08/03/24 10:07 Const General: cooperative, comfortable, no acute distress and alert Neck Neck: Yes no lymphadenopathy Thyroid: Thyroid normal Resp Effort & Inspection: normal respiratory effort Auscultation: clear to auscultation bilaterally Percussion: percussion normal Cardio Jugular venous distension: no JVD Palpation: normal PMI Rate: regular rate Rhythm: regular rhythm Heart sounds: S1 normal heart sound present and S2 normal heart sound present GI Inspection: Yes normal to inspection Palpation (GI): No hepatosplenomegaly present Skin General skin exam: no rashes or lesions noted Extrem General: Yes no clubbing, cyanosis or edema Coding Level of Care Code Est Pt Level 3 (86486) Diagnoses Cervical radiculopathy M54.12 Assessment & Plan Assessment & Plan (1) Cervical radiculopathy: Code(s): M54.12 - Radiculopathy, cervical region Category: Medical Plan: referred to spine center Orders: Referrals Neurosurgery Referral M54.12 - Radiculopathy, cervical region
[2024-08-03 10:05] VITALS: BP 120/70; PULSE 80; O2SAT 97; BMI 31.7
== END 2024-08-03 10:18 | disposition home or self-care (01) ==
PROVIDERS: PCP Internal Medicine; Visit Provider Internal Medicine
DX: M54.12 Radiculopathy, cervical region (principal)

== ENCOUNTER → 2024-08-03 09:54 | Outpatient (BNVA) | payer MEDICARE, MEDICAID, SELFPAY | PROVIDERS: PCP Internal Medicine; Visit Provider Internal Medicine | DX: M54.12 Radiculopathy, cervical region (principal) | CPT/HCPCS: 99212 ==

== ENCOUNTER → 2024-08-05 09:59 | Outpatient (BNVA) | payer MEDICARE, MEDICAID, SELFPAY | PROVIDERS: PCP Internal Medicine; Visit Provider Internal Medicine ==

== ENCOUNTER 2024-08-06 13:49 | Outpatient (AMB) | payer MEDICARE, MEDICAID, SELFPAY ==
--- NOTE | 2024-08-06 13:53 | A.SPINEOV_ITS ---
Intake Visit Reasons: Radiculopathy, cervical region Intake Note: Mr. Cosme is here today c/o neck pain. 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 He is a 58-year-old male with a previous history of anterior lumbar interbody fusion done by Dr. Johnson many years ago, who has had chronic low back pain ever since the surgery and apparently has some kind of hardware and him that is on recall, who presents with a different issue today which is left-sided neck pain that started about 2- 1/2 months ago. He does not recall any specific event other than maybe some golfing that he had done where he felt an awkward pull in his neck when he was swinging his club in the [employer]. It eventually evolved into a left arm radiculopathy going down into his hand with tingling of his 3rd 4th and 5th digits. The pain ends at about the back of his triceps but the numbness and tingling all the way down into the hand. The pain is present all the time, he has a lot of difficulty sleeping. The only position that is comfortable is if he is in a seated position and he hangs his head down. He ended up undergoing physical therapy but that did not really help much. He takes Suboxone ch ronically and uses that and Tylenol to help with the pain. He has also been using a neck pillow. He is very frustrated with his quality of life right now in the level of pain that he is in. He came to see us for evaluation. PMH: He has an extensive medical history including DVT with PE diagnosed in 2014 at [facility], he is on lifelong Coumadin because of that. Has a history of correction of what sounds like a varus deformity in his lower extremities when he was a child, back surgery at L4-5 anterior lumbar interbody fusion. As mentioned there some kind of hardware recall on his instrumentation that has left him with permanent disabilities. Primarily has tried a lot of trouble walking or standing for any length of time without using his cane. History of thyroidectomy for Graves disease, he is on chronic replacement. He also had some kind of mass on his adrenal gland and had a partial removal and he is on supplemental p.r.n. prednisone for stress, sickness illness etc.. He also has hypogonadism and low testosterone levels in his on chronic replacement for that. No history of heart attacks, strokes, lung disorders, liver disorders or kidney problems. Social hx: He quit smoking about a year ago, occasionally drinks a beer so, denies any marijuana use Medications: Lorazepam, trazodone, p.r.n. prednisone, warfarin, levothyroxine, Suboxone, testosterone gel Allergies: None Physical exam: Strength in the upper extremities is full, bilateral lower extremity strength is full. Reflexes are normal, no clonus, no Claire's. He has a well-healed incision in the midline off to the left of the umbilicus from his previous anterior lumbar interbody fusion. He has a midline low-lying transverse thyroidectomy scar that is well healed. Imaging review: There is a cervical CT done here at [facility] and this shows he has what look like some overgrowth of bone around the anterior arch of C1, looks like some kind of developmental laminar defect at C5 on the left, versus possible nonunion of fracture that is old. He has reversal of the normal lordotic curvature of the cervical spine. Outside of that, the within the limitations of CT I can not really tell much about the discs or the nerves. Impression: 58-year-old male with acute onset of left-sided neck pain going into his left arm that ends at about his triceps but continues with tingling down into his 3rd 4th and 5th digits. The pain has been unrelenting, he is unable to sleep or function much. The only position that helps his if he sits down and leans his head forward. He underwent physical therapy and medication trials. I think it is time we ordered an MRI to evaluate the nervous structures. It sounds like he has a cervical radiculopathy Thank you for allowing us to care for your patient. The total time spent with this visit with this patient was 45 minutes reviewing history, physical exam, cervical CT imaging review, and implementation of treatment plan or further diagnostic testing Wiliam Lares MD,PhD [facility] Coding Level of Care Code New Pt Level 4 (66514) Diagnoses Cervical radiculopathy M54.12
== END 2024-08-06 15:45 | disposition home or self-care (01) ==
PROVIDERS: PCP Internal Medicine; Referring Provider Internal Medicine; Visit Provider Physician Assistant
DX: M54.12 Radiculopathy, cervical region (principal)
CPT/HCPCS: 99204

== ENCOUNTER → 2024-08-06 13:49 | Outpatient (BNVA) | payer MEDICARE, MEDICAID, SELFPAY | PROVIDERS: PCP Internal Medicine; Referring Provider Internal Medicine; Visit Provider Physician Assistant | DX: M54.12 Radiculopathy, cervical region (principal) | CPT/HCPCS: 99202 ==

== ENCOUNTER → 2024-08-09 07:29 | Outpatient (BNV) | payer MEDICARE, MEDICAID, SELFPAY | PROVIDERS: PCP Internal Medicine; Visit Provider General Practice | DX: M50.30 Other cervical disc degeneration, unspecified cervical region (principal) | CPT/HCPCS: 72141 ==

== ENCOUNTER 2024-08-09 07:31 | Outpatient (REF) | payer MEDICARE, MEDICAID, SELFPAY ==
--- NOTE | ~2024-08-09 | MR_ITS ---
CLINICAL HISTORY: M54.12 - Radiculopathy, cervical region MR cervical spine without gadolinium Comparison: CT/OR/SR - CT CERVICAL SPINE WO IV CON - 07/21/24 07:43 EST Findings: Motion artifact degrades some of the provided images. There is straightening of the normal cervical lordosis. Marrow signal intensity is within normal limits. A T1 and T2 bright region within T1 represents an interosseous hemangioma. Multilevel degenerative changes are present: C2-C3: No significant central canal or neural foraminal narrowing. C3-C4: No significant central canal or neural foraminal narrowing. C4-C5: Asymmetric right disc osteophyte complex. Mild flattening of the ventral thecal sac. No significant central canal narrowing. Mild left and severe right neural foraminal stenosis. C5-C6: Broad-based disc osteophyte complex. No significant central canal stenosis. Moderate bilateral neural foraminal narrowing. C6-C7: No significant central canal or neural foraminal narrowing C7-T1: Right lateral disc osteophyte complex causing moderate right neural foraminal stenosis. No significant central canal narrowing or left neural foraminal stenosis. No acute fractures or pathologic bone lesions. No acute findings on limited view of the intracranial contents. Paraspinal soft tissues are grossly within normal limits. Cervical cord is normal in size and signal intensity. Visualized posterior fossa structures are within normal limits. Craniocervical junction is unremarkable. IMPRESSION: Multilevel cervical spine degenerative changes detailed above. This document has been electronically signed by: Marcial Rosa MD, PHD on 08/10/2024 05:30:06
== END 2024-08-09 07:32 | disposition home or self-care (01) ==
LOC: HO.MRI 07:31
PROVIDERS: PCP Internal Medicine; Visit Provider Physician Assistant
DX: M54.12 Radiculopathy, cervical region (principal)
CPT/HCPCS: 72141

== ENCOUNTER 2024-08-12 10:53 | Outpatient (AMB) | payer MEDICARE, MEDICAID, SELFPAY ==
[2024-08-12 11:38] VITALS: BP 118/80; PULSE 80; TEMP 36.5; O2SAT 95; BMI 31.4
--- NOTE | 2024-08-12 11:38 | A.OFFPC_ITS ---
Vital Signs 08/12/24 11:38 Height 6 ft 3 in Weight 251 lb 4 oz BMI 31.4 BP 118/80 Blood Pressure Location Lt brachial Position Sitting Pulse 80 Pulse Source Pulse Oximeter Temp 97.7 F Temp Source Temporal Artery Scan Pulse Oximetry (%) 95 Oxygen Delivery Method Room Air Intake Visit Reasons: Cold symptoms Intake Note: Patient presents with breathing difficulties and reports recent exposure to RSV through their granddaughter. Symptoms include nasal congestion, fever, shortness of breath (SOB), and headache (H/A). Allergies Sulfa (Sulfonamide Antibiotics) Allergy (Intermediate, Verified 08/12/24 12:08) HIVES Medication List - Last Reconciled 08/12/24 by Jelena Young PA-C acetaminophen (Tylenol Extra Strength) 1,000 mg (2 x 500 mg) PO QID PRN albuterol sulfate 90 mcg/actuation 1 inh inhalation Q6H PRN amoxicillin-pot clavulanate 875-125 mg 1 tab PO BID 10 days azithromycin For 250 mg dose pack: take 500 mg today (day 1), then 250 mg for 4 days (days 2-5) PO buprenorphine-naloxone 8-2 mg 1 film sublingual BID diazepam 10 mg PO BEDTIME PRN docusate sodium 100 mg PO ipratropium-albuterol 0.5 mg-3 mg(2.5 mg base)/3 mL 3 mL inhalation Q6-8H PRN levothyroxine 175 mcg orally 6 days / week; per nystatin 400,000 units (4 mL) PO Q6H prednisone 10 mg PO BID prednisone 40 mg (2 x 20 mg) PO DAILY 7 days testosterone 0 mg topical QAM trazodone 75 mg PO BEDTIME PRN Ventolin HFA 90 mcg/actuation (albuterol sulfate) 2 puffs inhalation Q4-6H PRN NS warfarin 5 mg See Protocol PO DAILY Tobacco use date assessed: 08/03/24 Dental Screening Dental Screen Date: 11/04/23 [facility] Medical History Pre-op exam Anxiety Depression Pulmonary embolism Hypothyroidism Obesity Gout Surgical History History of sinus surgery History of thyroidectomy History of hernia repair History of appendectomy Family History Father Acute CVA (cerebrovascular accident) Diabetes Hypertension Mother Stroke Other Substance abuse Social History Housing: Condominium Alcohol intake: never Patient Tobacco Use Status: Former Tobacco user Tobacco use type: Cigarette Cigarette Packs Per Day: 1 Cigarettes Per Day: 20.0 e-Cigarette/Vaping Use: Never Used Second Hand Smoke Exposure: No service: No Current occupational status: disabled Cognitive needs: Yes (cane) Hearing needs: No Vision needs: Yes (glasses) Questionnaire PHQ-9 Over the last 2 weeks, how often have you been bothered by any of the following problems? 1. Little interest or pleasure in doing things: not at all 2. Feeling down, depressed, or hopeless: not at all 3. Trouble falling or staying asleep, or sleeping too much: not at all 4. Feeling tired or having little energy: not at all 5. Poor appetite or overeating: not at all 6. Feeling bad about yourself - or that you are a failure or have let yourself or your family down: not at all 7. Trouble concentrating on things, such as reading the newspaper or watching television: not at all 8. Moving or speaking so slowly that other people could have noticed. Or the op posite - being so fidgety or restless that you have been moving around a lot more than usual: not at all 9. Thoughts that you would be better off or of hurting yourself in some way: not at all Total score: 0 Depression Screening Interpretation: Negative Depression Screening Done: Yes 64278 - PHQ-9 Billing: Yes Source: Developed by Drs. Cam Sandy, Julia James, Anton Perez and colleagues, with an educational molina from [employer]. Thrive Questionnaire Date Thrive assessed: 08/12/24 I am a: Patient What is your living situation today?: I have a steady place to live Within the past 12 months, did the food you bought not last and you didn't have the money to get more?: Never true Within the past 12 months, did you worry whether your food would run out before you got money to buy more?: Never true Do you have trouble paying for medicines?: No Do you have trouble getting transportation to medical appointments?: No Do you have trouble paying your heating and electricity bill?: No Do you have trouble taking care of your child, family member or friend?: No Do you have trouble with day-to-day activities such as bathing, preparing meals, shopping, managing finances, etc.?: No Are you currently unemployed and looking for a job?: No Are you interested in more education?: No Please select the resources that you would like help with: None Currently or been in a relationship where the following occur: No concerns reported THRIVE Score: 0 AUDIT C Alcohol Use Questionnaire (AUDIT-C) 1. How often do you have a drink containing alcohol?: Monthly or less 2. How many drinks containing alcohol do you have on a typical day when you are drinking?: 1 or 2 3. How often do you have six or more drinks on one occasion?: Never Total Score: 1 MARIELENA-7 AMB Questionnaire MARIELENA-7 Date MARIELENA - 7 assessed: 08/12/24 Feeling nervous, anxious, or on edge: 0 = Not at all Not being able to stop or control worryin = Not at all Worrying too much about different things: 0 = Not at all Trouble relaxin = Not at all Being so restless that it is hard to sit still: 0 = Not at all Becoming easily annoyed or irritable: 0 = Not at all Feeling afraid as if something awful might happen: 0 = Not at all Total MARIELENA-7 score (0-4 normal; 5-9 mild; 10-14 moderate; 15-21 severe): 0 Source: Developed by Drs. Cam Sandy, Julia James, Anton Perez and colleagues, with an educational molina from [employer]. MARIELENA-7 Assessment Billing MARIELENA-7 Assessment Tool: MARIELENA-7 Assessment [id number] Physical exam (Primary Care) Vital Signs: Last Vital Signs Temp 97.7 F 08/12/24 11:38 Pulse 80 08/12/24 11:38 BP 118/80 08/12/24 11:38 Pulse Ox 95 08/12/24 11:38 Oxygen Delivery Method Room Air 08/12/24 11:38 Care Plan Goal for BP management: BP at 118/80 at goal BMI result Body Mass Index 31.4 BMI Assessment/Plan discussion: High BMI High, discussed plan: lifestyle, weight reduction, dietary and physical activity Tobacco/Smoking Status: Tobacco use Status Tobacco use date assessed 08/03/24 08/12/24 11:38 Patient Tobacco Use Status Former Tobacco user 08/12/24 11:38 Tobacco use type Cigarette 08/12/24 11:38 e-Cigarette/Vaping Use Never Used 08/12/24 11:38 PHQ-9: PHQ-9 Score PHQ-9: Total score 0 08/12/24 11:49 Depression Screening Interpretation: Negative Thrive Assessment: Date of Thrive Assessment Date Thrive assessed 08/12/24 08/12/24 11:49 Currently or been in a relationship where the following occur: No concerns reported Coding Level of Care Code Est Pt Level 4 (26063) Complex EM visit Add On G2211 Diagnoses Acute cough R05.1 Cough type: acute Acute bronchitis, unspecified organism J20.9 Bronchitis organism: unspecified organism Asthma J45.909 Oral thrush B37.0 Substance abuse F19.10 Pulmonary embolism I26.99 Anxiety F41.9 Depression F32.A Hypothyroidism E03.9 Obesity E66.9 Gout M10.9 DVT (deep venous thrombosis) I82.409 Current use of anticoagulant therapy Z79.01 Lumbar disc disease with radiculopathy M51.16 Additional Codes MARIELENA-7 Assessment Billing - MARIELENA-7 Assessment Tool: MARIELENA-7 Assessment [id number] ([id number]) PHQ-9 - 57982 - PHQ-9 Billing: Yes ([id number]) Assessment & Plan Assessment & Plan (1) Cough: Code(s): R05.9 - Cough, unspecified Category: Medical Qualifiers: Cough type: acute Qualified Code(s): R05.1 - Acute cough Plan: Patient with acute bronchitis with bronchospasm. H and P not consistent with pneumonia. Patient currently on Coumadin with normal INR level due to history of PE and DVT. Patient was swab for COVID/RSV and flu due to exposure to RSV recently. Patient will be started on Augmentin, Z-Devaughn. Albuterol inhaler will be refilled. He will be started on a short course of steroids prednisone 40 mg x 7 days. Will also refill the patient's nebulizer albuterol solution. Patient instructed to follow-up in 2-4 weeks with PCP. Will continue to monitor. (2) Acute bronchitis: Code(s): J20.9 - Acute bronchitis, unspecified Category: Medical Qualifiers: Bronchitis organism: unspecified organism Qualified Code(s): J20.9 - Ac comanche bronchitis, unspecified Plan: See above for cough plan same for bronchitis plan. (3) Asthma: Code(s): J45.909 - Unspecified asthma, uncomplicated Category: Medical Plan: Chronic and stable. Patient has rescue inhaler and nebulizer for home will need refill for his albuterol nebulizer solution. Will continue to monitor. (4) Oral thrush: Code(s): B37.0 - Candidal stomatitis Category: Medical Plan: Patient appears to have mild oral thrush will start on nystatin mouthwash. Condition is stable. Will continue to monitor (5) Substance abuse: Code(s): F19.10 - Other psychoactive substance abuse, uncomplicated Category: Medical Plan: Condition is chronic. Patient currently on buprenorphine naloxone. Condition is stable. Will continue to monitor. (6) Pulmonary embolism: Code(s): I26.99 - Other pulmonary embolism without acute cor pulmonale Category: Medical Plan: Laboratory Tests 08/05/24 10:02 PT/INR [facility] 2.0 Chronic. Condition is stable. Patient currently on Coumadin taking as prescribed with INR 2.0 on 08/05/2024. Will continue to monitor (7) Anxiety: Code(s): F41.9 - Anxiety disorder, unspecified Category: Medical Plan: This condition is chronic and stable. Will continue to monitor. (8) Depression: Code(s): F32.A - Depression, unspecified Category: Medical Plan: This condition is chronic and stable. Will continue to monitor. (9) Hypothyroidism: Code(s): E03.9 - Hypothyroidism, unspecified Category: Medical Plan: This condition is chronic and stable. Patient has a prescription for levothyroxine. Will continue to monitor. (10) Obesity: Code(s): E66.9 - Obesity, unspecified Category: Medical Plan: Patient with obesity with BMI of 31.4. Patient was advised to diet and exercise. Will continue to monitor. (11) Gout: Code(s): M10.9 - Gout, unspecified Category: Medical Plan: Chronic. No acute episodes of gouty flares. Will continue to monitor. (12) DVT (deep venous thrombosis): Code(s): I82.409 - Acute embolism and thrombosis of unspecified deep veins of unspecified lower extremity Category: Medical Plan: Patient currently on warfarin taking as prescribed with normal INR level checks. Will continue to monitor this condition is stable. (13) Pulmonary embolism: Code(s): I26.99 - Other pulmonary embolism without acute cor pulmonale Category: Medical Plan: Patient currently on warfarin taking as prescribed with normal INR level checks. Will continue to monitor this condition is stable. (14) Current use of anticoagulant therapy: Comment: On Coumadin Code(s): Z79.01 - custodial (current) use of anticoagulants Category: Medical Plan: Patient on Coumadin for PE and DVT. Condition is stable. Recent INR checked within normal limits. Will continue to monitor. (15) Lumbar disc disease with radiculopathy: Code(s): M51.16 - Intervertebral disc disorders with radiculopathy, lumbar region Category: Medical Plan: This condition is chronic and stable. Will continue to monitor. Plan Plan - Provide Albuterol inhaler ProAir) for acute respiratory symptoms - Prescribe Prednisone 40 mg for seven days to reduce inflammation - Start Augmentin and a Z-Devaughn to treat suspected pneumonia - Prescribe Nystatin oral suspension for potential oral thrush - Send prescriptions to the patient's preferred pharmacy - Follow up with primary care for blood work and further investigations within 2 weeks to 1 month Orders: Orders SARS-CoV2/FLU/RSV Today R05.1 - Acute cough Medications: New albuterol sulfate 90 mcg/actuation 1 inh inhalation Q6H PRN 8.5 grams 3RF shortness of breath or wheezing azithromycin For 250 mg dose pack: take 500 mg today (day 1), then 250 mg for 4 days (days 2-5) PO 6 tabs 0RF nystatin administer 1/2 of dose in each side of the mouth 400,000 units (4 mL) PO Q6H 480 mL 1RF Swish in mouth several minutes and then swallow prednisone 40 mg (2 x 20 mg) PO DAILY 7 days 14 tabs 0RF ipratropium-albuterol 0.5 mg-3 mg(2.5 mg base)/3 mL 3 mL inhalation Q6-8H PRN 180 mL 3RF wheezing amoxicillin-pot clavulanate 875-125 mg 1 tab PO BID 10 days 20 tabs 0RF bronchitis Patient Instructions: Patient Instructions - Use Albuterol inhaler as needed for respiratory distress - Take Prednisone as prescribed for seven days - Complete the course of Augmentin and Z-Devaughn as directed - Use Nystatin oral suspension to manage possible oral thrush - Monitor symptoms and seek medical attention if conditions worsen - Rinse mouth after inhaler use to prevent thrush - Follow up with primary care within 2 weeks to 1 month for further evaluation - Avoid exposure to individuals with respiratory infections - Maintain hydration and rest as needed during recovery Scribe Plan - Not visible on output: History of Present Illness The patient is a 58-year-old male presenting with cold symptoms, chest congestion, and breathing difficulties. The symptoms started approximately two weeks ago and have persisted, affecting the patient's daily life. 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 The patient noted an increase in respiratory symptoms associated with cold and RSV exposure from his family, particularly after assisting his daughter and granddaughter with meals last week. He mentioned using a nebulizer with albuterol in the past and inhaler use for acute episodes. However, he discovered black spots in the nebulizer tube, likely mold, which was then discarded. There were episodes of fever with chills, general fatigue, and a very dry cough with variable productivity, suggesting potential pneumonia. The patient also has history absences of leg swelling and chest pain. He described experiencing anxiety attacks and gastrointestinal problems in the past. Social History - Former smoker, recently quit smoking - Involved in family caregiving, exposed to family members with RSV - Reports enjoying food more since quitting smoking Review of Systems - Respiratory: Reports fatigue, dry cough, and difficulty breathing - Neurological: Reports anxiety attacks - Gastrointestinal: Reports dry mouth exacerbated by inhaler use - General: Reports fever and chills Physical Exam Appearance: Alert. Oriented X3. No acute distress. Head: Normal external exam. Normocephalic. Atraumatic. Eyes: Pupils are equal, round, and reactive to light. Extraocular movements intact. Conjunctiva and sclera normal. Eyelids normal. Ears: External auditory canal normal. Tympanic membranes normal. Throat: Pharynx shows a little bit of redness, with a little white on the tongu e. Uvula midline. Moist mucous membranes. Neck: Normal inspection. Neck supple. Full range of motion. No adenopathy. Thyroid Normal. No meningeal signs. No neck mass noted. Cardiovascular: Normal heart rate and rhythm. Heart sound normal. No murmurs noted. Pulses normal throughout. Respiratory: No respiratory distress. Painless inspiration. Breath sounds junky, indicating possible infection. No wheezes/rales/rhonchi noted. Chest nontender. No accessory muscle usage noted or decreased air movement noted. Abdomen: Soft and nontender. Bowel sounds normal in all 4 quadrants. No distention noted. No organomegaly noted. No visible injury noted. Back: No costovertebral angle tenderness. Full range of motion noted. Skin: Skin warm and dry. Normal skin color. Normal skin turgor. No rashes/lesions/lacerations noted. Extremities: No lower extremity edema. Extremities exhibit normal range of motion. Extremities nontender. Neuro: Oriented X 3. No motor deficit. No sensory deficit. Reflexes normal. Results - Tests: Recent chest X-ray reported by the patient, details not provided Plan - Provide Albuterol inhaler ProAir) for acute respiratory symptoms - Prescribe Prednisone 40 mg for seven days to reduce inflammation - Start Augmentin and a Z-Devaughn to treat suspected pneumonia - Prescribe Nystatin oral suspension for potential oral thrush - Send prescriptions to the patient's preferred pharmacy - Follow up with primary care for blood work and further investigations within 2 weeks to 1 month Patient was informed and verbally consented to the use of an ambient scribe for clinic note documentation during this visit. Discussion Notes During the consultation, I discussed the patient's symptoms suggestive of a viral or bacterial respiratory illness, potentially complicated by prior sinus surgery and recent RSV exposure. We focused on managing acute symptoms with albuterol, prednisone, and possibly antibiotics for infection. I emphasized the importance of monitoring symptoms, especially given the patient's reported exposure to RSV from family members. We discussed potential adverse effects and the need to rinse the mouth after inhaler use to prevent thrush, given his history of oral thrush. I advised a follow-up with his primary health care facility administrator for a comprehensive evaluation, including routine blood work. Consent was obtained for the treatment plan.
== END 2024-08-12 12:10 | disposition home or self-care (01) ==
PROVIDERS: PCP Internal Medicine; Visit Provider Physician Assistant Medical
DX: R05.1 Acute cough (principal); F19.10 Other psychoactive substance abuse, uncomplicated; I26.99 Other pulmonary embolism without acute cor pulmonale; I82.409 Acute embolism and thrombosis of unspecified deep veins of unspecified lower extremity; J20.9 Acute bronchitis, unspecified; J45.909 Unspecified asthma, uncomplicated; B37.0 Candidal stomatitis; F41.9 Anxiety disorder, unspecified; F32.A Depression, unspecified; E03.9 Hypothyroidism, unspecified; E66.9 Obesity, unspecified; M10.9 Gout, unspecified

== ENCOUNTER 2024-08-12 10:53 | Outpatient (REF) | payer MEDICARE, MEDICAID, SELFPAY ==
[2024-08-12 13:08] LABS: Influenza A PCR NEGATIVE (Negative); Influenza B PCR NEGATIVE (Negative); Resp Syncy Virus RNA Qual PCR NEGATIVE (Negative); SARS COV2 PCR INHOUSE NEGATIVE (Negative)
== END 2024-08-12 10:54 | disposition home or self-care (01) ==
LOC: HO.LNP 10:53
PROVIDERS: PCP Internal Medicine; Visit Provider Physician Assistant Medical
DX: R05.1 Acute cough (principal); J20.9 Acute bronchitis, unspecified; J45.909 Unspecified asthma, uncomplicated; B37.0 Candidal stomatitis; F19.10 Other psychoactive substance abuse, uncomplicated; I26.99 Other pulmonary embolism without acute cor pulmonale; F41.9 Anxiety disorder, unspecified; F32.A Depression, unspecified; E03.9 Hypothyroidism, unspecified; E66.9 Obesity, unspecified; Z68.31 Body mass index [BMI] 31.0-31.9, adult; M10.9 Gout, unspecified; I82.409 Acute embolism and thrombosis of unspecified deep veins of unspecified lower extremity; M51.16 Intervertebral disc disorders with radiculopathy, lumbar region; Z79.01 Long term (current) use of anticoagulants
CPT/HCPCS: 0241U; 96127; 99212

== ENCOUNTER 2024-08-24 11:29 | Outpatient (AMB) | payer MEDICARE, MEDICAID, SELFPAY ==
--- NOTE | 2024-08-24 11:41 | MHC.PC.OV ---
Vital Signs 08/24/24 11:42 Height 6 ft 3 in Weight 248 lb 8 oz BMI 31.1 BP 110/66 Blood Pressure Location Lt brachial Position Sitting Pulse 98 Pulse Source Pulse Oximeter Temp 97.1 F Temp Source Skin Pulse Oximetry (%) 97 Oxygen Delivery Method Room Air Intake Visit Reasons: Referral Intake Note: Patient is here to follow up on Refferal. Electrical Test Engineer Required: No Metal Model Maker: Not Required per policy Accompanied by: Self / Same As Patient Allergies Sulfa (Sulfonamide Antibiotics) Allergy (Intermediate, Verified 08/24/24 11:41) HIVES amoxicillin Allergy (Verified 08/24/24 11:41) Nausea and Vomiting Medication List - Last Reconciled 08/24/24 by Obi Ramon MD acetaminophen (Tylenol Extra Strength) 1,000 mg (2 x 500 mg) PO QID PRN albuterol sulfate 90 mcg/actuation 1 inh inhalation Q6H PRN buprenorphine-naloxone 8-2 mg 1 film sublingual BID diazepam 10 mg PO BEDTIME PRN docusate sodium 100 mg PO ipratropium-albuterol 0.5 mg-3 mg(2.5 mg base)/3 mL 3 mL inhalation Q6-8H PRN levothyroxine 175 mcg orally 6 days / week; per nystatin 400,000 units (4 mL) PO Q6H prednisone 10 mg PO BID testosterone 0 mg topical QAM trazodone 75 mg PO BEDTIME PRN Ventolin HFA 90 mcg/actuation (albuterol sulfate) 2 puffs inhalation Q4-6H PRN NS warfarin 5 mg See Protocol PO DAILY Tobacco use date assessed: 08/24/24 Dental Screening Dental Screen Date: 08/24/24 Did you have a dental visit in the last 12 months?: No Did you have a dental problem in the last 6 months where you did not have access to dental care?: No Was dental information given to patient?: Patient has dentist HPI Referral HPI Details has Grave's disease 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; needs a new one [facility] Medical History Pre-op exam Anxiety Depression Pulmonary embolism Hypothyroidism Obesity Gout Surgical History History of sinus surgery History of thyroidectomy History of hernia repair History of appendectomy Family History Father Acute CVA (cerebrovascular accident) Diabetes Hypertension Mother Stroke Other Substance abuse Social History Housing: Condominium Alcohol intake: never Patient Tobacco Use Status: Former Tobacco user Tobacco use type: Cigarette Cigarette Packs Per Day: 1 Cigarettes Per Day: 20.0 e-Cigarette/Vaping Use: Never Used Second Hand Smoke Exposure: Yes service: No Current occupational status: disabled Cognitive needs: Yes (cane) Hearing needs: No Vision needs: Yes (glasses) Questionnaire Thrive Questionnaire Date Thrive assessed: 08/12/24 MARIELENA-7 AMB Questionnaire MARIELENA-7 Date MARIELENA - 7 assessed: 08/12/24 Source: Developed by Drs. Cam Sandy, Julia James, Anton Perez and colleagues, with an educational molina from [employer]. Review of Systems Const Denies chills, Denies headache(s) and Denies weight loss ENT Denies headache(s) Card Denies chest pain, Denies syncope, Denies irregular heart rhythm and Denies dyspnea Resp Denies chest congestion, Denies cough and Denies dyspnea GI Denies abdominal pain, Denies change in stool character, Denies nausea and Denies vomiting Musc Denies deformity and Denies joint swelling Neuro Denies syncope and Denies headache(s) Physical exam (Primary Care) Vital Signs: Last Vital Signs Temp 97.1 F 08/24/24 11:42 Pulse 98 08/24/24 11:42 BP 110/66 08/24/24 11:42 Pulse Ox 97 08/24/24 11:42 Oxygen Delivery Method Room Air 08/24/24 11:42 BMI result Body Mass Index 31.1 Tobacco/Smoking Status: Tobacco use Status Tobacco use date assessed 08/24/24 08/24/24 11:45 Patient Tobacco Use Status Former Tobacco user 08/24/24 11:45 Tobacco use type Cigarette 08/24/24 11:45 e-Cigarette/Vaping Use Never Used 08/24/24 11:45 Thrive Assessment: Date of Thrive Assessment Date Thrive assessed 08/12/24 08/24/24 11:45 Const General: cooperative, comfortable, no acute distress and alert Neck Neck: Yes no lymphadenopathy Thyroid: Thyroid normal Resp Effort & Inspection: normal respiratory effort Auscultation: clear to auscultation bilaterally Percussion: percussion normal Cardio Jugular venous distension: no JVD Palpation: normal PMI Rate: regular rate Rhythm: regular rhythm Heart sounds: S1 normal heart sound present and S2 normal heart sound present GI Inspection: Yes normal to inspection Palpation (GI): No hepatosplenomegaly present Skin General skin exam: no rashes or lesions noted Extrem General: Yes no clubbing, cyanosis or edema Coding Level of Care Code Est Pt Level 3 (11899) Diagnoses Graves disease E05.00 Assessment & Plan Assessment & Plan (1) Graves disease: Code(s): E05.00 - Thyrotoxicosis with diffuse goiter without thyrotoxic crisis or storm Category: Medical Plan: referred to Dr Bhakta Orders: Referrals Endocrinology Referral E05.00 - Thyrotoxicosis with diffuse goiter without thyrotoxic crisis or storm
[2024-08-24 11:42] VITALS: BP 110/66; PULSE 98; TEMP 36.2; O2SAT 97; BMI 31.1
--- OUTSIDE RECORDS SUMMARY | 2024-08-24 13:18 | XMS_ITS | Clinical Summary ---
Author Organization [facility] Address [address] [place] [address] Care Team Providers Care Property Portfolio Officer Name Role Phone Obi Ramon MD Primary Care Provider [phone] Social History Tobacco Use Types Packs/Day Years Used Date Smoking Tobacco: Never Assessed Sex and Gender Information Value Date Recorded Sex Assigned at Not on file Gender Identity Not on file Sexual Orientation Not on file Plan of Treatment Health Maintenance Due Date Last Done Comments DTaP,Tdap,and Td Vaccines (1 - Tdap) 1983 Zoster Vaccines (1 of 2) 2014 COVID-19 Vaccine ( - 2023-2 5 season) 2024 Influenza Vaccine (#1) 2024 RSV Immunization Patients 60 + Years Old (1 - 1-dose 75+ series) 2039 HIB Vaccines Aged Out No longer eligi ble based on patient's age to complete this topic HPV Vaccines Aged Out No longer eligi ble based on patient's age to complete this topic Hepatitis A Vaccines Aged Out No long er eligible based on patient's age to complete this topic Hepatitis B Vaccines Aged Out No long er eligible based on patient's age to complete this topic IPV Vaccines Aged Out No longer eligi ble based on patient's age to complete this topic MMR Vaccines Aged Out No longer eligi ble based on patient's age to complete this topic Meningococcal ACWY Vaccine Aged Out N o longer eligible based on patient's age to complete this topic Pneumococcal Vaccine: Pediat rics (0 to 5 Years) and At-Risk Patients (6 to 64 Years) Aged Out No longer eligible b ased on patient's age to complete this topic RSV Immunization Patients Un lyndsay 20 months Aged Out No longer eligible b ased on patient's age to complete this topic Varicella Vaccines Aged Out No longer eligible based on patient's age to complete this topic Care Teams Property Portfolio Officer Relationship Specialty Start Date End Date Obi Ramon MD [address] [place] [address] PCP - General Internal Medicine 06/21/20
== END 2024-08-24 12:07 | disposition home or self-care (01) ==
PROVIDERS: PCP Internal Medicine; Visit Provider Internal Medicine
DX: E05.00 Thyrotoxicosis with diffuse goiter without thyrotoxic crisis or storm (principal)

== ENCOUNTER → 2024-08-24 11:29 | Outpatient (BNVA) | payer MEDICARE, MEDICAID, SELFPAY | PROVIDERS: PCP Internal Medicine; Visit Provider Internal Medicine | DX: E05.00 Thyrotoxicosis with diffuse goiter without thyrotoxic crisis or storm (principal) | CPT/HCPCS: 99212 ==

== ENCOUNTER → 2024-08-27 15:07 | Outpatient (BNVA) | payer MEDICARE, MEDICAID, SELFPAY | PROVIDERS: PCP Internal Medicine; Visit Provider Physician Assistant | DX: M54.12 Radiculopathy, cervical region (principal) | CPT/HCPCS: 99212 ==

== ENCOUNTER → 2024-09-08 09:03 | Outpatient (BNV) | payer MEDICARE, SELFPAY | PROVIDERS: PCP Internal Medicine; Visit Provider Physical Medicine & Rehabilitation | DX: G56.22 Lesion of ulnar nerve, left upper limb (principal) | CPT/HCPCS: 95886; 95909 ==

== ENCOUNTER → 2024-09-09 11:00 | Outpatient (BNVA) | payer MEDICARE, SELFPAY | PROVIDERS: PCP Internal Medicine; Visit Provider Internal Medicine ==

== ENCOUNTER 2024-09-10 10:27 | Outpatient (AMB) | payer MEDICARE, MEDICAID, SELFPAY ==
--- NOTE | 2024-09-10 10:31 | A.OFFVIS_ITS ---
Vital Signs 09/10/24 10:49 Height 6 ft 3 in Weight 251 lb BMI 31.4 BP 132/70 Blood Pressure Location Lt brachial Position Sitting Respiration 16 Pulse 98 Pulse Source Pulse Oximeter Pulse Oximetry (%) 96 Oxygen Delivery Method Room Air Intake Visit Reasons: Cervical Radiculopathy Windshield Installer Required: No Allergies Sulfa (Sulfonamide Antibiotics) Allergy (Intermediate, Verified 09/10/24 10:50) HIVES amoxicillin Allergy (Verified 09/10/24 10:50) Nausea and Vomiting Medication List - Last Reconciled 09/10/24 by Isabel Raza, PATRICK albuterol sulfate 90 mcg/actuation 1 inh inhalation Q6H PRN buprenorphine-naloxone 8-2 mg 1 film sublingual BID diazepam 10 mg PO BEDTIME PRN ipratropium-albuterol 0.5 mg-3 mg(2.5 mg base)/3 mL 3 mL inhalation Q6-8H PRN levothyroxine 175 mcg orally 6 days / week; per testosterone 0 mg topical QAM trazodone 75 mg PO BEDTIME PRN Ventolin HFA 90 mcg/actuation (albuterol sulfate) 2 puffs inhalation Q4-6H PRN NS warfarin 5 mg See Protocol PO DAILY HPI HPI Cervical Radiculopathy: Details: History of Present Illness The patient is a 59-year-old male presenting with chronic cervical axial pain. This condition has been persisting for a year, initiated following a non- strenuous incident during a golf outing. The pain is severe, constantly rated at 8/10 during the day, worsening to 10/10 at night, described as aching and burning with radiation down the left arm, and associated with numbness in specific fingers. The pain has disrupted sleep and daily functions, not alleviated by prior physical therapy or medications. A nerve conduction study confirmed left ulnar neuropathy at the elbow. The patient's history includes L4- L5 fusion. Pain Description - Onset: 1 year ago following a golf outing - Quality: Aching, burning sensation - Primary Location: Neck - Radiation: Down the left arm - Intensity: 8/10 during the day, 10/10 at night - Exacerbating Factors: Movements - Alleviating Factors: None known - Interference: Sleep disruption, impaired daily activities Physical Exam - Musculoskeletal- Cervical extension reproduces pain - Other- Facet loading positive on both sides of the neck Results - Nerve Conduction Study: Electrodiagnostic evidence for left ulnar neuropathy at the elbow Pain Management - Affect: Pain causing significant sleep disruption and daily impairment - Analgesia: Pain rated 10/10 at night, 8/10 during the day, unresolved by prior treatments - Adverse Effects: None reported - Activities of Daily Living: Impaired due to pain - Aberrant Drug Related Behaviors: None indicated [facility] Medical History Pre-op exam Anxiety Depression Pulmonary embolism Hypothyroidism Obesity Gout Surgical History History of sinus surgery History of thyroidectomy History of hernia repair History of appendectomy Family History Father Acute CVA (cerebrovascular accident) Diabetes Hypertension Mother Stroke Other Substance abuse Social [facility] Alcohol intake: never Patient Tobacco Use Status: Former Tobacco user Tobacco use type: Cigarette Cigarette Packs Per Day: 1 Cigarettes Per Day: 20.0 e-Cigarette/Vaping Use: Never Used Second Hand Smoke Exposure: Yes service: No Current occupational status: disabled Cognitive needs: Yes (cane) Hearing needs: No Vision needs: Yes (glasses) Physical Exam Vital Signs: Last Vital Signs Pulse 98 09/10/24 10:49 Resp 16 09/10/24 10:49 BP 132/70 09/10/24 10:49 Pulse Ox 96 09/10/24 10:49 Oxygen Delivery Method Room Air 09/10/24 10:49 BMI result Body Mass Index 31.4 Assessment & Plan Assessment & Plan (1) Cervical spondylosis: Code(s): M47.812 - Spondylosis without myelopathy or radiculopathy, cervical region Category: Medical Plan Plan Diagnostic medial branch blocks at the right C3, C4, and C5 levels are planned to assess facet-mediated pain. If successful, the procedure will be repeated on the left side. Subsequent radiofrequency ablation is discussed as a next step. The patient's prior treatments, including physical therapy, have been exhausted. Patient was informed and verbally consented to the use of an ambient scribe for clinic note documentation during this visit. Discussion Notes Patient Instructions - Expect a phone call to schedule the diagnostic block procedure. - Follow all instructions given for preparation for the procedure. - Report any changes in symptoms or increase in pain immediately. - Anticipate multiple visits for the complete treatment plan involving diagnostic tests and potential radiofrequency ablation. - Contact us if there are any questions or need for further clarification regarding your treatment plan. Coding Level of Care Code New Pt Level 4 (50738) Diagnoses Cervical spondylosis M47.812
[2024-09-10 10:49] VITALS: BP 132/70; PULSE 98; RESP 16; O2SAT 96; BMI 31.4
--- OUTSIDE RECORDS SUMMARY | 2024-09-10 11:33 | XMS_ITS | Clinical Summary ---
Author Organization [facility] Address [address] [place] [address] Care Team Providers Care Digital Artist Name Role Phone Obi Ramon MD Primary Care Provider [phone] Social History Tobacco Use Types Packs/Day Years [...] age to complete this topic Care Teams Digital Artist Relationship Specialty Start Date End Date Obi Ramon MD [address] [place] [address] PCP - General Internal Medicine 06/21/20
== END 2024-09-10 11:22 | disposition home or self-care (01) ==
PROVIDERS: PCP Internal Medicine; Referring Provider Physician Assistant; Visit Provider Internal Medicine
DX: M47.812 Spondylosis without myelopathy or radiculopathy, cervical region (principal)
CPT/HCPCS: 99204

== ENCOUNTER → 2024-09-10 10:27 | Outpatient (BNVA) | payer MEDICARE, SELFPAY | PROVIDERS: PCP Internal Medicine; Referring Provider Physician Assistant; Visit Provider Internal Medicine | DX: M47.812 Spondylosis without myelopathy or radiculopathy, cervical region (principal) | CPT/HCPCS: 99202 ==

== ENCOUNTER 2024-09-23 08:47 | Outpatient (AMB) | payer MEDICARE, MEDICAID, SELFPAY ==
[2024-09-23 08:49] VITALS: BP 112/74; PULSE 104; O2SAT 91; BMI 31.8
--- NOTE | 2024-09-23 08:49 | MHC.OFFVIS ---
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 Allergies Sulfa (Sulfonamide Antibiotics) Allergy (Intermediate, Verified 09/23/24 08:53) HIVES amoxicillin Allergy (Verified 09/23/24 08:53) Nausea and Vomiting Medication List - Last Reconciled 09/23/24 by Ania Tang MD albuterol sulfate 90 mcg/actuation 1 inh inhalation Q6H PRN buprenorphine-naloxone 8-2 mg 1 film sublingual BID diazepam 10 mg PO BEDTIME PRN ipratropium-albuterol 0.5 mg-3 mg(2.5 mg base)/3 mL 3 mL inhalation Q6-8H PRN levothyroxine 175 mcg PO DAILY prednisone mg PO BID PRN testosterone 0 mg topical QAM trazodone 75 mg PO BEDTIME PRN Ventolin HFA 90 mcg/actuation (albuterol sulfate) 1 puff inhalation Q4-6H PRN NS warfarin 5 mg See Protocol PO DAILY HPI Comments Details: 59-year-old male coming in today for initial evaluation of postsurgical hypothyroidism with a history of Graves disease status post failed radioactive iodine ablation, with subsequent total thyroidectomy in 2010, 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 He also has a history significant for obesity, DVT/PE , chronic pain due to cervical spondolysis with a history of opioid use, now on Suboxone. He was previously following with [facility] endocrinology, last visit from August 2024. Switching care to us due to insurance coverage changes. Postsurgical hypothyroidism History of Graves disease underwent radioactive iodine ablation which failed and then became hyperthyroid by 2010, subsequently underwent total thyroidectomy in 2010 leading to postsurgical hypothyroidism. He has been on 175 mcg of levothyroxine daily. No symptoms of hypo or hyperthyroidism. Good adherence inappropriate administration. history of Graves ophthalmopathy He used to follow with Dr. isaac , also had radiation and orbital decompression surgery surgery in the past in 2011, and then more recently in fall of 2022 he had another surgery for floaters.Has history of cataracts. Denies any diplopia or pressure behind the eye. Per patient he doesnt need any more followup was told that. Adrenal adenoma He has a history of left-sided adrenal adenoma which was being monitored. He underwent resection of a right-sided adrenal adenoma in 2003 measuring 2.4 X 4 cm, with benign histology. Unclear whether any hormonal workup was done prior to the surgery with the Hounsfield units were approximately 13 units? before adrenalectomy. At that time he also had a left-sided adrenal adenoma measuring 1.5 X 2.2 cm[address] Per [address] scan from March 2022 showed stable left adrenal adenoma measuring 1.4 cm with 9 Hounsfield units. Apparently hormonal workup of this per records from prior enterprise resource planning consultant showed that hormonal workup for metanephrines and aldosterone were in normal range in past. He intermittently had slightly elevated plasma metanephrines back in 2015 but otherwise hormonal profile was normal. Urine catecholamine in 2011 was normal. No history of HTN. Denies easy briusing Secondary adrenal insufficiency Mild central adrenal insufficiency thought to be in the setting of suppression from chronic opiate use. He is on prednisone 10 mg twice a day PRN , which she only uses during stressful situations. He is aware of sick day rules, has hydrocortisone active I will injection. 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 He developed a DVT in 2013 while he was on AndroGel. He developed another DVT after stopping Coumadin and now is on lifelong Coumadin. He also has a history of PE. Currently he is on testosterone 25 mg 1 packet daily. He has prolonged use of Percocet for about 3 years after the neck surgery and then currently of on Suboxone. And has been on it for several years. No history of stroke or heart attack . no lower urinary tract symptoms Physical exam General: sitting comfortably in no acute distress HEENT: normocephalic/atraumatic, moist oral mucosa Neck: supple, symmetrical Cardiac: normal heart sounds Pulm: normal breath sounds B/L, no added breath sounds Abd: not distended, no tenderness Extremities: no edema, no signs of myxedema Neuro: AAO x3, Speech: normal, no facial droop, moving all 4 extremities [facility] Medical History Pre-op exam Anxiety Depression Pulmonary embolism Hypothyroidism Obesity Gout Surgical History History of sinus surgery History of thyroidectomy History of hernia repair History of appendectomy Family History Father Acute CVA (cerebrovascular accident) Diabetes Hypertension Mother Stroke Other Substance abuse Social History Housing: Condominium Alcohol intake: never Patient Tobacco Use Status: Former Tobacco user Tobacco use type: Cigarette Cigarette Packs Per Day: 1 Cigarettes Per Day: 20.0 e-Cigarette/Vaping Use: Never Used Second Hand Smoke Exposure: Yes service: No Current occupational status: disabled Cognitive needs: Yes (cane) Hearing needs: No Vision needs: Yes (glasses) Physical Exam Vital Signs: Last Vital Signs Pulse 104 H 09/23/24 08:49 BP 112/74 09/23/24 08:49 Pulse Ox 91 L 09/23/24 08:49 Oxygen Delivery Method Room Air 09/23/24 08:49 BMI result Body Mass Index 31.8 Results AMB INR Fingerstick AMB INR Fingerstick 2.8 Last Edit by Lakesha Guevara RN on 09/23/24 08:51 Assessment & Plan Assessment & Plan (1) Hypothyroidism: Code(s): E03.9 - Hypothyroidism, unspecified Category: Medical Qualifiers: Hypothyroidism type: postoperative Qualified Code(s): E89.0 - Postprocedural hypothyroidism Plan: Patient with postsurgical hypothyroidism with a history of Graves disease status post total thyroidectomy in 2010 after failed radioactive iodine ablation Currently appears euthyroid clinically. No recent TFTs in the chart. He is on levothyroxine 175 mcg daily. Plan: -ordered TSH, free T4 -continue levothyroxine 175 mcg daily (2) Hypogonadism in male: Code(s): E29.1 - Testicular hypofunction Category: Medical Plan: Patient is also on testosterone replacement therapy for secondary hypogonadism in the setting of chronic opioid use. He has a history of prior DVT/PE on Coumadin when he was used to be on AndroGel. Subsequently he continues on Coumadin. He has been maintained on testosterone 1% 1 packet daily. He has been using it consistently for the past month, apparently prior to that her to some inconsistencies due to some GI issues and being busy at home with some family issues. I will check his testosterone levels. We will also check a CMP, CBC, lipid panel, PSA. I did talk to him about increased risk of DVT/PE on testosterone, however he is on Coumadin and has not had any recent event. He understands the risk of continuing on testosterone but agrees that at this time he is doing well on it and would like to continue. Plan: -continue testosterone 1% 1 packet daily -check CMP, lipid panel, PSA, CBC, testosterone levels (3) Adrenal insufficiency: Code(s): E27.40 - Unspecified adrenocortical insufficiency Category: Medical Plan: Has a history of mild secondary adrenal insufficiency in the setting of chronic opioid use, currently on Suboxone He is overall doing well, has not required stress dosing in the last couple of months He is only on prednisone 10 mg b.i.d. as needed for stress or infection otherwise he is not on regular steroids. He feels he has gained weight over the last 10 or so years some 100 lb. However denies easy bruising, no history of diabetes mellitus. No history of fractures. He is overall doing well . However today he seemed to be somewhat confused about sick day rules and stress dosing with hydrocortisone injection in the case of vomiting. We reviewed sick day rules and that he is supposed to take hydrocortisone 100 mg injection intramuscularly in case of vomiting during infections/stress. He also does not have a medical alert bracelet, we talked about getting it today. Plan: -counseled about sick day rules and provided instructions -prescribed Solu-Cortef while and guided him about how to use it and also showed him the you tube video link to watch on how to use the as at home and refresh this at least once a year -continue prednisone 10 mg twice daily as needed for stress/infection/fever -counseled about getting medical alert bracelet -since he says he has not used prednisone in a while, we will also check baseline cortisol, acth, DHEA-S levels (4) Adrenal adenoma: Code(s): D35.00 - Benign neoplasm of unspecified adrenal gland Category: Medical Qualifiers: Laterality: left Qualified Code(s): D35.02 - Benign neoplasm of left adrenal gland Plan: Has a history of left-sided adrenal adenoma and also status post resection of a right-sided adrenal adenoma in 2003 measuring 2.4 X 4 over cm with benign pathology. Appears this was done for suspicious nodule, unclear what was the status of the hormonal workup at that point. He has been undergoing monitoring for the left-sided adrenal adenoma which measured 1.5 X [address] scan done at [facility] in March 2022 showed stable left adrenal adenoma. Apparently this has remained stable since 2003. At this time no need to repeat imaging given this last measured stable at 1.4 cm with 9 Hounsfield units. Looks like her lipid rich adenoma. Apparently hormonal workup was also previously done and he intermittently had slightly elevated plasma metanephrine levels back in 2015 but otherwise normal hormonal profile. His urine catecholamines were checked in 2011 and were normal. I am going to repeat the plasma metanephrine levels given this history. He otherwise does not have a history of hypertension so I am not checking aldosterone and renin and apparently these were normal in the past. Given that he is actually treated for mild secondary adrenal insufficiency, no need to perform 1 mg dexamethasone suppression test. Plan: -check plasma metanephrine and normetanephrine levels -obtain CT scan 2021 from [facility] of adrenal glands/abdomen Plan I spent 60 minutes in reviewing the record, seeing the patient and documenting in the medical record. Orders: Orders Thyroid Stimulating Hormone Today E03.9 - Hypothyroidism, unspecified, E27.40 - Unspecified adrenocortical insufficiency, E29.1 - Testicular hypofunction Complete Blood Count Auto Diff Today E03.9 - Hypothyroidism, unspecified, E27.40 - Unspecified adrenocortical insufficiency, E29.1 - Testicular hypofunction Comprehensive Met. Panel Today E03.9 - Hypothyroidism, unspecified, E27.40 - Unspecified adrenocortical insufficiency, E29.1 - Testicular hypofunction Lipid Panel Today E03.9 - Hypothyroidism, unspecified, E27.40 - Unspecified adrenocortical insufficiency, E29.1 - Testicular hypofunction Testosterone, Free/Total Today E03.9 - Hypothyroidism, unspecified, E27.40 - Unspecified adrenocortical insufficiency, E29.1 - Testicular hypofunction Sex Hormone Binding Globulin Today E03.9 - Hypothyroidism, unspecified, E27.40 - Unspecified adrenocortical insufficiency, E29.1 - Testicular hypofunction PSA,Total (Free>4and<10) Today E03.9 - Hypothyroidism, unspecified, E27.40 - Unspecified adrenocortical insufficiency, E29.1 - Testicular hypofunction Cortisol Random Today D35.00 - Benign neoplasm of unspecified adrenal gland, E27.40 - Unspecified adrenocortical insufficiency DHEA Sulfate Today D35.00 - Benign neoplasm of unspecified adrenal gland, E27.40 - Unspecified adrenocortical insufficiency Free T4 (Free Thyroxine) Today E03.9 - Hypothyroidism, unspecified, E27.40 - Unspecified adrenocortical insufficiency, E29.1 - Testicular hypofunction Adrenocorticotropic Hormone Today D35.00 - Benign neoplasm of unspecified adrenal gland, E27.40 - Unspecified adrenocortical insufficiency Metanephrines, Plasma Today D35.00 - Benign neoplasm of unspecified adrenal gland, E27.40 - Unspecified adrenocortical insufficiency Medications: New syringe with needle (BD Eclipse Luer-Kristie) As directed use to inject hydrocortisone for emergency use 10 ea 0RF needle (disp) 19 G (BD Regular [place]vel [place]) As directed for emergency use only to draw hydrocortisone 10 ea 0RF prednisone 10 mg PO BID PRN 60 tabs 2RF stress, infection hydrocortisone sod succinate For emergency use only with history of adrenal insufficiency 100 mg IM ONCE 1 ea 0RF levothyroxine 175 mcg PO DAILY 90 tabs 3RF Changed From testosterone topical QAM To testosterone 1 packet topical QAM 75 grams 5RF Patient Instructions: Continue levothyroxine 175 mcg daily Continue testosterone 1 packet daily Do early AM fasting blood work Follow up in 3 months Get medical alert [facility] ADRENAL SICK DAY RULE Minor ailments can affect anyone with a steroid-dependent adrenal condition very differently. Things like vomiting, diarrhea, colds and flu could cause an adrenal crisis. It's important that you spot the early symptoms of a bug or cold and adjust your steroid replacement medication. The Sick Day Rules are here to help you. If you're feeling ill or injured follow these rules to keep safe and reduce the chances of an adrenal crisis.?Make sure that you keep taking your medication whatever is going on. An adrenal crisis is serious, uncomfortable and can be life-threatening. What to do Double?your daily hydrocortisone, prednisone or prednisolone dose if: ? You have a temperature of 100.4 degrees or above. ? You get a bad cold, flu, diarrhea or other infection that makes you feel poorly or weak. ? You break a bone or suffer from any similar significant injury. For how long? ? Double your dose for 48-72 hours. If you are feeling better, go back to your usual dose. ? If you don't feel better after 48hrs, continue to double your does and speak to your doctor for more advice. ? If you are prescribed antibiotics, continue to double your dose until you finish the course or feel completely back to normal. I can't keep my medication down 1. If you vomit and bring up your medication within 30 minutes of taking it, take a double dose again immediately. 2. If you bring up the second dose,?inject yourself with 100mg of hydrocortisone?(if this has been prescribed to you) and seek medical advice immediately. 3. If you carry on vomiting, you will become dehydrated Coding Level of Care Code New Pt Level 5 (46470) Diagnoses Postoperative hypothyroidism E89.0 Hypothyroidism type: postoperative Hypogonadism in male E29.1 Adrenal insufficiency E27.40 Adenoma of left adrenal gland D35.02 Laterality: left Time Spent (min) 60
--- OUTSIDE RECORDS SUMMARY | 2024-09-23 09:16 | XMS_ITS | Clinical Summary ---
Author Organization [facility] ity Address [address] [place] [address] Care Team Providers Care Junior Electrical Engineer Name Role Phone Obi Ramon MD Primary Care Provider [phone] Social History Tobacco Use Types Packs/Day Years Used Date Smoking Tobacco: Never Assessed Sex and Gender Information Value Date Recorded Sex Assigned at Not on file Legal Sex Male 2:52 PM EST Gender Identity Not on file Sexual Orientation Not on file Plan of Treatment Health Maintenance Due Date Last Done Comments DTaP,Tdap,and Td Vaccines (1 - Tdap) 1983 Pneumococcal Vaccine: 50+ Ye ars (1 of 1 - PCV) 2014 Zoster Vaccines (1 of 2) 2014 COVID-19 [...] patient's age to complete this topic Meningococcal B Vacine Aged Out No lo nger eligible based on patient's age to complete [...] age to complete this topic Care Teams Junior Electrical Engineer Relationship Specialty Start Date End Date Obi Ramon MD [address] [place] [address] [address] [place] [address] PCP - General Internal Medicine 06/21/20
== END 2024-09-23 09:47 | disposition home or self-care (01) ==
PROVIDERS: PCP Internal Medicine; Visit Provider Student in an Organized Health Care Education/Training Program
DX: E89.0 Postprocedural hypothyroidism (principal); E29.1 Testicular hypofunction; E27.40 Unspecified adrenocortical insufficiency; D35.02 Benign neoplasm of left adrenal gland
CPT/HCPCS: 99205

== ENCOUNTER → 2024-09-23 08:47 | Outpatient (BNVA) | payer MEDICARE, MEDICAID, SELFPAY | PROVIDERS: PCP Internal Medicine; Visit Provider Student in an Organized Health Care Education/Training Program | DX: E89.0 Postprocedural hypothyroidism (principal); E29.1 Testicular hypofunction; E27.40 Unspecified adrenocortical insufficiency; D35.02 Benign neoplasm of left adrenal gland | CPT/HCPCS: 99202 ==

== ENCOUNTER 2024-10-11 11:12 | Outpatient (REF) | payer MEDICARE, MEDICAID, SELFPAY ==
--- OUTSIDE RECORDS SUMMARY | 2024-10-11 12:48 | XMS_ITS | Clinical Summary ---
Author Organization [facility] ity Address [address] [place] [address] Care Team Providers Care Icing Coater Name Role Phone Obi Ramon MD Primary Care Provider [phone] Social History Tobacco Use Types Packs/Day Years [...] age to complete this topic Care Teams Icing Coater Relationship Specialty Start Date End Date Obi Ramon MD [address] [place] [address] [address] [place] [address] PCP - General Internal Medicine 06/21/20
== END 2024-10-11 11:13 | disposition home or self-care (01) ==
LOC: HO.LAB 11:12
PROVIDERS: PCP Internal Medicine; Visit Provider Student in an Organized Health Care Education/Training Program
DX: Z13.89 Encounter for screening for other disorder (principal)

== ENCOUNTER 2024-10-12 09:03 | Outpatient (REF) | payer MEDICARE, MEDICAID, SELFPAY ==
[2024-10-12 09:36] LABS: MANUAL DIFF FLAG NO
--- OUTSIDE RECORDS SUMMARY | 2024-10-12 10:03 | XMS_ITS | Clinical Summary ---
Author Organization [facility] ity Address [address] [place] [address] Care Team Providers Care Digital Printer Name Role Phone Obi Ramon MD Primary Care Provider [phone] Social History Tobacco Use Types Packs/Day Years [...] to complete this topic Care Teams Digital Printer Relationship Specialty Start Date End Date Obi Ramon MD [address] [place] [address] [address] [place] [address] PCP - General Internal Medicine 06/21/20
[2024-10-12 10:52] LABS: Basophils Percent Auto 0.5 % (0-2); Eosinophils Absolute Auto 0.1 X10*3/uL (0.0-0.4); Eosinophils Percent Auto 0.9 % (0-4); Hematocrit 46.9 % (42.0-52.0); Hemoglobin 16.2 g/dl (14.0-18.0); Imm Gran Abs Auto 0.02 X10*3/uL (0.00-0.03); Imm Gran Pct Auto 0.3 % (0.0-0.4); Lymphocytes Absolute Auto 2.7 X10*3/uL (1.2-4.9); Lymphocytes Percent Auto 40.7 % (20-40); Mean Corpuscular HGB Conc 34.5 g/dl (31.0-36.0); Mean Corpuscular Hemoglobin 33.5 pg (27.0-33.0); Mean Corpuscular Volume 97.1 fL (80.0-98.0); Mean Platelet Volume 9.1 fL (9.4-12.4); Monocytes Absolute Auto 0.4 X10*3/uL (0.1-1.2); Monocytes Percent Auto 6.6 % (2-11); Neutrophils Absolute Auto 3.3 x10*3/uL (2.0-8.3); Platelet Count 226 X10*3/uL (160-400); Red Blood Count 4.83 X10*6/uL (4.60-5.80); Red Cell Distribution Width 12.1 % (11.0-16.0); White Blood Count 6.5 X10*3/uL (4.8-10.8)
[2024-10-12 12:09] LABS: PSA,Total (Free>4and<10) 0.51 ng/mL (0.00-4.00)
[2024-10-12 12:22] LABS: Alanine Aminotransferase 23 U/L (0-40); Albumin Level 4.4 g/dL (3.5-5.0); Alkaline Phosphatase 66 U/L (39-117); Anion Gap 12 (12-20); Aspartate Amino Transferase 31 U/L (5-37); Bilirubin Total 0.5 mg/dL (0.0-1.0); Blood Urea Nitrogen 8 mg/dL (9-16); Calcium 9.1 mg/dL (8.4-10.2); Carbon Dioxide 29 mmol/L (22-29); Chloride 102 mmol/L (96-108); Cholesterol 284 mg/dL (<200); Estimated Glomerular Filt Rate > 60; Free T4 (Free Thyroxine) 1.12 ng/dL (0.71-1.85); Glucose Random 153 mg/dL (60-115); HDL Cholesterol 40 mg/dL (>40); LDL Cholesterol Calculated 174 mg/dL (<100); Potassium 3.8 mmol/L (3.3-5.1); Sodium 139 mmol/L (135-145); Thyroid Stimulating Hormone 2.35 uIU/mL (0.32-4.0); Total Protein 7.9 g/dL (6.5-8.0); Triglycerides 350 mg/dL (<150)
[2024-10-13 07:13] LABS: Sex Hormone Binding Globulin 19 nmol/L (22-77)
[2024-10-13 07:18] LABS: DHEA Sulfate 15 mcg/dL (32-279)
[2024-10-15 19:23] LABS: Adrenocorticotropic Hormone 17 pg/mL (6-50)
[2024-10-17 12:58] LABS: Metanephrine, Free <25 pg/mL (<=57); Normetanephrines, Free 93 pg/mL (<=148); Total Metanephrine, Free 93 pg/mL (<=205)
[2024-10-22 16:39] LABS: Testosterone, Free 19.9 pg/mL (35.0-155.0); Testosterone, Total 119 ng/dL (250-1100)
== END 2024-10-12 09:04 | disposition home or self-care (01) ==
LOC: HO.LAB 09:03
PROVIDERS: PCP Internal Medicine; Visit Provider Student in an Organized Health Care Education/Training Program
DX: E27.40 Unspecified adrenocortical insufficiency (principal); E03.9 Hypothyroidism, unspecified; E29.1 Testicular hypofunction; D35.00 Benign neoplasm of unspecified adrenal gland; Z12.5 Encounter for screening for malignant neoplasm of prostate
CPT/HCPCS: 36415; 80053; 80061; 82024; 82533; 82627; 83835; 84153; 84270; 84402; 84403; 84439; 84443; 85025

== ENCOUNTER 2024-10-15 14:11 | Outpatient (AMB) | payer MEDICARE, MEDICAID, SELFPAY ==
--- NOTE | 2024-10-15 14:01 | A.OFFPC_ITS ---
Intake Visit Reasons: follow up Pacs Specialist Required: No Principal Associate: Not Required per policy Accompanied by: Self / Same As Patient Allergies Sulfa (Sulfonamide Antibiotics) Allergy (Intermediate, Verified 10/15/24 14:02) HIVES amoxicillin Allergy (Verified 10/15/24 14:02) Nausea and Vomiting Tobacco use date assessed: 10/15/24 Dental Screening Dental Screen Date: 08/24/24 HPI follow up HPI Details will be having spine surgery in the next few weeks and need lovenox again [facility] Medical History (Updated 09/23/24 @ 10:01 by Ania Tang MD) Adrenal adenoma Adrenal insufficiency Hypogonadism in male Pre-op exam Anxiety Depression Pulmonary embolism Hypothyroidism Obesity Gout Surgical History History of sinus surgery History of thyroidectomy History of hernia repair History of appendectomy Family History Father Acute CVA (cerebrovascular accident) Diabetes Hypertension Mother Stroke Other Substance abuse Social History Housing: Condominium Alcohol intake: never Patient Tobacco Use Status: Former Tobacco user Tobacco use type: Cigarette Cigarette Packs Per Day: 1 Cigarettes Per Day: 20.0 e-Cigarette/Vaping Use: Never Used Second Hand Smoke Exposure: Yes service: No Current occupational status: disabled Cognitive needs: Yes (cane) Hearing needs: No Vision needs: Yes (glasses) Questionnaire Thrive Questionnaire Date Thrive assessed: 08/12/24 AUDIT C Alcohol Use Questionnaire (AUDIT-C) 2. How many drinks containing alcohol do you have on a typical day when you are drinking?: 1 or 2 3. How often do you have six or more drinks on one occasion?: Less than monthly Total Score: 1 MARIELENA-7 AMB Questionnaire MARIELENA-7 Date MARIELENA - 7 assessed: 08/12/24 Source: Developed by Drs. Cam Sandy, Julia James, Anton Perez and colleagues, with an educational molina from [employer]. Review of Systems Const Denies chills, Denies headache(s) and Denies weight loss ENT Denies headache(s) Card Denies chest pain, Denies syncope, Denies irregular heart rhythm and Denies dyspnea Resp Denies chest congestion, Denies cough and Denies dyspnea GI Denies abdominal pain, Denies change in stool character, Denies nausea and Denies vomiting Musc Denies deformity and Denies joint swelling Neuro Denies syncope and Denies headache(s) Physical exam (Primary Care) Tobacco/Smoking Status: Tobacco use Status Tobacco use date assessed 10/15/24 10/15/24 14:03 Patient Tobacco Use Status Former Tobacco user 10/15/24 14:03 Tobacco use type Cigarette 10/15/24 14:03 e-Cigarette/Vaping Use Never Used 10/15/24 14:03 Thrive Assessment: Date of Thrive Assessment Date Thrive assessed 08/12/24 10/15/24 14:03 Telehealth Telehealth Telehealth Platform: Telephone Location of provider rendering services: practice address Location of patient: address on file Patient Identification confirmed using: Name, : Yes Telehealth method: voice only Patient verbally consented to treatment: Yes Patient verbally consented to billing insurance company: Yes Patient informed of any privacy concerns related to visit: Yes Minutes spent on Phone/Video with Pt.: 15 (telephone) Coding Level of Care Code Tele Est Pt Level 3 (88345) Diagnoses Cervical spondylosis M47.812 Assessment & Plan Assessment & Plan (1) Cervical spondylosis: Code(s): M47.812 - Spondylosis without myelopathy or radiculopathy, cervical region Category: Medical Plan: rx sent Medications: Refilled enoxaparin (Lovenox) 100 mg See Protocol subcut Q12H 10 mL 2RF
--- OUTSIDE RECORDS SUMMARY | 2024-10-15 15:41 | XMS_ITS | Clinical Summary ---
Author Organization [facility] ity Address [address] [place] [address] Care Team Providers Care Director Of Primary Care Name Role Phone Obi Ramon MD Primary Care Provider Social History Tobacco Use Types Packs/Day Years [...] age to complete this topic Care Teams Director Of Primary Care Relationship Specialty Start Date End Date Obi Ramon MD [address] [place] [address] [address] [place] [address] PCP - General Internal Medicine 06/21/20
== END 2024-10-15 14:54 | disposition home or self-care (01) ==
PROVIDERS: PCP Internal Medicine; Visit Provider Internal Medicine
DX: M47.812 Spondylosis without myelopathy or radiculopathy, cervical region (principal)

== ENCOUNTER 2024-11-11 06:06 | Outpatient (REF) | payer MEDICARE, MEDICAID, SELFPAY ==
--- NOTE | ~2024-11-11 | FL_ITS ---
EXAMINATION: XR FLUOROSCOPY WITH IMAGES CLINICAL INFORMATION: Cervical pain management COMPARISON: MR cervical 08/09/2024. TECHNIQUE: Fluoroscopy provided to: Dr. Mccoy Fluoroscopy time: 8.1 seconds DAP: 0.5444 Gycm2 Images: 2 FINDINGS: 2 spot images taken during fluoroscopic cervical pain management procedure. Please refer to the full procedural report for details. FL/FL guidance in treatment room IMPRESSION: Fluoroscopic guidance. Electronically signed by: Praveen Smith MD 11/11/2024 01:57 PM EDT
== END 2024-11-11 06:07 | disposition home or self-care (01) ==
LOC: CF 06:06
PROVIDERS: Visit Provider Internal Medicine
DX: M47.812 Spondylosis without myelopathy or radiculopathy, cervical region (principal)
CPT/HCPCS: 64490; 64491; 99211; J2003; J2795; Q9967

== ENCOUNTER 2024-11-11 09:56 | Outpatient (AMB) | payer MEDICARE, MEDICAID, SELFPAY ==
[2024-11-11 10:03] VITALS: BP 131/80; PULSE 82; RESP 16; O2SAT 96
--- NOTE | 2024-11-11 10:03 | A.OFFVIS_ITS ---
Vital Signs 11/11/24 10:03 11/11/24 10:25 BP 131/80 119/77 Blood Pressure Location Lt brachial Lt brachial Position Sitting Sitting Respiration 16 16 Pulse 82 81 Pulse Source Pulse Oximeter Pulse Oximeter Pulse Oximetry (%) 96 95 Oxygen Delivery Method Room Air Room Air Intake Visit Reasons: Right Dx C3-C4-C5 MBB Wildlife Biology Internship Required: No Allergies Sulfa (Sulfonamide Antibiotics) Allergy (Intermediate, Verified 11/11/24 10:04) HIVES amoxicillin Allergy (Verified 11/11/24 10:04) Nausea and Vomiting Medication List - Last Reconciled 11/11/24 by Isabel Raza LPN albuterol sulfate 90 mcg/actuation 1 inh inhalation Q6H PRN buprenorphine-naloxone 8-2 mg 1 film sublingual BID diazepam 10 mg PO BEDTIME PRN enoxaparin (Lovenox) 100 mg See Protocol subcut Q12H hydrocortisone sod succinate 100 mg IM ONCE ipratropium-albuterol 0.5 mg-3 mg(2.5 mg base)/3 mL 3 mL inhalation Q6-8H PRN levothyroxine 175 mcg PO DAILY needle (disp) 19 G (BD Regular Bevel [place]) As directed for emergency use only to draw hydrocortisone prednisone 10 mg PO BID PRN syringe with needle (BD Eclipse Luer-Kristie) As directed use to inject hydrocortisone for emergency use testosterone 1 packet transdermal QAM trazodone 75 mg PO BEDTIME PRN Ventolin HFA 90 mcg/actuation (albuterol sulfate) 1 puff inhalation Q4-6H PRN NS warfarin 5 mg See Protocol PO DAILY HPI HPI Right Dx C3-C4-C5 MBB: Details: Patient presents for scheduled procedure. Denies any recent cough, cold, infection, fever or other significant changes in medical history since last office visit. [facility] Medical History (Updated 09/23/24 @ 10:01 by Ania Tang MD) Adrenal adenoma Adrenal insufficiency Hypogonadism in male Pre-op exam Anxiety Depression Pulmonary embolism Hypothyroidism Obesity Gout Surgical History History of sinus surgery History of thyroidectomy History of hernia repair History of appendectomy Family History Father Acute CVA (cerebrovascular accident) Diabetes Hypertension Mother Stroke Other Substance abuse Social History Housing: Condominium Alcohol intake: never Patient Tobacco Use Status: Former Tobacco user Tobacco use type: Cigarette Cigarette Packs Per Day: 1 Cigarettes Per Day: 20.0 e-Cigarette/Vaping Use: Never Used Second Hand Smoke Exposure: Yes service: No Current occupational status: disabled Cognitive needs: Yes (cane) Hearing needs: No Vision needs: Yes (glasses) Physical Exam Vital Signs: Last Vital Signs Pulse 82 11/11/24 10:03 Resp 16 11/11/24 10:03 BP 131/80 11/11/24 10:03 Pulse Ox 96 11/11/24 10:03 Oxygen Delivery Method Room Air 11/11/24 10:03 Office Procedures Cervical/Thoracic Facet Inj Details: Diagnostic Cervical Medial Branch Block, Right C3, C4, C5 medial branches After obtaining written consent, pre-procedure blood pressure and pulse were recorded and are in the nursing record for review. The patient was placed in a lateral position. The respective cervical area was prepped with chloraprep and draped in sterile fashion. The skin over the target medial branch nerves was anesthetized with 0.5% lidocaine. A 25 gauge 1.5 inch needle was inserted into the target medial branch nerve under fluoroscopic guidance. No paresthesias were elicited with needle placement and aspiration was negative for blood and CSF. Next, 0.2cc of omnipaque 180 was injected to verify positioning. Next 0.5 ml 0.5% ropivicaine was injected (0.5 cc total per level). The identical procedure was performed at the remaining levels. The skin was cleansed and a sterile bandage was applied. Following the procedure the patient's vital signs were stable. The patient tolerated the procedure well and no complications were encountered. Following the procedure the patient's vital signs were stable. The patient was discharged home in good condition with post-procedural instructions. Time Out: Immediately prior to the procedure, the following was verbally confirmed that there is a signed consent form and that the correct patient, planned procedure, site and side are consistent with documentation and that necessary equipment and/or blood products are available prior to the start of the case. Complications: none EBL: <5 cc 08816 - with Fluoroscopy 52148 - second level, with Fluoroscopy Procedure code (CPT) selection complete Assessment & Plan Assessment & Plan (1) Cervical spondylosis: Code(s): M47.812 - Spondylosis without myelopathy or radiculopathy, cervical region Category: Medical Plan Patient is status post right C3, C4, C5 diagnostic medial branch blocks. Patient tolerated procedure well and was discharged home in stable condition with discharge instructions. All questions were answered. We will follow-up via telephone or in clinic to assess response to therapy. A follow-up appointment was made during today's visit. Orders: Orders FL guidance in treatment room Today M47.812 - Spondylosis without myelopathy or radiculopathy, cervical region Coding Level of Care Code Procedure Only Diagnoses Cervical spondylosis M47.812 CPT Codes Facet Injection Cervical/Thoracic - CPT: 87055 - with Fluoroscopy ([id number]) Facet Injection Cervical/Thoracic - CPT: 88537 - second level, with Fluoroscopy ([id number])
[2024-11-11 10:25] VITALS: BP 119/77; PULSE 81; RESP 16; O2SAT 95
--- OUTSIDE RECORDS SUMMARY | 2024-11-11 11:25 | XMS_ITS | Clinical Summary ---
Author Organization [facility] it Address [address] [place] [address] Care Team Providers Care Feather Curling Machine Operator Name Role Phone Obi Ramon MD Primary Care Provider [phone] Social History Tobacco Use Types Packs/Day Years [...] - 2023-2 5 season) 2024 Influenza Vaccine (Season Ended) 2025 RSV Immunization Adult Patie nts (1 - 1-dose 75+ series) 2039 HIB [...] age to complete this topic Meningococcal B Vaccine Aged Out No l onger eligible based on patient's age to complete [...] age to complete this topic Care Teams Feather Curling Machine Operator Relationship Specialty Start Date End Date Obi Ramon MD [address] [place] [address] [address] [place] [address] PCP - General Internal Medicine 06/21/20
== END 2024-11-11 10:26 | disposition home or self-care (01) ==
LOC: HO.PMCPRC 09:56
PROVIDERS: Visit Provider Internal Medicine
DX: M47.812 Spondylosis without myelopathy or radiculopathy, cervical region (principal)
CPT/HCPCS: 64490; 64491

== ENCOUNTER 2024-11-11 16:30 | Outpatient (AMB) | payer MEDICARE, MEDICAID, SELFPAY ==
--- NOTE | 2024-11-11 16:41 | MHC.OFFVISCO ---
Intake Intake Visit Reasons: Anticoagulation Allergies Sulfa (Sulfonamide Antibiotics) Allergy (Intermediate, Verified 11/11/24 16:33) HIVES amoxicillin Allergy (Verified 11/11/24 16:33) Nausea and Vomiting Medication List - Last Reconciled 11/11/24 by Kirstin Ocasio RN albuterol sulfate 90 mcg/actuation 1 inh inhalation Q6H PRN buprenorphine-naloxone 8-2 mg 1 film sublingual BID diazepam 10 mg PO BEDTIME PRN enoxaparin (Lovenox) 100 mg See Protocol subcut Q12H hydrocortisone sod succinate 100 mg IM ONCE ipratropium-albuterol 0.5 mg-3 mg(2.5 mg base)/3 mL 3 mL inhalation Q6-8H PRN levothyroxine 175 mcg PO DAILY needle (disp) 19 G (BD Regular Bevel [place]) As directed for emergency use only to draw hydrocortisone prednisone 10 mg PO BID PRN syringe with needle (BD Eclipse Luer-Kristie) As directed use to inject hydrocortisone for emergency use testosterone 1 packet transdermal QAM trazodone 75 mg PO BEDTIME PRN Ventolin HFA 90 mcg/actuation (albuterol sulfate) 1 puff inhalation Q4-6H PRN NS warfarin 5 mg See Protocol PO DAILY Nursing Note Pt stopped by clinic today stating he had his spinal injections today and that he feels fine - no pain. Due to him being pain free pain management is not going to have the 2nd injection on the other side of his neck next week - he stated he now doesnt need it. He is going to resume warfarin today and lovenox tomorrow instead of just the lovenox because the 2nd procedure was canceled due to him feeling so good. He is going to resume his usual warfarin dose no booster doses due to proximity of spinal canal. He now has a f/u INR Friday11/15/2024 Anti-Coag Initial Assessment Social Hx Patient Tobacco Use Status: Former Tobacco user Tobacco use type: Cigarette Smoking packs per day: 1 alcohol intake: never Alcohol intake frequency: does not drink Coding Level of Care Code Est Patient Level 1 Diagnoses Current use of anticoagulant therapy Z79.01 Assessment & Plan Assessment & Plan (1) Current use of anticoagulant therapy: Comment: On Coumadin Code(s): Z79.01 - group home (current) use of anticoagulants Category: Medical
--- OUTSIDE RECORDS SUMMARY | 2024-11-11 18:05 | XMS_ITS | Clinical Summary ---
Author Organization [facility] it Address [address] [place] [address] Care Team Providers Care Press Machine Feeder Name Role Phone Obi Ramon MD Primary Care Provider [phone] Social History Tobacco Use Types Packs/Day Years [...] age to complete this topic Care Teams Press Machine Feeder Relationship Specialty Start Date End Date Obi Ramon MD [address] [place] [address] [address] [place] [address] PCP - General Internal Medicine 06/21/20
== END 2024-11-11 16:47 | disposition home or self-care (01) ==
LOC: HO.ACS 16:30
PROVIDERS: Visit Provider Internal Medicine Medical Oncology
DX: Z79.01 Long term (current) use of anticoagulants (principal)

== ENCOUNTER → 2024-11-15 14:00 | Outpatient (BNVA) | payer MEDICARE, MEDICAID, SELFPAY | PROVIDERS: Visit Provider Internal Medicine Medical Oncology | DX: Z13.89 Encounter for screening for other disorder (principal); Z79.01 Long term (current) use of anticoagulants ==

== ENCOUNTER → 2024-11-17 08:39 | Outpatient (BNVA) | payer MEDICARE, MEDICAID, SELFPAY | PROVIDERS: Visit Provider Internal Medicine Medical Oncology | DX: Z13.89 Encounter for screening for other disorder (principal) ==

== ENCOUNTER → 2024-11-23 11:32 | Outpatient (BNVA) | payer MEDICARE, MEDICAID, SELFPAY | PROVIDERS: Visit Provider Internal Medicine Medical Oncology | DX: Z13.89 Encounter for screening for other disorder (principal) ==

== ENCOUNTER 2024-11-24 09:07 | Outpatient (AMB) | payer MEDICARE, MEDICAID, SELFPAY ==
--- NOTE | 2024-11-24 09:10 | A.OFFVIS_ITS ---
Vital Signs 11/24/24 09:12 Height 6 ft 3 in Weight 251 lb BMI 31.4 BP 135/94 H Blood Pressure Location Lt brachial Position Sitting Respiration 16 Pulse 87 Pulse Source Pulse Oximeter Pulse Oximetry (%) 95 Oxygen Delivery Method Room Air Intake Visit Reasons: s/p nenita Dx C3-C4-C5 MBB Electronic Integrated Systems Mechanic Required: No Allergies Sulfa (Sulfonamide Antibiotics) Allergy (Intermediate, Verified 11/24/24 09:13) HIVES amoxicillin Allergy (Verified 11/24/24 09:13) Nausea and Vomiting Medication List - Last Reconciled 11/24/24 by Isabel Raza LPN buprenorphine-naloxone 8-2 mg 1 film sublingual BID diazepam 10 mg PO BEDTIME PRN hydrocortisone sod succinate 100 mg IM ONCE ipratropium-albuterol 0.5 mg-3 mg(2.5 mg base)/3 mL 3 mL inhalation Q6-8H PRN levothyroxine 175 mcg PO DAILY needle (disp) 19 G (BD Regular Bevel [place]) As directed for emergency use only to draw hydrocortisone prednisone 10 mg PO BID PRN syringe with needle (BD Eclipse Luer-Kristie) As directed use to inject hydrocortisone for emergency use testosterone 1 packet transdermal QAM trazodone 75 mg PO BEDTIME PRN Ventolin HFA 90 mcg/actuation (albuterol sulfate) 1 puff inhalation Q4-6H PRN NS warfarin 5 mg See Protocol PO DAILY HPI HPI s/p nenita Dx C3-C4-C5 MBB: Details: History of Present Illness The patient is a 59-year-old male presenting with follow-up care for chronic neck pain. This pain, of undetermined initial cause, became evident following a golfing episode over a year ago and has persisted since. Previously, he underwent cervical medial branch blocks on the right side at levels C3-4-5, which provided 100% relief, albeit temporarily, limited to the anesthetic duration. The patient describes his neck pain as severe, often perceiving it as extending throughout his neck and head. Relief from the branch blocks implies significant cervical nerve involvement. Ongoing symptoms include debilitating neck pain with substantial impact on daily functions. He anticipates further intervention may contribute positively to pain management and has agreed to undergo a second diagnostic procedure to confirm eligibility for RFA. Pain Description - Onset and Timing: Pain started after a golfing incident over a year ago. - Quality and Character: Severe discomfort perceived as encompassing whole neck and extending to the head. - Primary Location: Cervical region. - Radiation: The pain is described as affecting the entire neck and sometimes the head. - Exacerbating Factors: General daily activities exacerbate pain. - Relieving Factors: Diagnostic medial branch block provided temporary relief. - Functional Interference: Pain interferes significantly with daily functioning, including participating in activities like golf. Physical Exam - Appears afebrile. - Alert and oriented. - Mood and affect appropriate. - Follows and participates in conversation appropriately. - Respiratory effort is unlabored. - Able to transition from sit to stand unassisted. Pain Management - Affect: Pain has significant negative impact on patient?s mood. - Analgesia: Temporary relief with right C3-4-5 diagnostic medial branch blocks; current pain state returned post-anesthetic phase. - Adverse Effects: None reported from the procedure. - Activities of Daily Living: Pain notably limits daily functions and recreational activities. - Aberrant Drug Related Behaviors: None reported. [facility] Medical History (Updated 09/23/24 @ 10:01 by Ania Tang MD) Adrenal adenoma Adrenal insufficiency Hypogonadism in male Pre-op exam Anxiety Depression Pulmonary embolism Hypothyroidism Obesity Gout Surgical History History of sinus surgery History of thyroidectomy History of hernia repair History of appendectomy Family History Father Acute CVA (cerebrovascular accident) Diabetes Hypertension Mother Stroke Other Substance abuse Social History Housing: Condominium Alcohol intake: never Patient Tobacco Use Status: Former Tobacco user Tobacco use type: Cigarette Cigarette Packs Per Day: 1 Cigarettes Per Day: 20.0 e-Cigarette/Vaping Use: Never Used Second Hand Smoke Exposure: Yes service: No Current occupational status: disabled Cognitive needs: Yes (cane) Hearing needs: No Vision needs: Yes (glasses) Physical Exam Vital Signs: Last Vital Signs Pulse 87 11/24/24 09:12 Resp 16 11/24/24 09:12 BP 135/94 H 11/24/24 09:12 Pulse Ox 95 11/24/24 09:12 Oxygen Delivery Method Room Air 11/24/24 09:12 BMI result Body Mass Index 31.4 Assessment & Plan Assessment & Plan (1) Cervical spondylosis: Code(s): M47.812 - Spondylosis without myelopathy or radiculopathy, cervical region Category: Medical Plan Plan - Proceed with a second round of diagnostic cervical medial branch blocks to confirm findings and prepare for RFA. - Continue with anticoagulation management as previously outlined to ensure procedural safety. - Evaluate patient response to the second diagnostic block and assess feasibility and expectations for subsequent RFA. - Monitor patient's pain levels and daily function after the procedure to determine ongoing management needs. Patient was informed and verbally consented to the use of an ambient scribe for clinic note documentation during this visit. Discussion Notes I discussed with the patient the findings and plan for managing his chronic neck pain. We reviewed the positive temporary results of the initial medial branch block and the requirements by the insurance for a second round of diagnostic blocks prior to considering radiofrequency ablation (RFA). The patient fully understands that RFA can potentially offer up to a year's relief but may vary. All procedural details, including the importance of anticoagulation management, were explained. The patient expressed understanding and agreement with the plan, including possible return to full functionality if the RFA is successful, alongside potential risk of temporary relief or failure of procedure benefits. Patient Instructions - Await contact from scheduling for the second round of cervical medial branch blocks. - Follow anticoagulation instructions to pause Coumadin and Lovenox as directed before the procedure. - Monitor pain levels and physical activity, and report any significant changes. - Continue usual activities as tolerated, avoiding excessive strain on the neck. Coding Level of Care Code Est Pt Level 3 (57556) Diagnoses Cervical spondylosis M47.812
[2024-11-24 09:12] VITALS: BP 135/94; PULSE 87; RESP 16; O2SAT 95; BMI 31.4
--- OUTSIDE RECORDS SUMMARY | 2024-11-24 09:58 | XMS_ITS | Clinical Summary ---
Author Organization [facility] it Address [address] [place] [address] Care Team Providers Care Structural Steel Worker Apprentice Name Role Phone Obi Ramon MD Primary Care Provider [phone] Social History Tobacco Use Types Packs/Day Years [...] age to complete this topic Care Teams Structural Steel Worker Apprentice Relationship Specialty Start Date End Date Obi Ramon MD [address] [place] [address] [address] [place] [address] PCP - General Internal Medicine 06/21/20
== END 2024-11-24 09:42 | disposition home or self-care (01) ==
LOC: HO.PMC 09:08
PROVIDERS: PCP Internal Medicine; Visit Provider Internal Medicine
DX: M47.812 Spondylosis without myelopathy or radiculopathy, cervical region (principal)
CPT/HCPCS: 99213

== ENCOUNTER → 2024-11-24 09:07 | Outpatient (BNVA) | payer MEDICARE, MEDICAID, SELFPAY | PROVIDERS: PCP Internal Medicine; Visit Provider Internal Medicine | DX: M47.812 Spondylosis without myelopathy or radiculopathy, cervical region (principal) | CPT/HCPCS: 99212 ==

== ENCOUNTER 2024-12-02 10:42 | Outpatient (REF) | payer MEDICARE, MEDICAID, SELFPAY ==
[2024-12-02 13:53] LABS: Influenza A PCR NEGATIVE (Negative); Influenza B PCR NEGATIVE (Negative); Resp Syncy Virus RNA Qual PCR NEGATIVE (Negative); SARS COV2 PCR INHOUSE NEGATIVE (Negative)
== END 2024-12-02 10:43 | disposition home or self-care (01) ==
LOC: HO.LAB 10:42
PROVIDERS: Physician Assistant
DX: J22 Unspecified acute lower respiratory infection (principal); R09.89 Other specified symptoms and signs involving the circulatory and respiratory systems; Z86.711 Personal history of pulmonary embolism; Z79.01 Long term (current) use of anticoagulants
CPT/HCPCS: 0241U; 87880; 99212

== ENCOUNTER 2024-12-02 10:42 | Outpatient (AMB) | payer MEDICARE, MEDICAID, SELFPAY ==
--- NOTE | 2024-12-02 11:21 | AM.OFFWIN_ITS ---
Intake Vital Signs 12/02/24 11:25 Weight 254 lb BP 128/80 Blood Pressure Location Rt brachial Position Sitting Pulse 83 Pulse Source Pulse Oximeter Temp 98.4 F Temp Source Oral Pulse Oximetry (%) 96 Oxygen Delivery Method Room Air Intake Visit Reasons: EP-sore throat [phone] Intake Note: Patient here for sore throat that has been present for about 5-6 days. Patient Tobacco Use Status: Former Tobacco user Allergies Sulfa (Sulfonamide Antibiotics) Allergy (Intermediate, Verified 12/02/24 11:50) HIVES amoxicillin Allergy (Verified 12/02/24 11:50) Nausea and Vomiting Do you need a note to return to daycare/school/sports/work: No HPI HPI Comments History of Present Illness Details History of Present Illness - The patient is a 59-year-old male past medical history of pulmonary embolism on warfarin, adrenal insufficiency and hypothyroidism secondary to thyroidectomy as well as a gout presenting with severe sore throat and chest congestion. - Symptoms started six days ago with db st congestion and subsequent severe throat pain, described as on fire . - Used nebulizer therapy at home without relief, reporting green, stringy sputum. - Experienced significant shortness of b reath and wheezing, despite no fever, but reports feeling unusually hot with chills. - Denies ear or sinus pain but does repo rt presence of headaches, fatigue, and body aches. - History of smoking, quit a month ago, but cohabitates with another smoker. Physical Exam General: Cooperative, healthy appearing, comfortable, no acute distress and well developed Orientation: Patient oriented x3 Limitations: No limitations Head: Normal to inspection Ears: Hearing grossly normal bilaterally Nose: Normal External nose present Face and sinus: Normal facial exam Mouth: Moist mucosa, posterior oropharynx erythema which is remarkable Eyes: Appearance normal, both eyes and all related structures Neck: Normal visual inspection and Yes full ROM Respiratory: exp Wheezes on auscultation, able to speak in complete sentences. Cardiovascular: Regular rate and rhythm. Normal S1 and S2 Skin: No rashes or lesions noted Neuro: Patient oriented x3 Extremities: Normal to inspection COUNTS INCLUDE 234 BEDS AT THE [facility] Medical History (Updated 12/02/24 @ 11:47 by Ruby Aguilera PA-C) Adrenal adenoma Adrenal insufficiency Hypogonadism in male Pre-op exam Anxiety Depression Pulmonary embolism Hypothyroidism Obesity Gout Surgical History History of sinus surgery History of thyroidectomy History of hernia repair History of appendectomy Family History Father Acute CVA (cerebrovascular accident) Diabetes Hypertension Mother Stroke Other Substance abuse Social History Housing: Condominium Alcohol intake: never Patient Tobacco Use Status: Former Tobacco user Tobacco use type: Cigarette Cigarette Packs Per Day: 1 Cigarettes Per Day: 20.0 e-Cigarette/Vaping Use: Never Used Second Hand Smoke Exposure: Yes service: No Current occupational status: disabled Cognitive needs: Yes (cane) Hearing needs: No Vision needs: Yes (glasses) Review of Systems Const All systems reviewed & are unremarkable except as noted in HPI and below Physical Exam Vital Signs: Last Vital Signs Temp 98.4 F 12/02/24 11:25 Pulse 83 12/02/24 11:25 BP 128/80 12/02/24 11:25 Pulse Ox 96 12/02/24 11:25 Oxygen Delivery Method Room Air 12/02/24 11:25 Results AMB Rapid [place] AMB Rapid [place] Negative Last Edit by TONY Ward on 12/02/24 11 :54 AMB Rapid Strep AMB Rapid Strep Negative Last Edit by TONY Ward on 12/02/24 11:54 Results Reviewed Results Reviewed: Laboratory Last Values Monoscreen (Clinic) Negative 12/02/24 11:36 Strep Scn Rapid Clinic Negative 12/02/24 11:53 Assessment & Plan Assessment & Plan (1) Lower respiratory infection (e.g., bronchitis, pneumonia, pneumonitis, pulmonitis): Code(s): J22 - Unspecified acute lower respiratory infection Plan: VSS, pt well appearing and PE remarkable for exp wheezes and exquisite erythema of posterior oropharynx with no exudates. Rapid strep in office was negative, mononucleosis test is . Initiating prednisone 40 mg daily for 5 days to address bronchitis symptoms and wheezing.. Environmental tobacco smoke exposure should be minimized. Close follow-up is advised to adjust treatment based on test outcomes. Patient was informed and verbally consented to the use of an ambient scribe for clinic note documentation during this visit. Orders: Orders SARS-CoV2/FLU/RSV Today R09.89 - Other specified symptoms and signs involving the circulatory and respiratory systems AMB [place] Screen Today Z13.9 - Encounter for screening, unspecified AMB Rapid Strep Screen Today Z13.9 - Encounter for screening, unspecified Medications: New prednisone 40 mg (2 x 20 mg) PO QAM 10 tabs 0RF Coding Level of Care Code Est Pt Level 4 (30477) Diagnoses Lower respiratory infection (e.g., bronchitis, pneumonia, pneumonitis, pulmonitis) J22
[2024-12-02 11:25] VITALS: BP 128/80; PULSE 83; TEMP 36.9; O2SAT 96
--- OUTSIDE RECORDS SUMMARY | 2024-12-02 12:14 | XMS_ITS | Clinical Summary ---
Author Organization [facility] it Address [address] [place] [address] Care Team Providers Care Binder Stripper Hand Name Role Phone Obi Ramon MD Primary Care Provider [phone] Social History Tobacco Use Types Packs/Day Years [...] age to complete this topic Care Teams Binder Stripper Hand Relationship Specialty Start Date End Date Obi Ramon MD [address] [place] [address] [address] [place] [address] PCP - General Internal Medicine 06/21/20
== END 2024-12-02 13:15 | disposition home or self-care (01) ==
PROVIDERS: Visit Provider Physician Assistant
DX: Z13.9 Encounter for screening, unspecified (principal); J22 Unspecified acute lower respiratory infection

== ENCOUNTER → 2024-12-03 09:38 | Outpatient (BNVA) | payer MEDICARE, MEDICAID, SELFPAY | PROVIDERS: Visit Provider Internal Medicine Medical Oncology ==

== ENCOUNTER → 2024-12-07 09:12 | Outpatient (BNVA) | payer MEDICARE, MEDICAID, SELFPAY | PROVIDERS: Visit Provider Internal Medicine Medical Oncology | DX: Z13.89 Encounter for screening for other disorder (principal) ==

== ENCOUNTER 2024-12-09 06:14 | Outpatient (REF) | payer MEDICARE, MEDICAID, SELFPAY ==
--- NOTE | ~2024-12-09 | FL_ITS ---
EXAMINATION: FL GUIDANCE ONLY HISTORY: M47.812 - Spondylosis without myelopathy or radiculopathy, cervical region COMPARISON: None available. TECHNIQUE: Fluoroscopy time: Less than 1 minute. Cumulative Dose: 0.944 mGy. DAP: 0.0111 mGym2 Images: 2. FINDINGS: Fluoroscopic spot films of the cervical spine in the AP and lateral projections demonstrate needles and contrast material in the right neck. FL/FL guidance in treatment room IMPRESSION: Fluoroscopy during procedure. Please see procedure report for additional information. Electronically signed by: Cam Jensen MD 12/09/2024 02:14 PM EDT
--- OUTSIDE RECORDS SUMMARY | 2024-12-09 06:17 | XMS_ITS | Clinical Summary ---
Author Organization [facility] it Address [address] [place] [address] Care Team Providers Care Spa Receptionist Name Role Phone Obi Ramon MD Primary Care Provider [phone] Social History Tobacco Use Types Packs/Day Years [...] age to complete this topic Care Teams Spa Receptionist Relationship Specialty Start Date End Date Obi Ramon MD [address] [place] [address] [address] [place] [address] PCP - General Internal Medicine 06/21/20
== END 2024-12-09 06:15 | disposition home or self-care (01) ==
LOC: CF 06:14
PROVIDERS: Visit Provider Internal Medicine
DX: M47.812 Spondylosis without myelopathy or radiculopathy, cervical region (principal)
CPT/HCPCS: 64490; 64491; J2003; J2795; Q9967

== ENCOUNTER 2024-12-09 10:13 | Outpatient (AMB) | payer MEDICARE, MEDICAID, SELFPAY ==
[2024-12-09 10:21] VITALS: BP 142/82; PULSE 92; O2SAT 96
--- NOTE | 2024-12-09 10:21 | A.OFFVIS_ITS ---
Vital Signs 12/09/24 10:21 12/09/24 10:45 Height 6 ft 3 in 6 ft 3 in BP 142/82 H 138/82 Blood Pressure Location Rt brachial Rt brachial Position Sitting Sitting Pulse 92 94 Pulse Source Pulse Oximeter Pulse Oximeter Pulse Oximetry (%) 96 84 L Oxygen Delivery Method Room Air Room Air Intake Visit Reasons: Repeat Right Dx C3-C4-C5 MBB Allergies Sulfa (Sulfonamide Antibiotics) Allergy (Intermediate, Verified 12/09/24 10:22) HIVES amoxicillin Allergy (Verified 12/09/24 10:22) Nausea and Vomiting HPI HPI Repeat Right Dx C3-C4-C5 MBB: Details: Patient presents for scheduled procedure. Denies any recent cough, cold, infection, fever or other significant changes in medical history since last office visit. [facility] Medical History (Updated 12/02/24 @ 11:47 by Ruby Aguilera PA-C) Adrenal adenoma Adrenal insufficiency Hypogonadism in male Pre-op exam Anxiety Depression Pulmonary embolism Hypothyroidism Obesity Gout Surgical History History of sinus surgery History of thyroidectomy History of hernia repair History of appendectomy Family History Father Acute CVA (cerebrovascular accident) Diabetes Hypertension Mother Stroke Other Substance abuse Social History Housing: Condominium Alcohol intake: never Patient Tobacco Use Status: Former Tobacco user Tobacco use type: Cigarette Cigarette Packs Per Day: 1 Cigarettes Per Day: 20.0 e-Cigarette/Vaping Use: Never Used Second Hand Smoke Exposure: Yes service: No Current occupational status: disabled Cognitive needs: Yes (cane) Hearing needs: No Vision needs: Yes (glasses) Physical Exam Vital Signs: Last Vital Signs Pulse 92 12/09/24 10:21 BP 142/82 H 12/09/24 10:21 Pulse Ox 96 12/09/24 10:21 Oxygen Delivery Method Room Air 12/09/24 10:21 Office Procedures Cervical/Thoracic Facet Inj Details: Diagnostic Cervical Medial Branch Block, right C3, C4, C5 medial branches After obtaining written consent, pre-procedure blood pressure and pulse were recorded and are in the nursing record for review. The patient was placed in a lateral position. The respective cervical area was prepped with chloraprep and draped in sterile fashion. The skin over the target medial branch nerves was anesthetized with 0.5% lidocaine. A 25 gauge 1.5 inch needle was inserted into the target medial branch nerve under fluoroscopic guidance. No paresthesias were elicited with needle placement and aspiration was negative for blood and CSF. Next, 0.2cc of omnipaque 180 was injected to verify positioning. Next 0.5 ml 0.5% ropivicaine was injected (0.5 cc total per level). The identical procedure was performed at the remaining levels. The skin was cleansed and a sterile bandage was applied. Following the procedure the patient's vital signs were stable. The patient tolerated the procedure well and no complications were encountered. Following the procedure the patient's vital signs were stable. The patient was discharged home in good condition with post-procedural instructions. Time Out: Immediately prior to the procedure, the following was verbally confirmed that there is a signed consent form and that the correct patient, planned procedure, site and side are consistent with documentation and that necessary equipment and/or blood products are available prior to the start of the case. Complications: none EBL: <5 cc 45194 - with Fluoroscopy 38519 - second level, with Fluoroscopy Procedure code (CPT) selection complete Assessment & Plan Assessment & Plan (1) Cervical spondylosis: Code(s): M47.812 - Spondylosis without myelopathy or radiculopathy, cervical region Category: Medical Plan Patient is status post right C3, C4, C5 diagnostic medial branch blocks. Patient tolerated procedure well and was discharged home in stable condition with discharge instructions. All questions were answered. We will follow-up via telephone or in clinic to assess response to therapy. A follow-up appointment was made during today's visit. Orders: Orders FL guidance in treatment room Today Shannan Clifford APRN, PRIVATE BRANCH EXCHANGE REPAIRER M47.812 - Spondylosis without myelopathy or radiculopathy, cervical region AMB Facet Injection-Cervical/Thoracic Today Bello Mccoy MD M47.812 - Spondylosis without myelopathy or radiculopathy, cervical region Coding Level of Care Code Procedure Only Diagnoses Cervical spondylosis M47.812 CPT Codes Facet Injection Cervical/Thoracic - CPT: 83857 - with Fluoroscopy ([id number]) Facet Injection Cervical/Thoracic - CPT: 57218 - second level, with Fluoroscopy ([id number])
[2024-12-09 10:45] VITALS: BP 138/82; PULSE 94; O2SAT 84
--- OUTSIDE RECORDS SUMMARY | 2024-12-09 11:22 | XMS_ITS | Clinical Summary ---
Author Organization [facility] it Address [address] [place] [address] Care Team Providers Care Hot Worker Name Role Phone Obi Ramon MD Primary Care Provider [phone] Social History Tobacco Use Types Packs/Day Years [...] age to complete this topic Care Teams Hot Worker Relationship Specialty Start Date End Date Obi Ramon MD [address] [place] [address] [address] [place] [address] PCP - General Internal Medicine 06/21/20
== END 2024-12-09 10:47 | disposition home or self-care (01) ==
LOC: HO.PMCPRC 10:13
PROVIDERS: Visit Provider Internal Medicine
DX: M47.812 Spondylosis without myelopathy or radiculopathy, cervical region (principal)
CPT/HCPCS: 64490; 64491

== ENCOUNTER → 2024-12-14 09:00 | Outpatient (BNVA) | payer MEDICARE, MEDICAID, SELFPAY | PROVIDERS: Visit Provider Internal Medicine Medical Oncology | DX: Z13.89 Encounter for screening for other disorder (principal) ==

== ENCOUNTER 2024-12-15 10:40 | Outpatient (AMB) | payer MEDICARE, MEDICAID, SELFPAY ==
--- NOTE | 2024-12-15 10:43 | MHC.OFFVIS ---
Vital Signs 12/15/24 10:44 Height 6 ft 3 in Weight 254 lb BMI 31.7 BP 125/73 Blood Pressure Location Lt brachial Position Sitting Respiration 16 Pulse 107 H Pulse Source Pulse Oximeter Pulse Oximetry (%) 96 Oxygen Delivery Method Room Air Intake Visit Reasons: s/p repeat right Dx C3-C4-C5 MBB Sales Agent Pest Control Service Required: No Allergies Sulfa (Sulfonamide Antibiotics) Allergy (Intermediate, Verified 12/21/24 11:04) HIVES amoxicillin Allergy (Verified 12/21/24 11:04) Nausea and Vomiting Medication List - Last Reconciled 12/15/24 by Isabel Raza LPN buprenorphine-naloxone 8-2 mg 1 film sublingual BID diazepam 10 mg PO BEDTIME PRN hydrocortisone sod succinate 100 mg IM ONCE ipratropium-albuterol 0.5 mg-3 mg(2.5 mg base)/3 mL 3 mL inhalation Q6-8H PRN levothyroxine 175 mcg PO DAILY needle (disp) 19 G (BD Regular [place]) As directed for emergency use only to draw hydrocortisone prednisone 40 mg (2 x 20 mg) PO QAM syringe with needle (BD Eclipse Luer-Kristie) As directed use to inject hydrocortisone for emergency use testosterone 1 packet transdermal QAM trazodone 75 mg PO BEDTIME PRN Ventolin HFA 90 mcg/actuation (albuterol sulfate) 1 puff inhalation Q4-6H PRN NS warfarin 5 mg See Protocol PO DAILY HPI HPI s/p repeat right Dx C3-C4-C5 MBB: Details: History of Present Illness The patient is a 59-year-old male presenting with a follow-up after cervical medial branch blocks and new lower extremity numbness. Following the blocks, he experienced significant relief >90% from cervical facet-mediated pain, enabling activities such as golfing with adequate rotations. However, he is experiencing new-onset numbness and tingling in the right thigh, extending to the lower leg, which has persisted for several days. The patient attributes part of the discomfort to wearing a belt, as the sensation temporarily subsides when using loose shorts. There is a significant past medical history involving back surgery with hardware complications, and the patient also underwent a thyroidectomy. Pain Description - Onset post-cervical medial branch blocks with similar relief from both procedures - Significant improvement in pain allowing golf activities - New pain described as numbness and tingling in the lower extremity - Symptoms worsened by tight belts; improved with loose shorts - Involves the thigh, extending to the lower leg - Interferes with activities like sitting comfortably, especially on the toilet Results - MRI of lumbar spine (5 years ago): Unremarkable based on patient's report Pain Management - Affect: Mood shows improvement from pain relief post-block, though current concerns with numbness are distressing. - Analgesia: Considering RFA due to relief provided by medial branch blocks; patient prefers to avoid pharmacotherapy. - Adverse Effects: Experienced gastrointestinal discomfort with prior medication regimen. - Activities of Daily Living: Improved significantly post-blocks, enabling physical activities such as golfing. Numbness in the leg impacts seating comfort and routine activities. - Aberrant Drug-Related Behaviors: Patient explicitly avoids pain medications and prefers non-pharmacologic interventions. [facility] Medical History (Updated 12/02/24 @ 11:47 by Ruby Aguilera PA-C) Adrenal adenoma Adrenal insufficiency Hypogonadism in male Pre-op exam Anxiety Depression Pulmonary embolism Hypothyroidism Obesity Gout Surgical History History of sinus surgery History of thyroidectomy History of hernia repair History of appendectomy Family History Father Acute CVA (cerebrovascular accident) Diabetes Hypertension Mother Stroke Other Substance abuse Social History Housing: Condominium Alcohol intake: never Patient Tobacco Use Status: Former Tobacco user Tobacco use type: Cigarette Cigarette Packs Per Day: 1 Cigarettes Per Day: 20.0 e-Cigarette/Vaping Use: Never Used Second Hand Smoke Exposure: Yes service: No Current occupational status: disabled Cognitive needs: Yes (cane) Hearing needs: No Vision needs: Yes (glasses) Physical Exam Vital Signs: Last Vital Signs Pulse 107 H 12/15/24 10:44 Resp 16 12/15/24 10:44 BP 125/73 12/15/24 10:44 Pulse Ox 96 12/15/24 10:44 Oxygen Delivery Method Room Air 12/15/24 10:44 BMI result Body Mass Index 31.7 Assessment & Plan Assessment & Plan (1) Cervical spondylosis: Code(s): M47.812 - Spondylosis without myelopathy or radiculopathy, cervical region Category: Medical (2) Lumbar disc disease with radiculopathy: Code(s): M51.16 - Intervertebral disc disorders with radiculopathy, lumbar region Category: Medical Plan Plan - Plan for radiofrequency ablation at right C3-C4-C5 medial branches due to proven relief from diagnostic blocks. - Advise avoiding tight belts and opting for loose shorts to alleviate numbness possibly due to LFC nerve compression. - No new imaging or procedures concerning leg numbness unless it persists despite non-invasive interventions. - Bridge anticoagulation therapy prior to procedures as previously established protocol, monitoring INR levels. Patient was informed and verbally consented to the use of an ambient scribe for clinic note documentation during this visit. Discussion Notes I discussed with the patient the likely diagnosis of cervical facet-mediated pain and the positive response to medial branch blocks, making radiofrequency ablation a suitable next step. I addressed the patient's concerns about leg numbness, linking it possibly to external compression by belts and advising on practical lifestyle modifications. Risks and benefits of the RFA procedure were reviewed, including specifics about the cessation and bridging of anticoagulants prior to the procedure. We also discussed alternatives and the necessity to follow up with insurance regarding coverage for RFA. The patient agreed with the proposed management plan and will monitor his symptoms with lifestyle adjustments at home. Patient Instructions - Avoid wearing tight belts or restrictive clothing around the waist; opt for loose, elastic-waist shorts. - Monitor any changes in leg numbness and report persistent symptoms. - Stop prescribed anticoagulants five days before any procedures and follow bridging protocol. - Confirm with insurance about coverage for the radiofrequency ablation. - Follow up with our office as needed for any new or escalating symptoms. Coding Level of Care Code Est Pt Level 4 (03997) Diagnoses Cervical spondylosis M47.812 Lumbar disc disease with radiculopathy M51.16
[2024-12-15 10:44] VITALS: BP 125/73; PULSE 107; RESP 16; O2SAT 96; BMI 31.7
--- OUTSIDE RECORDS SUMMARY | 2024-12-15 11:43 | XMS_ITS | Clinical Summary ---
Author Organization [facility] it Address [address] [place] [address] Care Team Providers Care Roller Coaster Engineer Name Role Phone Obi Ramon MD Primary Care Provider [phone] Social History Tobacco Use Types Packs/Day Years [...] age to complete this topic Care Teams Roller Coaster Engineer Relationship Specialty Start Date End Date Obi Ramon MD [address] [place] [address] [address] [place] [address] PCP - General Internal Medicine 06/21/20
== END 2024-12-15 11:22 | disposition home or self-care (01) ==
LOC: HO.PMC 10:41
PROVIDERS: Visit Provider Internal Medicine
DX: M47.812 Spondylosis without myelopathy or radiculopathy, cervical region (principal); M51.16 Intervertebral disc disorders with radiculopathy, lumbar region
CPT/HCPCS: 99214

== ENCOUNTER → 2024-12-15 10:40 | Outpatient (BNVA) | payer MEDICARE, MEDICAID, SELFPAY | PROVIDERS: Visit Provider Internal Medicine | DX: M47.812 Spondylosis without myelopathy or radiculopathy, cervical region (principal); M51.16 Intervertebral disc disorders with radiculopathy, lumbar region; Z98.890 Other specified postprocedural states | CPT/HCPCS: 99212 ==

== ENCOUNTER 2024-12-21 09:12 | Outpatient (AMB) | payer MEDICARE, MEDICAID, SELFPAY ==
[2024-12-21 09:23] VITALS: BP 130/72; PULSE 103; O2SAT 97; BMI 31.7
--- NOTE | 2024-12-21 09:23 | A.OFFVIS_ITS ---
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 Accompanied by: Self / Same As Patient Allergies Sulfa (Sulfonamide Antibiotics) Allergy (Intermediate, Verified 12/21/24 09:28) HIVES amoxicillin Allergy (Verified 12/21/24 09:28) Nausea and Vomiting Medication List - Last Reconciled 12/21/24 by Ania Tang MD buprenorphine-naloxone 8-2 mg 1 film sublingual BID diazepam 10 mg PO BEDTIME PRN hydrocortisone sod succinate 100 mg IM ONCE ipratropium-albuterol 0.5 mg-3 mg(2.5 mg base)/3 mL 3 mL inhalation Q6-8H PRN levothyroxine 175 mcg PO DAILY needle (disp) 19 G (BD Regular Bevel [place]) As directed for emergency use only to draw hydrocortisone prednisone 40 mg (2 x 20 mg) PO QAM syringe with needle (BD Eclipse Luer-Kristie) As directed use to inject hydrocortisone for emergency use testosterone 1 packet transdermal QAM trazodone 75 mg PO BEDTIME PRN Ventolin HFA 90 mcg/actuation (albuterol sulfate) 1 puff inhalation Q4-6H PRN NS warfarin 5 mg See Protocol PO DAILY HPI Comments Details: 59-year-old male coming in today for initial evaluation of postsurgical hypothyroidism with a history of Graves disease status post failed radioactive iodine ablation, with subsequent total thyroidectomy in 2010, 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 He also has a history significant for obesity, DVT/PE , chronic pain due to cervical spondolysis with a history of opioid use, now on Suboxone. He was previously following with [facility] endocrinology, last visit from August 2024. Switching care to us due to insurance coverage changes. Postsurgical hypothyroidism History of Graves disease underwent radioactive iodine ablation which failed and then became hyperthyroid by 2010, subsequently underwent total thyroidectomy in 2010 leading to postsurgical hypothyroidism. He has been on 175 mcg of levothyroxine daily. No symptoms of hypo or hyperthyroidism. Good adherence inappropriate administration. Noraml TSH, freet4 10/12/24 history of Graves ophthalmopathy He used to follow with Dr. isaac , also had radiation and orbital decompression surgery surgery in the past in 2011, and then more recently in fall of 2022 he had another surgery for floaters.Has history of cataracts. Denies any diplopia or pressure behind the eye. Per patient he doesnt need any more followup was told that. Adrenal adenoma He has a history of left-sided adrenal adenoma which was being monitored. He underwent resection of a right-sided adrenal adenoma in 2003 measuring 2.4 X 4 cm, with benign histology. Unclear whether any hormonal workup was done prior to the surgery with the Hounsfield units were approximately 13 units? before adrenalectomy. At that time he also had a left-sided adrenal adenoma measuring 1.5 X 2.2 cm[address] Per chart review [address] scan from March 2022 showed stable left adrenal adenoma measuring 1.4 cm with 9 Hounsfield units. Apparently hormonal workup of this per records from prior channel turner showed that hormonal workup for metanephrines and aldosterone were in normal range in past. He intermittently had slightly elevated plasma metanephrines back in 2015 but otherwise hormonal profile was normal. Urine catecholamine in 2011 was normal. No history of HTN. Denies easy briusing 10/12/24: noraml PMN and PNMN Secondary adrenal insufficiency Mild central adrenal insufficiency thought to be in the setting of suppression from chronic opiate use. He is on prednisone 10 mg twice a day PRN , which she only uses during stressful situations. He is aware of sick day rules, has hydrocortisone actovial l injection. Still did not get medical alert bracelet -he required a course of prednisone for 5 days early in December 2024 for respiratory infection. 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 He developed a DVT in 2013 while he was on AndroGel. He developed another DVT after stopping Coumadin and now is on lifelong Coumadin. He also has a history of PE. Currently he is on testosterone 25 mg 1 packet daily. He has prolonged use of Percocet for about 3 years after the neck surgery and then currently of on Suboxone. And has been on it for several years. No history of stroke or heart attack . no lower urinary tract symptoms no family history of prostate cancer . Not denies cigarette use, but passive smoking through girlfriend as I asked him I smell tobacco use in the room He says he had a prostate exam many years ago with a his PCP, we went over prostate cancer screening guidelines, at this time given he does not have any increased risk factors he decided he will discuss further with a his PCP regarding need for prostate exams. No recent fractures, last bone density done in 2018 showed osteopenia of the lumbar spine. Labs 10/12/2024 showed normal hematocrit, normal AST, ALT, low HDL, elevated cholesterol and triglyceride levels, low total testosterone of 119 about 2 hours after gel application, Physical exam General: sitting comfortably in no acute distress HEENT: normocephalic/atraumatic, moist oral mucosa Neck: supple, symmetrical Cardiac: normal heart sounds Pulm: normal breath sounds B/L, no added breath sounds Abd: not distended, no tenderness Extremities: no edema, no signs of myxedema Neuro: AAO x3, Speech: normal, no facial droop, moving all 4 extremities Laboratory Tests 10/12/24 09:34 Hgb 16.2 Hct 46.9 Sodium 139 Potassium 3.8 Creatinine 0.87 Estimated GFR > 60 AST 31 ALT 23 Triglycerides 350 H Cholesterol 284 H LDL Cholesterol, Calc 174 H HDL Cholesterol 40 L TSH 2.35 Free T4 1.12 Total Testosterone 119 L Fr Testosterone Dialys 19.9 L Sex Hormone Bind Glob 19 L DHEA Sulfate 15 L Random Cortisol 13.0 ACTH 17 Plasma Free Metaneph <25 Plasma Free Normeta 93 Plas Total Metaneph 93 PFSH Medical History (Updated 12/02/24 @ 11:47 by Ruby Aguilera PA-C) Adrenal adenoma Adrenal insufficiency Hypogonadism in male Pre-op exam Anxiety Depression Pulmonary embolism Hypothyroidism Obesity Gout Surgical History History of sinus surgery History of thyroidectomy History of hernia repair History of appendectomy Family History Father Acute CVA (cerebrovascular accident) Diabetes Hypertension Mother Stroke Other Substance abuse Social History Housing: Condominium Alcohol intake: never Patient Tobacco Use Status: Former Tobacco user Tobacco use type: Cigarette Cigarette Packs Per Day: 1 Cigarettes Per Day: 20.0 e-Cigarette/Vaping Use: Never Used Second Hand Smoke Exposure: Yes service: No Current occupational status: disabled Cognitive needs: Yes (cane) Hearing needs: No Vision needs: Yes (glasses) Physical Exam Vital Signs: BMI result Body Mass Index 39.5 Assessment & Plan Assessment & Plan (1) Hypothyroidism: Code(s): E03.9 - Hypothyroidism, unspecified Category: Medical Qualifiers: Hypothyroidism type: postoperative Qualified Code(s): E89.0 - Postprocedural hypothyroidism Plan: Patient with postsurgical hypothyroidism with a history of Graves disease status post total thyroidectomy in 2010 after failed radioactive iodine ablation Currently appears euthyroid clinically. 10/12/24: TSH, free t4. He is on levothyroxine 175 mcg daily. Plan: -continue levothyroxine 175 mcg daily (2) Hypogonadism in male: Code(s): E29.1 - Testicular hypofunction Category: Medical Plan: Patient is also on testosterone replacement therapy for secondary hypogonadism in the setting of chronic opioid use. He has a history of prior DVT/PE on Coumadin when he was used to be on AndroGel. Subsequently he continues on Coumadin. He has been maintained on testosterone 1% 1 packet daily. He has been using it consistently for the past few months, apparently prior to that her to some inconsistencies due to some GI issues and being busy at home with some family issues. Labs 10/12/2024 showed low total testosterone of 119 about 2 hours after gel application. He does complain of sexual dysfunction and low libido. Normal hematocrit, elevated cholesterol levels with low HDL and high triglyceride and total cholesterol, normal PSA. I did talk to him about increased risk of DVT/PE on testosterone, however he is on Coumadin and has not had any recent event. He understands the risk of continuing on testosterone but agrees that at this time he is doing well on it and would like to continue. At this time given low total testosterone levels plus symptoms we will increase his testosterone and repeat blood work in 3 months. Plan: -increase testosterone 1% 2 packet daily -repeat testosterone levels in 3 months -ordered bone density scan -currently opts out of prostate exam, he will discuss further with PCP, normal PSA 10/12/2024. -Normal hematocrit from 10/12/2024 -has elevated total cholesterol and LDL levels, discussed importance of lifestyle modification, he might benefit from a statin depending on his ASCVD risk score and risk factors, we will defer to PCP. Low testosterone levels can also cause elevation and lipid levels, testosterone replacement therapy while does lower HDL however has shown some improvement in LDL and total cholesterol numbers. We will continue testosterone replacement therapy (3) Adrenal insufficiency: Code(s): E27.40 - Unspecified adrenocortical insufficiency Category: Medical Plan: Has a history of mild secondary adrenal insufficiency in the setting of chronic opioid use, currently on Suboxone He is overall doing well, last required a prednisone course beginning of December 2024 for respiratory infection. Labs done prior 10/12/2024 showed robust a.m. cortisol with good ACTH level DHEA-S was on the lower side. He is only on prednisone 10 mg b.i.d. as needed for stress or infection otherwise he is not on regular steroids. He feels he has gained weight over the last 10 or so years some 100 lb. However denies easy bruising, no history of diabetes mellitus. No history of fractures. He is overall doing well . We reviewed sick day rules and that he is supposed to take hydrocortisone 100 mg injection intramuscularly in case of vomiting during infections/stress. He also does not have a medical alert bracelet, we talked about getting it today. Plan: -counseled about sick day rules and provided instructions -has Solu-Cortef prescription -continue prednisone 10 mg twice daily as needed for stress/infection/fever -counseled about getting medical alert bracelet (4) Adrenal adenoma: Code(s): D35.00 - Benign neoplasm of unspecified adrenal gland Category: Medical Qualifiers: Laterality: left Qualified Code(s): D35.02 - Benign neoplasm of left adrenal gland Plan: Has a history of left-sided adrenal adenoma and also status post resection of a right-sided adrenal adenoma in 2003 measuring 2.4 X 4 over cm with benign pathology. Appears this was done for suspicious nodule, unclear what was the status of the hormonal workup at that point. He has been undergoing monitoring for the left-sided adrenal adenoma which measured 1.5 X [address] scan done at [facility] in March 2022 showed stable left adrenal adenoma. Apparently this has remained stable since 2003. At this time no need to repeat imaging given this last measured stable at 1.4 cm with 9 Hounsfield units. Looks like her lipid rich adenoma. Apparently hormonal workup was also previously done and he intermittently had slightly elevated plasma metanephrine levels back in 2016 but otherwise normal hormonal profile. His urine catecholamines were checked in 2011 and were normal. 10/12/2024: Normal plasma metanephrine and normetanephrine levels.. He otherwise does not have a history of hypertension so I am not checking aldosterone and renin and apparently these were normal in the past. Given that he is actually treated for mild secondary adrenal insufficiency, no need to perform 1 mg dexamethasone suppression test. Plan I spent 30 minutes in reviewing the record, seeing the patient and documenting in the medical record. Orders: Orders Testosterone, Free/Total 3 Months E29.1 - Testicular hypofunction Sex Hormone Binding Globulin 3 Months E29.1 - Testicular hypofunction Bioavailable Testosterone 3 Months E29.1 - Testicular hypofunction XR DEXA axial skeleton Today E29.1 - Testicular hypofunction Medications: Changed From testosterone 1 packet transdermal QAM 150 grams 5RF To testosterone 2 packets transdermal QAM 300 grams 4RF Patient Instructions: Increase testosterone to 2 packets daily Do blood work in 3 months (3 hrs after gel application) Do bone density Follow up in 6 months Get medical alert bracelet ADRENAL SICK DAY RULE Minor ailments can affect anyone with a steroid-dependent adrenal condition very differently. Things like vomiting, diarrhea, colds and flu could cause an adrenal crisis. It's important that you spot the early symptoms of a bug or cold and adjust your steroid replacement medication. The Sick Day Rules are here to help you. If you're feeling ill or injured follow these rules to keep safe and reduce the chances of an adrenal crisis.?Make sure that you keep taking your medication whatever is going on. An adrenal crisis is serious, uncomfortable and can be life-threatening. What to do Double?your daily hydrocortisone, prednisone or prednisolone dose if: ? You have a temperature of 100.4 degrees or above. ? You get a bad cold, flu, diarrhea or other infection that makes you feel poorly or weak. ? You break a bone or suffer from any similar significant injury. For how long? ? Double your dose for 48-72 hours. If you are feeling better, go back to your usual dose. ? If you don't feel better after 48hrs, continue to double your does and speak to your doctor for more advice. ? If you are prescribed antibiotics, continue to double your dose until you finish the course or feel completely back to normal. I can't keep my medication down 1.If you vomit and bring up your medication within 30 minutes of taking it, take a double dose again immediately. 2.If you bring up the second dose,?inject yourself with 100mg of hydroc ortisone?(if this has been prescribed to you) and seek medical advice immediately. 3.If you carry on vomiting, you will become dehydrated Coding Level of Care Code Est Pt Level 4 (06456) Complex EM visit Add On G2211 Diagnoses Postoperative hypothyroidism E89.0 Hypothyroidism type: postoperative Hypogonadism in male E29.1 Adrenal insufficiency E27.40 Adenoma of left adrenal gland D35.02 Laterality: left Time Spent (min) 30
--- OUTSIDE RECORDS SUMMARY | 2024-12-21 09:53 | XMS_ITS | Clinical Summary ---
Author Organization [facility] it Address [address] [place] [address] Care Team Providers Care Air Compressor Operator Name Role Phone Obi Ramon MD Primary Care Provider [phone] Social History Tobacco Use Types Packs/Day Years [...] age to complete this topic Care Teams Air Compressor Operator Relationship Specialty Start Date End Date Obi Ramon MD [address] [place] [address] [address] [place] [address] PCP - General Internal Medicine 06/21/20
== END 2024-12-21 09:50 | disposition home or self-care (01) ==
LOC: HO.ENCR 09:13
PROVIDERS: PCP Internal Medicine; Visit Provider Student in an Organized Health Care Education/Training Program
DX: E89.0 Postprocedural hypothyroidism (principal); E29.1 Testicular hypofunction; E27.40 Unspecified adrenocortical insufficiency; D35.02 Benign neoplasm of left adrenal gland
CPT/HCPCS: 99214; G2211

== ENCOUNTER → 2024-12-21 09:12 | Outpatient (BNVA) | payer MEDICARE, MEDICAID, SELFPAY | PROVIDERS: PCP Internal Medicine; Visit Provider Student in an Organized Health Care Education/Training Program | DX: E89.0 Postprocedural hypothyroidism (principal); E05.00 Thyrotoxicosis with diffuse goiter without thyrotoxic crisis or storm; E29.1 Testicular hypofunction; E27.40 Unspecified adrenocortical insufficiency; D35.02 Benign neoplasm of left adrenal gland; Z79.890 Hormone replacement therapy; Z79.52 Long term (current) use of systemic steroids | CPT/HCPCS: 99212 ==

== ENCOUNTER → 2024-12-28 11:50 | Outpatient (BNVA) | payer MEDICARE, MEDICAID, SELFPAY | PROVIDERS: Visit Provider Internal Medicine Medical Oncology | DX: Z13.89 Encounter for screening for other disorder (principal) ==

== ENCOUNTER → 2025-01-11 11:56 | Outpatient (BNVA) | payer MEDICARE, MEDICAID, SELFPAY | PROVIDERS: Visit Provider Internal Medicine Medical Oncology | DX: Z13.89 Encounter for screening for other disorder (principal) ==

== ENCOUNTER 2025-01-19 14:56 | Outpatient (AMB) | payer MEDICARE, MEDICAID, SELFPAY ==
[2025-01-19 15:00] VITALS: BP 124/78; PULSE 84; RESP 18; TEMP 37.1; O2SAT 94; BMI 32.0
--- NOTE | 2025-01-19 15:00 | MHC.PC.OV ---
Vital Signs 01/19/25 15:00 Height 6 ft 3 in Weight 256 lb BMI 32.0 BP 124/78 Blood Pressure Location Lt brachial Position Sitting Respiration 18 Pulse 84 Pulse Source Pulse Oximeter Temp 98.8 F Temp Source Oral Pulse Oximetry (%) 94 Oxygen Delivery Method Room Air Intake Visit Reasons: LUIS ARMANDO DR Ramon Bilingual Research Interviewer Required: No Accompanied by: Self / Same As Patient Allergies Sulfa (Sulfonamide Antibiotics) Allergy (Intermediate, Verified 02/10/25 07:51) HIVES amoxicillin Allergy (Verified 02/10/25 07:51) Nausea and Vomiting Medication List - Last Reconciled 01/19/25 by PAXTON Cardona buprenorphine-naloxone 8-2 mg 1 film sublingual BID diazepam 10 mg PO BEDTIME PRN enoxaparin (Lovenox) 90 mg See Protocol subcut Q12H 10 days ipratropium-albuterol 0.5 mg-3 mg(2.5 mg base)/3 mL 3 mL inhalation Q6-8H PRN levothyroxine 175 mcg PO DAILY needle (disp) 19 G (BD Regular Bevel Jakin) As directed for emergency use only to draw hydrocortisone prednisone 40 mg PO QAM PRN prednisone 10 mg PO DAILY PRN syringe with needle (BD Eclipse Luer-Kristie) As directed use to inject hydrocortisone for emergency use testosterone 2 packets transdermal QAM trazodone 75 mg PO BEDTIME PRN Ventolin HFA 90 mcg/actuation (albuterol sulfate) 1 puff inhalation Q4-6H PRN NS warfarin 5 mg See Protocol PO DAILY Tobacco use date assessed: 01/19/25 Dental Screening Dental Screen Date: 01/19/25 Did you have a dental visit in the last 12 months?: No Did you have a dental problem in the last 6 months where you did not have access to dental care?: No Was dental information given to patient?: No HPI LUIS ARMANDO DR Ramon HPI Details The patient is a 59-year-old male presenting to transition care from Dr. Ramon. He is presenting with breathing difficulties. He reports persistent shortness of breath, worsened by humidity and physical activity, a symptom he attributes to his history with smoking. After quitting smoking eight months ago, the patient notes that his breathing issues have decreased yet still remain problematic. He uses a nebulizer to manage his asthma but is concerned about secondhand smoke from his partner, which could be exacerbating his symptoms. His history includes asthma, a history of DVT and pulmonary embolism, and a past hernia. He self-monitors his INR due to previous coagulation issues. Challenges in medication availability for upcoming medical procedures were expressed, alongside concerns regarding general medication management. The patient also manages anxiety with medication and follows up on thyroid health regularly. Previous assessments indicated prediabetes, and he is focusing on dietary changes to manage associated risks. [facility] Medical History (Updated 02/14/25 @ 18:04 by PAXTON Cardona) Screening for osteoporosis Adrenal adenoma Adrenal insufficiency Hypogonadism in male Pre-op exam Anxiety Depression Pulmonary embolism Hypothyroidism Obesity Gout Surgical History History of sinus surgery History of thyroidectomy History of hernia repair History of appendectomy Family History Father Acute CVA (cerebrovascular accident) Diabetes Hypertension Mother Stroke Other Substance abuse Social History Housing: Condominium Alcohol intake: never Patient Tobacco Use Status: Former Tobacco user Tobacco use type: Cigarette e-Cigarette/Vaping Use: Never Used Second Hand Smoke Exposure: Yes service: No Current occupational status: disabled Cognitive needs: Yes (cane) Hearing needs: No Vision needs: Yes (Reading glasses) Questionnaire PHQ-9 Over the last 2 weeks, how often have you been bothered by any of the following problems? 1. Little interest or pleasure in doing things: not at all 2. Feeling down, depressed, or hopeless: several days 3. Trouble falling or staying asleep, or sleeping too much: nearly every day 4. Feeling tired or having little energy: not at all 5. Poor appetite or overeating: not at all 6. Feeling bad about yourself - or that you are a failure or have let yourself or your family down: several days 7. Trouble concentrating on things, such as reading the newspaper or watching television: not at all 8. Moving or speaking so slowly that other people could have noticed. Or the opposite - being so fidgety or restless that you have been moving around a lot more than usual: not at all 9. Thoughts that you would be better off or of hurting yourself in some way: not at all Total score: 5 Depression Screening Interpretation: Positive Depression Screening Done: Yes 20826 - PHQ-9 Billing: Yes Source: Developed by Drs. Cam Sandy, Julia James, Anton Perez and colleagues, with an educational molina from [employer]. Thrive Questionnaire Date Thrive assessed: 01/19/25 I am a: Patient What is your living situation today?: I have a steady place to live Within the past 12 months, did the food you bought not last and you didn't have the money to get more?: Often true Within the past 12 months, did you worry whether your food would run out before you got money to buy more?: Sometimes True Do you have trouble paying for medicines?: I choose not to answer this question Do you have trouble getting transportation to medical appointments?: No Do you have trouble paying your heating and electricity bill?: I choose not to answer this question Do you have trouble taking care of your child, family member or friend?: No Do you have trouble with day-to-day activities such as bathing, preparing meals, shopping, managing finances, etc.?: No Are you currently unemployed and looking for a job?: I choose not to answer this question Are you interested in more education?: No Please select the resources that you would like help with: None Currently or been in a relationship where the following occur: No concerns reported THRIVE Score: 2 AUDIT C Alcohol Use Questionnaire (AUDIT-C) 1. How often do you have a drink containing alcohol?: Never Total Score: 0 Score Reviewed/Action Taken: No MARIELENA-7 AMB Questionnaire MARIELENA-7 Date MARIELENA - 7 assessed: 01/19/25 Feeling nervous, anxious, or on edge: 2 = More than half the days Not being able to stop or control worryin = Not at all Worrying too much about different things: 2 = More than half the days Trouble relaxin = Nearly every day Being so restless that it is hard to sit still: 0 = Not at all Becoming easily annoyed or irritable: 3 = Nearly every day Feeling afraid as if something awful might happen: 0 = Not at all Total MARIELENA-7 score (0-4 normal; 5-9 mild; 10-14 moderate; 15-21 severe): 10 Source: Developed by Drs. Cam Sandy, Julia James, Anton Perez and colleagues, with an educational molina from [employer]. MARIELENA-7 Assessment Billing MARIELENA-7 Assessment Tool: MARIELENA-7 Assessment 52608 Review of Systems Const Denies headache(s) and Reports lethargy Eyes Denies loss of vision ENT Denies vertigo, Denies dizziness, Denies headache(s) and Denies sore throat Card Denies chest pain, Denies leg edema, Denies lightheadedness and Reports dyspnea (Worse with humidity on exertion) Resp Denies cough, Denies hemoptysis, Reports dyspnea (Worse with humidity on exertion) and Denies wheezing GI Denies abdominal pain, Denies melena, Denies constipation, Denies diarrhea and Denies vomiting Reports change in libido (Decreased), Denies dysuria, Denies urinary frequency and Denies urinary urgency Musc Denies arthralgias, Denies joint swelling, Denies numbness and Denies tingling Neuro Denies Abnormal speech present, Denies behavioral changes, Denies vertigo, Denies dizziness, Denies headache(s), Denies loss of vision, Denies memory loss, Denies numbness and Denies tingling Psych Reports anxiety, Denies behavioral changes, Reports change in libido (Decreased), Denies depression, Denies memory loss and Denies panic attacks Endo Reports change in libido (Decreased) Fer/Lymph Denies easy bleeding and Denies easy bruising Aller/Immun Denies wheezing Physical exam (Primary Care) Vital Signs: Last Vital Signs Temp 98.8 F 01/19/25 15:00 Pulse 84 01/19/25 15:00 Resp 18 01/19/25 15:00 BP 124/78 01/19/25 15:00 Pulse Ox 94 01/19/25 15:00 Oxygen Delivery Method Room Air 01/19/25 15:00 BMI result Body Mass Index 32.0 Tobacco/Smoking Status: Tobacco use Status Tobacco use date assessed 01/19/25 01/19/25 15:11 Patient Tobacco Use Status Former Tobacco user 01/19/25 15:11 Tobacco use type Cigarette 01/19/25 15:11 e-Cigarette/Vaping Use Never Used 01/19/25 15:11 PHQ-9: PHQ-9 Score PHQ-9: Total score 5 01/19/25 15:48 Depression Screening Interpretation: Positive Thrive Assessment: Date of Thrive Assessment Date Thrive assessed 01/19/25 01/19/25 15:11 Currently or been in a relationship where the following occur: No concerns reported Const General: healthy appearing, no acute distress, alert and awake Nutritional Appearance: well nourished Orientation/consciousness: oriented to person, oriented to place and oriented to time HENMT Ears: TM's normal bilaterally General nose exam: Normal nasal mucous membranes and turbinates present Eyes Conjunctivae: conjunctivae normal Sclerae: sclerae normal Pupils: Equal, round and reactive pupils present Neck Neck: Yes no lymphadenopathy and Yes no JVD Thyroid: Thyroid normal Carotids: no bruits Resp Effort & Inspection: normal respiratory effort and not tachypneic Auscultation: no crackles, no rales, no rhonchi and wheezes expiratory wheezes Cardio Rate: regular rate Rhythm: regular rhythm Heart sounds: no murmurs and normal S1 and S2 GI Palpation (GI): Soft to palpation, nontender, no hepatomegaly and no splenomegaly Auscultation: normal bowel sounds Skin General skin exam: no rashes or lesions noted and dry skin Neuro General: oriented to person, oriented to place and oriented to time Cranial nerves: Yes Equal, round and reactive pupils present Speech: No Abnormal speech present Gait exam (Neuro): Normal gait present Motor exam (neuro): no tremor noted Extrem Right upper extremity: full ROM Left upper extremity: full ROM Right lower extremity: full ROM; no edema Left lower extremity: full ROM; no edema Psych Mental Status: mental status grossly normal Speech and movement: Normal speech and movement present Affect: normal affect Attitude: cooperative Thought process: Normal thought process present Coding Level of Care Code Est Pt Level 4 (69394) Diagnoses Pulmonary embolism without acute cor pulmonale, unspecified chronicity, unspecified pulmonary embolism type I26.99 Pulmonary embolism type: unspecified Chronicity: unspecified Acute cor pulmonale presence: without acute cor pulmonale Chronic deep vein thrombosis (DVT) of lower extremity, unspecified laterality, unspecified vein I82.509 DVT location: lower extremity Affected thrombotic vein of extremity: unspecified vein of extremity Chronicity: chronic Laterality: unspecified laterality Postoperative hypothyroidism E89.0 Hypothyroidism type: postoperative Hypogonadism in male E29.1 Adrenal insufficiency E27.40 Moderate persistent asthma with status asthmaticus J45.42 Asthma severity: moderate Asthma persistence: persistent Asthma complication type: with status asthmaticus Mixed hyperlipidemia E78.2 Hyperlipidemia type: mixed hyperlipidemia Anxiety F41.9 Substance abuse F19.10 Adenoma of left adrenal gland D35.02 Laterality: left Additional Codes MARIELENA-7 Assessment Billing - MARIELENA-7 Assessment Tool: MARIELENA-7 Assessment 55806 ([id number]) PHQ-9 - 24177 - PHQ-9 Billing: Yes ([id number]) Time Spent (min) 41 Assessment & Plan Assessment & Plan (1) Pulmonary embolism: Code(s): I26.99 - Other pulmonary embolism without acute cor pulmonale Category: Medical Qualifiers: Pulmonary embolism type: unspecified Chronicity: unspecified Acute cor pulmonale presence: without acute cor pulmonale Qualified Code(s): I26.99 - Other pulmonary embolism without acute cor pulmonale Plan: History of PE, denies chest pain, ongoing shortness of breath that increases with humidity and exertion. Patient continues on Coumadin therapy. Follow up with Coumadin clinic as scheduled (2) DVT (deep venous thrombosis): Code(s): I82.409 - Acute embolism and thrombosis of unspecified deep veins of unspecified lower extremity Category: Medical Qualifiers: DVT location: lower extremity Affected thrombotic vein of extremity: unspecified vein of extremity Chronicity: chronic Laterality: unspecified laterality Qualified Code(s): I82.509 - Chronic embolism and thrombosis of unspecified deep veins of unspecified lower extremity Plan: History of DVT. No recent episodes. Continue Coumadin therapy as ordered by Coumadin clinic (3) Hypothyroidism: Code(s): E03.9 - Hypothyroidism, unspecified Category: Medical Qualifiers: Hypothyroidism type: postoperative Qualified Code(s): E89.0 - Postprocedural hypothyroidism Plan: The patient has a history of Graves disease. Status post thyroidectomy 2010 after failed radioactive iodine ablation Continue levothyroxine 175 mcg daily Follow up with Endocrine as scheduled (4) Hypogonadism in male: Code(s): E29.1 - Testicular hypofunction Category: Medical Plan: Secondary to chronic opioid use. The patient is currently on Suboxone. Total testosterone 119 Continue testosterone transdermal q.a.m. Follow up with endocrinology as scheduled (5) Adrenal insufficiency: Code(s): E27.40 - Unspecified adrenocortical insufficiency Category: Medical Plan: Adrenal insufficiency secondary to chronic opioid use, currently on Suboxone DHEA 15 Follow up with Endocrine as scheduled (6) Asthma: Code(s): J45.909 - Unspecified asthma, uncomplicated Category: Medical Qualifiers: Asthma severity: moderate Asthma persistence: persistent Asthma complication type: with status asthmaticus Qualified Code(s): J45.42 - Moderate persistent asthma with status asthmaticus Plan: Reports ongoing shortness of breath that increases with humidity and exertion He has quitted smoking, but currently is partner still smokes in the house He is currently on a fast acting inhaler and nebulizer treatment as needed Advair discussed 250/50 mcg/dose 1 inh bid ordered The patient was noted to have expiration wheezes throughout zpack prophylactically ordered, along with a prednisone tapered The patient is to contact office if symptoms worsens or continues (7) HLD (hyperlipidemia): Code(s): E78.5 - Hyperlipidemia, unspecified Category: Medical Qualifiers: Hyperlipidemia type: mixed hyperlipidemia Qualified Code(s): E78.2 - Mixed hyperlipidemia Plan: Last labs triglycerides 350, total cholesterol 280, LDL 174, HDL 40 Discussed lifestyle modifications including dietary changes and physical activity He does not want to be started on statins at this time, will continue to encourage him (8) Anxiety: Code(s): F41.9 - Anxiety disorder, unspecified Category: Medical Plan: Encouraged CBT Continue diazepam 10 mg at bedtime p.r.n. Denies SI/HI (9) Substance abuse: Code(s): F19.10 - Other psychoactive substance abuse, uncomplicated Category: Medical Plan: Continue Suboxone Follow up with Suboxone clinic as scheduled (10) Adrenal adenoma: Code(s): D35.00 - Benign neoplasm of unspecified adrenal gland Category: Medical Qualifiers: Laterality: left Qualified Code(s): D35.02 - Benign neoplasm of left adrenal gland Plan: The adrenal tumor of the left side which has been monitored by Endocrine. The patient underwent resection of right-sided adrenal adenoma in 2003 which was 2.4 x 4 cm with benign histology. CT scan at [facility] in 2021 showed stable left adrenal adenoma. This has been stable since 2003. Follow up with endocrinology as scheduled Plan Three-month follow up Orders: Orders Complete Blood Count Auto Diff 3 Months F32.A - Depression, unspecified, F41.9 - Anxiety disorder, unspecified, F19.10 - Other psychoactive substance abuse, uncomplicated, I82.409 - Acute embolism and thrombosis of unspecified deep veins of unspecified lower extremity, I26.99 - Other pulmonary embolism without acute cor pulmonale, E89.0 - Postprocedural hypothyroidism, E05.00 - Thyrotoxicosis with diffuse goiter without thyrotoxic crisis or storm, Z13.820 - Encounter for screening for osteoporosis, E27.40 - Unspecified adrenocortical insufficiency, E66.9 - Obesity, unspecified Comprehensive [place]. Panel Fast 3 Months F32.A - Depression, unspecified, F41.9 - Anxiety disorder, unspecified, F19.10 - Other psychoactive substance abuse, uncomplicated, I82.409 - Acute embolism and thrombosis of unspecified deep veins of unspecified lower extremity, I26.99 - Other pulmonary embolism without acute cor pulmonale, E89.0 - Postprocedural hypothyroidism, E05.00 - Thyrotoxicosis with diffuse goiter without thyrotoxic crisis or storm, Z13.820 - Encounter for screening for osteoporosis, E27.40 - Unspecified adrenocortical insufficiency, E66.9 - Obesity, unspecified UA CC w/rflx Micro + Cult 3 Months F32.A - Depression, unspecified, F41.9 - Anxiety disorder, unspecified, F19.10 - Other psychoactive substance abuse, uncomplicated, I82.409 - Acute embolism and thrombosis of unspecified deep veins of unspecified lower extremity, I26.99 - Other pulmonary embolism without acute cor pulmonale, E89.0 - Postprocedural hypothyroidism, E05.00 - Thyrotoxicosis with diffuse goiter without thyrotoxic crisis or storm, Z13.820 - Encounter for screening for osteoporosis, E27.40 - Unspecified adrenocortical insufficiency, E66.9 - Obesity, unspecified Vitamin D 25-OH Total 3 Months F32.A - Depression, unspecified, F41.9 - Anxiety disorder, unspecified, F19.10 - Other psychoactive substance abuse, uncomplicated, I82.409 - Acute embolism and thrombosis of unspecified deep veins of unspecified lower extremity, I26.99 - Other pulmonary embolism without acute cor pulmonale, E89.0 - Postprocedural hypothyroidism, E05.00 - Thyrotoxicosis with diffuse goiter without thyrotoxic crisis or storm, Z13.820 - Encounter for screening for osteoporosis, E27.40 - Unspecified adrenocortical insufficiency, E66.9 - Obesity, unspecified TSH reflex Free T4 3 Months F32.A - Depression, unspecified, F41.9 - Anxiety disorder, unspecified, F19.10 - Other psychoactive substance abuse, uncomplicated, I82.409 - Acute embolism and thrombosis of unspecified deep veins of unspecified lower extremity, I26.99 - Other pulmonary embolism without acute cor pulmonale, E89.0 - Postprocedural hypothyroidism, E05.00 - Thyrotoxicosis with diffuse goiter without thyrotoxic crisis or storm, Z13.820 - Encounter for screening for osteoporosis, E27.40 - Unspecified adrenocortical insufficiency, E66.9 - Obesity, unspecified Free T4 (Free Thyroxine) 3 Months F32.A - Depression, unspecified, F41.9 - Anxiety disorder, unspecified, F19.10 - Other psychoactive substance abuse, uncomplicated, I82.409 - Acute embolism and thrombosis of unspecified deep veins of unspecified lower extremity, I26.99 - Other pulmonary embolism without acute cor pulmonale, E89.0 - Postprocedural hypothyroidism, E05.00 - Thyrotoxicosis with diffuse goiter without thyrotoxic crisis or storm, Z13.820 - Encounter for screening for osteoporosis, E27.40 - Unspecified adrenocortical insufficiency, E66.9 - Obesity, unspecified Hemoglobin A1c 3 Months F32.A - Depression, unspecified, F41.9 - Anxiety disorder, unspecified, F19.10 - Other psychoactive substance abuse, uncomplicated, I82.409 - Acute embolism and thrombosis of unspecified deep veins of unspecified lower extremity, I26.99 - Other pulmonary embolism without acute cor pulmonale, E89.0 - Postprocedural hypothyroidism, E05.00 - Thyrotoxicosis with diffuse goiter without thyrotoxic crisis or storm, Z13.820 - Encounter for screening for osteoporosis, E27.40 - Unspecified adrenocortical insufficiency, E66.9 - Obesity, unspecified Lipid Panel 3 Months F32.A - Depression, unspecified, F41.9 - Anxiety disorder, unspecified, F19.10 - Other psychoactive substance abuse, uncomplicated, I82.409 - Acute embolism and thrombosis of unspecified deep veins of unspecified lower extremity, I26.99 - Other pulmonary embolism without acute cor pulmonale, E89.0 - Postprocedural hypothyroidism, E05.00 - Thyrotoxicosis with diffuse goiter without thyrotoxic crisis or storm, Z13.820 - Encounter for screening for osteoporosis, E27.40 - Unspecified adrenocortical insufficiency, E66.9 - Obesity, unspecified Medications: New prednisone 10 mg PO DAILY PRN fluticasone propion-salmeterol 250-50 mcg/dose (Advair Diskus) 1 inh inhalation BID 60 ea 3RF azithromycin For 250 mg dose pack: take 500 mg today (day 1), then 250 mg for 4 days (days 2-5) PO 6 tabs 0RF
--- OUTSIDE RECORDS SUMMARY | 2025-01-19 17:13 | XMS_ITS | Clinical Summary ---
Author Organization [facility] it Address [address] [place] [address] Care Team Providers Care Guard Entrance Registrar Name Role Phone Obi Ramon MD Primary Care Provider [phone] Social History Tobacco Use Types Packs/Day Years [...] age to complete this topic Care Teams Guard Entrance Registrar Relationship Specialty Start Date End Date Obi Ramon MD [address] [place] [address] [address] [place] [address] PCP - General Internal Medicine 06/21/20
== END 2025-01-19 15:53 | disposition home or self-care (01) ==
LOC: HO.HMCH 14:56
DX: I26.99 Other pulmonary embolism without acute cor pulmonale (principal); I82.509 Chronic embolism and thrombosis of unspecified deep veins of unspecified lower extremity; F19.10 Other psychoactive substance abuse, uncomplicated; E89.0 Postprocedural hypothyroidism; E29.1 Testicular hypofunction; E27.40 Unspecified adrenocortical insufficiency; J45.42 Moderate persistent asthma with status asthmaticus; E78.2 Mixed hyperlipidemia; F41.9 Anxiety disorder, unspecified; D35.02 Benign neoplasm of left adrenal gland

== ENCOUNTER → 2025-01-19 14:56 | Outpatient (BNVA) | payer MEDICARE, MEDICAID, SELFPAY | DX: I26.99 Other pulmonary embolism without acute cor pulmonale (principal); E89.0 Postprocedural hypothyroidism; E27.40 Unspecified adrenocortical insufficiency; J45.42 Moderate persistent asthma with status asthmaticus; E78.2 Mixed hyperlipidemia; F41.9 Anxiety disorder, unspecified; F19.10 Other psychoactive substance abuse, uncomplicated; D35.02 Benign neoplasm of left adrenal gland; Z86.718 Personal history of other venous thrombosis and embolism | CPT/HCPCS: 96127; 99212 ==

== ENCOUNTER → 2025-01-20 12:12 | Outpatient (BNVA) | payer MEDICARE, MEDICAID, SELFPAY | PROVIDERS: Visit Provider Internal Medicine Medical Oncology | DX: Z13.89 Encounter for screening for other disorder (principal) ==

== ENCOUNTER → 2025-01-21 11:57 | Outpatient (BNVA) | payer MEDICARE, MEDICAID, SELFPAY | PROVIDERS: Visit Provider Internal Medicine Medical Oncology ==

== ENCOUNTER → 2025-01-25 10:48 | Outpatient (BNVA) | payer MEDICARE, MEDICAID, SELFPAY | PROVIDERS: Visit Provider Internal Medicine Medical Oncology | DX: Z13.89 Encounter for screening for other disorder (principal) ==

== ENCOUNTER → 2025-01-26 11:02 | Outpatient (BNVA) | payer MEDICARE, MEDICAID, SELFPAY | PROVIDERS: Visit Provider Internal Medicine Medical Oncology | DX: Z13.89 Encounter for screening for other disorder (principal) ==

== ENCOUNTER 2025-01-27 06:07 | Outpatient (REF) | payer MEDICARE, MEDICAID, SELFPAY ==
--- NOTE | ~2025-01-27 | FL_ITS ---
EXAMINATION: FL GUIDANCE ONLY HISTORY: M47.812 - Spondylosis without myelopathy or radiculopathy, cervical region COMPARISON: None available. TECHNIQUE: Fluoroscopy time: 0.4 minutes. Cumulative Dose: 2.56 mGy. DAP: 0.0167 mGym2 Images: 2. FINDINGS: Fluoroscopic spot films of the cervical spine in the lateral projection demonstrate multiple needles in place. FL/FL guidance in treatment room IMPRESSION: Fluoroscopy during procedure. Please see procedure report for additional information. Electronically signed by: Cam Jensen MD 01/27/2025 12:17 PM EDT
--- OUTSIDE RECORDS SUMMARY | 2025-01-27 06:09 | XMS_ITS | Clinical Summary ---
Author Organization [facility] it Address [address] [place] [address] Care Team Providers Care Brine Mixer Operator Name Role Phone Obi Ramon MD Primary Care Provider [phone] Social History Tobacco Use Types Packs/Day Years [...] age to complete this topic Care Teams Brine Mixer Operator Relationship Specialty Start Date End Date Obi Ramon MD [address] [place] [address] [address] [place] [address] PCP - General Internal Medicine 06/21/20
== END 2025-01-27 06:08 | disposition home or self-care (01) ==
LOC: CF 06:07
PROVIDERS: Visit Provider Internal Medicine
DX: M47.812 Spondylosis without myelopathy or radiculopathy, cervical region (principal)
CPT/HCPCS: 64633; 64634; J2003

== ENCOUNTER 2025-01-27 09:22 | Outpatient (AMB) | payer MEDICARE, MEDICAID, SELFPAY ==
--- NOTE | 2025-01-27 09:23 | MHC.OFFVIS ---
Vital Signs 01/27/25 09:24 01/27/25 10:03 Height 6 ft 3 in 6 ft 3 in Weight 256 lb 256 lb BMI 32.0 32.0 BP 122/85 140/85 H Blood Pressure Location Lt radial Lt radial Position Sitting Sitting Respiration 16 16 Pulse 84 82 Pulse Source Pulse Oximeter Pulse Oximeter Pulse Oximetry (%) 96 93 Oxygen Delivery Method Room Air Room Air Intake Visit Reasons: Right C3-C4-C5 RFA/ oxy only Allergies Sulfa (Sulfonamide Antibiotics) Allergy (Intermediate, Verified 02/01/25 10:34) HIVES amoxicillin Allergy (Verified 02/01/25 10:34) Nausea and Vomiting HPI HPI Right C3-C4-C5 RFA/ oxy only: Details: Patient presents for scheduled procedure. Denies any recent cough, cold, infection, fever or other significant changes in medical history since last office visit. [facility] Medical History (Updated 01/03/25 @ 12:26 by Ania Tang MD) Screening for osteoporosis Adrenal adenoma Adrenal insufficiency Hypogonadism in male Pre-op exam Anxiety Depression Pulmonary embolism Hypothyroidism Obesity Gout Surgical History History of sinus surgery History of thyroidectomy History of hernia repair History of appendectomy Family History Father Acute CVA (cerebrovascular accident) Diabetes Hypertension Mother Stroke Other Substance abuse Social [facility] Alcohol intake: never Patient Tobacco Use Status: Former Tobacco user Tobacco use type: Cigarette e-Cigarette/Vaping Use: Never Used Second Hand Smoke Exposure: Yes service: No Current occupational status: disabled Cognitive needs: Yes (cane) Hearing needs: No Vision needs: Yes (Reading glasses) Physical Exam Vital Signs: Last Vital Signs Pulse 82 01/27/25 10:03 Resp 16 01/27/25 10:03 BP 140/85 H 01/27/25 10:03 Pulse Ox 93 01/27/25 10:03 Oxygen Delivery Method Room Air 01/27/25 10:03 BMI result Body Mass Index 32.0 Office Procedures Details: Radiofrequency lesioning cervical medial branch nerves, Right C3, C4 and C5 After obtaining written consent, pre-procedure blood pressure and heart rate were stable and recorded in the nursing record. The patient was placed in the prone position. The?cervical?area was prepped with chloraprep and draped in sterile fashion. The skin over the target for each medial branch nerve was anesthetized with 0.75% lidocaine. An 18 gauge radiofrequency cannula was advanced to each target site under fluoroscopic guidance. No paresthesias were elicited with needle placement and aspiration was negative for heme and CSF. Impedences were verified under 600 ohms. Sensory testing (50 Hz) and then motor testing (2 Hz) confirmed needle placement at each site within the appropriate voltage thresholds. Each site was injected with 1 ml 0.5% ropivacaine. Radiofrequency lesioning was performed for 90 seconds at 80 deg Celcius. The needle was removed, skin cleansed and a sterile bandage was applied. The patient tolerated the procedure well and no complications were encountered. Following the procedure the patient's vital signs were stable. The patient was discharged home in good condition with post-procedural instructions. Time Out: Immediately prior to the procedure, the following was verbally confirmed that there is a signed consent form and that the correct patient, planned procedure, site and side are consistent with documentation and that necessary equipment and/or blood products are available prior to the start of the case. Complications: none EBL: <5 cc 48822 - RFA Cervical Medial Branches 23545 - Cervical Medial Branches ADDNL Procedure code (CPT) selection complete Assessment & Plan Assessment & Plan (1) Cervical spondylosis: Code(s): M47.812 - Spondylosis without myelopathy or radiculopathy, cervical region Category: Medical Plan Patient is status post right C3, C4, C5 medial branch RFL. Patient tolerated procedure well and was discharged home in stable condition with discharge instructions. All questions were answered. We will follow-up via telephone or in clinic to assess response to therapy. A follow-up appointment was made during today's visit. Orders: Orders FL guidance in treatment room 01/27/25 M47.812 - Spondylosis without myelopathy or radiculopathy, cervical region Medications: New oxycodone take 30 minutes prior to arrival for procedure 10 mg PO ONCE PRN 1 tab 0RF pain Coding Level of Care Code Procedure Only Diagnoses Cervical spondylosis M47.812 CPT Codes Radiofrequency Ablation - Rad-Ablation 1: 93787 - RFA Cervical Medial Branches ([id number]) Radiofrequency Ablation - Rad-Ablation 2: 93540 - Cervical Medial Branches ADDNL ([id number])
[2025-01-27 09:24] VITALS: BP 122/85; PULSE 84; RESP 16; O2SAT 96; BMI 32.0
[2025-01-27 10:03] VITALS: BP 140/85; PULSE 82; RESP 16; O2SAT 93; BMI 32.0
== END 2025-01-27 10:30 | disposition home or self-care (01) ==
LOC: HO.PMCPRC 09:22
PROVIDERS: Visit Provider Internal Medicine
DX: M47.812 Spondylosis without myelopathy or radiculopathy, cervical region (principal)
CPT/HCPCS: 64633; 64634

== ENCOUNTER 2025-02-11 14:27 | Outpatient (REF) | payer MEDICARE, MEDICAID, SELFPAY ==
--- NOTE | ~2025-02-11 | MM_ITS ---
EXAMINATION: DXA BONE DENSITY AXIAL HISTORY: E29.1 - Testicular hypofunction TECHNIQUE: Turbogen Dual energy absorptiometry (DEXA) of the lumbar spine, total left hip, and femoral neck was performed. COMPARISON: There are no prior studies for comparison. FINDINGS: The bone mineral density of the lumbar spine is 0.944 g/cm2, corresponding to a T-score of -2.3, and a Z-score of -2.7. This is indicative of osteopenia. The bone mineral density of the left total hip is 0.938 g/cm2, corresponding to a T-score of -1.1, and a Z-score of -1.1. This is indicative of osteopenia. The bone mineral density of the left femoral neck is 0.902 g/cm2, corresponding to a T-score of -1.3, and a Z-score of -0.9. This is indicative of osteopenia. FRACTURE RISK: The FRAX index suggests a risk of major osteoporotic fracture of 8.6%, and of hip fracture 1.0%. MM/XR DEXA axial skeleton IMPRESSION: Based on bone mineral density, and according to World Health Organization (WHO) criteria, the diagnosis is consistent with osteopenia. Statistically, 68% of repeat scans fall within 1 SD (+/- 0.010 g/cm2 for AP spine L1-L4) and 1 SD (+/- 0.012 g/cm2 for femur total) FRAX is a trademark of the [employer]'s [place] Metabolic Bone Disease, a World Health Organization (WHO) Collaborating Center. Electronically signed by: Cam Jensen MD 02/11/2025 03:06 PM EDT
--- OUTSIDE RECORDS SUMMARY | 2025-02-11 14:32 | XMS_ITS | Clinical Summary ---
Author Organization [facility] ity Address [address] [place] [address] Care Team Providers Care Receiver/Laborer Name Role Phone Obi Ramon MD Primary Care Provider [phone] Social History Tobacco Use Types Packs/Day Years [...] 2023-2 5 season) 2024 Influenza Vaccine (#1) 2025 RSV Immunization Adult Patie nts (1 [...] 5 Years) and At-Risk Patients (6 to 49 Years) Aged Out No longer eligible b ased on patient's age to complete this topic RSV Immunization Patients Un lyndsay 20 months Aged Out No longer eligible b ased on patient's age to complete this topic Varicella Vaccines Aged Out No longer eligible based on patient's age to complete this topic Care Teams Receiver/Laborer Relationship Specialty Start Date End Date Obi Ramon MD [address] [place] [address] [address] [place] [address] PCP - General Internal Medicine 06/21/20
== END 2025-02-11 14:28 | disposition home or self-care (01) ==
LOC: HO.MAMMO 14:27
PROVIDERS: Visit Provider Student in an Organized Health Care Education/Training Program
DX: Z13.820 Encounter for screening for osteoporosis (principal); E29.1 Testicular hypofunction; M85.89 Other specified disorders of bone density and structure, multiple sites
CPT/HCPCS: 77080

== ENCOUNTER → 2025-02-11 14:30 | Outpatient (BNV) | payer MEDICARE, MEDICAID, SELFPAY | PROVIDERS: Visit Provider Radiology Diagnostic Radiology | DX: M85.80 Other specified disorders of bone density and structure, unspecified site (principal) | CPT/HCPCS: 77080 ==

== ENCOUNTER 2025-02-23 09:49 | Outpatient (AMB) | payer MEDICARE, MEDICAID, SELFPAY ==
[2025-02-23 09:58] VITALS: BP 134/78; PULSE 85; O2SAT 95; BMI 31.2
--- NOTE | 2025-02-23 09:58 | MHC.OFFVIS ---
Vital Signs 02/23/25 09:58 Height 6 ft 3 in Weight 250 lb BMI 31.2 BP 134/78 Blood Pressure Location Lt brachial Position Sitting Pulse 85 Pulse Source Pulse Oximeter Pulse Oximetry (%) 95 Oxygen Delivery Method Room Air Intake Visit Reasons: s/p right C3-C4-C5 RFA Allergies Sulfa (Sulfonamide Antibiotics) Allergy (Intermediate, Verified 02/24/25 09:05) HIVES amoxicillin Allergy (Verified 02/24/25 09:05) Nausea and Vomiting HPI HPI s/p right C3-C4-C5 RFA: Details: History of Present Illness The patient is a 59-year-old male presenting for follow-up after right C3, C4, C5 radiofrequency ablation. He reports significant improvement in symptoms, including the resolution of daily headaches and a reduction in neck pain. The patient mentions that while the underlying problem persists, the pain has become much more manageable. The patient has a history of lower back pain, which he describes as excruciating and persistent, particularly in the mornings. He underwent an L4-L5 spinal fusion approximately 13-14 years ago, performed by Dr. Arya Johnson, who has since retired. Postoperatively, the patient experienced prolonged recovery, remaining on a walker while others with similar procedures recovered more quickly. The patient received a recall notice for the spinal hardware used in his surgery, which was subsequently confirmed by his physician. He reports ongoing issues with his back, including a protruding abdomen when sitting, which he attributes to the recalled hardware. The patient has undergone multiple MRIs and physical therapy sessions for his back, with the last MRI conducted at [facility]. Pain Description - Onset: Chronic neck and lower back pain, with neck pain significantly improved post-ablation - Quality: Neck pain is now manageable; lower back pain described as excruciating, especially in the morning - Location: Neck and lower back - Exacerbating factors: Sitting and certain movements for lower back pain - Relieving factors: Radiofrequency ablation for neck pain Physical Exam - Musculoskeletal: Examination of neck and back, no specific findings discussed Results - Imaging: Multiple MRIs conducted, last at [facility] Pain Management - Affect: Pain has significantly improved mood and daily function - Analgesia: Radiofrequency ablation has reduced neck pain; lower back pain remains severe - Activities of Daily Living: Improved ability to engage in activities such as golf [facility] Medical History (Updated 02/14/25 @ 18:04 by PAXTON Cardona) Screening for osteoporosis Adrenal adenoma Adrenal insufficiency Hypogonadism in male Pre-op exam Anxiety Depression Pulmonary embolism Hypothyroidism Obesity Gout Surgical History History of sinus surgery History of thyroidectomy History of hernia repair History of appendectomy Family History Father Acute CVA (cerebrovascular accident) Diabetes Hypertension Mother Stroke Other Substance abuse [facility] Alcohol intake: never Patient Tobacco Use Status: Former Tobacco user Tobacco use type: Cigarette e-Cigarette/Vaping Use: Never Used Second Hand Smoke Exposure: Yes service: No Current occupational status: disabled Cognitive needs: Yes (cane) Hearing needs: No Vision needs: Yes (Reading glasses) Physical Exam Vital Signs: Last Vital Signs Pulse 85 02/23/25 09:58 BP 134/78 02/23/25 09:58 Pulse Ox 95 02/23/25 09:58 Oxygen Delivery Method Room Air 02/23/25 09:58 BMI result Body Mass Index 31.2 Assessment & Plan Assessment & Plan (1) Failed back syndrome of lumbar spine: Code(s): M96.1 - Postlaminectomy syndrome, not elsewhere classified Category: Medical (2) Lumbar disc disease with radiculopathy: Code(s): M51.16 - Intervertebral disc disorders with radiculopathy, lumbar region Category: Medical Plan Plan - Order MRI of the lumbar spine to assess current status of lower back pain and hardware issues - Consider physical therapy if MRI is denied, to address lower back pain - Follow-up appointment to be scheduled after MRI results are available Patient was informed and verbally consented to the use of an ambient scribe for clinic note documentation during this visit. Discussion Notes I discussed with the patient the plan to order an MRI of the lumbar spine to evaluate the current status of his lower back pain and the recalled hardware. If the MRI is denied, we will consider physical therapy as an alternative approach. I explained the potential risks and benefits of these options and emphasized the importance of follow-up after the MRI results are available. Patient Instructions - Await a call from radiology to schedule the MRI of the lumbar spine - Schedule a follow-up appointment after the MRI results are available - Consider physical therapy if MRI is denied Orders: Orders MR lumbar spine wo con 02/23/25 M51.16 - Intervertebral disc disorders with radiculopathy, lumbar region, M96.1 - Postlaminectomy syndrome, not elsewhere classified Coding Level of Care Code Est Pt Level 3 (78669) Diagnoses Failed back syndrome of lumbar spine M96.1 Lumbar disc disease with radiculopathy M51.16
--- OUTSIDE RECORDS SUMMARY | 2025-02-23 10:29 | XMS_ITS | Clinical Summary ---
Author Organization [facility] ity Address [address] [place] [address] Care Team Providers Care Transport Tech Name Role Phone Obi Ramon MD Primary Care Provider [phone] Social History Tobacco Use Types Packs/Day Years [...] Vaccine ( - 2023-2 5 season) 2024 Depression Screening 08/04/2024 Influenza Vaccine (#1) 2025 RSV Immunization Adult [...] age to complete this topic Care Teams Transport Tech Relationship Specialty Start Date End Date Obi Ramon MD [address] [place] [address] [address] [place] [address] PCP - General Internal Medicine 06/21/20
== END 2025-02-23 10:43 | disposition home or self-care (01) ==
LOC: HO.PMC 09:50
PROVIDERS: Visit Provider Internal Medicine
DX: M96.1 Postlaminectomy syndrome, not elsewhere classified (principal); M51.16 Intervertebral disc disorders with radiculopathy, lumbar region
CPT/HCPCS: 99213

== ENCOUNTER → 2025-02-23 09:49 | Outpatient (BNVA) | payer MEDICARE, MEDICAID, SELFPAY | PROVIDERS: Visit Provider Internal Medicine | DX: M96.1 Postlaminectomy syndrome, not elsewhere classified (principal); M51.16 Intervertebral disc disorders with radiculopathy, lumbar region | CPT/HCPCS: 99212 ==

== ENCOUNTER 2025-02-24 09:01 | Outpatient (AMB) | payer MEDICARE, MEDICAID, SELFPAY ==
[2025-02-24 09:19] LABS: Prothrombin Time Whole Bld POC 33.8 sec (11.1-13.5); ~PT, ~INR - Anti Coag Clinic 2.8 (0.9-1.1)
--- NOTE | 2025-02-24 09:21 | MHC.OFFVISCO ---
Intake Intake Visit Reasons: Anticoagulation Allergies Sulfa (Sulfonamide Antibiotics) Allergy (Intermediate, Verified 02/24/25 09:05) HIVES amoxicillin Allergy (Verified 02/24/25 09:05) Nausea and Vomiting Medication List - Last Reconciled 02/24/25 by Lakesha Guevara RN buprenorphine-naloxone 8-2 mg 1 film sublingual BID diazepam 10 mg PO BEDTIME PRN enoxaparin (Lovenox) 90 mg See Protocol subcut Q12H 10 days fluticasone propion-salmeterol 250-50 mcg/dose (Advair Diskus) 1 inh inhalation BID ipratropium-albuterol 0.5 mg-3 mg(2.5 mg base)/3 mL 3 mL inhalation Q6-8H PRN levothyroxine 175 mcg PO DAILY needle (disp) 19 G (BD Regular Bevel [place]) As directed for emergency use only to draw hydrocortisone nicotine 1 patch topical DAILY prednisone 10 mg PO DAILY PRN syringe with needle (BD Eclipse Luer-Kristie) As directed use to inject hydrocortisone for emergency use testosterone 2 packets transdermal QAM trazodone 75 mg PO BEDTIME PRN Ventolin HFA 90 mcg/actuation (albuterol sulfate) 1 puff inhalation Q4-6H PRN NS warfarin 5 mg See Protocol PO DAILY Nursing Note PT.HERE TODAY FOR METER TO METER CORRELATION. PT.DEMONSTARTED EXCELLENT TECHNIQUE AND GOOD UNDERSTANDING WILL CONTINUE SAME DOSING AND RETEST IN 2 WEEKS. PT.DENIES ANY CP,SOB OR SX OF BLEEDING. Anti-Coag Initial Assessment Social Hx Patient Tobacco Use Status: Former Tobacco user Tobacco use type: Cigarette alcohol intake: never Alcohol intake frequency: does not drink Coding Level of Care Code Est Patient Level 2 Diagnoses Current use of anticoagulant therapy Z79.01 Results AMB INR Fingerstick AMB INR Fingerstick 2.8 Last Edit by Lakesha Guevara, DEISY on 02/24/25 09:14 AMB INR Fingerstick AMB INR Fingerstick 2.7 Last Edit by Lakesha Guevara, DEISY on 02/24/25 09:20 Assessment & Plan Assessment & Plan (1) Current use of anticoagulant therapy: Comment: On Coumadin Code(s): Z79.01 - skilled nursing (current) use of anticoagulants Category: Medical
--- OUTSIDE RECORDS SUMMARY | 2025-02-24 09:28 | XMS_ITS | Clinical Summary ---
Author Organization [facility] ity Address [address] [place] [address] Care Team Providers Care Driller Helper Name Role Phone Obi Raomn MD Primary Care Provider [phone] Social History Tobacco Use Types Packs/Day Years [...] age to complete this topic Care Teams Driller Helper Relationship Specialty Start Date End Date Obi Ramon MD [address] [place] [address] [address] [place] [address] PCP - General Internal Medicine 06/21/20
== END 2025-02-24 09:26 | disposition home or self-care (01) ==
LOC: HO.ACS 09:01
PROVIDERS: Visit Provider Internal Medicine Medical Oncology
DX: Z79.01 Long term (current) use of anticoagulants (principal)

== ENCOUNTER → 2025-02-24 09:01 | Outpatient (BNVA) | payer MEDICARE, MEDICAID, SELFPAY | PROVIDERS: Visit Provider Internal Medicine Medical Oncology | DX: I26.99 Other pulmonary embolism without acute cor pulmonale (principal); Z79.01 Long term (current) use of anticoagulants; Z51.81 Encounter for therapeutic drug level monitoring | CPT/HCPCS: 85610; 99212 ==

== ENCOUNTER → 2025-03-20 10:46 | Outpatient (BNV) | payer MEDICARE, MEDICAID, SELFPAY | PROVIDERS: Visit Provider Radiology Diagnostic Radiology | DX: M96.1 Postlaminectomy syndrome, not elsewhere classified (principal) | CPT/HCPCS: 72148 ==

== ENCOUNTER 2025-03-20 10:47 | Outpatient (REF) | payer MEDICARE, MEDICAID, SELFPAY ==
--- NOTE | ~2025-03-20 | MR_ITS ---
CLINICAL HISTORY: M96.1 - Postlaminectomy syndrome, not elsewhere classified MR lumbar spine without gadolinium Comparison: MR - MR LUMBAR SPINE WO/W CON - 06/01/20 16:52 EDT Findings: Normal alignment. No acute fracture or pathologic bone lesion. Partial fatty replacement of the L4 and L5 vertebral bodies. Conus of the L1 level. L1-L2: Widely patent central canal and neural foramina. L2-L3: Widely patent central canal and neural foramina. L3-L4: Widely patent central canal and neural foramina. L4-L5: Status post discectomy and interbody fusion. No evidence of hardware failure. Widely patent central canal and neural foramina. L5-S1: Widely patent central canal and neural foramina. Paraspinous musculature intact. IMPRESSION: 1. No acute abnormality of the lumbar spine. 2. Status post discectomy and interbody fusion at L4-L5 with an unremarkable postoperative appearance. This document has been electronically signed by: Valarie Devi MD on 03/21/2025 15:57:05
== END 2025-03-20 10:48 | disposition home or self-care (01) ==
LOC: HO.MRI 10:47
PROVIDERS: Visit Provider Internal Medicine
DX: M96.1 Postlaminectomy syndrome, not elsewhere classified (principal); M51.16 Intervertebral disc disorders with radiculopathy, lumbar region
CPT/HCPCS: 72148

== ENCOUNTER 2025-03-22 10:43 | Outpatient (AMB) | payer MEDICARE, MEDICAID, SELFPAY ==
--- NOTE | 2025-03-22 10:49 | A.OFFVIS_ITS ---
Vital Signs 03/22/25 10:50 Height 6 ft 3 in Weight 264 lb 8.875 oz BMI 33.1 BP 130/70 Blood Pressure Location Lt brachial Position Sitting Intake Visit Reasons: moderate asthma Intake Note: pt is here as a new patient for asthma, he does feel wheeze at times and shortness of breath with walking, stairs. Precision Lens Centerer And Edger Required: No Allergies Sulfa (Sulfonamide Antibiotics) Allergy (Intermediate, Verified 03/22/25 11:39) HIVES amoxicillin Allergy (Verified 03/22/25 11:39) Nausea and Vomiting Medication List - Last Reconciled 03/22/25 by Lacho Hernandez MD buprenorphine-naloxone 8-2 mg 1 film sublingual BID diazepam 10 mg PO BEDTIME PRN enoxaparin (Lovenox) 90 mg See Protocol subcut Q12H 10 days fluticasone propion-salmeterol 250-50 mcg/dose (Advair Diskus) 1 inh inhalation BID ipratropium-albuterol 0.5 mg-3 mg(2.5 mg base)/3 mL 3 mL inhalation Q6-8H PRN levothyroxine 175 mcg PO DAILY needle (disp) 19 G (BD Regular Bevel [place]) As directed for emergency use only to draw hydrocortisone nicotine 1 patch topical DAILY prednisone 10 mg PO DAILY PRN syringe with needle (BD Eclipse Luer-Kristie) As directed use to inject hydr ocortisone for emergency use testosterone 2 packets transdermal QAM trazodone 75 mg PO BEDTIME PRN Ventolin HFA 90 mcg/actuation (albuterol sulfate) 1 puff inhalation Q4-6H PRN NS warfarin 5 mg See Protocol PO DAILY Do you need a note to return to daycare/school/sports/work: No HPI HPI moderate asthma: Details: THIS 59 YEARS OLD GENTLEMAN IS BEING SEEN FOR THE 1ST TIME FOR HIS, BREATHING PROBLEMS, AND LONGSTANDING HISTORY OF SMOKING IN THE PAST. HE STARTED SMOKING AT AGE 15, ABOUT 1 PACK A DAY, AND QUIT ONLY ABOUT 1 YEAR AGO ( ABOUT 43 PACK YEARS ) HE STATES THAT HE STARTED HAVING INTERMITTENT COUGH WITH SHORTNESS OF BREATH ACTUALLY AFTER HE QUIT SMOKING. HE GETS SHORT OF BREATH WHEN HE WALKS A FEW BLOCKS, BECAUSE OF HIS CHRONIC BACK PROBLEM HE IS NOT ABLE TO WALK MUCH ANYWAY. HE DOES HAVE INTERMITTENT COUGH IN THE HOUSE AND ESPECIALLY AT NIGHT. HIS STILL SMOKES AND THAT EFFECTS HIS BREATHING. IN THE PAST YEAR HE HAS BEEN ON WIXELA 250-51 INHALATION B.I.D., HE IS NOT SURE IF IT HELPS HIM ON NOT. BUT HE HAS HAD NO ACUTE ATTACKS . OR EXACERBATIONS HE ALSO USES IPRATROPIUM-ALBUTEROL SOLUTION IN THE NEBULIZER Q 4-6 HOURS P.R.N. WHICH HE DOES NOT LIKE TO USE MUCH. HE ALSO HAS VENTOLIN INHALER AND USES 2 PUFFS Q.4-6 HOURS P.R.N. MAYBE ONCE OR TWICE A DAY ABOUT 4-5 DAYS A WEEK. HIS MAIN ISSUE IS INTERMITTENT COUGH MOSTLY NONPRODUCTIVE, AND SHORTNESS OF BREATH ON WALKING. * HE HAS PAST HISTORY OF DVT LT LOWER EXTREMITY 2013 ( UNPROVOKED ) AND PULMONARY EMBOLISM IN 2014 ( rISK FACTORS : LOW MOBILITY, TESTOSTERONE REPLACEMENT ) HE IS ON ON WARFARIN, HE SELF CHECKS HIS PROTIME AT HOME. AND MONITORED BY HEMATOLOGY SERVICE OF [facility]. HE SUFFERS FROM CHRONIC BACK AND NECK PAIN. SURPRISINGLY HIS ACUTE BACK PAIN STARTED ABOUT 9 OR 10 YEARS AGO AFTER HE PICKED UP A WATER MELON FROM THE BOX AT [facility]. HE HAS HAD SURGERY , AND CURRENTLY HE IS BEING FOLLOWED AT PAIN CLINIC , HAS HAD LOCAL INJECTIONS . HE HAS HISTORY OF ADDICTION TO NARCOTICS AND CURRENTLY HE IS ON SUBOXONE. 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 HIS AT HOME ALSO SUFFERS FROM COPD, SHE IS A SMOKER, ALSO USES CPAP FOR SLEEP APNEA THIS PATIENT HAS HAD THYROIDECTOMY AND IS ON REPLACEMENT TREATMENT WITH LEVOTHYROXINE HE ALSO HAS HAD ADRENAL GLAND EXCISION ON THE RIGHT SIDE., ADRENAL ADENOMA. HE ALSO SUFFERS FROM HYPOGONADISM PREVIOUSLY HAS BEEN TREATED FOR ANXIETY AND DEPRESSION. [facility] Medical History (Updated 03/22/25 @ 12:04 by Lacho Hernandez MD) Encounter for screening for malignant neoplasm of lung in former smoker who quit in past 15 years with 30 pack year history or greater COPD (chronic obstructive pulmonary disease) Screening for osteoporosis Adrenal adenoma Adrenal insufficiency Hypogonadism in male Pre-op exam Anxiety Depression Pulmonary embolism Hypothyroidism Obesity Gout Surgical History History of sinus surgery History of thyroidectomy History of hernia repair History of appendectomy Family History Father Acute CVA (cerebrovascular accident) Diabetes Hypertension Mother Stroke Other Substance abuse Social History Housing: Condominium Alcohol intake: never Patient Tobacco Use Status: Former Tobacco user Tobacco use type: Cigarette e-Cigarette/Vaping Use: Never Used Second Hand Smoke Exposure: Yes service: No Current occupational status: disabled Cognitive needs: Yes (cane) Hearing needs: No Vision needs: Yes (Reading glasses) Review of Systems Const All systems reviewed & are unremarkable except as noted in HPI and below Eyes Reports no additional complaints ENT Reports no additional complaints and Reports neck pain Card Denies chest pain, Denies syncope, Denies irregular heart rhythm and Denies leg edema Resp Reports as per HPI GI Reports no additional complaints Reports erectile dysfunction Musc Reports abnormal gait (SLIGHTLY ON STABLE DUE TO CHRONIC BACK PAIN AND USES CANE), Reports back pain and Reports neck pain Skin/Breast Reports system reviewed and no additional complaints, except as documented Neuro Reports abnormal gait (SLIGHTLY ON STABLE DUE TO CHRONIC BACK PAIN AND USES CANE) and Denies syncope Psych Reports anxiety and Reports depression Endo Reports no additional complaints Fer/Lymph Reports no additional complaints Aller/Immun Reports no additional complaints Physical Exam Vital Signs: Last Vital Signs BP 130/70 03/22/25 10:50 BMI result Body Mass Index 33.1 Const General: comfortable, no acute distress, alert and awake; No healthy appearing (EXCEPT FOR STIFF BACK) Orientation/consciousness: patient oriented x3 HEENT Head: Yes normal to inspection General nose exam: No nasal polyps present and No nasal discharge present Face and sinus: Yes sinuses nontender Mouth: oropharynx normal Throat: Yes posterior oropharynx normal Eyes General: appearance normal, both eyes and all related structures Neck Neck: Yes normal visual inspection, Yes no lymphadenopathy, Yes trachea midline and Yes no JVD Thyroid: Thyroid normal Chest Chest palpation & inspection: normal inspection of the chest, normal palpation of entire chest wall and no tenderness Resp Other: CHEST IS SYMMETRICAL. PERCUSSION NOTE RESONANT. BREATH SOUNDS ARE EQUAL ON BOTH SIDES BUT MODERATELY DISTANT. NO WHEEZES ARE HEARD BUT HE DOES HAVE FEELING OF CONGESTION IN THE UPPER AIRWAYS. Cardio Palpation: normal PMI Rate: regular rate Rhythm: regular rhythm Heart sounds: no gallops and no murmurs Peripheral pulses: Peripheral pulses 2+ throughout GI Palpation (GI): Soft to palpation, nontender, No hepatosplenomegaly present and no masses Auscultation: normal bowel sounds Back/Spine/Pelvis Cervical Spine: Cervical spine scars present (ON THE LOWER BACK FROM PREVIOUS SURGERY) Thoracic/Lumbar Spine: thoracic and lumbar spine normal to inspection Skin General skin exam: no rashes or lesions noted Neuro General: patient oriented x3, gait normal (USES CANE FOR STABILITY) and no focal motor deficits Cranial nerves: Yes CN's II-XII intact bilaterally Extrem General: Yes normal to inspection, Yes no clubbing, cyanosis or edema and Yes no calf tenderness Psych Appearance: grossly normal and well kempt Speech and movement: Normal speech and movement present Assessment & Plan Assessment & Plan (1) Pulmonary embolism: Comment: HE HAS PAST HISTORY OF PULMONARY EMBOLISM AND DVT, AT LEAST FOR LAST 4 OR 5 YEARS. HE DOES NOT KNOW THE EXACT DATE. HE MUST HAVE SOME NT COAGULOPATHY, BECAUSE HE IS ON LONGSTANDING ANTICOAGULATION WITH LOVENOX AND WARFARIN. Code(s): I26.99 - Other pulmonary embolism without acute cor pulmonale Category: Medical Qualifiers: Acute cor pulmonale presence: without acute cor pulmonale Chronicity: unspecified Pulmonary embolism type: unspecified Qualified Code(s): I26.99 - Other pulmonary embolism without acute cor pulmonale Plan: ADVISED TO CONTINUE THE PRESENT TREATMENT, AND CONTINUE FOLLOW-UP WITH HEMATOLOGY SERVICE (2) Current use of anticoagulant therapy: Comment: On Coumadin , HE IS ON WARFARIN, DOSE NOT KNOWN, SELF MONITORS AT HOME, AND ALSO BEING MONITORED BY HEMATOLOGY, ONLINE Code(s): Z79.01 - computer terminal operator (current) use of anticoagulants Category: Medical Plan: CONTINUE THE ANTICOAGULATION AND CONTINUE BEING FOLLOWED BY HEMATOLOGY. (3) COPD (chronic obstructive pulmonary disease): Comment: PATIENT HAS SYMPTOMS OF COUGH AND DYSPNEA ON EXERTION WHICH ARE MORE PROMINENT FOR THE PAST YEAR BUT I GUESS HAVE BEEN FOR LONGER TIME. WITH A HISTORY OF SMOKING FOR ALMOST 43 YEARS I THINK HE HAS CHRONIC OBSTRUCTIVE PULMONARY DISEASE. Code(s): J44.9 - Chronic obstructive pulmonary disease, unspecified Category: Medical Plan: HE NEEDS COMPLETE EVALUATION, WILL HAVE PULMONARY FUNCTION TEST, HE IS ALSO BEING REFERRED FOR ANNUAL LUNG SCREENING PROGRAM ,FOR TREATMENT CONTINUE WIXELA 250-50 1 INHALATION B.I.D. AND, ALBUTEROL HFA 2 PUFFS Q 4-6 HOURS P.R.N. DOES HAVE NEBULIZER AT HOME WITH SOLUTION OF IPRATROPIUM AND ALBUTEROL, AND IS ADVISED TO USE THAT ONLY FOR SEVERE COUGH OR SHORTNESS OF BREATH. (4) Encounter for screening for malignant neoplasm of lung in former smoker who quit in past 15 years with 30 pack year history or greater: Comment: NOTED ABOVE HE HAS HISTORY OF SMOKING FOR 43 PACK YEARS, BEFORE HE QUIT SMOKING 1 YEAR AGO Code(s): Z12.2 - Encounter for screening for malignant neoplasm of respiratory organs; Z87.891 - Personal history of nicotine dependence Category: Medical Plan: HE IS BEING REGISTERED IN THE ANNUAL LUNG SCREENING PROGRAM Orders: Orders Pulmonary Test/Procedure Today I26.99 - Other pulmonary embolism without acute cor pulmonale, J44.9 - Chronic obstructive pulmonary disease, unspecified, Z12.2 - Encounter for screening for malignant neoplasm of respiratory organs, Z87.891 - Personal history of nicotine dependence Referrals Lung Cancer Screening Referral J44.9 - Chronic obstructive pulmonary disease, unspecified, Z12.2 - Encounter for screening for malignant neoplasm of respiratory organs, Z87.891 - Personal history of nicotine dependence Coding Level of Care Code New Pt Level 4 (19674) Diagnoses Pulmonary embolism without acute cor pulmonale, unspecified chronicity, unspecified pulmonary embolism type I26.99 Acute cor pulmonale presence: without acute cor pulmonale Chronicity: unspecified Pulmonary embolism type: unspecified Current use of anticoagulant therapy Z79.01 COPD (chronic obstructive pulmonary disease) J44.9 Encounter for screening for malignant neoplasm of lung in former smoker who quit in past 15 years with 30 pack year history or greater Z12.2; Z87.891
[2025-03-22 10:50] VITALS: BP 130/70; BMI 33.1
--- OUTSIDE RECORDS SUMMARY | 2025-03-22 12:10 | XMS_ITS | Clinical Summary ---
Author Organization [facility] ity Address [address] [place] [address] Care Team Providers Care Chemical Process Analyst Name Role Phone Obi Ramon MD Primary Care Provider [phone] Social History Tobacco Use Types Packs/Day Years [...] age to complete this topic Care Teams Chemical Process Analyst Relationship Specialty Start Date End Date Obi Ramon MD [address] [place] [address] Drive [address] [place] [address] PCP - General Internal Medicine 06/21/20
== END 2025-03-22 11:51 | disposition home or self-care (01) ==
LOC: HO.HPS 10:44
PROVIDERS: Visit Provider Internal Medicine
DX: I26.99 Other pulmonary embolism without acute cor pulmonale (principal); Z79.01 Long term (current) use of anticoagulants; J44.9 Chronic obstructive pulmonary disease, unspecified; Z12.2 Encounter for screening for malignant neoplasm of respiratory organs; Z87.891 Personal history of nicotine dependence
CPT/HCPCS: 99204

== ENCOUNTER → 2025-03-22 10:43 | Outpatient (BNVA) | payer MEDICARE, MEDICAID, SELFPAY | PROVIDERS: Visit Provider Internal Medicine | DX: I26.99 Other pulmonary embolism without acute cor pulmonale (principal); Z12.2 Encounter for screening for malignant neoplasm of respiratory organs; J44.9 Chronic obstructive pulmonary disease, unspecified; Z79.01 Long term (current) use of anticoagulants; Z87.891 Personal history of nicotine dependence | CPT/HCPCS: 99202 ==

== ENCOUNTER 2025-04-18 10:10 | Outpatient (AMB) | payer MEDICARE, MEDICAID, SELFPAY ==
--- NOTE | 2025-04-18 10:12 | MHC.OFFVIS ---
Vital Signs 04/18/25 10:13 Height 6 ft 6 in Weight 262 lb BMI 30.3 BP 110/66 Blood Pressure Location Lt brachial Position Sitting Respiration 16 Pulse 83 Pulse Source Pulse Oximeter Pulse Oximetry (%) 94 Oxygen Delivery Method Room Air Intake Visit Reasons: MRI results Budget And Policy Analyst Required: No Allergies Sulfa (Sulfonamide Antibiotics) Allergy (Intermediate, Verified 04/21/25 11:58) HIVES amoxicillin Allergy (Verified 04/21/25 11:58) Nausea and Vomiting Medication List - Last Reconciled 04/18/25 by Isabel Raza LPN buprenorphine-naloxone 8-2 mg 1 film sublingual BID diazepam 10 mg PO BEDTIME PRN enoxaparin (Lovenox) 90 mg See Protocol subcut Q12H 10 days Held on 03/31/25. Instructions: INR IN RANGE fluticasone propion-salmeterol 250-50 mcg/dose (Advair Diskus) 1 inh inhalation BID ipratropium-albuterol 0.5 mg-3 mg(2.5 mg base)/3 mL 3 mL inhalation Q6-8H PRN levothyroxine 175 mcg PO DAILY needle (disp) 19 G (BD Regular Bevel [place]) As directed for emergency use only to draw hydrocortisone nicotine 1 patch topical DAILY prednisone 10 mg PO DAILY PRN syringe with needle (BD Eclipse Luer-Kristie) As directed use to inject hydrocortisone for emergency use testosterone 2 packets transdermal QAM trazodone 75 mg PO BEDTIME PRN Ventolin HFA 90 mcg/actuation (albuterol sulfate) 1 puff inhalation Q4-6H PRN NS warfarin 5 mg See Protocol PO DAILY HPI HPI MRI results: Details: History of Present Illness The patient is a 59-year-old male presenting with axial low back pain. He has a history of L4-5 interbody fusion with a recent MRI showing no neural compression. The pain is described as hollow and throbbing, worsening with prolonged lying and alleviated by bending forward. The patient has attempted various sleeping adjustments to manage the pain, including using a recliner, with limited success. He has previously received cortisone injections before surgery, which were effective. Pain Description - Onset and Timing: Pain is chronic and persistent, with exacerbations during the night. - Quality and Character: Described as hollow, throbbing, and explosive upon movement. - Primary Location: Central lumbar region. - Exacerbating Factors: Lying flat, bending backward. - Relieving Factors: Bending forward, using a recliner. - Interference with Activities: Affects sleep, requires use of a recliner for rest. Physical Exam - Musculoskeletal: Lumbar spine extension is limited and painful; flexion does not reproduce pain. Results - Imaging: Lumbar spine MRI shows status post L4-5 interbody fusion with unremarkable postoperative appearance and no neural compression. Pain Management - Affect: Pain significantly impacts sleep and daily activities. - Analgesia: Previous cortisone injections were effective; considering diagnostic injections for current pain. - Activities of Daily Living: Pain interferes with sleep, requiring adjustments in sleeping arrangements. [facility] Medical History (Updated 04/26/25 @ 08:46 by Bello Mccoy MD) Lumbar spondylosis Personal history of nicotine dependence COPD (chronic obstructive pulmonary disease) Screening for osteoporosis Adrenal adenoma Adrenal insufficiency Hypogonadism in male Anxiety Depression Pulmonary embolism Hypothyroidism Obesity Gout Surgical History History of sinus surgery History of thyroidectomy History of hernia repair History of appendectomy Family History Father Acute CVA (cerebrovascular accident) Diabetes Hypertension Mother Stroke Other Substance abuse Social History Housing: Condominium Alcohol intake: never Patient Tobacco Use Status: Former Tobacco user Tobacco use type: Cigarette e-Cigarette/Vaping Use: Never Used Second Hand Smoke Exposure: Yes service: No Current occupational status: disabled Cognitive needs: Yes (cane) Hearing needs: No Vision needs: Yes (Reading glasses) Physical Exam Vital Signs: Last Vital Signs Pulse 83 04/18/25 10:13 Resp 16 04/18/25 10:13 BP 110/66 04/18/25 10:13 Pulse Ox 94 04/18/25 10:13 Oxygen Delivery Method Room Air 04/18/25 10:13 BMI result Body Mass Index 30.3 Assessment & Plan Assessment & Plan (1) Cervical radiculopathy: Code(s): M54.12 - Radiculopathy, cervical region Category: Medical (2) Lumbar spondylosis: Code(s): M47.816 - Spondylosis without myelopathy or radiculopathy, lumbar region Category: Medical Plan Plan Patient was informed and verbally consented to the use of an ambient scribe for clinic note documentation during this visit. 1. Axial Low Back Pain - Bilateral L3, L4, L5 medial branch diagnostic blocks planned to determine pain source. - Options include PRP injections or radiofrequency ablation based on patient preference and diagnostic outcomes. - Cortisone injections may be considered following diagnostic confirmation. Discussion Notes We discussed the plan to perform bilateral L4 medial branch diagnostic blocks to identify the source of the patient's axial low back pain. Options for further treatment include PRP injections or radiofrequency ablation, depending on the diagnostic results and patient preference. The patient was informed about the cost of PRP injections, which are not covered by insurance, and the potential for cortisone injections if the diagnostic blocks are effective. Patient Instructions - Follow up after diagnostic injections to discuss results and next steps. - Consider ergonomic adjustments to alleviate back pain during daily activities. - Maintain good posture and practice recommended exercises to support back health. Medications: Discontinued fluticasone propion-salmeterol 250-50 mcg/dose Discontinued Reason: Duplicate 1 inh inhalation BID 60 ea 3RF Coding Level of Care Code Est Pt Level 3 (98790) Diagnoses Cervical radiculopathy M54.12 Lumbar spondylosis M47.816
[2025-04-18 10:13] VITALS: BP 110/66; PULSE 83; RESP 16; O2SAT 94; BMI 30.3
--- OUTSIDE RECORDS SUMMARY | 2025-04-18 12:49 | XMS_ITS | Clinical Summary ---
Author Organization [facility] ity Address [address] [place] [address] Care Team Providers Care Cosmetology Professor Name Role Phone Obi Ramon MD Primary Care Provider [phone] Social History Tobacco Use Types Packs/Day Years [...] 2014 Zoster Vaccines (1 of 2) 2014 Depression Screening 08/04/2024 COVID-19 Vaccine (1 - 2023-2 5 season) 2025 Influenza Vaccine (#1) 2025 RSV Immunization Adult [...] age to complete this topic Care Teams Cosmetology Professor Relationship Specialty Start Date End Date Obi Ramon MD [address] [place] [address] Drive [address] [place] [address] PCP - General Internal Medicine 06/21/20
== END 2025-04-18 10:43 | disposition home or self-care (01) ==
LOC: HO.PMC 10:11
PROVIDERS: Visit Provider Internal Medicine
DX: M54.12 Radiculopathy, cervical region (principal); M47.816 Spondylosis without myelopathy or radiculopathy, lumbar region
CPT/HCPCS: 99213

== ENCOUNTER → 2025-04-18 10:10 | Outpatient (BNVA) | payer MEDICARE, MEDICAID, SELFPAY | PROVIDERS: Visit Provider Internal Medicine | DX: M47.816 Spondylosis without myelopathy or radiculopathy, lumbar region (principal) | CPT/HCPCS: 99212 ==

== ENCOUNTER 2025-04-21 11:12 | Outpatient (AMB) | payer MEDICARE, MEDICAID, SELFPAY ==
[2025-04-21 11:18] VITALS: BP 130/64; PULSE 85; RESP 18; TEMP 36.3; O2SAT 95; BMI 30.3
--- NOTE | 2025-04-21 11:18 | MHC.PC.OV ---
Vital Signs 04/21/25 11:18 Height 6 ft 6 in Weight 262 lb 4 oz BMI 30.3 BP 130/64 Blood Pressure Location Lt brachial Position Sitting Respiration 18 Pulse 85 Pulse Source Pulse Oximeter Temp 97.3 F Temp Source Temporal Artery Scan Pulse Oximetry (%) 95 Oxygen Delivery Method Room Air Intake Visit Reasons: annual exam - see comments Instrument Shop Supervisor Required: No Accompanied by: Self / Same As Patient Allergies Sulfa (Sulfonamide Antibiotics) Allergy (Intermediate, Verified 04/21/25 11:58) HIVES amoxicillin Allergy (Verified 04/21/25 11:58) Nausea and Vomiting Medication List - Last Reconciled 04/21/25 by PAXTON Cardona buprenorphine-naloxone 8-2 mg 1 film sublingual BID diazepam 10 mg PO BEDTIME PRN fluticasone propion-salmeterol 250-50 mcg/dose (Wixela Inhub) 1 inh inhalation BID 30 days ipratropium-albuterol 0.5 mg-3 mg(2.5 mg base)/3 mL 3 mL inhalation Q6-8H PRN levothyroxine 175 mcg PO DAILY needle (disp) 19 G (BD Regular Bevel [place]) As directed for emergency use only to draw hydrocortisone nicotine 1 patch topical DAILY prednisone 10 mg PO DAILY PRN syringe with needle (BD Eclipse Luer-Kristie) As directed use to inject hydrocortisone for emergency use testosterone 2 packets transdermal QAM trazodone 75 mg PO BEDTIME PRN Ventolin HFA 90 mcg/actuation (albuterol sulfate) 1 puff inhalation Q4-6H PRN NS warfarin 5 mg See Protocol PO DAILY Tobacco use date assessed: 04/21/25 Dental Screening Dental Screen Date: 04/21/25 Did you have a dental visit in the last 12 months?: No Did you have a dental problem in the last 6 months where you did not have access to dental care?: No Was dental information given to patient?: No HPI annual exam - see comments HPI Details Dentist: Dentures upper and lower Eye: Cataract surgery two years ago, and had an eye exam last year Snellen: Right: Left: Corrected vision: yes STI screening: Colonoscopy: 4 years ago Pap Smer: PHQ-9: Flu: up to date COVID: x2 Tdap: reports that this is update Diet:regular Exercise: Reports that he is very active The patient is a 59-year-old male presenting with concerns of angular cheilitis and oral thrush. The angular cheilitis has been present for approximately two months, with the patient noting cracks at the corners of his mouth that have not healed despite using medicated ointments. The condition has worsened, spreading to the inside of the mouth, and is associated with pain and dryness. The patient also reports a history of oral thrush, which was previously attributed to inhaler use without proper rinsing of the mouth afterward. He has been prescribed nystatin in the past, which he has used with some relief, but the condition persists. The patient has a history of cataracts, for which he underwent surgery a few years ago. Post-surgery, he developed floaters and a retinal tear, which were treated with laser therapy to prevent further damage. The patient has hypercholesterolemia, with high cholesterol levels noted in October. He is aware of the need for repeat testing and plans to have it done soon. In terms of preventative care, the patient is not currently due for a colonoscopy, having had one four years ago with a follow-up scheduled in five years. [facility] Medical History Personal history of nicotine dependence COPD (chronic obstructive pulmonary disease) Screening for osteoporosis Adrenal adenoma Adrenal insufficiency Hypogonadism in male Anxiety Depression Pulmonary embolism Hypothyroidism Obesity Gout Surgical History History of sinus surgery History of thyroidectomy History of hernia repair History of appendectomy Family History Father Acute CVA (cerebrovascular accident) Diabetes Hypertension Mother Stroke Other Substance abuse Social History Housing: Condominium Alcohol intake: never Patient Tobacco Use Status: Former Tobacco user Tobacco use type: Cigarette e-Cigarette/Vaping Use: Never Used Second Hand Smoke Exposure: Yes service: No Current occupational status: disabled Cognitive needs: Yes (cane) Hearing needs: No Vision needs: Yes (Reading glasses) Questionnaire Thrive Questionnaire Date Thrive assessed: 01/12/25 I am a: Patient What is your living situation today?: I have a steady place to live Within the past 12 months, did the food you bought not last and you didn't have the money to get more?: Often true Within the past 12 months, did you worry whether your food would run out before you got money to buy more?: Sometimes True Do you have trouble paying for medicines?: I choose not to answer this question Do you have trouble getting transportation to medical appointments?: No Do you have trouble paying your heating and electricity bill?: I choose not to answer this question Do you have trouble taking care of your child, family member or friend?: No Do you have trouble with day-to-day activities such as bathing, preparing meals, shopping, managing finances, etc.?: No Are you currently unemployed and looking for a job?: I choose not to answer this question Are you interested in more education?: No Please select the resources that you would like help with: None Currently or been in a relationship where the following occur: No concerns reported THRIVE Score: 2 MARIELENA-7 AMB Questionnaire MARIELENA-7 Date MARIELENA - 7 assessed: 01/19/25 Source: Developed by Drs. Cam Sandy, Julia James, Anton Perez and colleagues, with an educational molina from [employer]. Review of Systems Const Denies headache(s) Eyes Denies loss of vision ENT Denies vertigo, Denies dizziness, Denies headache(s) and Denies sore throat Card Denies chest pain, Denies leg edema and Denies lightheadedness Resp Denies cough, Denies hemoptysis and Denies wheezing GI Denies abdominal pain, Denies melena, Denies constipation, Denies diarrhea and Denies vomiting Denies dysuria, Denies urinary frequency and Denies urinary urgency Musc Denies arthralgias, Denies joint swelling, Denies numbness and Denies tingling Skin/Breast Reports sores (cracks at the corners of mouth) Neuro Denies Abnormal speech present, Denies behavioral changes, Denies vertigo, Denies dizziness, Denies headache(s), Denies loss of vision, Denies memory loss, Denies numbness and Denies tingling Psych Denies anxiety, Denies behavioral changes, Denies depression, Denies memory loss and Denies panic attacks Fer/Lymph Denies easy bleeding and Denies easy bruising Aller/Immun Denies wheezing Physical exam (Primary Care) Vital Signs: Last Vital Signs Temp 97.3 F 04/21/25 11:18 Pulse 85 04/21/25 11:18 Resp 18 04/21/25 11:18 BP 130/64 04/21/25 11:18 Pulse Ox 95 04/21/25 11:18 Oxygen Delivery Method Room Air 04/21/25 11:18 BMI result Body Mass Index 30.3 Tobacco/Smoking Status: Tobacco use Status Tobacco use date assessed 04/21/25 04/21/25 11:28 Patient Tobacco Use Status Former Tobacco user 04/21/25 11:28 Tobacco use type Cigarette 04/21/25 11:28 e-Cigarette/Vaping Use Never Used 04/21/25 11:28 Thrive Assessment: Date of Thrive Assessment Date Thrive assessed 01/12/25 04/21/25 11:28 Currently or been in a relationship where the following occur: No concerns reported Const General: healthy appearing, no acute distress, alert and awake Nutritional Appearance: well nourished Orientation/consciousness: oriented to person, oriented to place and oriented to time HENMT Ears: TM's normal bilaterally General nose exam: Normal nasal mucous membranes and turbinates present Mouth: lip abnormal (cracks at the corners of mouth consistent with angular cheilitis) and tongue abnormal with white coating Eyes Conjunctivae: conjunctivae normal Sclerae: sclerae normal Pupils: Equal, round and reactive pupils present Neck Neck: Yes no lymphadenopathy and Yes no JVD Thyroid: Thyroid normal Carotids: no bruits Resp Effort & Inspection: normal respiratory effort and not tachypneic Auscultation: no crackles, no rales, no rhonchi and no wheezes Cardio Rate: regular rate Rhythm: regular rhythm Heart sounds: no murmurs and normal S1 and S2 GI Palpation (GI): Soft to palpation, nontender, no hepatomegaly and no splenomegaly Auscultation: normal bowel sounds General: Yes no CVA tenderness Back/Spine/Pelvis Back: no CVA tenderness Skin General skin exam: no rashes or lesions noted and dry skin Neuro General: oriented to person, oriented to place and oriented to time Cranial nerves: Yes Equal, round and reactive pupils present Speech: No Abnormal speech present Gait exam (Neuro): Normal gait present Motor exam (neuro): no tremor noted Extrem Right upper extremity: full ROM Left upper extremity: full ROM Right lower extremity: full ROM; no edema Left lower extremity: full ROM; no edema Psych Mental Status: mental status grossly normal Speech and movement: Normal speech and movement present Affect: normal affect Attitude: cooperative Thought process: Normal thought process present Coding Level of Care Code Est Pt Prev Care 40-64y(93607) Diagnoses Annual physical exam Z00.00 Pulmonary embolism without acute cor pulmonale, unspecified chronicity, unspecified pulmonary embolism type I26.99 Pulmonary embolism type: unspecified Chronicity: unspecified Acute cor pulmonale presence: without acute cor pulmonale Chronic deep vein thrombosis (DVT) of lower extremity, unspecified laterality, unspecified vein I82.509 DVT location: lower extremity Affected thrombotic vein of extremity: unspecified vein of extremity Chronicity: chronic Laterality: unspecified laterality Postoperative hypothyroidism E89.0 Hypothyroidism type: postoperative Hypogonadism in male E29.1 Adrenal insufficiency E27.40 Moderate persistent asthma with status asthmaticus J45.42 Asthma severity: moderate Asthma persistence: persistent Asthma complication type: with status asthmaticus Mixed hyperlipidemia E78.2 Hyperlipidemia type: mixed hyperlipidemia Anxiety F41.9 Substance abuse F19.10 Adenoma of left adrenal gland D35.02 Laterality: left Angular cheilitis K13.0 Oral pharyngeal candidiasis B37.0 Time Spent (min) 39 Assessment & Plan Assessment & Plan (1) Annual physical exam: Code(s): Z00.00 - Encounter for general adult medical examination without abnormal findings Category: Medical Plan: The patient wears dentures. An eye exam last year in cataract surgery 2 years ago. Reports having a colonoscopy 4 years ago, but he is not sure it was supposed to be repeated in 5 or 10 years. The patient will contact GI to find out. He is up-to-date on vaccinations. (2) Pulmonary embolism: Comment: HE HAS PAST HISTORY OF PULMONARY EMBOLISM AND DVT, AT LEAST FOR LAST 4 OR 5 YEARS. HE DOES NOT KNOW THE EXACT DATE. HE MUST HAVE SOME NT COAGULOPATHY, BECAUSE HE IS ON LONGSTANDING ANTICOAGULATION WITH LOVENOX AND WARFARIN. Code(s): I26.99 - Other pulmonary embolism without acute cor pulmonale Category: Medical Qualifiers: Pulmonary embolism type: unspecified Chronicity: unspecified Acute cor pulmonale presence: without acute cor pulmonale Qualified Code(s): I26.99 - Other pulmonary embolism without acute cor pulmonale Plan: History of PE, denies chest pain, ongoing shortness of breath that increases with humidity and exertion. Patient continues on Coumadin therapy. Follow up with Coumadin clinic as scheduled (3) DVT (deep venous thrombosis): Code(s): I82.409 - Acute embolism and thrombosis of unspecified deep veins of unspecified lower extremity Category: Medical Qualifiers: DVT location: lower extremity Affected thrombotic vein of extremity: unspecified vein of extremity Chronicity: chronic Laterality: unspecified laterality Qualified Code(s): I82.509 - Chronic embolism and thrombosis of unspecified deep veins of unspecified lower extremity Plan: History of DVT. No recent episodes. Continue Coumadin therapy as ordered by Coumadin clinic (4) Hypothyroidism: Code(s): E03.9 - Hypothyroidism, unspecified Category: Medical Qualifiers: Hypothyroidism type: postoperative Qualified Code(s): E89.0 - Postprocedural hypothyroidism Plan: The patient has a history of Graves disease. Status post thyroidectomy 2010 after failed radioactive iodine ablation TSH 2.35, free T4 1.12 on 10/12/2024-encouraged the patient to complete preordered labs to re-evaluate Continue levothyroxine 175 mcg daily Follow up with Endocrine as scheduled (5) Hypogonadism in male: Code(s): E29.1 - Testicular hypofunction Category: Medical Plan: Secondary to chronic opioid use. The patient is currently on Suboxone. Total testosterone 119 Continue testosterone transdermal q.a.m. Follow up with endocrinology as scheduled (6) Adrenal insufficiency: Code(s): E27.40 - Unspecified adrenocortical insufficiency Category: Medical Plan: Adrenal insufficiency secondary to chronic opioid use, currently on Suboxone DHEA 15 Follow up with Endocrine as scheduled (7) Asthma: Code(s): J45.909 - Unspecified asthma, uncomplicated Category: Medical Qualifiers: Asthma severity: moderate Asthma persistence: persistent Asthma complication type: with status asthmaticus Qualified Code(s): J45.42 - Moderate persistent asthma with status asthmaticus Plan: Patient reports improvement in breathing since started on fluticasone propion-salmeterol 250-50 mcg/dose (Weixela Inhub) 1 inh BID, DUONEB q.6 to 8 p.r.n. (8) HLD (hyperlipidemia): Code(s): E78.5 - Hyperlipidemia, unspecified Category: Medical Qualifiers: Hyperlipidemia type: mixed hyperlipidemia Qualified Code(s): E78.2 - Mixed hyperlipidemia Plan: Last labs triglycerides 350, total cholesterol 280, LDL 174, HDL 40 10/12/2024 He has not completed preordered follow up labs as yet and we will be doing this as soon as possible, per patient Discussed lifestyle modifications including dietary changes and physical activity He does not want to be started on statins at this time, will continue to encourage him (9) Anxiety: Code(s): F41.9 - Anxiety disorder, unspecified Category: Medical Plan: Encouraged CBT Continue diazepam 10 mg at bedtime p.r.n. Denies SI/HI (10) Substance abuse: Code(s): F19.10 - Other psychoactive substance abuse, uncomplicated Category: Medical Plan: Continue Suboxone Follow up with Suboxone clinic as scheduled (11) Adrenal adenoma: Code(s): D35.00 - Benign neoplasm of unspecified adrenal gland Category: Medical Qualifiers: Laterality: left Qualified Code(s): D35.02 - Benign neoplasm of left adrenal gland Plan: The adrenal tumor of the left side which has been monitored by Endocrine. The patient underwent resection of right-sided adrenal adenoma in 2003 which was 2.4 x 4 cm with benign histology. CT scan at [facility] in 2021 showed stable left adrenal adenoma. This has been stable since 2003. Follow up with endocrinology as scheduled (12) Angular cheilitis: Code(s): K13.0 - Diseases of lips Category: Medical Plan: Reports recurrent cracks lips. Mupirocin ointment t.i.d. times 14 days. Then the patient to start nystatin ointment b.i.d. (13) Oral pharyngeal candidiasis: Code(s): B37.0 - Candidal stomatitis Category: Medical Plan: Nystatin swish and spit ordered Plan Three-month follow up Medications: New nystatin swish and swallow 100,000 units PO DAILY 250 mL 3RF nystatin 1 appl topical BID 30 grams 3RF mupirocin 2% (Centany) 1 appl topical TID 22 grams 0RF 14 days nystatin 1 appl topical BID 30 grams 0RF
--- OUTSIDE RECORDS SUMMARY | 2025-04-21 13:29 | XMS_ITS | Clinical Summary ---
Author Organization [facility] ity Address [address] [place] [address] Care Team Providers Care Furnace Stock Inspector Name Role Phone Obi Ramon MD Primary Care Provider [phone] Social History Tobacco Use Types Packs/Day Years [...] age to complete this topic Care Teams Furnace Stock Inspector Relationship Specialty Start Date End Date Obi Ramon MD [address] [place] [address] Drive [address] [place] [address] PCP - General Internal Medicine 06/21/20
== END 2025-04-21 12:28 | disposition home or self-care (01) ==
LOC: HO.HMCH 11:13
DX: Z00.00 Encounter for general adult medical examination without abnormal findings (principal); I26.99 Other pulmonary embolism without acute cor pulmonale; I82.509 Chronic embolism and thrombosis of unspecified deep veins of unspecified lower extremity; F19.10 Other psychoactive substance abuse, uncomplicated; E89.0 Postprocedural hypothyroidism; E29.1 Testicular hypofunction; E27.40 Unspecified adrenocortical insufficiency; J45.42 Moderate persistent asthma with status asthmaticus; E78.2 Mixed hyperlipidemia; F41.9 Anxiety disorder, unspecified; D35.02 Benign neoplasm of left adrenal gland; K13.0 Diseases of lips

== ENCOUNTER → 2025-04-21 11:12 | Outpatient (BNVA) | payer MEDICARE, MEDICAID, SELFPAY | DX: Z00.00 Encounter for general adult medical examination without abnormal findings (principal); I26.99 Other pulmonary embolism without acute cor pulmonale; I82.509 Chronic embolism and thrombosis of unspecified deep veins of unspecified lower extremity; E89.0 Postprocedural hypothyroidism; E29.1 Testicular hypofunction; E27.40 Unspecified adrenocortical insufficiency; J45.42 Moderate persistent asthma with status asthmaticus; E78.2 Mixed hyperlipidemia; F41.9 Anxiety disorder, unspecified; F19.10 Other psychoactive substance abuse, uncomplicated; D35.02 Benign neoplasm of left adrenal gland; K13.0 Diseases of lips; B37.0 Candidal stomatitis | CPT/HCPCS: 99396 ==

== ENCOUNTER 2025-05-20 10:27 | Outpatient (AMB) | payer MEDICARE, MEDICAID, SELFPAY ==
--- NOTE | 2025-05-20 07:59 | MHC.OFFVIS ---
Intake Visit Reasons: Former Smoker Allergies Sulfa (Sulfonamide Antibiotics) Allergy (Intermediate, Verified 05/12/25 10:53) HIVES amoxicillin Allergy (Verified 05/12/25 10:53) Nausea and Vomiting HPI HPI Former Smoker: Details: Initial visit for this 59yo former smoker with a 35PYH. Patient started smoking at age 16 for 43 years at 3/4-1ppd. . Denies marijuana use. Notes second hand smoke exposure. . Reports exposure to asbestos and nickel. 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 . Denies known family history of lung cancer. Denies personal history of cancers. Denies chest CT in last year. . Denies recent travel outside the [place]. Denies recent respiratory illness or recent hospitalization for respiratory issues. History of testing positive for COVID. 2021. Admits receiving COVID Vaccine. . Denies fever, chills, new/worsening cough, hemoptysis, hoarseness or dysphagia. Denies significant chest pain, significant dyspnea or unintentional weight loss. Patient Lung Cancer Screening Questionnaire reviewed with patient by provider. . Shared Decision Making Completed. Patient meets criteria. Discussed in detail with patient, the risk vs benefit of LDCT screening. Patient consents to proceed with scan. Discussed and encouraged continued smoking cessation. [facility] Medical History (Updated 05/20/25 @ 10:45 by Anna Woodard PA-C) Current use of anticoagulant therapy History of DVT (deep vein thrombosis) History of pulmonary embolism Lumbar spondylosis Personal history of nicotine dependence COPD (chronic obstructive pulmonary disease) Adrenal adenoma Adrenal insufficiency Hypogonadism in male Anxiety Depression Hypothyroidism Obesity Gout Surgical History (Updated 05/20/25 @ 10:45 by Anna Woodard PA-C) History of orbit decompression History of total adrenalectomy History of ventral hernia repair History of lumbar surgery History of sinus surgery History of thyroidectomy History of hernia repair History of appendectomy Family History Father Acute CVA (cerebrovascular accident) Diabetes Hypertension Mother Stroke Other Substance abuse Social History Housing: Condominium Alcohol intake: never Patient Tobacco Use Status: Former Tobacco user Tobacco use type: Cigarette e-Cigarette/Vaping Use: Never Used Second Hand Smoke Exposure: Yes service: No Current occupational status: disabled Cognitive needs: Yes (cane) Hearing needs: No Vision needs: Yes (Reading glasses) Assessment & Plan Assessment & Plan (1) Personal history of nicotine dependence: Comment: 40pyh - quit 1 yr ago Code(s): Z87.891 - Personal history of nicotine dependence Category: Medical Plan: - SDM visit completed today in office. - Patient meets criteria for LDCT for lung cancer screening purposes and is asymptomatic. - Smoking cessation counseling offered. Patients can always call [phone]. - Will arrange for a LDCT scan of the chest for screening purposes at [facility]. - Risks, benefits, and alternatives were discussed in detail and the patient agrees to proceed. - Risks discussed include but are not limited to: radiation exposure, anxiety during testing and while awaiting results, false negatives, false positives and possibility of additional intervention such as further imaging or surgical procedures for benign disease. - Benefits are obviously detection of lung cancer at an early stage which can lead to improved outcomes. - Discussed the importance of screening program compliance with adherence to yearly LDCT scan as scheduled - or sooner interval scans for personalized screening regimen. - Discussed follow up plan. Our office will send a letter discussing results and if needed set up phone call and office visit based on CT findings. - Patient educated on results categorization and the management decisions for suspicious findings potentially found on the screening LDCT scan. Any patient with a Lung RADS score of 3 or 4 will be reviewed by a multidisciplinary team at [facility] to form a plan of action in regards to scan findings. - If further work up is warranted for a suspicious lung finding this will be followed by the Lung Cancer Screening program in conjunction with the Thoracic Surgery Department at [facility]. - A copy of the office note and LDCT will be sent to the patient's PCP - as well as documentation on any associated further plans of care. - Incidental findings on LDCT are the PCP's responsibility. These findings are indicated with an S finding on the LDCT Assessment. A note discussing the findings will be sent to the PCP who is then responsible for further management. - All questions answered.? Coding Level of Care Code Lung Cancer Screening [id number] Diagnoses Personal history of nicotine dependence Z87.891
--- OUTSIDE RECORDS SUMMARY | 2025-05-20 12:33 | XMS_ITS | Clinical Summary ---
Author Organization [facility] ity Address [address] [place] [address] Care Team Providers Care Physicist Solid Earth Name Role Phone Obi Ramon MD Primary Care Provider [phone] Social History Tobacco Use Types Packs/Day Years [...] age to complete this topic Care Teams Physicist Solid [place] Relationship Specialty Start Date End Date Obi Ramon MD [address] [place] [address] Drive [address] [place] [address] PCP - General Internal Medicine 06/21/20
== END 2025-05-20 10:45 | disposition home or self-care (01) ==
LOC: HO.HPS 10:27
PROVIDERS: Visit Provider Physician Assistant Medical
DX: Z87.891 Personal history of nicotine dependence (principal)
CPT/HCPCS: G0296

== ENCOUNTER 2025-05-20 10:42 | Outpatient (REF) | payer MEDICARE, MEDICAID, SELFPAY ==
--- NOTE | ~2025-05-20 | CT_ITS ---
EXAMINATION: CT LOW-DOSE SCREENING CHEST WITHOUT CONTRAST CLINICAL INFORMATION: 59-year-old male, former smoker, 43 pack years. Lung cancer screening. COMPARISON: No prior low-dose screening CT. CT angiography chest 03/16/2021. TECHNIQUE: Multidetector volumetric CT imaging of the chest is performed on a Siemens SOMATOM Definition scanner without contrast using low dose technique. Additional 2D coronal and sagittal reformatted images and axial 3D maximum intensity projection (MIP) images are generated on the CT workstation. This CT examination was performed using dose optimization techniques as appropriate, variously including the following: *Automated exposure control *Adjustment of mA and/or kV according to patient size (this includes techniques or standardized protocols for targeted exams where dose is matched to indication/reason for exam; i.e. extremities or head) *Use of iterative reconstruction technique FINDINGS: PULMONARY NODULES: 3 mm nodule right lateral upper lobe, (series 5, image 38), stable. 3 mm nodule left upper lobe laterally (series 5, image 52), stable. There are a few scattered 2 mm calcified granulomata present in both lungs. There are a few scattered tiny nodular foci of endobronchial mucous plugging in both lungs. There are no new or enlarging pulmonary nodules. LUNGS: There is mild to moderate paraseptal and centrilobular emphysema with upper lobe predominance. Lungs otherwise clear without abnormal opacity or consolidation. Minor biapical scarring, and also in the lingula. Small airways appear normal. No effusion or pneumothorax. Central airways are patent. MEDIASTINUM: The thyroid is surgically absent. No abnormal masses or lymph nodes in the mediastinum. Aorta is mildly calcified but normal in caliber. There is no aneurysm. Main pulmonary artery is normal in size. Heart size is normal. There is lipomatous infiltration of the intra-atrial septum. No pericardial effusion No esophageal abnormality. CORONARY ARTERY CALCIFICATION: Minimal. CHEST WALL/AXILLA: No masses or abnormal lymph nodes. UPPER ABDOMEN: There is mild fatty infiltration of the liver. There are surgical clips in the region of the right adrenal. There is a left adrenal lipid rich adenoma measuring 3.5 x 2.5 cm. Remainder the imaged upper abdominal contents are normal allowing for low dose noncontrast technique. OSSEOUS STRUCTURES: There is no suspicious lytic or blastic bone lesion. There are mild spinal degenerative changes. CT/CT lung screening IMPRESSION: 1. There are two tiny 3 mm stable nodules in both lungs. There are no suspicious nodules evident. 2. Mild to moderate centrilobular and paraseptal emphysema. Lungs are otherwise clear. 3. Ancillary findings as discussed. ASSESSMENT: 1. Lung-RADS Category 2: Benign appearance or behavior of nodules. 2. Lung-RADS Category S: None. RECOMMENDATION: Continued routine annual low-dose CT lung screening in 1 year is recommended. An order for CT CHEST LOW DOSE CANCER SCREENING ([id number]) can be placed. Electronically signed by: Praveen Smith MD 05/20/2025 11:32 AM EDT
== END 2025-05-20 10:43 | disposition home or self-care (01) ==
LOC: HO.CT 10:42
PROVIDERS: Visit Provider Physician Assistant Medical
DX: Z12.2 Encounter for screening for malignant neoplasm of respiratory organs (principal); Z87.891 Personal history of nicotine dependence
CPT/HCPCS: 71271; G0296

== ENCOUNTER → 2025-05-20 10:44 | Outpatient (BNV) | payer MEDICARE, MEDICAID, SELFPAY | PROVIDERS: Visit Provider Radiology Diagnostic Radiology | DX: Z87.891 Personal history of nicotine dependence (principal) | CPT/HCPCS: 71271 ==

== ENCOUNTER 2025-06-02 09:17 | Outpatient (REF) | payer MEDICARE, MEDICAID, SELFPAY ==
[2025-06-02 09:44] LABS: MANUAL DIFF FLAG NO
[2025-06-02 10:45] LABS: Hematocrit 50.1 % (42.0-52.0); Hemoglobin 16.6 g/dl (14.0-18.0); Imm Gran Abs Auto 0.03 X10*3/uL (0.00-0.03); Imm Gran Pct Auto 0.4 % (0.0-0.4); Lymphocytes Absolute Auto 2.9 X10*3/uL (1.2-4.9); Mean Corpuscular HGB Conc 33.1 g/dl (31.0-36.0); Mean Corpuscular Hemoglobin 31.5 pg (27.0-33.0); Mean Corpuscular Volume 95.1 fL (80.0-98.0); NRBC Abs Auto 0.000 X10*3/uL (0.0-0.012); NRBC Pct Auto 0.0 /100WBC (0.0-0.2); Platelet Count 253 X10*3/uL (160-400); Red Blood Count 5.27 X10*6/uL (4.60-5.80); White Blood Count 7.6 X10*3/uL (4.8-10.8)
[2025-06-02 11:30] LABS: Appearance Urine Clear; Glucose Urine UA >=1000 mg/dL (Negative); PH 5.5 (5.0-9.0); Specific Gravity - Urine >= 1.030 (1.005-1.025); UMIC TRIGGER UACC YES
[2025-06-02 11:33] LABS: Free T4 (Free Thyroxine) 1.35 ng/dL (0.71-1.85)
[2025-06-02 11:54] LABS: Alanine Aminotransferase 20 U/L (0-40); Albumin Level 5.0 g/dL (3.5-5.0); Alkaline Phosphatase 98 U/L (39-117); Anion Gap 12 (12-20); Aspartate Amino Transferase 20 U/L (5-37); Blood Urea Nitrogen 10 mg/dL (9-16); Calcium 9.7 mg/dL (8.4-10.2); Carbon Dioxide 32 mmol/L (22-29); Chloride 95 mmol/L (96-108); Cholesterol 327 mg/dL (<200); Estimated Glomerular Filt Rate > 60; HDL Cholesterol 38 mg/dL (>40); Potassium 4.3 mmol/L (3.3-5.1); Sodium 135 mmol/L (135-145); Total Protein 7.6 g/dL (6.5-8.0); Triglycerides 385 mg/dL (<150)
[2025-06-07 05:54] LABS: Testosterone-Albumin 4.9 g/dL (3.6-5.1); Testosterone-Bioavailable 42.4 ng/dL (110.0-575.0); Testosterone-Free 19.0 pg/mL (46.0-224.0); Testosterone-SHBG 17 nmol/L (22-77); Testosterone-Total 103 ng/dL (250-1100)
== END 2025-06-02 09:18 | disposition home or self-care (01) ==
LOC: HO.LAB 09:17
PROVIDERS: Visit Provider Student in an Organized Health Care Education/Training Program
DX: F41.8 Other specified anxiety disorders (principal); E29.1 Testicular hypofunction; F19.10 Other psychoactive substance abuse, uncomplicated; I82.409 Acute embolism and thrombosis of unspecified deep veins of unspecified lower extremity; I26.99 Other pulmonary embolism without acute cor pulmonale; E89.0 Postprocedural hypothyroidism; E05.00 Thyrotoxicosis with diffuse goiter without thyrotoxic crisis or storm; E27.40 Unspecified adrenocortical insufficiency; E66.9 Obesity, unspecified; Z13.820 Encounter for screening for osteoporosis; Z13.1 Encounter for screening for diabetes mellitus; Z13.21 Encounter for screening for nutritional disorder
CPT/HCPCS: 36415; 80053; 80061; 81001; 81003; 82306; 83036; 84270; 84402; 84403; 84439; 84443; 85025

== ENCOUNTER → 2025-06-09 09:41 | Outpatient (BNVA) | payer MEDICARE, MEDICAID, SELFPAY | PROVIDERS: Visit Provider Internal Medicine Medical Oncology | DX: E29.1 Testicular hypofunction (principal); E27.40 Unspecified adrenocortical insufficiency; E89.0 Postprocedural hypothyroidism; D35.02 Benign neoplasm of left adrenal gland; E11.65 Type 2 diabetes mellitus with hyperglycemia | CPT/HCPCS: 99212 ==

== ENCOUNTER 2025-06-09 14:39 | Outpatient (AMB) | payer MEDICARE, MEDICAID, SELFPAY ==
[2025-06-09 14:46] VITALS: BP 122/66; PULSE 93; O2SAT 95; BMI 28.3
--- NOTE | 2025-06-09 14:46 | MHC.OFFVIS ---
Vital Signs 06/09/25 14:46 Height 6 ft 6 in Weight 244 lb 11.41 oz BMI 28.3 BP 122/66 Blood Pressure Location Lt brachial Position Sitting Pulse 93 Pulse Source Pulse Oximeter Pulse Oximetry (%) 95 Oxygen Delivery Method Room Air Intake Visit Reasons: adenoma/hypogonadism/discuss IM testoster Intake Note: Patient present today for adenoma/hypogonadism/discuss IM testosterone. Granulating Blender Required: No Accompanied by: Self / Same As Patient Allergies Sulfa (Sulfonamide Antibiotics) Allergy (Intermediate, Verified 06/09/25 14:51) HIVES amoxicillin Allergy (Verified 06/09/25 14:51) Nausea and Vomiting Medication List - Last Reconciled 06/09/25 by Cam Bhakta MD blood sugar diagnostic ([place] Ultra Test strips) As directed check blood sugar two times day blood-glucose meter ([employer] Ultra2 Meter) As directed Check blood sugar two times day buprenorphine-naloxone 8-2 mg 1 film sublingual BID diazepam 10 mg PO BEDTIME PRN enoxaparin (Lovenox) 100 mg See Protocol subcut Q12H 10 days fluticasone propion-salmeterol 250-50 mcg/dose (Wixela Inhub) 1 inh inhalation BID 30 days ipratropium-albuterol 0.5 mg-3 mg(2.5 mg base)/3 mL 3 mL inhalation Q6-8H PRN lancets ([employer] UltraSoft 2 Lancet) As directed check blood two times a day levothyroxine 175 mcg PO DAILY metformin 500 mg PO BID mupirocin 2% (Centany) 1 appl topical TID 14 days needle (disp) 19 G (BD Regular Bevel Llewellyn) As directed for emergency use only to draw hydrocortisone nicotine 1 patch topical DAILY nystatin 100,000 units PO DAILY nystatin 1 appl topical BID prednisone 10 mg PO DAILY PRN syringe with needle (BD Eclipse Luer-Kristie) As directed use to inject hydrocortisone for emergency use testosterone 2 packets transdermal QAM trazodone 75 mg PO BEDTIME PRN Ventolin HFA 90 mcg/actuation (albuterol sulfate) 1 puff inhalation Q4-6H PRN NS warfarin 5 mg See Protocol PO DAILY HPI Comments Details: 59-year-old male coming in today for initial evaluation of postsurgical hypothyroidism with a history of Graves disease status post failed radioactive iodine ablation, with subsequent total thyroidectomy in 2010, 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 The patient last saw Dr. Tang on 12/21/24 He also has a history significant for obesity, DVT/PE , chronic pain due to cervical spondolysis with a history of opioid use, now on Suboxone. He was previously following with [facility] endocrinology, last visit from August 2024. Switching care to us due to insurance coverage changes. Postsurgical hypothyroidism History of Graves disease underwent radioactive iodine ablation which failed and then became hyperthyroid by 2010, subsequently underwent total thyroidectomy in 2010 leading to postsurgical hypothyroidism. He has been on 175 mcg of levothyroxine daily. Is conistent with taking L-T4 every day. No symptoms of hypo or hyperthyroidism. Good adherence inappropriate administration. Noraml TSH, freet4 10/12/24 history of Graves ophthalmopathy He used to follow with Dr. isaac , also had radiation and orbital decompression surgery surgery in the past in 2011, and then more recently in fall he had another surgery for floaters.Has history of cataracts. Denies any diplopia or pressure behind the eye. Per patient he doesnt need any more followup was told that. Adrenal adenoma He has a history of left-sided adrenal adenoma which was being monitored. He underwent resection of a right-sided adrenal adenoma in 2003 measuring 2.4 X 4 cm, with benign histology. Unclear whether any hormonal workup was done prior to the surgery with the Hounsfield units were approximately 13 units? before adrenalectomy. At that time he also had a left-sided adrenal adenoma measuring 1.5 X 2.[address] scan from March 2022 showed stable left adrenal adenoma measuring 1.4 cm with 9 Hounsfield units. Apparently hormonal workup of this per records from prior dope maintenance worker showed that hormonal workup for metanephrines and aldosterone were in normal range in past. He intermittently had slightly elevated plasma metanephrines back in 2015 but otherwise hormonal profile was normal. Urine catecholamine in 2011 was normal. No history of HTN. Denies easy briusing 10/12/24: noraml PMN and PNMN Secondary adrenal insufficiency Mild central adrenal insufficiency thought to be in the setting of suppression from chronic opiate use. He is on prednisone 10 mg twice a day PRN , which she only uses during stressful situations. He is aware of sick day rules, has hydrocortisone actovial l injection. Still did not get medical alert edwarcelet -he required a course of prednisone for 5 days early in December 2024 for respiratory infection. 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 He developed a DVT in 2013 while he was on AndroGel. He developed another DVT after stopping Coumadin and now is on lifelong Coumadin. He also has a history of PE. Currently he is on testosterone 25 mg 1 packet daily. He has prolonged use of Percocet for about 3 years after the neck surgery and then currently of on Suboxone. And has been on it for several years. No history of stroke or heart attack . no lower urinary tract symptoms no family history of prostate cancer . Not denies cigarette use, but passive smoking through girlfriend as I asked him I smell tobacco use in the room He says he had a prostate exam many years ago with a his PCP, we went over prostate cancer screening guidelines, at this time given he does not have any increased risk factors he decided he will discuss further with a his PCP regarding need for prostate exams. No recent fractures, last bone density done in 2018 showed osteopenia of the lumbar spine. Labs 10/12/2024 showed normal hematocrit, normal AST, ALT, low HDL, elevated cholesterol and triglyceride levels, low total testosterone of 119 about 2 hours after gel application, Laboratory Tests 10/12/24 09:34 Hgb 16.2 Hct 46.9 Sodium 139 Potassium 3.8 Creatinine 0.87 Estimated GFR > 60 AST 31 ALT 23 Triglycerides 350 H Cholesterol 284 H LDL Cholesterol, Calc 174 H HDL Cholesterol 40 L TSH 2.35 Free T4 1.12 Total Testosterone 119 L Fr Testosterone Dialys 19.9 L Sex Hormone Bind Glob 19 L DHEA Sulfate 15 L Random Cortisol 13.0 ACTH 17 Plasma Free Metaneph <25 Plasma Free Normeta 93 Plas Total Metaneph 93 PFSH Medical History (Updated 06/02/25 @ 12:47 by PAXTON Cardona) HLD (hyperlipidemia) Osteopenia Graves disease Graves' ophthalmopathy Hypothyroidism, postsurgical Current use of anticoagulant therapy History of DVT (deep vein thrombosis) History of pulmonary embolism Lumbar spondylosis Personal history of nicotine dependence COPD (chronic obstructive pulmonary disease) Adrenal adenoma Adrenal insufficiency Hypogonadism in male Anxiety Depression Obesity Gout Surgical History (Updated 05/20/25 @ 11:27 by Anna Woodard PA-C) History of colonoscopy History of umbilical hernia repair History of surgery on lower extremity History of lumbar fusion History of orbit decompression History of total adrenalectomy History of ventral hernia repair History of sinus surgery History of thyroidectomy History of appendectomy Family History Father Acute CVA (cerebrovascular accident) Diabetes Hypertension Mother Stroke Other Substance abuse Social [facility] Alcohol intake: never Patient Tobacco Use Status: Former Tobacco user Tobacco use type: Cigarette e-Cigarette/Vaping Use: Never Used Second Hand Smoke Exposure: Yes service: No Current occupational status: disabled Cognitive needs: Yes (cane) Hearing needs: No Vision needs: Yes (Reading glasses) Physical Exam Const Other: Thyroid gland is decrease in size weighs about 5 g. Results AMB INR Fingerstick AMB INR Fingerstick Cancelled Last Edit by Debbi Cope RN on 06/09/25 09:49 AMB INR Fingerstick previously reported as 3.7 Debbi Cope 06/09/25 09:49 [employer] CANCELLED wrong result AMB INR Fingerstick AMB INR Fingerstick 2.2 Last Edit by Debbi Cope RN on 06/09/25 09:52 [employer] Assessment & Plan Assessment & Plan (1) Hypothyroidism: Code(s): E03.9 - Hypothyroidism, unspecified Category: Medical Qualifiers: Hypothyroidism type: postoperative Qualified Code(s): E89.0 - Postprocedural hypothyroidism Plan: Patient with postsurgical hypothyroidism with a history of Graves disease status post total thyroidectomy in 2010 after failed radioactive iodine ablation Currently appears euthyroid clinically. 10/12/24: TSH, free t4. He is on levothyroxine 175 mcg daily. TSH is slightly elevated Plan: Increase the levothyroxine to 100 mcg and recheck TSH and free T4 in 6 weeks' time - (2) Hypogonadism in male: Code(s): E29.1 - Testicular hypofunction Category: Medical Plan: Patient is also on testosterone replacement therapy for secondary hypogonadism in the setting of chronic opioid use. He has a history of prior DVT/PE on Coumadin when he was used to be on AndroGel. Subsequently he continues on Coumadin. He has been maintained on testosterone 1% 1 packet daily. He has been using it consistently for the past few months, apparently prior to that her to some inconsistencies due to some GI issues and being busy at home with some family issues. Concern is with previous history of DVT and PE and risk of giving testosterone in terms of subsequent developement of thrombosis. Also increase risk of bleeding with Coumadin and testosterone We will talk to patient about this. I will have him hold the testosterone now and have her we discuss the issue with Dr. Tang in about 3-4 months' time. Incidentally his bone density did not show osteoporosis low bone mass (3) Adrenal insufficiency: Code(s): E27.40 - Unspecified adrenocortical insufficiency Category: Medical Plan: Has a history of mild secondary adrenal insufficiency in the setting of chronic opioid use, currently on Suboxone He is overall doing well, last required a prednisone course beginning of December 2024 for respiratory infection. Labs done prior 10/12/2024 showed robust a.m. cortisol with good ACTH level DHEA-S was on the lower side. He is only on prednisone 10 mg b.i.d. as needed for stress or infection otherwise he is not on regular steroids. He feels he has gained weight over the last 10 or so years some 100 lb. However denies easy bruising, no history of diabetes mellitus. No history of fractures. He is overall doing well . We reviewed sick day rules and that he is supposed to take hydrocortisone 100 mg injection intramuscularly in case of vomiting during infections/stress. Plan: - -has Solu-Cortef prescription -continue prednisone 10 mg twice daily as needed for stress/infection/fever -counseled about getting medical alert edwarcelet (4) Adrenal adenoma: Comment: (Left Adrenal Adenoma being followed - s/p Rt adrenalectomy) Code(s): D35.00 - Benign neoplasm of unspecified adrenal gland Category: Medical Qualifiers: Laterality: left Qualified Code(s): D35.02 - Benign neoplasm of left adrenal gland Plan: Has a history of left-sided adrenal adenoma and also status post resection of a right-sided adrenal adenoma in 2003 measuring 2.4 X 4 over cm with benign pathology. Appears this was done for suspicious nodule, unclear what was the status of the hormonal workup at that point. He has been undergoing monitoring for the left-sided adrenal adenoma which measured 1.5 X [address] scan done at [facility] in March 2022 showed stable left adrenal adenoma. Apparently this has remained stable since 2003. At this time no need to repeat imaging given this last measured stable at 1.4 cm with 9 Hounsfield units. Looks like her lipid rich adenoma. Apparently hormonal workup was also previously done and he intermittently had slightly elevated plasma metanephrine levels back in 2015 but otherwise normal hormonal profile. His urine catecholamines were checked in 2011 and were normal. 10/12/2024: Normal plasma metanephrine and normetanephrine levels.. He otherwise does not have a history of hypertension making primary hyperaldosteronism unlikely (5) Uncontrolled diabetes mellitus with hyperglycemia: Code(s): E11.65 - Type 2 diabetes mellitus with hyperglycemia Category: Medical Plan: I did not address this problem at this visit this is primary doctor is managing this problem. We did discuss the idea of getting a possible referral to endocrinology for new diagnosis we will talk to his primary care provider about this Orders: Orders Thyroid Stimulating Hormone 6 Weeks E89.0 - Postprocedural hypothyroidism Free T4 (Free Thyroxine) 6 Weeks E89.0 - Postprocedural hypothyroidism Medications: New levothyroxine (Synthroid) 200 mcg PO DAILY 30 tabs 5RF hydrocortisone sod succ (PF) (Solu-Cortef Act-O-Vial (PF)) 100 mg (2 mL) IM DAILY 1 ea 0RF Discontinued levothyroxine Discontinued Reason: Doctor's Order 175 mcg PO DAILY 90 tabs 3RF Coding Level of Care Code Est Pt Level 3 (95925) Diagnoses Postoperative hypothyroidism E89.0 Hypothyroidism type: postoperative Hypogonadism in male E29.1 Adrenal insufficiency E27.40 Adenoma of left adrenal gland D35.02 Laterality: left Uncontrolled diabetes mellitus with hyperglycemia E11.65
== END 2025-06-09 15:23 | disposition home or self-care (01) ==
LOC: HO.ENCR 14:40
PROVIDERS: Visit Provider Internal Medicine Endocrinology, Diabetes & Metabolism
DX: E89.0 Postprocedural hypothyroidism (principal); E29.1 Testicular hypofunction; E27.40 Unspecified adrenocortical insufficiency; D35.02 Benign neoplasm of left adrenal gland; E11.65 Type 2 diabetes mellitus with hyperglycemia
CPT/HCPCS: 99213

== ENCOUNTER 2025-06-18 11:02 | Outpatient (REF) | payer MEDICARE, MEDICAID, SELFPAY ==
--- NOTE | ~2025-06-18 | XR_ITS ---
CLINICAL HISTORY: J44.9 - Chronic obstructive pulmonary disease, unspecified --- Additional Notes or Special Instructions: cough and wheezing for 4 weekspna r o 2 view chest x-ray Comparison: Chest x-ray from 09/12/2022 Findings: Mild right infrahilar opacities are nonspecific and may reflect mild atelectasis/pneumonitis. No lobar consolidation, pneumothorax, or pleural effusion. Mild emphysematous changes suggested by radiographs. Imaged mediastinum and imaged osseous structures appear unchanged. IMPRESSION: Mild right infrahilar atelectasis/pneumonitis. No lobar consolidation at this time. This document has been electronically signed by: Baltazar Nur MD on 06/18/2025 12:51:18
== END 2025-06-18 11:03 | disposition home or self-care (01) ==
LOC: HO.HMGCX 11:02
PROVIDERS: Visit Provider Nurse Practitioner Family
DX: J44.89 Other specified chronic obstructive pulmonary disease (principal); E11.65 Type 2 diabetes mellitus with hyperglycemia; J18.9 Pneumonia, unspecified organism; Z79.84 Long term (current) use of oral hypoglycemic drugs; Z87.891 Personal history of nicotine dependence
CPT/HCPCS: 71046; 99212

== ENCOUNTER 2025-06-18 11:02 | Outpatient (AMB) | payer MEDICARE, MEDICAID, SELFPAY ==
[2025-06-18 11:11] VITALS: BP 120/70; PULSE 88; RESP 16; TEMP 36.4; O2SAT 94; BMI 27.8
--- NOTE | 2025-06-18 11:11 | MHC.OFFWIV ---
Intake Vital Signs 06/18/25 11:11 Height 6 ft 6 in Weight 241 lb BMI 27.8 BP 120/70 Blood Pressure Location Lt brachial Position Sitting Respiration 16 Pulse 88 Pulse Source Pulse Oximeter Temp 97.5 F Temp Source Oral Pulse Oximetry (%) 94 Oxygen Delivery Method Room Air Intake Visit Reasons: EP Possible infection in chest Intake Note: Pt is here today c/o chest congestion and cough x2wks Patient Tobacco Use Status: Former Tobacco user Allergies Sulfa (Sulfonamide Antibiotics) Allergy (Intermediate, Verified 06/18/25 11:26) HIVES amoxicillin Allergy (Verified 06/18/25 11:26) Nausea and Vomiting HPI HPI Comments History of Present Illness Details [facility] Chief Complaint The patient presents with complaints of cough and chest congestion for approximately 3-4 weeks. History The patient is a 59 year old male presenting with cough and chest congestion. Acute Bronchitis: - The patient reports a cough that began approximately 3.5 to 4 weeks ago, which started as mild congestion and has progressed. - He describes a productive cough with a nasty taste. - Associated symptoms include a runny nose and recent onset of hoarseness. - He denies fever, chills, and sore throat. - He has been using inhalers (wixela, Duoneb, Ventolin) with very little relief. - The patient quit smoking over a year ago but reports significant secondhand smoke exposure from his girlfriend who smokes cigarettes and marijuana. Type 2 Diabetes Mellitus: - The patient was recently told by his primary care physician that he is diabetic based on recent lab work and was prescribed metformin. - He reports self-monitoring his blood glucose with finger pricks, noting results as high as 400, though one reading was 90. - He follows with an cyber security consultant who is on maternity leave and recently saw a new provider in that practice. - He has an upcoming appointment with his cyber security consultant on the . Past Medical History - Type 2 Diabetes Mellitus, recently diagnosed. - History of tobacco use, quit over a year ago. - Prescribed inhalers - COPD - Subaxone use Review of Systems - Constitutional: Denies fever and chills. - HEENT: Reports a runny nose and hoarseness. Denies sore throat and earache. Reports a nasty taste in his mouth. - Respiratory: Reports a productive cough and chest congestion for about 3-4 weeks. Physical Exam General: Awake, alert. No apparent distress, very strong tobacco odor Eyes: Sclera and conjunctiva clear bilaterally Nose: Nares clear drainage, turbinates within normal limits, no sinus tenderness with palpation bilaterally Ears: Tympanic membranes intact and clear bilaterally Throat: Dry mucosa membrane, pharynx within normal limits Cardiovascular: Regular rate and rhythm Respiratory: Coarse ins/exp wheeze throughout, speaking in full sentences, occasional cough w/o distress. Results -Pending Medical Decision Making The patient is a 59-year-old male with a history of tobacco use, COPD with ongoing significant secondhand smoke exposure, presenting with a productive cough of approximately four weeks duration. The symptoms have not responded well to his current inhaler therapy. Given the chronicity of the cough and his exposure history, a chest x-ray is warranted to rule out an underlying pathology such as pneumonia. The treatment plan is pending the results of the imaging, after which a decision on antibiotics or other interventions will be made and communicated to the patient. The patient's recent diagnosis of diabetes with reported hyperglycemia is noted; he has appropriate specialist follow-up scheduled. The hyperglycemia would pose complications with prescribing prednisone. Plan Message sent via portal: Hi, your x-ray shows something called pneumonitis. This to be cause from exposure to offending agents such as smoke. While you were in the office today there was a diffuse smell of smoke which tells me that your exposure is excessive. I would strongly recommend avoiding exposure to secondhand smoke. If you yourself are smoking, I would strongly recommend complete cessation. The treatment will be to continue inhalers, remove the offending agents med to follow up with your primary care provide, who may recommend referral to Community Development Technician. Given her uncontrolled diabetes, providing any steroids would further worsen your diabetes control & is not recommended. Soni 1. Acute Bronchitis - A chest x-ray has been ordered to evaluate for underlying pathology, including pneumonia. - The patient was counseled that secondhand smoke exposure is detrimental to his health. - A detailed treatment plan, potentially including antibiotics, will be formulated after reviewing the x-ray results. - Results and plan will be communicated to the patient via the online portal by the end of the day. - If a prescription is required, [facility]. 2. Type 2 Diabetes Mellitus - The patient reports a recent diagnosis and is under the care of a primary care physician and an cyber security consultant. - No changes to his diabetes management were made at this visit. - He will continue to follow up with his cyber security consultant as scheduled on the . Patient Instructions - Go to the radiology department for a chest x-ray today. - After the x-ray is complete, you may leave. - Check the patient portal later today, as I will send you a message with your x-ray results and treatment plan. - If you need a prescription, it will be sent to [facility] pharmacy. - It is important to understand that being exposed to secondhand smoke is as harmful to your health as smoking yourself. Consent Patient was informed and verbally consented to the use of an ambient scribe for clinic note documentation during this visit. Total time spent caring for the patient today was 30 minutes. This includes time spent before the visit reviewing the chart, time spent during the visit, and time spent after the visit on documentation, reviewing laboratory results, diagnostic imaging, medications, performing a medically necessary evaluation, counseling on diagnoses, care coordination, ordering appropriate tests, ordering appropriate medications, review of tests performed by other providers, reporting test results with the patient, communication with other healthcare providers. [facility] Medical History (Updated 06/18/25 @ 13:01 by Soni Asif, [facility]) Adrenal adenoma Adrenal insufficiency Anxiety COPD (chronic obstructive pulmonary disease) Current use of anticoagulant therapy Depression Gout Graves disease Graves' ophthalmopathy History of DVT (deep vein thrombosis) History of pulmonary embolism HLD (hyperlipidemia) Hypogonadism in male Hypothyroidism, postsurgical Lumbar spondylosis Obesity Osteopenia Personal history of nicotine dependence Surgical History History of colonoscopy History of umbilical hernia repair History of surgery on lower extremity History of lumbar fusion History of orbit decompression History of total adrenalectomy History of ventral hernia repair History of sinus surgery History of thyroidectomy History of appendectomy Family History Father Acute CVA (cerebrovascular accident) Diabetes Hypertension Mother Stroke Other Substance abuse Social [facility] Alcohol intake: never Patient Tobacco Use Status: Former Tobacco user Tobacco use type: Cigarette e-Cigarette/Vaping Use: Never Used Second Hand Smoke Exposure: Yes service: No Current occupational status: disabled Cognitive needs: Yes (cane) Hearing needs: No Vision needs: Yes (Reading glasses) Physical Exam Vital Signs: Last Vital Signs Temp 97.5 F 06/18/25 11:11 Pulse 88 06/18/25 11:11 Resp 16 06/18/25 11:11 BP 120/70 06/18/25 11:11 Pulse Ox 94 06/18/25 11:11 Oxygen Delivery Method Room Air 06/18/25 11:11 BMI result Body Mass Index 27.8 Results Reviewed Results Reviewed: 2 view chest x-ray Comparison: Chest x-ray from 09/12/2022 Findings: Mild right infrahilar opacities are nonspecific and may reflect mild atelectasis/pneumonitis. No lobar consolidation, pneumothorax, or pleural effusion. Mild emphysematous changes suggested by radiographs. Imaged mediastinum and imaged osseous structures appear unchanged. IMPRESSION: Mild right infrahilar atelectasis/pneumonitis. No lobar consolidation at this time. This document has been electronically signed by: Baltazar Nur MD on 06/18/2025 12:51:18 Assessment & Plan Assessment & Plan (1) COPD (chronic obstructive pulmonary disease): Comment: PATIENT HAS SYMPTOMS OF COUGH AND DYSPNEA ON EXERTION WHICH ARE MORE PROMINENT FOR THE PAST YEAR BUT I GUESS HAVE BEEN FOR LONGER TIME. WITH A HISTORY OF SMOKING FOR ALMOST 43 YEARS I THINK HE HAS CHRONIC OBSTRUCTIVE PULMONARY DISEASE. Code(s): J44.9 - Chronic obstructive pulmonary disease, unspecified Qualifiers: COPD type: chronic bronchitis (2) Personal history of nicotine dependence: Comment: 40pyh - quit 1 yr ago Code(s): Z87.891 - Personal history of nicotine dependence (3) Uncontrolled diabetes mellitus with hyperglycemia: Code(s): E11.65 - Type 2 diabetes mellitus with hyperglycemia (4) Pneumonitis: Code(s): J18.9 - Pneumonia, unspecified organism Plan . Orders: Orders XR chest 2V Today J44.9 - Chronic obstructive pulmonary disease, unspecified, Z87.891 - Personal history of nicotine dependence Coding Level of Care Code Est Pt Level 4 (32924) Diagnoses COPD (chronic obstructive pulmonary disease) J44.9 COPD type: chronic bronchitis Personal history of nicotine dependence Z87.891 Uncontrolled diabetes mellitus with hyperglycemia E11.65 Pneumonitis J18.9
== END 2025-06-18 11:49 | disposition home or self-care (01) ==
PROVIDERS: Visit Provider Nurse Practitioner Family
DX: J44.9 Chronic obstructive pulmonary disease, unspecified (principal); Z87.891 Personal history of nicotine dependence; E11.65 Type 2 diabetes mellitus with hyperglycemia; J18.9 Pneumonia, unspecified organism

== ENCOUNTER → 2025-06-18 11:45 | Outpatient (BNV) | payer MEDICARE, MEDICAID, SELFPAY | PROVIDERS: Visit Provider Radiology Neuroradiology | DX: J44.9 Chronic obstructive pulmonary disease, unspecified (principal) | CPT/HCPCS: 71046 ==

== ENCOUNTER → 2025-06-23 08:48 | Outpatient (BNVA) | payer MEDICARE, MEDICAID, SELFPAY | PROVIDERS: Visit Provider Internal Medicine Medical Oncology | DX: E11.65 Type 2 diabetes mellitus with hyperglycemia (principal); I26.99 Other pulmonary embolism without acute cor pulmonale; Z51.81 Encounter for therapeutic drug level monitoring; Z79.01 Long term (current) use of anticoagulants | CPT/HCPCS: 82947; 85610; 99212 ==

== ENCOUNTER 2025-06-23 15:05 | Outpatient (AMB) | payer MEDICARE, MEDICAID, SELFPAY ==
[2025-06-23 15:07] VITALS: BP 116/64; PULSE 73; O2SAT 94; BMI 27.9
--- NOTE | 2025-06-23 15:07 | A.OFFVIS_ITS ---
Vital Signs 06/23/25 15:07 Height 6 ft 6 in Weight 241 lb 2.971 oz BMI 27.9 BP 116/64 Blood Pressure Location Lt brachial Position Sitting Pulse 73 Pulse Source Pulse Oximeter Pulse Oximetry (%) 94 Oxygen Delivery Method Room Air Intake Visit Reasons: DM Intake Note: NEW Patient presents today to establish treatment for Type 2 Diabetes Mellitus: Last Diabetic eye exam was on: Last seen within the year Last Podiatry exam was on: Patient does not see a Commissioning Editor Most recent HbA1c: 12.7%, 06/02/2025 Random Glucose: 300 mg/dL Refrigerator Crater Required: No Accompanied by: Self / Same As Patient Allergies Sulfa (Sulfonamide Antibiotics) Allergy (Intermediate, Verified 06/24/25 11:56) HIVES amoxicillin Allergy (Verified 06/24/25 11:56) Nausea and Vomiting HPI Comments Details: The patient is a 59-year-old male presenting for diabetic consultation Medical history: hypothyroid, copd, secondary adrenal insufficiency, psychosocial stressors Diagnosed May 2025 with an A1C of 12.7%. Was prediabetic for a few years Current medications Metformin 500mg twice daily-started on month ago Accuchek-checking BG randomnly. Blood glucose 200s-500. One 90. Patient has tried to cut back on soda with diagnosis Endorses some polyuria, polydipsia Father had diabetes Complications Cataracts, floaters and a retinal tear, laser therapy. Reports UTD HLD-LDL 212-not on statin currently No prior CDE ROS CONSTITUTIONAL: Denies weight loss, fever and chills. HEENT: Denies changes in vision and hearing. RESPIRATORY: Denies SOB and cough. CV: Denies palpitations and CP GI: Denies abdominal pain, nausea, vomiting and diarrhea. : Denies dysuria and urinary frequency. MSK: Denies new myalgia and joint pain. SKIN: Denies rash and pruritus. NEUROLOGICAL: Denies headache PSYCHIATRIC: Denies recent changes in mood. PHYSICAL EXAM: GENERAL: Alert and oriented x 3. NAD EYES: EOMI. Anicteric. HENT: Moist mucous membranes. No scleral icterus. No cervical lymphadenopathy. LUNGS: Clear to auscultation bilaterally. CARDIOVASCULAR: Regular rate and rhythm. No murmur. No JVD. ABDOMEN: Soft, non-tender +bs EXTREMITIES: No edema. Non-tender. SKIN: No rashes or lesions. Warm. NEUROLOGIC: No focal neurological deficits. CN II-XII grossly intact PSYCHIATRIC: Cooperative. Appropriate mood and affect [facility] Medical History (Updated 06/27/25 @ 06:34 by Anuradha Ramos MD) HLD (hyperlipidemia) Osteopenia Graves disease Graves' ophthalmopathy Hypothyroidism, postsurgical Current use of anticoagulant therapy History of DVT (deep vein thrombosis) History of pulmonary embolism Lumbar spondylosis Personal history of nicotine dependence COPD (chronic obstructive pulmonary disease) Adrenal adenoma Adrenal insufficiency Hypogonadism in male Anxiety Depression Obesity Gout Surgical History History of colonoscopy History of umbilical hernia repair History of surgery on lower extremity History of lumbar fusion History of orbit decompression History of total adrenalectomy History of ventral hernia repair History of sinus surgery History of thyroidectomy History of appendectomy Family History Father Acute CVA (cerebrovascular accident) Diabetes Hypertension Mother Stroke Other Substance abuse Social History Housing: Condominium Alcohol intake: never Patient Tobacco Use Status: Former Tobacco user Tobacco use type: Cigarette e-Cigarette/Vaping Use: Never Used Second Hand Smoke Exposure: Yes service: No Current occupational status: disabled Cognitive needs: Yes (cane) Hearing needs: No Vision needs: Yes (Reading glasses) Physical Exam Vital Signs: Last Vital Signs Pulse 73 06/23/25 15:07 BP 116/64 06/23/25 15:07 Pulse Ox 94 06/23/25 15:07 Oxygen Delivery Method Room Air 06/23/25 15:07 BMI result Body Mass Index 27.9 Results AMB INR Fingerstick AMB INR Fingerstick 2.1 Last Edit by Kirstin Ocasio RN on 06/23/25 09:01 home meter Results Reviewed Results Reviewed: Laboratory Last Values Glucose (Clinic) 300 mg/dL (60-115) H 06/23/25 15:19 Assessment & Plan Assessment & Plan (1) Uncontrolled diabetes mellitus with hyperglycemia: Code(s): E11.65 - Type 2 diabetes mellitus with hyperglycemia Category: Medical Qualifiers: Diabetes mellitus type: type 2 Qualified Code(s): E11.65 - Type 2 diabetes mellitus with hyperglycemia Plan Uncontrolled diabetes, new diagnosis Discussed diabetes, goal glucose control, medication options, lifestyle changes Patient will increase metformin to 1000mg twice daily. He will start mounjaro 2.5mg weekly He will meet with CDE, nutrition Discussed hypoglycemia and treatment Patient would like to see urology to discuss testosterone replacement options- referral placed Close follow up-one month for BG review or sooner as needed Orders: Referrals Diabetes Education Referral Anuradha Ramos MD E11.65 - Type 2 diabetes mellitus with hyperglycemia Nutrition/Dietitian Referral Anuradha Ramos MD E11.65 - Type 2 diabetes mellitus with hyperglycemia Urology Referral Anuradha Ramos MD E29.1 - Testicular hypofunction Medications: New metformin ER (Glucophage XR) 1,000 mg (2 x 500 mg) PO BID 180 tabs 3RF Anuradha Ramos MD Discontinued metformin Discontinued Reason: Doctor's Order 500 mg PO BID 60 tabs 3RF E11.65 - Type 2 diabetes mellitus with hyperglycemia On Hold Mounjaro (tirzepatide) for 4 weeks Hold Comment: waiting for autherization 2.5 mg (0.5 mL) subcut QWEEK 2 mL 1RF NS Kirstin Ocasio RN E11.65 - Type 2 diabetes mellitus with hyperglycemia Coding Level of Care Code Est Pt Level 4 (10703) Diagnoses Uncontrolled type 2 diabetes mellitus with hyperglycemia E11.65 Diabetes mellitus type: type 2
[2025-06-23 15:23] LABS: Glucose, Whole Blood 300 mg/dL (60-115)
--- OUTSIDE RECORDS SUMMARY | 2025-06-23 20:27 | XMS_ITS | Clinical Summary ---
Author Organization [facility] ity Address [address] [place] [address] Care Team Providers Care Blood Donor Recruiter Name Role Phone Obi Ramon MD Primary Care Provider [phone] Social History Tobacco Use Types Packs/Day Years [...] Depression Screening 08/04/2024 COVID-19 Vaccine (1 - 2024-2 6 season) 2025 Influenza Vaccine (#1) 2025 RSV [...] age to complete this topic Care Teams Blood Donor Recruiter Relationship Specialty Start Date End Date Obi Ramon MD [address] [place] [address] [address] [place] [address] PCP - General Internal Medicine 06/21/20
== END 2025-06-23 16:10 | disposition home or self-care (01) ==
LOC: HO.ENCR 15:06
PROVIDERS: Visit Provider Internal Medicine
DX: E11.65 Type 2 diabetes mellitus with hyperglycemia (principal)

== ENCOUNTER 2025-07-12 13:03 | Outpatient (AMB) | payer MEDICARE, MEDICAID, SELFPAY ==
--- NOTE | 2025-07-12 14:21 | MHC.AMDMED ---
Intake Intake Visit Reasons: DM Risk And Compliance Analytics Director Required: No Accompanied by: Self / Same As Patient Allergies Sulfa (Sulfonamide Antibiotics) Allergy (Intermediate, Verified 07/07/25 07:07) HIVES amoxicillin Allergy (Verified 07/07/25 07:07) Nausea and Vomiting HPI Comprehensive Diabetes Asmnt Most Recent Diabetes Results: Cholesterol, (<200) 327 mg/dL H 06/02/25 HDL Cholesterol, (>40) 38 mg/dL L 06/02/25 Triglycerides, (<150) 385 mg/dL H 06/02/25 Creatinine, (0.5-1.4) 0.97 mg/dL 06/02/25 BUN, (9-16) 10 mg/dL 06/02/25 Sodium, (135-145) 135 mmol/L 06/02/25 Potassium, (3.3-5.1) 4.3 mmol/L 06/02/25 Chloride, (96-108) 95 mmol/L L 06/02/25 Carbon Dioxide, (22-29) 32 mmol/L H 06/02/25 Calcium, (8.4-10.2) 9.7 mg/dL Δ 06/02/25 AST, (5-37) 20 U/L 06/02/25 ALT, (0-40) 20 U/L 06/02/25 Total Protein, (6.5-8.0) 7.6 g/dL 06/02/25 Albumin, (3.6-5.1) 4.9 g/dL 06/02/25 [facility] Medical History (Updated 06/27/25 @ 06:34 by Anuradha Ramos MD) HLD (hyperlipidemia) Osteopenia Graves disease Graves' ophthalmopathy Hypothyroidism, postsurgical Current use of anticoagulant therapy History of DVT (deep vein thrombosis) History of pulmonary embolism Lumbar spondylosis Personal history of nicotine dependence COPD (chronic obstructive pulmonary disease) Adrenal adenoma Adrenal insufficiency Hypogonadism in male Anxiety Depression Obesity Gout Surgical History History of colonoscopy History of umbilical hernia repair History of surgery on lower extremity History of lumbar fusion History of orbit decompression History of total adrenalectomy History of ventral hernia repair History of sinus surgery History of thyroidectomy History of appendectomy Family History Father Acute CVA (cerebrovascular accident) Diabetes Hypertension Mother Stroke Other Substance abuse Social History Housing: Condominium Alcohol intake: never Patient Tobacco Use Status: Former Tobacco user Tobacco use type: Cigarette e-Cigarette/Vaping Use: Never Used Second Hand Smoke Exposure: Yes service: No Current occupational status: disabled Cognitive needs: Yes (cane) Hearing needs: No Vision needs: Yes (Reading glasses) Assessment & Plan Assessment & Plan (1) Diabetes mellitus: Code(s): E11.9 - Type 2 diabetes mellitus without complications Plan: Diabetes self-management education and support participation record Assessment/scale: 1= needs instructed? 2= needs review? 3= comprehend keep point? 4= demonstrates understanding/ competent? NC= Not Covered Topics Learning Objective: Initial visit Initial or post srvc Initial or post srvc Initial or post srvc Initial or post srvc Initial or post srvc Post srvc Comments Pre Edu-assessment/plan Outcome or reassess Outcome or reassess Outcome or reassess Outcome or reassess Outcome or reassess Outcome or reassess Diabetes pathophysiology Healthy eating Being active Taking medication Monitoring glucose Acute complication Chronic complicated Lifestyle and healthy coping Diabetes distress in support ?Diabetes pathophysiology: ?Defined diabetes med identify own type of diabetes; list 3 options for treating diabetes Healthy eating: ?Described effect of type, amount and ?timing of food on blood glucose; list 3 methods for planning meal Being active: ?State effect of exercise on blood glucose level Taking medication: ?State effect of diabetes medications on diabetes; name diabetes medications taking, action and side effects Monitoring glucose: ?Identify recommended blood glucose targets and personal target Acute complication: ?List symptoms and treatment of hyper and hypoglycemia, DKA, sick day guidelines and guidelines for severe weather or situations of crisis and diabetes supply manage Chronic complication: ?To find the relationship of blood glucose levels to long-term complications of diabetes in screening and preventative measures Lifestyle and healthy coping: ?Described lifestyle and healthy coping strategies to rule out diabetes self-management Diabetes to stress and support: ?Recognize Diabetes to stress and be able to identified support options Learning objectives: The patient was provided with verbal and written education on the following topics as outlined below. The patient met all learning objectives and was able to verbalize understanding and provide teach back of education topics discussed . The patient was provided with the opportunity to ask questions and all questions were answered. Patient Assessment Assess patient education level/literacy/barriers, patient was diagnosed with diabetes on 06/02/2025 with A1c of 12.7% Patient has history of prediabetes He is currently taking metformin 1000 mg b.i.d., however stated in his visit that he has concerns about metformin Mounjaro 2.5 mg weekly, this is his 3rd week reports he has had some diarrhea but believes it might be related to metformin Instructed patient if he is concerned about side effects from Mounjaro or metformin he should discuss with provider at next visit Patient questions/concerns What is Diabetes? Pathophysiology How the body produces and uses insulin Identify type of DM Risk factors Signs of Diabetes Brief overview of Diabetes Management Monitoring blood sugar Following a meal plan Regular exercise Maintaining a healthy weight Taking medication as needed Members of the care team (PCP, RN, MA, RD, CDE, middle school science teacher) Blood glucose monitoring When/how often to test Target blood sugar ranges Introduction to Nutrition Importance of healthy diet in managing DM Diet is personalized to individual preference Review patient?s regular diet/food preferences Who prepares meals/does food shopping/ Dining out?/ Barriers? How diet effects glucose Eating 3 balanced meals a day with small, healthy snacks between meals Review food groups Carbohydrates: What is a carbohydrate/Which food/food groups are considered carbohydrates Effect of carbohydrates on blood glucose Portion sizes Reading food labels Basic carb counting (if applicable per nursing assessment) Plate method Meal planning Recommendations: Follow plate method, consistent carbs and read nutritional labels. Smart Goal: Patient will identify foods in current meal plan that contain carbohydrates Educational Materials: The patient was provided with the following written educational materials: Planning Healthy Meals Handout Patient Response to instructions: Comprehension of Instructions: Fair Readiness to make changes: Contemplation How confident they feel about making changes: Positive Portions of this note were created using voice recognition software, please excuse any words or phrases that may have been misinterpreted. Patient Instructions: Include regular daily activity. ADA recommends 30 minutes of exercise 5 days a week. Weight loss talk to PCP or Yard Attendant before starting new plan. Test blood sugar as directed; Fasting and 2hpp largest meal. Watch trends in results. Utilize results and to assess how food, physical activity and medications affect blood sugar results. Bring glucometer or CGM to next visit. Be knowledgeable about diabetes medication, its action, side effects, efficacy, toxicity, prescribed dosage, appropriate timing and frequency of administration, effect of missed and delayed doses and instructions for storage, travel and safety. Problem solving techniques to monitor hypo/hyperglycemia episodes and treatments. Reduce risk reduction behaviors, smoking cessation, regular eye, foot and dental examinations. Coding Level of Care Code Est Pt Level 1 (36396) Diagnoses Diabetes mellitus E11.9
== END 2025-07-12 14:25 | disposition home or self-care (01) ==
LOC: HO.ENCR 13:04
PROVIDERS: Visit Provider Registered Nurse Diabetes Educator
DX: E11.9 Type 2 diabetes mellitus without complications (principal)

== ENCOUNTER → 2025-07-12 13:03 | Outpatient (BNVA) | payer MEDICARE, MEDICAID, SELFPAY | PROVIDERS: Visit Provider Registered Nurse Diabetes Educator | DX: E11.9 Type 2 diabetes mellitus without complications (principal); Z79.4 Long term (current) use of insulin | CPT/HCPCS: 99211 ==

== ENCOUNTER 2025-07-21 10:29 | Outpatient (AMB) | payer MEDICARE, MEDICAID, SELFPAY ==
--- NOTE | 2025-07-21 10:54 | MHC.PC.OV ---
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: No Accompanied by: Self / Same As Patient Allergies Sulfa (Sulfonamide Antibiotics) Allergy (Intermediate, Verified 07/24/25 01:02) HIVES amoxicillin Allergy (Verified 07/24/25 01:02) Nausea and Vomiting Medication List - Last Reconciled 07/21/25 by PAXTON Cardona blood sugar diagnostic (Datran Media Ultra Test strips) As directed check blood sugar two times day blood-glucose meter ([employer] Ultra2 Meter) As directed Check blood sugar two times day buprenorphine-naloxone 8-2 mg 1 film sublingual BID diazepam 10 mg PO BEDTIME PRN fluticasone propion-salmeterol 250-50 mcg/dose (Wixela Inhub) 1 inh inhalation BID 30 days hydrocortisone sod succ (PF) (Solu-Cortef Act-O-Vial (PF)) 100 mg (2 mL) IM DAILY ipratropium-albuterol 0.5 mg-3 mg(2.5 mg base)/3 mL 3 mL inhalation Q6-8H PRN lancets (Knowledge Delivery Systemsuch UltraSoft 2 Lancet) As directed check blood two times a day lancets (Accu-Chek Softclix Lancets) As directed levothyroxine (Synthroid) 200 mcg PO DAILY metformin ER (Glucophage XR) 1,000 mg (2 x 500 mg) PO BID Mounjaro (tirzepatide) 2.5 mg (0.5 mL) subcut QWEEK NS mupirocin 2% (Centany) 1 appl topical TID 14 days needle (disp) 19 G (BD Regular Bevel [place]) As directed for emergency use only to draw hydrocortisone nicotine 1 patch topical DAILY prednisone 10 mg PO BID syringe with needle (BD Eclipse Luer-Kristie) As directed use to inject hydrocortisone for emergency use testosterone 2 packets transdermal QAM trazodone 75 mg PO BEDTIME PRN Ventolin HFA 90 mcg/actuation (albuterol sulfate) 1 puff inhalation Q4-6H PRN NS warfarin 5 mg See Protocol PO DAILY Tobacco use date assessed: 07/21/25 Dental Screening Dental Screen Date: 07/21/25 Did you have a dental visit in the last 12 months?: No Did you have a dental problem in the last 6 months where you did not have access to dental care?: No Was dental information given to patient?: No HPI 3 Months HPI Details The patient is 59 years old presenting for htn, DM, COPD, dvt, hypoponadism in male Patient reports that he has been concerned about being diabetic and have made some significant changes in his diet Reports that he has been coughing even though he stopped smoking He states that he has been compliant with his inhalers and his breathing has been fine but sometimes coughs up green looking mucus The patient reports that otherwise he is doing okay, he lost some weight and he is excited about that He denies chest pain, shortness of breath, heart palpitation or dizziness Denies abdominal pain or change in bowel habits Denies urinary symptoms PFSH Medical History HLD (hyperlipidemia) Osteopenia Graves disease Graves' ophthalmopathy Hypothyroidism, postsurgical Current use of anticoagulant therapy History of DVT (deep vein thrombosis) History of pulmonary embolism Lumbar spondylosis Personal history of nicotine dependence COPD (chronic obstructive pulmonary disease) Adrenal adenoma Adrenal insufficiency Hypogonadism in male Anxiety Depression Obesity Gout Surgical History History of colonoscopy History of umbilical hernia repair History of surgery on lower extremity History of lumbar fusion History of orbit decompression History of total adrenalectomy History of ventral hernia repair History of sinus surgery History of thyroidectomy History of appendectomy Family History Father Acute CVA (cerebrovascular accident) Diabetes Hypertension Mother Stroke Other Substance abuse Social History Housing: Condominium Alcohol intake: never Patient Tobacco Use Status: Former Tobacco user Tobacco use type: Cigarette e-Cigarette/Vaping Use: Never Used Second Hand Smoke Exposure: Yes service: No Current occupational status: disabled Cognitive needs: Yes (cane) Hearing needs: No Vision needs: Yes (Reading glasses) Questionnaire Thrive Questionnaire Date Thrive assessed: 07/21/25 I am a: Patient What is your living situation today?: I have a steady place to live Within the past 12 months, did the food you bought not last and you didn't have the money to get more?: Often true Within the past 12 months, did you worry whether your food would run out before you got money to buy more?: Sometimes True Do you have trouble paying for medicines?: I choose not to answer this question Do you have trouble getting transportation to medical appointments?: No Do you have trouble paying your heating and electricity bill?: I choose not to answer this question Do you have trouble taking care of your child, family member or friend?: No Do you have trouble with day-to-day activities such as bathing, preparing meals, shopping, managing finances, etc.?: No Are you currently unemployed and looking for a job?: I choose not to answer this question Are you interested in more education?: No Please select the resources that you would like help with: None Currently or been in a relationship where the following occur: No concerns reported THRIVE Score: 2 MARIELENA-7 AMB Questionnaire MARIELENA-7 Date MARIELENA - 7 assessed: 01/19/25 Source: Developed by Drs. Cam Sandy, Julia James, Anton Perez and colleagues, with an educational molina from [email or web address]. Review of Systems Const Denies headache(s) Eyes Denies loss of vision ENT Denies vertigo, Denies dizziness, Denies headache(s), Denies sore throat and Reports other (Dry lips) Card Denies chest pain, Denies leg edema and Denies lightheadedness Resp Reports cough (Occasional), Denies hemoptysis and Denies wheezing GI Denies abdominal pain, Denies melena, Denies constipation, Denies diarrhea and Denies vomiting Denies dysuria, Denies urinary frequency and Denies urinary urgency Musc Denies arthralgias, Denies joint swelling, Denies numbness and Denies tingling Skin/Breast Reports sores (cracks at the corners of mouth) Neuro Denies Abnormal speech present, Denies behavioral changes, Denies vertigo, Denies dizziness, Denies headache(s), Denies loss of vision, Denies memory loss, Denies numbness and Denies tingling Psych Denies anxiety, Denies behavioral changes, Denies depression, Denies memory loss and Denies panic attacks Fer/Lymph Denies easy bleeding and Denies easy bruising Aller/Immun Denies wheezing Physical exam (Primary Care) Vital Signs: Last Vital Signs Pulse 95 07/21/25 10:55 Resp 18 07/21/25 10:55 BP 124/72 07/21/25 10:55 Pulse Ox 95 07/21/25 10:55 Oxygen Delivery Method Room Air 07/21/25 10:55 BMI result Body Mass Index 26.4 Tobacco/Smoking Status: Tobacco use Status Tobacco use date assessed 07/21/25 07/21/25 10:57 Patient Tobacco Use Status Former Tobacco user 07/21/25 10:57 Tobacco use type Cigarette 07/21/25 10:57 e-Cigarette/Vaping Use Never Used 07/21/25 10:57 Thrive Assessment: Date of Thrive Assessment Date Thrive assessed 07/21/25 07/21/25 10:57 Currently or been in a relationship where the following occur: No concerns reported Const General: healthy appearing, no acute distress, alert and awake Nutritional Appearance: well nourished Orientation/consciousness: oriented to person, oriented to place and oriented to time HENMT Ears: TM's normal bilaterally General nose exam: Normal nasal mucous membranes and turbinates present Mouth: lip abnormal (cracks at the corners of mouth consistent with angular cheilitis) Eyes Conjunctivae: conjunctivae normal Sclerae: sclerae normal Pupils: Equal, round and reactive pupils present Neck Neck: Yes no lymphadenopathy and Yes no JVD Thyroid: Thyroid normal Carotids: no bruits Resp Effort & Inspection: normal respiratory effort and not tachypneic Auscultation: no crackles, no rales, no rhonchi and no wheezes Cardio Rate: regular rate Rhythm: regular rhythm Heart sounds: no murmurs and normal S1 and S2 GI Palpation (GI): Soft to palpation, nontender, no hepatomegaly and no splenomegaly Auscultation: normal bowel sounds General: Yes no CVA tenderness Back/Spine/Pelvis Back: no CVA tenderness Skin General skin exam: no rashes or lesions noted and dry skin Neuro General: oriented to person, oriented to place and oriented to time Cranial nerves: Yes Equal, round and reactive pupils present Speech: No Abnormal speech present Gait exam (Neuro): Normal gait present Motor exam (neuro): no tremor noted Extrem Right upper extremity: full ROM Left upper extremity: full ROM Right lower extremity: full ROM; no edema Left lower extremity: full ROM; no edema Psych Mental Status: mental status grossly normal Speech and movement: Normal speech and movement present Affect: normal affect Attitude: cooperative Thought process: Normal thought process present Results AMB INR Fingerstick AMB INR Fingerstick 2.8 Last Edit by Kirstin Ocasio RN on 07/21/25 11:23 manual entry Results Reviewed Results Reviewed: Laboratory Tests 06/02/25 06/02/25 09:36 09:42 WBC 7.6 RBC 5.27 Hgb 16.6 Hct 50.1 MCV 95.1 MCH 31.5 MCHC 33.1 RDW 11.9 Plt Count 253 Sodium 135 Potassium 4.3 Chloride 95 L Carbon Dioxide 32 H Anion Gap 12 BUN 10 Creatinine 0.97 Estim Creat Clear Calc Not Reportable Estimated GFR > 60 Fasting Glucose 425 H* Estimat Average Glucose 318 Hemoglobin A1c % 12.7 H Calcium 9.7 D Total Bilirubin 0.5 AST 20 ALT 20 Alkaline Phosphatase 98 Total Protein 7.6 Albumin 5.0 Triglycerides 385 H Cholesterol 327 H LDL Cholesterol, Calc 212 H HDL Cholesterol 38 L 25-OH Vitamin D Total 31.4 TSH 4.49 H Free T4 1.35 Testosterone Level 103 L Free Testoster w SHBG 19.0 L Bioavail Testosterone 42.4 L Urine Color Yellow Urine Appearance Clear Urine pH 5.5 Ur Specific [place] >= 1.030 H Urine Protein Negative Urine Glucose (UA) >=1000 H Urine Ketones Negative Urine Blood Negative Urine Nitrite Negative Ur Leukocyte Esterase Negative Urine RBC 0-2 Urine WBC 0-5 Ur Squamous Epith Cells 0-2 Urine Bacteria None Seen Hyaline Casts 0-2 Coding Level of Care Code Est Pt Level 4 (16547) Diagnoses Pulmonary embolism without acute cor pulmonale, unspecified chronicity, unspecified pulmonary embolism type I26.99 Acute cor pulmonale presence: without acute cor pulmonale Chronicity: unspecified Pulmonary embolism type: unspecified Chronic deep vein thrombosis (DVT) of lower extremity, unspecified laterality, unspecified vein I82.509 Affected thrombotic vein of extremity: unspecified vein of extremity Chronicity: chronic DVT location: lower extremity Laterality: unspecified laterality Postoperative hypothyroidism E89.0 Hypothyroidism type: postoperative Hypogonadism in male E29.1 Adrenal insufficiency E27.40 Moderate persistent asthma with status asthmaticus J45.42 Asthma complication type: with status asthmaticus Asthma persistence: persistent Asthma severity: moderate Mixed hyperlipidemia E78.2 Hyperlipidemia type: mixed hyperlipidemia Anxiety F41.9 Substance abuse F19.10 Adenoma of left adrenal gland D35.02 Laterality: left Angular cheilitis K13.0 Abnormal breath sounds R09.89 Time Spent (min) 39 Assessment & Plan Assessment & Plan (1) Pulmonary embolism: Comment: HE HAS PAST HISTORY OF PULMONARY EMBOLISM AND DVT, AT LEAST FOR LAST 4 OR 5 YEARS. HE DOES NOT KNOW THE EXACT DATE. HE MUST HAVE SOME NT COAGULOPATHY, BECAUSE HE IS ON LONGSTANDING ANTICOAGULATION WITH LOVENOX AND WARFARIN. Code(s): I26.99 - Other pulmonary embolism without acute cor pulmonale Category: Medical Qualifiers: Acute cor pulmonale presence: without acute cor pulmonale Chronicity: unspecified Pulmonary embolism type: unspecified Qualified Code(s): I26.99 - Other pulmonary embolism without acute cor pulmonale Plan: History of PE, denies chest pain, ongoing shortness of breath that increases with humidity and exertion. Patient continues on Coumadin therapy. Follow up with Coumadin clinic as scheduled (2) DVT (deep venous thrombosis): Code(s): I82.409 - Acute embolism and thrombosis of unspecified deep veins of unspecified lower extremity Category: Medical Qualifiers: Affected thrombotic vein of extremity: unspecified vein of extremity Chronicity: chronic DVT location: lower extremity Laterality: unspecified laterality Qualified Code(s): I82.509 - Chronic embolism and thrombosis of unspecified deep veins of unspecified lower extremity Plan: History of DVT. No recent episodes. Continue Coumadin therapy as ordered by Coumadin clinic (3) Hypothyroidism: Code(s): E03.9 - Hypothyroidism, unspecified Category: Medical Qualifiers: Hypothyroidism type: postoperative Qualified Code(s): E89.0 - Postprocedural hypothyroidism Plan: The patient has a history of Graves disease. Status post thyroidectomy 2010 after failed radioactive iodine ablation TSH 4.49, Free T4 1.35 Continue levothyroxine 200 mcg daily Follow up with Endocrine as scheduled (4) Hypogonadism in male: Code(s): E29.1 - Testicular hypofunction Category: Medical Plan: Secondary to chronic opioid use. The patient is currently on Suboxone. Total testosterone 119 Continue testosterone transdermal q.a.m. Follow up with endocrinology as scheduled (5) Adrenal insufficiency: Code(s): E27.40 - Unspecified adrenocortical insufficiency Category: Medical Plan: Adrenal insufficiency secondary to chronic opioid use, currently on Suboxone DHEA 15 Follow up with Endocrine as scheduled (6) Asthma: Code(s): J45.909 - Unspecified asthma, uncomplicated Category: Medical Qualifiers: Asthma complication type: with status asthmaticus Asthma persistence: persistent Asthma severity: moderate Qualified Code(s): J45.42 - Moderate persistent asthma with status asthmaticus Plan: Patient reports improvement in breathing since started on fluticasone propion-salmeterol 250-50 mcg/dose (Weixela Inhub) 1 inh BID, DUONEB q.6 to 8 p.r.n. (7) HLD (hyperlipidemia): Code(s): E78.5 - Hyperlipidemia, unspecified Category: Medical Qualifiers: Hyperlipidemia type: mixed hyperlipidemia Qualified Code(s): E78.2 - Mixed hyperlipidemia Plan: tri 385, total chol 327, ldl 212, hdl 38 Discussed in length with the patient about hid increased risk for stroke and heart attack. The patient already had an PE and was recently was diagnosed with diabetes. He adamantly refused going on cholesterol lowering medications. Reports that he has been making dietary changes and has been losing weight. Reinforced low-cholesterol diet and activity as tolerated We will repeat lipid panel in 3 months (8) Anxiety: Code(s): F41.9 - Anxiety disorder, unspecified Category: Medical Plan: Encouraged CBT Continue diazepam 10 mg at bedtime p.r.n. Denies SI/HI (9) Substance abuse: Comment: (on suboxone) Code(s): F19.10 - Other psychoactive substance abuse, uncomplicated Category: Medical Plan: Continue Suboxone Follow up with Suboxone clinic as scheduled (10) Adrenal adenoma: Comment: (Left Adrenal Adenoma being followed - s/p Rt adrenalectomy) Code(s): D35.00 - Benign neoplasm of unspecified adrenal gland Category: Medical Qualifiers: Laterality: left Qualified Code(s): D35.02 - Benign neoplasm of left adrenal gland Plan: The adrenal tumor of the left side which has been monitored by Endocrine. The patient underwent resection of right-sided adrenal adenoma in 2003 which was 2.4 x 4 cm with benign histology. CT scan at [facility] in 2021 showed stable left adrenal adenoma. This has been stable since 2003. Follow up with endocrinology as scheduled (11) Angular cheilitis: Code(s): K13.0 - Diseases of lips Category: Medical Plan: Reports recurrent cracks lips in his improved with treatment. Continue this is an ointment b.i.d. (12) Abnormal breath sounds: Code(s): R09.89 - Other specified symptoms and signs involving the circulatory and respiratory systems Category: Medical Plan: Rhonchi throughout breath sounds heard on auscultation. We will treat the patient prophylactically to avoid asthma exacerbation. Doxycycline 100 mg b.i.d. x7 days ordered. Increase p.o. fluids Plan Three-month follow up Medications: New doxycycline monohydrate 100 mg PO BID 14 tabs 0RF 7 days
[2025-07-21 10:55] VITALS: BP 124/72; PULSE 95; RESP 18; O2SAT 95; BMI 26.4
== END 2025-07-21 11:54 | disposition home or self-care (01) ==
LOC: HO.HMCH 10:30
DX: I26.99 Other pulmonary embolism without acute cor pulmonale (principal); I82.509 Chronic embolism and thrombosis of unspecified deep veins of unspecified lower extremity; E89.0 Postprocedural hypothyroidism; E29.1 Testicular hypofunction; E27.40 Unspecified adrenocortical insufficiency; J45.42 Moderate persistent asthma with status asthmaticus; E78.2 Mixed hyperlipidemia; F41.9 Anxiety disorder, unspecified; F19.10 Other psychoactive substance abuse, uncomplicated; D35.02 Benign neoplasm of left adrenal gland; K13.0 Diseases of lips; R09.89 Other specified symptoms and signs involving the circulatory and respiratory systems

== ENCOUNTER → 2025-07-21 10:29 | Outpatient (BNVA) | payer MEDICARE, MEDICAID, SELFPAY | DX: E11.65 Type 2 diabetes mellitus with hyperglycemia (principal); I26.99 Other pulmonary embolism without acute cor pulmonale; I82.509 Chronic embolism and thrombosis of unspecified deep veins of unspecified lower extremity; E89.0 Postprocedural hypothyroidism; E27.40 Unspecified adrenocortical insufficiency; J45.42 Moderate persistent asthma with status asthmaticus; E78.2 Mixed hyperlipidemia; F41.9 Anxiety disorder, unspecified; F19.10 Other psychoactive substance abuse, uncomplicated; D35.02 Benign neoplasm of left adrenal gland; K13.0 Diseases of lips; R09.89 Other specified symptoms and signs involving the circulatory and respiratory systems; Z79.899 Other long term (current) drug therapy | CPT/HCPCS: 82947; 99212 ==

== ENCOUNTER 2025-07-21 15:23 | Outpatient (AMB) | payer MEDICARE, MEDICAID, SELFPAY ==
[2025-07-21 15:27] VITALS: BP 128/68; PULSE 96; O2SAT 98; BMI 26.3
--- NOTE | 2025-07-21 15:27 | A.OFFVIS_ITS ---
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 Was prediabetic for a few years Current medications Metformin 1000mg twice daily (increased from 500mg twice daily one month ago) Mounjaro 2.5 mg weekly (started one month ago) BG readings 112-233 with average 157 tgt 69%, high 31%, checking 2.5x/day Lost 14 pounds in the last month Father had diabetes Complications Cataracts, floaters and a retinal tear, laser therapy. Reports UTD HLD-LDL 212-not on statin currently Has had CDE x 1 ROS CONSTITUTIONAL: Denies weight loss, fever and chills. HEENT: Denies changes in vision and hearing. RESPIRATORY: Denies SOB and cough. CV: Denies palpitations and CP GI: Denies abdominal pain, nausea, vomiting and diarrhea. : Denies dysuria and urinary frequency. MSK: Denies new myalgia and joint pain. SKIN: Denies rash and pruritus. NEUROLOGICAL: Denies headache PSYCHIATRIC: Denies recent changes in mood. PHYSICAL EXAM: GENERAL: Alert and oriented x 3. NAD EYES: EOMI. Anicteric. HENT: Moist mucous membranes. No scleral icterus. No cervical lymphadenopathy. LUNGS: Clear to auscultation bilaterally. CARDIOVASCULAR: Regular rate and rhythm. No murmur. No JVD. ABDOMEN: Soft, non-tender +bs EXTREMITIES: No edema. Non-tender. SKIN: No rashes or lesions. Warm. NEUROLOGIC: No focal neurological deficits. CN II-XII grossly intact PSYCHIATRIC: Cooperative. Appropriate mood and affect [facility] Medical History HLD (hyperlipidemia) Osteopenia Graves disease Graves' ophthalmopathy Hypothyroidism, postsurgical Current use of anticoagulant therapy History of DVT (deep vein thrombosis) History of pulmonary embolism Lumbar spondylosis Personal history of nicotine dependence COPD (chronic obstructive pulmonary disease) Adrenal adenoma Adrenal insufficiency Hypogonadism in male Anxiety Depression Obesity Gout Surgical History History of colonoscopy History of umbilical hernia repair History of surgery on lower extremity History of lumbar fusion History of orbit decompression History of total adrenalectomy History of ventral hernia repair History of sinus surgery History of thyroidectomy History of appendectomy Family History Father Acute CVA (cerebrovascular accident) Diabetes Hypertension Mother Stroke Other Substance abuse Social History Housing: Condominium Alcohol intake: never Patient Tobacco Use Status: Former Tobacco user Tobacco use type: Cigarette e-Cigarette/Vaping Use: Never Used Second Hand Smoke Exposure: Yes service: No Current occupational status: disabled Cognitive needs: Yes (cane) Hearing needs: No Vision needs: Yes (Reading glasses) Physical Exam Vital Signs: Last Vital Signs Pulse 96 07/21/25 15:27 BP 128/68 07/21/25 15:27 Pulse Ox 98 07/21/25 15:27 Oxygen Delivery Method Room Air 07/21/25 15:27 BMI result Body Mass Index 26.3 Results AMB INR Fingerstick AMB INR Fingerstick 2.8 Last Edit by Kirstin Ocasio RN on 07/21/25 11:23 manual entry Results Reviewed Results Reviewed: Laboratory Last Values Glucose (Clinic) 124 mg/dL (60-115) H 07/21/25 15:34 Assessment & Plan Assessment & Plan (1) Uncontrolled diabetes mellitus with hyperglycemia: Code(s): E11.65 - Type 2 diabetes mellitus with hyperglycemia Category: Medical Qualifiers: Diabetes mellitus type: type 2 Qualified Code(s): E11.65 - Type 2 diabetes mellitus with hyperglycemia Plan Improving diabetic control Tolerating mounjaro well. Increase to 5mg weekly Continue metformin. Discussed benefits of the medication and low risk profile Treat hypoglycemia by rule of 15s Return beginning of August or sooner as needed Medications: New Mounjaro (tirzepatide) 5 mg (0.5 mL) subcut QWEEK 2 mL 3RF NS E11.65 - Type 2 diabetes mellitus with hyperglycemia Discontinued Mounjaro (tirzepatide) for 4 weeks Discontinued Reason: Doctor's Order 2.5 mg (0.5 mL) subcut QWEEK 2 mL 1RF NS E11.65 - Type 2 diabetes mellitus with hyperglycemia Coding Level of Care Code Est Pt Level 4 (19949) Diagnoses Uncontrolled type 2 diabetes mellitus with hyperglycemia E11.65 Diabetes mellitus type: type 2
[2025-07-21 15:40] LABS: Glucose, Whole Blood 124 mg/dL (60-115)
== END 2025-07-21 15:53 | disposition home or self-care (01) ==
LOC: HO.ENCR 15:24
PROVIDERS: Visit Provider Internal Medicine
DX: E11.65 Type 2 diabetes mellitus with hyperglycemia (principal)